=== PATIENT | female | born 1985 | race Caucasian/White ===

== ENCOUNTER 2021-04-04 18:25 | Emergency (ER) | payer OTHER ==
[~2021-04-04] VITALS: Ht 162.6 cm; Wt 67.7 kg
[~2021-04-04 18:25] MED LIST: ABIL20TA2 OR; AMBIE; AMBIEN CR PO; CHLO200T OR; DEPA250T2 OR; DEPA500T2 OR; DOCU5LIQ PO; FERR325T3 PO; IBUP80TA PO; LEXA1TAB2 OR; MILK10SU PO; OXYC1TAB23 PO; PRAZOSIN PO; PRENTAB66 PO; PRISTIQ PO; ZYPR5TAB PO; [UNRECOGNIZED DRUG - OTHER] EX
[2021-04-04] MEDS ORDERED: CLONI1TA PO ×2 (19:26)
[2021-04-04] MEDS ORDERED: AMBI12.52 PO (19:26)
[2021-04-04] MEDS ORDERED: NS 1,000 ML IV ONE (21:20)
[2021-04-04] MEDS ORDERED: KETOROLAC 30 MG/ML 1ML VIAL IV ONE (21:25)
[2021-04-04 21:52] LABS: BASO # 0.1 10^3/uL (0.0-0.2); BASO % 0.5 % (0.0-1.0); EOS # 0.2 10^3/uL (0.0-0.5); EOS % 1.1 % (0.0-3.0); HEMATOCRIT 43.3 % (36.0-47.0); HEMOGLOBIN 14.1 g/dl (12.0-15.5); LYMPH # 4.4 10^3/uL (1.5-5.0); MEAN CORPUSCULAR HEMOGLOBIN 27.5 pg (27.0-33.0); MEAN CORPUSCULAR HGB CONC 32.6 g/dl (32.0-36.5); MEAN CORPUSCULAR VOLUME 84.4 fl (80.0-96.0); MONO # 0.8 10^3/uL (0.0-0.8); MONO % 5.3 % (2.0-8.0); NEUTROPHILS # 9.7 10^3/uL (1.5-8.5); NEUTROPHILS % 63.7 % (36.0-66.0); PLATELET COUNT, AUTOMATED 530 10^3/uL (150-450); RED BLOOD COUNT 5.13 10^6/uL (4.00-5.40); WHITE BLOOD COUNT 15.2 10^3/uL (4.0-10.0)
[2021-04-04 22:21] LABS: ALBUMIN 4.2 GM/DL (3.2-5.2); BILIRUBIN,DIRECT 0.1 MG/DL (0.0-0.2); BILIRUBIN,TOTAL 0.4 MG/DL (0.2-1.0); TOTAL PROTEIN 8.7 GM/DL (6.4-8.2)
[2021-04-04] MEDS ORDERED: ISOVUE-370 76% 100ML VIAL As Ordered ONE (23:25)
[2021-04-04] MEDS ORDERED: MORPHINE 4 MG/ML 1ML VIAL/SYRINGE (J2270) IV ONE (23:35)
[2021-04-05] MEDS ORDERED: ONDANSETRON 4MG/2ML VIAL IV ONE (00:20)
--- NOTE | 2021-04-05 00:32 | REPVR ---
PROCEDURE INFORMATION: Exam: CT Abdomen And Pelvis With Contrast Exam date and time: 04/04/2021 9:18 PM Age: 36 years old Clinical indication: Abdominal pain; Generalized TECHNIQUE: Imaging protocol: Computed tomography of the abdomen and pelvis with contrast. Radiation optimization: All CT scans at this facility use at least one of these dose optimization techniques: automated exposure control; mA and/or kV adjustment per patient size (includes targeted exams where dose is matched to clinical indication); or iterative reconstruction. Contrast material: ISO; Contrast volume: 100 ml; Contrast route: INTRAVENOUS (IV); COMPARISON: No relevant prior studies available. FINDINGS: Lungs: No suspicious mass or airspace process in the visualized lung bases. Liver: Liver appears normal with no focal abnormality. Gallbladder and bile ducts: Gallbladder is surgically absent. Pancreas: Pancreas appears normal. No focal mass or peripancreatic inflammation. Spleen: Spleen appears homogeneous without focal mass. Adrenal glands: Right adrenal gland nodule measuring 10 mm is present. Left adrenal gland nodules measuring 13 and 10 mm are present. Kidneys and ureters: Left kidney is unremarkable. Right kidney demonstrates patchy decreased enhancement in attenuation in the lower pole and mild hydronephrosis, with a proximal right ureter stone measuring 4 x 2 mm at the right UPJ. Stomach and bowel: Sigmoid surgical anastomosis with partial left hemicolectomy. No obstructive change. Appendix: Appendix may be surgically absent. Intraperitoneal space: . No free air. No significant fluid collection. Vasculature: No aortic aneurysm. Main portal and splenic veins enhance normally. Lymph nodes: No enlarged lymph nodes. Urinary bladder: Urinary bladder appears normal. Reproductive: IUD is present in the uterus. No enlargement of the uterus or ovaries. Bones/joints: Bony structures show no acute fracture or destructive process. Soft tissues: No effacement of normal fat planes in the ischiorectal fossa. No dehiscence of prior abdominal wall incisions. IMPRESSION: 1. Mild right hydronephrosis secondary to a 4 x 2 mm proximal right ureter stone at the right UPJ. Decreased attenuation enhancement in the lower pole right kidney may reflect focal pyelonephritis superimposed. 2. No obvious complication involving the partial colectomy and surgical anastomosis 3. Bilateral adrenal gland masses which can be evaluated on outpatient basis with noncontrast CT COMMENTS: Consistent with the [employer]'s Incidental Findings Committee white paper (J Am Milena Radiol 2017): Any incidental adrenal lesion less than or equal to 1 cm is likely benign. No follow-up imaging is recommended for these lesions per consensus recommendations based on imaging criteria. Further lab evaluation could be pursued if warranted based on clinical findings. Electronically signed by: Jeffry Escobedo On 04/05/2021 00:31:49 AM
[2021-04-05] MEDS ORDERED: TAMSULOSIN 0.4 MG CAP PO ONE (01:25)
[2021-04-05] MEDS ORDERED: NORCO 5/325MG TABLET (BULK FOR ED) PO ONE (01:25)
[2021-04-05] MEDS ORDERED: HYDR-3713 PO (01:31)
[2021-04-05] MEDS ORDERED: FLOM0.4C39 PO (01:31)
[2021-04-05] MEDS ORDERED: ONDA4TAB6 PO (01:31)
[2021-04-05 01:42] VITALS: BP 160/90
--- NOTE | 2021-04-05 11:44 | ED PDOC ---
Post-Departure Follow-Up ft ambrocio kim faxed formal report of ct abd/p for fu Bryce Stanton MD Apr 05, 2021 11:44
== END 2021-04-05 01:46 | disposition home or self-care (01) ==
LOC: M ED 18:25
DX: N20.1 Calculus of ureter (principal); R10.9 Unspecified abdominal pain; G89.29 Other chronic pain; D47.3 Essential (hemorrhagic) thrombocythemia; I10 Essential (primary) hypertension; Z79.899 Other long term (current) drug therapy; Z88.8 Allergy status to other drugs, medicaments and biological substances; Z62.810 Personal history of physical and sexual abuse in childhood; Z87.19 Personal history of other diseases of the digestive system; Z90.49 Acquired absence of other specified parts of digestive tract; Z98.890 Other specified postprocedural states
CPT/HCPCS: 74177; 80047; 80076; 81001; 83690; 84702; 85025; 87086; 96374; 96375; 99284; J1885; J2270; J2405; Q9967

== ENCOUNTER → 2021-06-03 | Outpatient (REF) | payer OTHER ==
[~2021-06-03] MED LIST changes: +AMBI12.52 PO; +CLONI1TA PO; +FLOM0.4C39 PO; +HYDR-3713 PO; +ONDA4TAB6 PO
[2021-06-03 18:25] LABS: MALB URINE SIEMENS 29.6 MG/L; MAU/CREAT RATIO 21.4 MCG/MG (0.0-30.0)
== END ==
LOC: M LAB REF 17:11
PROVIDERS: ATTEND Nurse Practitioner Family
DX: E11.65 Type 2 diabetes mellitus with hyperglycemia (principal)

== ENCOUNTER 2021-07-07 19:57 | Emergency (ER) | payer OTHER ==
[~2021-07-07] VITALS: Ht 162.6 cm; Wt 74.2 kg
[2021-07-07 19:58] VITALS: BP 182/94
--- OUTSIDE RECORDS SUMMARY | 2021-07-07 20:07 | CCD | Continuity of Care Document ---
Author Author Elma MATTHEW M.D. Organization Unknown Address [facility] [address] [place] [address] Phone [phone] Care Team Providers Care Restrike Hammer Operator Name Role Phone Usa Anselmo Kwon [facility] AUT Unavailable Problems Description No Information Available Social History Type Date Description Comments Sex Unknown Tobacco Use Start: Unknown Never Smoked Cigarettes Tobacco Use Start: Unknown Never Smoked Cigars Tobacco Use Start: Unknown Never Smoked A Pipe Tobacco Use Start: Unknown Never Used Smokeless Tobacco ETOH Use Denies alcohol use Tobacco Use Start: Unknown Patient has never smoked Recreational Drug Use Denies Drug Use Allergies and adverse reactions Active Allergies Criticality Reaction | Severity Comments Date Wellbutrin Unable to assess criticality 06/08/2021 Medications Active Medications SIG Qnty Indications Ordering Provide r Date Zofran 4mg Tablets take 1 tab by mouth every 8 hours for nausea Unknown 000 Clonidine HCL 0.3mg Tablets Unknown Zolpidem Tartrate ER 12.5mg Tablet s ER take one tablet by mouth at bedtime as needed for sleep maximum daily dose 1 Unknown [place] 5-325mg Tablets 1 by mouth every 6 hours as directed Unknown Celexa 10mg Tablets 1 by mouth every day Unknown Metformin HCL 1000mg Tablets Unknown Immunizations Description No Information Available Vital Signs Date Vital Result Comment 06/08/2021 10:55am BP Systolic 118 mmHg BP Diastolic 74 mmHg Heart Rate 80 /min O2 % BldC Oximetry 97 % Weight 160.00 lb Weight 72.576 kg Height 64 inches 5'4" BMI (Body Mass Index) 27.5 kg/m2 BSA (Body Surface Area) 1.78 m2 Results Test Acquired Date Facility Test Result H/L Range Note Inhouse Ua 06/08/2021 In Office Ua Color yellow Normal: Yellow Ua Appearance clear Normal: Clear Spec [place] 1.015 1.001-1.030 Ua PH Test Strip 5 5-9 Leukocytes - Normal: Negative Ua Nitrate - Normal: Negative Ua Protein 30 High Normal: Negative Inhouse Glucose - Normal: Negative Ua Ketones - Noraml: Negative Urobilinogen - Normal: Negative Ua Bilirubin - Normal: Negative Blood - Noraml: Negative Procedures Date Code Description Status 06/08/2021 97605 Office/Outpatient New MDM 15- 29 Minutes Completed Medical Devices Description No Information Available Encounters Type Date Location Provider Dx Diagnosis Office Visit 06/08/2021 11:00a [facility] Cole Matthew M.D. N20.0 Calculus of kidney R80.9 Proteinuria, unspecified Assessments Date Code Description Provider 06/08/2021 N20.0 Calculus of kidney Cole Matthew M.D. 06/08/2021 R80.9 Proteinuria, unspecified Cole Matthew M.D. Plan of Treatment 06/08/2021 - Cole Matthew M.D.* N20.0 Calculus of kidney* New Xrays:* Abdomen 1 View, Scheduled: 06/08/21 * Comments:* 1. Patient presents to the clinic today for evaluation and management of kidney stone.2. Physical examination completed in the office was unremarkable.3. Urinalysis was positive for protein of 30, otherwise unremarkable.4. We are not sure whether she completely passed her stone or not.5. We will obtain a KUB to determine radio-opacity of the stone to help in management and/or follow up and surveillance of the stone and we will treat her accordingly. 6. She was advised to call or RTC if she develops any concerns. 7. We will do a telemedicine consultation for result review and further plan of care. * R80.9 Proteinuria, unspecified* Comments:* Urinalysis was positive for protein of 30, otherwise unremarkable. Result was reviewed with the patient at length. Functional Status Functional Condition Comment Date Status wears contacts Active Mental Status Description No Information Available Referrals Description No Information Available
--- OUTSIDE RECORDS SUMMARY | 2021-07-07 20:07 | CCD | Continuity of Care Document ---
Author Author Elma CISNEROS Organization Unknown Address [address] [address] Phone [phone] Care Team Providers Care Supervisor Logging Name Role Phone Rogers Wilson MD [facility] [phone] Problems Description No Information Available Social History Type Date Description Comments Sex Unknown Tobacco Use Start: Unknown Never Smoked Cigarettes Smoking Status Reviewed: 06/03/21 Never Smoked Cigarettes ETOH Use Never used alcohol Allergies and adverse reactions Active Allergies Criticality Reaction | Severity Comments Date Wellbutrin Unable to assess criticality 06/03/2021 Medications Active Medications SIG Qnty Indications Ordering Provide r Date Metformin HCL ER 500mg Tablets ER 24HR take one tablets by mouth twice a day 60tabs E11.65 Tasia Cisneros NP 06/03/2021 Clonidine HCL 0.3mg Tablets 2 by mouth in am and 4 by mouth at night Unknown 0000 /0000 Ambien CR 12.5mg Tablets ER 1 by mouth daily Unknown Immunizations Description No Information Available Vital Signs Date Vital Result Comment 06/03/2021 2:42pm BP Systolic 122 mmHg BP Diastolic 80 mmHg Heart Rate 63 /min Height 63.4 inches 5'3.40" Weight 161.19 lb BMI (Body Mass Index) 28.2 kg/m2 O2 % BldC Oximetry 98 % Results Test Acquired Date Facility Test Result H/L Range Note Urine Micro/Creat Ratio Random 06/03/2021 [facility] [address] [place] [address] ([phone] - Creatinine, Urine 138.0 mg/dL Normal Malb Urine Siemens 29.6 mg/L Normal Jesse/Creat Ratio 21.4 MCG/MG Normal 0.0-30.0 1 Laboratory test finding 06/03/2021 In House Glucose 125 Hemoglobin A1c 7.5 1 THE [place] DI[employer] ASSOC[employer] ATION STATES THAT MICROALBUMINURIA IS PRESENT IF THE MICROALBUMIN/CREATININE RATIO EXCEEDS 30 MCG/MG. THE THRESHOLD FOR CLINICAL ALBUMINURIA IS REACHED AT 300 MCG/MG. THE CLASSIFICATION OF A PATIENT SHOULD BE BASED UPON AT LEAST 2 OF 3 ABNORMAL RESULTS ON SPECIMENS COLLECTED WITHIN A 3 TO 6 MONTH TIME FRAME. Procedures Date Code Description Status 06/03/2021 44794 Consultation Outpatient Level 4 Completed Medical Devices Description No Information Available Encounters Type Date Location Provider Dx Diagnosis Office Visit 06/03/2021 2:45p DR. 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 Gisel Prince 06/03/2021 - Tasia Cisneros NP* E11.65 Type 2 diabetes mellitus with hyperglycemia* New Medication:* Metformin HCL ER 500 mg - take one tablets by mouth twice a day * Comments:* Pt referred for evaluation of Type 2 Diabetes. Pt states has not been seen by "anyone" for Diabetes. 06/03/21- in office A1c= 7.5 % (03/25/21- out of office 6.7 %, 10/06/20- A1c= 7.5 %) Random BS= 125Just got a Relion meter today. Has not started checking BSReviewed diet- trying to watch carbs.Exercise- trying to get back into- just had surgery in JanuaryCurrent medication- none. Discussed possible treatments. Pt had been on Metformin when dx with PCOS 2014- tolerated well. Will restart Metformin ER 500mg- escalate to 1 tab BID * Follow up:* RTO 1 month JL * D35.02 Benign neoplasm of left adrenal gland* Comments:* Pt states had full workup in [place] for adrenal function 10/06/20- CT Abd/Pelvis with IV contrast- report only available- study performed in [place] PT states had repeat CT scan in [place] T scan with contrast done 04/2021 at [facility] after pt developed kidney stones. 2 nodules on Left Adrenal- 15mm and -2 HU and 9mm, 8 HU. Right Adrenal 10mm and ) HU. Labs done 03/25/21- scr= 0.94, GFR= >60, Na+ = 140, K+ = 4.50 5% of patients with incidental adrenal nodules prove to have a pheochromocytoma. The pretest probability of pheochromocytoma in this case in low.The testing of Urine metanephrines (by mass SPECT) is 97% sensitive (a negative test rules out disease) and 91% specific (a positive test rules in disease).The testing of PLASMA metanephrines (by mass SPECT) is 97% sensitive (a negative test rules out disease) and 94% specific (a positive test rules in disease). However patient should have blood drawn in the supine position after 30 minutes otherwise the plasma levels can be 2.8 fold increase in false positive results. a)Sizes: 4 cm - cut off value of 93% sensitivity of detecting adrenal cancer.b) CT scanLow attenuation (black/less dense) on unenhanced CTc) HU <10 (unenhanced CT) is usually benign/almost 100% of the timed) Rapid contrast washout-benigne) MRI: Mild enhancement and rapid washout of contrast (Benign nodules: Lose signal on out of phase images), Iso intense: Both T1 and T2Per Endocrine guidelines a homogeneous mass, with a smooth border, and a HU <[address] is likely to be benign Whereas malignant lesions are typically :irregular, Size >4 cm, HU> 10 , on CT- delayed contrast washout, on MRI: Marked enhancement slower washout/ hypointense on T1 MRIIn terms of function :Although most adrenal nodules are nonfunctional, 10-15% can secrete hormonesAll patient's: Should be tested for [place]'s and pheochromocytoma(and if hypertensive they should should be tested for aldosterone excess ++++++)a) Subclinical Scarlett's is the most common hormonal abnormality detected Diagnosis: -1 mg overnight dexamethasone suppression test If test is abnormal: Do the followin hour urine free cortisol/ACTH/DHEAS/8 mg overnight DST (+ Positive DST defined as 8 AM cortisol >5)b) Pheochromocytoma: incidence3% of adenomas -Plasma fractionated metanephrines the test is very sensitive but not very specific therefore there will be false positives. Consider clinical suspicion. However patient should have blood drawn in the supine position after 30 minutes otherwise the plasma levels can be 2.8 fold increase in false positive results. -If low suspicion may perform 24-hour urine fractionated metanephrines Aldosterone aromas are rare. All patient's with hypertension should be tested.Pt notes workup was performed to detemine funct ion of adrenal glands in [facility] attempt to obtain prior records. Follow-up includes: : -Repeat imaging 6-12 months -Imaging thereafter at the discretion of the provider. -Repeat 1 mg DST for 4 consecutive years * Z01.89 Encounter for other specified special examinations* Comments:* Foot Exam performed 06/03/21 . Normal light touch and monofilament testing and vibration. Functional Status Description No Information Available Mental Status Description No Information Available Referrals Refer to Reason for Referral Status Appt Date Gisel Prince MD ADRENAL Created [facility], [address] [place] [address] [phone]
--- OUTSIDE RECORDS SUMMARY | 2021-07-07 20:07 | CCD ---
Author Author [facility] Organization [facility] Address Unknown Phone Unavailable Care Team Providers Care Physical Therapy Technician Name Role Phone Kirill Kang Unavailable PROBLEMS No Information ALLERGIES Allergen (clinical drug ingredient) Drug/Non Drug Allergy do cumented on EMR Reaction Allergy Type Onset Date Status bupropion Bupropion SEIZURES Drug Allergy Active ENCOUNTERS from 1983 to 2021-06-10 Encounter Location Date Provider Diagnosis [facility] [address] [place] [address] 24 , 2020 Kirill Kang Screening for colon cancer Z12.11 IMMUNIZATIONS No Information SOCIAL HISTORY Sex Assigned At : Social History Observation Description Sex Assigned At Unknown REASON FOR REFERRAL No Information VITAL SIGNS Height 64 in Apr, Weight 150.0 lbs Apr, BMI 25.74 kg/m2 Apr, Temperature 98.1 degrees Fahrenheit Apr, Heart Rate 68 /min Apr, Respiratory Rate 18 /min Apr, Oximetry 99 % Apr, Blood pressure systolic 110 mmHg Apr, Blood pressure diastolic 86 mmHg Apr, MEDICATIONS Medication SIG (Take, Route, Frequency, Duration) Notes Start Da te End Date Status Zolpidem Tartrate ER 12.5 MG 1 tablet at bedtime as needed Orall y Once a day Active cloNIDine HCl 0.1 MG 1 tablet Orally Once a day for 30 day(s) Active PROCEDURES No Information RESULTS No Results REASON FOR VISIT Empiric Colectomy- due for follow up MEDICAL (GENERAL) HISTORY Type Description Date Medical History POTS position orthostatic tachycardia on clonidine Medical History Type 2 Diabetes new daignosis Medical History Depression and anxiety Medical History aFAP Medical History Kidney stones Surgical History Robotic assisted colectomy, likely ileo-rectal as had no diverting loop ileostomy 2021 Surgical History D/C 2007 2007 Surgical History 2013, 1 prior 2012 Surgical History Lipo/Tummy tuck 2014 2016 Surgical History gallbladder removal lap 2018 Hospitalization History periodic hospitalizations fo r seizures, pancreatitis, flank pain near pancreatitis Goals Section No Information Health Concerns No Information MEDICAL EQUIPMENT No Information MENTAL STATUS No Information FUNCTIONAL STATUS No Information ASSESSMENTS Encounter Date Diagnosis Assessment Notes Treatment Notes Treatm ent Clinical Notes Apr, Screening for colon cancer (ICD-10 - Z12.11) The patient presents for colorectal cancer screening. The patient was informed about multiple modalities of screening and they opted for colonoscopy. The risks including but not limited to colonic perforation and benefits were explained to the patient. Pt v/u and agreeable. PLAN OF TREATMENT Treatment Notes Assessment Notes Clinical Notes Screening for colon cancer The patient presents for co lorectal cancer screening. The patient was informed about multiple modalities of screening and they opted for colonoscopy. The risks including but not limited to colonic perforation and benefits were explained to the patient. Pt v/u and agreeable. Insurance Providers Payer Name Payer Address Payer Phone Insured Name Patient Relati onship to Insured Coverage Start Date Coverage End Date [facility] Diabetica [id number] [address] [id number] [facility] [id number] Elma Reeves V self
--- OUTSIDE RECORDS SUMMARY | 2021-07-07 20:08 | CCD | Continuity of Care Document ---
Author Author Elma CISNEROS Organization Unknown Address [address] [address] Phone [phone] Care Team Providers Care Rating Examiner Name Role Phone Rogers Wilson MD [facility] [phone] Problems Description No Information Available Social History [...] Range Note Urine Micro/Creat Ratio Random 06/03/2021 [facility] [address] [place] [address] ([phone] - Creatinine, Urine 138.0 mg/dL Normal Malb Urine Siemens 29.6 mg/L Normal Jesse/Creat Ratio 21.4 MCG/MG Normal 0.0-30.0 1 Laboratory test finding 06/03/2021 In House Glucose 125 Hemoglobin A1c 7.5 1 THE [place] [employer] ASSOC[employer] ATION STATES THAT MICROALBUMINURIA IS PRESENT IF THE MICROALBUMIN/CREATININE RATIO EXCEEDS 30 MCG/MG. THE THRESHOLD FOR CLINICAL ALBUMINURIA IS REACHED AT 300 MCG/MG. THE CLASSIFICATION OF A PATIENT SHOULD BE BASED UPON AT LEAST 2 OF 3 ABNORMAL RESULTS ON SPECIMENS COLLECTED WITHIN A 3 TO 6 MONTH TIME FRAME. Procedures Date Code Description Status 06/03/2021 25133 Consultation Outpatient Level 5 Completed Medical Devices Description No Information Available [...] Comments:* Pt states had full workup in [place] for adrenal function 10/06/20- CT Abd/Pelvis with IV contrast- report only available- study performed in [place] PT states had repeat CT scan in [place] T scan with contrast done 04/2021 at [facility] after pt developed kidney stones. Labs done 03/25/21- scr= 0.94, GFR= >60, Na+ = 140, K+ = 4.50 * Z01.89 Encounter for other specified special examinations* Comments:* Foot Exam performed 06/03/21 . Normal light touch and monofilament testing and vibration. Functional Status Description No Information Available Mental Status Description No Information Available Referrals Refer to Dr Reason for Referral Status Appt Date Gisel Prince MD ADRENAL Created [address] [facility], [address] [place] [address] [phone]
--- OUTSIDE RECORDS SUMMARY | 2021-07-07 20:08 | CCD | Continuity of Care Document ---
Author Author Elma CISNEROS Organization Unknown Address [address] [address] Phone [phone] Care Team Providers Care Results Technician Name Role Phone Rogers Wilson MD [facility] [phone] Problems Description No Information Available Social History [...] Range Note Urine Micro/Creat Ratio Random 06/03/2021 [facility] [address] [place] [address] [phone] - Creatinine, Urine 138.0 mg/dL Normal Malb Urine Siemens 29.6 mg/L Normal Jesse/Creat Ratio 21.4 MCG/MG Normal 0.0-30.0 1 Laboratory test finding 06/03/2021 In House Glucose 125 Hemoglobin A1c 7.5 1 THE [place] DIABETES ASSOC[employer] ATION STATES THAT MICROALBUMINURIA IS PRESENT IF THE MICROALBUMIN/CREATININE RATIO EXCEEDS 30 MCG/MG. THE THRESHOLD FOR CLINICAL ALBUMINURIA IS REACHED AT 300 MCG/MG. THE CLASSIFICATION OF A PATIENT SHOULD BE BASED UPON AT LEAST 2 OF 3 ABNORMAL RESULTS ON SPECIMENS COLLECTED WITHIN A 3 TO 6 MONTH TIME FRAME. Procedures Date Code Description Status 06/03/2021 90089 Consultation Outpatient Level 5 Completed Medical Devices [...] Comments:* Pt states had full workup in [place] for adrenal function 10/06/20- CT Abd/Pelvis with IV contrast- report only available- study performed in [place] PT states had repeat CT scan in [place] T scan with contrast done 04/2021 at [facility] after pt developed kidney stones. Labs done [...] Date Gisel Prince MD ADRENAL Created [address] [facility], [address] [place] [address] [phone]
--- OUTSIDE RECORDS SUMMARY | 2021-07-07 20:08 | CCD | Continuity of Care Document ---
Author Author [facility], Evita bryant V Organization Unknown Address [address] [place] [address] Phone [phone] Care Team Providers Care Clerical Specialist Name Role Phone Usa Anselmo Kwon AUTM Unavailable Problems Description No Information Available Social [...] for sleep maximum daily dose 1 Unknown [place] 5-325mg Tablets 1 by mouth every 6 [...] Yellow Ua Appearance clear Normal: Clear Spec [place] 1.015 1.001-1.030 Ua PH Test Strip 5 5-9 Leukocytes - Normal: Negative Ua Nitrate - Normal: Negative Ua Protein 30 High Normal: Negative Inhouse Glucose - Normal: Negative Ua Ketones - Noraml: Negative Urobilinogen - Normal: Negative Ua Bilirubin - Normal: Negative Blood - Noraml: Negative Procedures Description No Information Available Medical Devices Description No Information Available Encounters Description No Information Available Assessments Description No Information Available Plan of Treatment No Information Available Functional Status Functional Condition Comment Date Status wears contacts Active Mental Status Description No Information Available Referrals Description No Information Available
--- OUTSIDE RECORDS SUMMARY | 2021-07-07 20:08 | CCD ---
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 Name Role Phone SALMARLYN CLIFFORD Unavailable Unavailable GABRIEL, B BESSY CAT SITTER Unavailable Unavailable GABRIEL, B BESSY CAT SITTER Unavailable Unavailable GABRIEL, B BESSY CAT SITTER Unavailable Unavailable GABRIEL, B BESSY CAT SITTER Unavailable Unavailable GABRIEL, B BESSY CAT SITTER Unavailable Unavailable GABRIEL, B BESSY CAT SITTER Unavailable Unavailable GABRIEL, B BESSY CAT SITTER Unavailable Unavailable GABRIEL, B BESSY CAT SITTER Unavailable Unavailable GABRIEL, B BESSY CAT SITTER Unavailable Unavailable GABRIEL, B BESSY CAT SITTER Unavailable Unavailable GABRIEL, B BESSY CAT SITTER Unavailable Unavailable GABRIEL, B BESSY CAT SITTER Unavailable Unavailable GABRIEL, B BESSY CAT SITTER Unavailable Unavailable GABRIEL, B BESSY CAT SITTER Unavailable Unavailable GABRIEL, B BESSY CAT SITTER Unavailable Unavailable GABRIEL, B BESSY CAT SITTER Unavailable Unavailable GABRIEL, B BESSY CAT SITTER Unavailable Unavailable GABRIEL, B BESSY CAT SITTER Unavailable Unavailable GABRIEL, B BESSY CAT SITTER Unavailable Unavailable GABRIEL, B BESSY CAT SITTER Unavailable Unavailable GABRIEL, B BESSY CAT SITTER Unavailable Unavailable GABRIEL, B BESSY CAT SITTER Unavailable Unavailable GABRIEL, B BESSY CAT SITTER Unavailable Unavailable GABRIEL, B BESSY CAT SITTER Unavailable Unavailable GABRIEL, B BESSY CAT SITTER Unavailable Unavailable GABRIEL, B BESSY CAT SITTER Unavailable Unavailable GABRIEL, B BESSY CAT SITTER Unavailable Unavailable GABRIEL, B BESSY CAT SITTER Unavailable Unavailable GABRIEL, B BESSY CAT SITTER Unavailable Unavailable GABRIEL, B BESSY CAT SITTER Unavailable Unavailable GABRIEL, B BESSY CAT SITTER Unavailable Unavailable GABRIEL, B BESSY CAT SITTER Unavailable Unavailable GABRIEL, B BESSY CAT SITTER Unavailable Unavailable GABRIEL, B BESSY CAT SITTER Unavailable Unavailable GABRIEL, B BESSY CAT SITTER Unavailable Unavailable GABRIEL, B BESSY CAT SITTER Unavailable Unavailable GABRIEL, B BESSY CAT SITTER Unavailable Unavailable GABRIEL, B BESSY CAT SITTER Unavailable Unavailable GABRIEL, B BESSY CAT SITTER Unavailable Unavailable GABRIEL, B BESSY CAT SITTER Unavailable Unavailable GABRIEL, B BESSY CAT SITTER Unavailable Unavailable GABRIEL, B BESSY CAT SITTER Unavailable Unavailable GABRIEL, B BESSY CAT SITTER Unavailable Unavailable GABRIEL, B BESSY CAT SITTER Unavailable Unavailable GABRIEL, B BESSY CAT SITTER Unavailable Unavailable GABRIEL, B BESSY CAT SITTER Unavailable Unavailable GBARIEL, B BESSY CAT SITTER Unavailable Unavailable GABRIEL, B BESSY CAT SITTER Unavailable Unavailable GABRIEL, B BESSY CAT SITTER Unavailable Unavailable GABRIEL, B BESSY CAT SITTER Unavailable Unavailable GABRIEL, B BESSY CAT SITTER Unavailable Unavailable GABRIEL, B BESSY CAT SITTER Unavailable Unavailable GABRIEL, B BESSY CAT SITTER Unavailable Unavailable GABRIEL, B BESSY CAT SITTER Unavailable Unavailable AGBRIEL, B BESSY CAT SITTER Unavailable Unavailable GABRIEL, B BESSY CAT SITTER Unavailable Unavailable GABRIEL, B BESSY CAT SITTER Unavailable Unavailable GABRIEL, B BESSY CAT SITTER Unavailable Unavailable GABRIEL, B BESSY CAT SITTER Unavailable Unavailable GABRIEL, B BESSY CAT SITTER Unavailable Unavailable GABRIEL, B BESSY CAT SITTER Unavailable Unavailable GABRIEL, B BESSY CAT SITTER Unavailable Unavailable PAT, J OLAF Unavailable Unavailable Christiano MATTHEW MD Unavailable Unavailable Christiano MATTHEW MD Unavailable Unavailable Christiano MATTHEW MD Unavailable Unavailable Christiano MATTHEW MD Unavailable Unavailable Christiano MATTHEW MD Unavailable Unavailable Christiano MATTHEW MD Unavailable Unavailable Christiano MATTHEW MD Unavailable Unavailable Christiano MATTHEW MD Unavailable Unavailable Christiano MATTHEW MD Unavailable Unavailable Christiano MATTHEW MD Unavailable Unavailable Christiano MATTHEW MD Unavailable Unavailable Christiano MATTHEW MD Unavailable Unavailable Christiano MATTHEW MD Unavailable Unavailable Christiano MATTHEW MD Unavailable Unavailable Christiano MATTHEW MD Unavailable Unavailable Christiano MATTHEW MD Unavailable Unavailable Christiano MATTHEW MD Unavailable Unavailable OBEN, T COLE MD Unavailable Unavailable OBEN, T COLE MD Unavailable Unavailable OBEN, T COLE MD Unavailable Unavailable OBEN, T COLE MD Unavailable Unavailable OBEN, T COLE MD Unavailable Unavailable OBEN, T COLE MD Unavailable Unavailable OBEN, T COLE MD Unavailable Unavailable OBEN, T COLE MD Unavailable Unavailable OBEN, T COLE MD Unavailable Unavailable OBEN, T COLE MD Unavailable Unavailable OBEN, T COLE MD Unavailable Unavailable OBEN, T COLE MD Unavailable Unavailable OBEN, T COLE MD Unavailable Unavailable OBEN, T COLE MD Unavailable Unavailable OBEN, T COLE MD Unavailable Unavailable OBEN, T COLE MD Unavailable Unavailable OBEN, T COLE MD Unavailable Unavailable OBEN, T COLE MD Unavailable Unavailable OBEN, T COLE MD Unavailable Unavailable OBEN, T COLE MD Unavailable Unavailable OBEN, T COLE MD Unavailable Unavailable OBEN, T COLE MD Unavailable Unavailable OBEN, T COLE MD Unavailable Unavailable OBEN, T COLE MD Unavailable Unavailable OBEN, T COLE MD Unavailable Unavailable OBEN, T COLE MD Unavailable Unavailable OBEN, T COLE MD Unavailable Unavailable OBEN, T COLE MD Unavailable Unavailable OBEN, T COLE MD Unavailable Unavailable OBEN, T COLE MD Unavailable Unavailable OBEN, T COLE MD Unavailable Unavailable OBEN, T COLE MD Unavailable Unavailable OBEN, T COLE MD Unavailable Unavailable OBEN, T COLE MD Unavailable Unavailable OBEN, T COLE MD Unavailable Unavailable OBEN, T COLE MD Unavailable Unavailable OBEN, T COLE MD Unavailable Unavailable OBEN, T COLE MD Unavailable Unavailable OBEN, T COLE MD Unavailable Unavailable OBEN, T COLE MD Unavailable Unavailable OBEN, T COLE MD Unavailable Unavailable OBEN, T COLE MD Unavailable Unavailable OBEN, T COLE MD Unavailable Unavailable OBEN, T COLE MD Unavailable Unavailable OBEN, T COLE MD Unavailable Unavailable OBEN, T COLE MD Unavailable Unavailable OBEN, T COLE MD Unavailable Unavailable OBEN, T COLE MD Unavailable Unavailable OBEN, T COLE MD Unavailable Unavailable OBEN, T COLE MD Unavailable Unavailable OBEN, T COLE MD Unavailable Unavailable OBEN, T COLE MD Unavailable Unavailable OBEN, T COLE MD Unavailable Unavailable OBEN, T COLE MD Unavailable Unavailable OBEN, T COLE MD Unavailable Unavailable OBEN, T COLE MD Unavailable Unavailable OBEN, T COLE MD Unavailable Unavailable OBEN, T COLE MD Unavailable Unavailable OBEN, T COLE MD Unavailable Unavailable OBEN, T COLE MD Unavailable Unavailable OBEN, T COLE MD Unavailable Unavailable OBEN, T COLE MD Unavailable Unavailable OBEN, T COLE MD Unavailable Unavailable OBEN, T COLE MD Unavailable Unavailable OBEN, T COLE MD Unavailable Unavailable OBEN, T COLE MD Unavailable Unavailable OBEN, T COLE MD Unavailable Unavailable OBEN, T COLE MD Unavailable Unavailable OBEN, T COLE MD Unavailable Unavailable OBEN, T COLE MD Unavailable Unavailable OBEN, T COLE MD Unavailable Unavailable OBEN, T COLE MD Unavailable Unavailable OBEN, T COLE MD Unavailable Unavailable OBEN, T COLE MD Unavailable Unavailable OBEN, T COLE MD Unavailable Unavailable OBEN, T COLE MD Unavailable Unavailable OBEN, T COLE MD Unavailable Unavailable OBEN, T COLE MD Unavailable Unavailable OBEN, T COLE MD Unavailable Unavailable OBEN, T COLE MD Unavailable Unavailable OBEN, T COLE MD Unavailable Unavailable OBEN, T COLE MD Unavailable Unavailable OBEN, T COLE MD Unavailable Unavailable OBEN, T COLE MD Unavailable Unavailable OBEN, T COLE MD Unavailable Unavailable OBEN, T COLE MD Unavailable Unavailable OBEN, T COLE MD Unavailable Unavailable OBEN, T COLE MD Unavailable Unavailable OBEN, T COLE MD Unavailable Unavailable OBEN, T COLE MD Unavailable Unavailable OBEN, T COLE MD Unavailable Unavailable OBEN, T COLE MD Unavailable Unavailable OBEN, T COLE MD Unavailable Unavailable OBEN, T COLE MD Unavailable Unavailable OBEN, T COLE MD Unavailable Unavailable OBEN, T COLE MD Unavailable Unavailable OBEN, T COLE MD Unavailable Unavailable OBEN, T COLE MD Unavailable Unavailable OBEN, T COLE MD Unavailable Unavailable Jorge Luis, Kirill Unavailable Unavailable Jorge Luis Kirill Unavailable Unavailable Jorge Luis Kirill Unavailable Unavailable Jorge Luis Kirill Unavailable Unavailable Jorge Luis Kirill Unavailable Unavailable Jorge Luis Kirill Unavailable Unavailable Jorge Luis Kirill Unavailable Unavailable Jorge Luis Kirill Unavailable Unavailable Jorge Luis Kirill Unavailable Unavailable Jorge Luis Kirill Unavailable Unavailable Jorge Luis Kirill Unavailable Unavailable Jorge Luis Kirill Unavailable Unavailable Jorge Luis Kirill Unavailable Unavailable Jorge Luis Kirill Unavailable Unavailable Jorge Luis, Kirill MD Unavailable Unavailable Jorge Luis, Kirill MD Unavailable Unavailable Jorge Luis, Kirill MD Unavailable Unavailable Jorge Luis, Kirill MD Unavailable Unavailable CHANLIECCO, C IWONA MD Unavailable Unavailable CHANLIECCO, C IWONA MD Unavailable Unavailable CHANLIECCO, C IWONA MD Unavailable Unavailable CHANLIECCO, C IWONA MD Unavailable Unavailable CHANLIECCO, C IWONA MD Unavailable Unavailable CHANLIECCO, C IWONA MD Unavailable Unavailable CHANLIECCO, C IWONA MD Unavailable Unavailable CHANLIECCO, C IWONA MD Unavailable Unavailable CHANLIECCO, C IWONA MD Unavailable Unavailable CHANLIECCO, C IWONA MD Unavailable Unavailable CHANLIECCO, C IWONA MD Unavailable Unavailable Re-disclosure Warning The records that you are about to access may contain information from federally-assisted alcohol or drug abuse programs. If such information is present, then the following federally mandated warning applies: This information has been disclosed to you from records protected by federal confidentiality rules (42 CFR part 2). The federal rules prohibit you from making any further disclosure of this information unless further disclosure is expressly permitted by the written consent of the person to whom it pertains or as otherwise permitted by 42 CFR part 2. A general authorization for the release of medical or other information is NOT sufficient for this purpose. The Federal rules restrict any use of the information to criminally investigate or prosecute any alcohol or drug abuse patient.The records that you are about to access may contain highly sensitive health information, the redisclosure of which is protected by Article 27-F of the [facility] Public Health law. If you continue you may have access to information: Regarding HIV / AIDS; Provided by facilities licensed or operated by the [facility] Office of Mental Health; or Provided by the [facility] Office for People With Developmental Disabilities. If such information is present, then the following [facility] mandated warning applies: This information has been disclosed to you from confidential records which are protected by state law. State law prohibits you from making any further disclosure of this information without the specific written consent of the person to whom it pertains, or as otherwise permitted by law. Any unauthorized further disclosure in violation of state law may result in a fine or halfway sentence or both. A general authorization for the release of medical or other information is NOT sufficient authorization for further disc losure. Family History Family Member Name Family Member Gender Family Member Status Date o f Status Description Data Source(s) Unknown Female Problem [facility] ([facility]) Unknown Female Problem [facility] ([facility]) Encounters Encounter Providers Location Date Indications Data Source(s ) Outpatient Attender: COLE MATTHEW MD Family Practice 06/08/2021 11:00:0 0 AM EDT [facility] ([facility]) Outpatient Attender: COLE MATTHEW MDConsultant: MARLYN SAL 06/08/2021 10:51:00 AM EDT - 06/08/2021 10:51:00 AM EDT [facility] Outpatient Attender: BESSY RIOS NP Physical Therapy 02:45:00 PM EDT [facility] ([facility]) Outpatient Attender: Kirill Kang MD 05/13/2021 01:30:00 PM EDT [facility] Outpatient [facility] 05/13/2021 12:00:00 AM EDT eCW1 ([facility]) Emergency Attender: IWONA JASSO MDConsultant: MARLYN SAL 04/28/2021 02:40:00 PM EDT - 04/28/2021 04:40:00 PM EDT [facility] Patient discharged. Outpatient Attender: OLAF DENISESConsultant: MARLYN SAL 04/28/2021 09:55:00 AM EDT - 04/28/2021 10:55:00 AM EDT [facility] Medications Medication Brand Name Start Date Product Form Dose Route Admi nistrative Instructions Pharmacy Instructions Status Indications Reaction Description Data Source(s) 24 HR Metformin hydrochloride 500 MG Extended Release Oral Tablet Metformin HCL ER 06/03/2021 12:00:00 AM EDT ORAL active [facility] ([facility]) Insurance Providers Payer name Policy type / Coverage type Policy ID Covered alliance party ID Covered alliance party's relationship to marina Policy Marina Plan Information [facility] [id number] [facility] [id number] [facility] [place] [id number] 01 [id number] [facility] [id number] S [id number] [facility] HUMAN - PHYSICIAN [id number] 01 [id number] [facility] [place] - O/P [id number] [facility] [id number] [place] [employer] [id number] OTHER HEA UNAVAILABLE [id number] [place] O [id number] [facility] [id number] [facility] [id number] Problems, Conditions, and Diagnoses Code Display Name Description Problem Type Effective Dates Data Source(s) R809 Proteinuria, unspecified Proteinuria, unspecified Diag nosis 06/08/2021 10:51:00 AM [facility] N200 Calculus of kidney Calculus of kidney Diagnosis 10:51:00 AM [facility] 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 ACQUIRED ABSENCE OF OTHER SPECIFIED PARTS OF DIGES Diagnosis 05/13/2021 01:30:0 0 PM [facility] R94.5 Abnormal results of liver function studi es ABNORMAL RESULTS OF LIVER FUNCTION STUDIES Diagnosis 05/13/2021 01:30:00 PM [facility] l D12.6 Benign neoplasm of colon, unspecified BE NIGN NEOPLASM OF COLON, UNSPECIFIED Diagnosis 05/13/2021 01:30:00 PM [facility] Z8719 Personal history of other diseases of th e digestive system Personal history of other diseases of the digestive system Diagnosis 04/2021 02:40:00 PM [facility] N132 Hydronephrosis with renal and ureteral c alculous obstruction Hydronephrosis with renal and ureteral calculous obstruction Diagnosis 04/28/20 02:40:00 PM [facility] R1012 Left upper quadrant pain Left upper quadrant pain Diag nosis 04/28/2021 02:40:00 PM [facility] 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 Be nign neoplasm of left adrenal gland Diagnosis 04/28/2021 09:55:00 AM [facility] 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 B enign neoplasm of right adrenal gland Diagnosis 04/28/2021 09:55:00 AM [facility] K760 Fatty (change of) liver, not elsewhere c lassified Fatty (change of) liver, not elsewhere classified Diagnosis 04/28/2021 09:55:00 AM [facility] N202 Calculus of kidney with calculus of uret er Calculus of kidney with calculus of ureter Diagnosis 04/28/2021 09:55:00 AM EDT [facility] Surgeries/Procedures Procedure Description Date Indications Data Source(s) OFFICE OUTPATIENT NEW 20 MINUTES 06/08/2021 12:00:00 A M EDT [facility] ([facility]) OFFICE CONSULTATION NEW/ESTAB PATIENT 60 MIN 1 12:00:00 AM EDT [facility] ([facility]) OFFICE CONSULTATION NEW/ESTAB PATIENT 80 MIN 1 12:00:00 AM EDT [facility] ([facility] ) Results ID Date Data Source [id number] 06/08/2021 02:23:00 PM EDT [facility] [address] [place] [address] PHONE: [phone] FAX: [phone] Name .................. : ROBERTH TEMPLE V Acct Number.................. : [id number] ROOM. ................. : Number ................... : [id number] Stay type ............. : CLINIC Discharge Date......... ... : 06/08/21 Admit Date ...... ... : 06/08/21 Admit Phys .................... : OBENFELIX Date of ....... : 1985 Family Phys ................... : DORON PATTERSON Phone .................. : [phone] Age ................................ : 36 Film# .................. .:[id number] Sex ................................. : F Unsigned transcriptions are preliminary reports and do not represent a medical or legal document ABDOMEN 1 VIEW [id number] COMPLETE:06/08/21 11:50 31406 Reason for Exam: EVAL R PROX URETER CALC ABDOMINAL RADIOGRAPH SUPINE 1 VIEW. HISTORY: Stone proximal right ureter. COMPARISON: CT 04/28/2021 FINDINGS: Oval calcification to the right of the L2-3 disc space measuring 4 mm. This corresponds to a stone seen on the previous CT at the ureteropelvic junction. No other stones are seen. No dilated loops of bowel are seen. Multiple surgical clips scattered throughout the abdomen and pelvis are unchanged. Intrauterine device is seen in the midline pelvis. IMPRESSION: 4 mm stone to the right of the spine at the L2-3 level unchanged in position compared to previous CT. ____ Electronically Reviewed and Signed By Chapito Padilla MD , 06/08/21 14:23, FREDY Transcribe Initials: SSR, Transcribe Date: 06/08/21 14:10, Dictation Date: Page 1 of 1 Name Value Range Interpretation Code Description Data Alondra rce(s) Supporting Document(s) ID Date Data Source [id number] 06/08/2021 02:01:00 PM EDT [facility] ([facility]) Name Value Range Interpretation Code Description Data Alondra rce(s) Supporting Document(s) Appearance of Urine Laboratory test result [facility] ([facility]) Color of Urine Laboratory test result [facility] ([facility]) Spec Chapin 1.015 1.001-1.030 [facility] ([facility]) pH of Urine by Test strip 5 5-9 MEDE NT ([facility]) Leukocytes Laboratory test result [facility] ([facility]) Nitrate [Presence] in Urine Laboratory test result [facility] ([facility]) Inhouse Glucose Laboratory test result [facility] ([facility]) Protein [Presence] in Urine by Test strip 30 Above high normal [facility] ([facility]) Ketones [Presence] in Urine by Test strip [facility] Urobilinogen Laboratory test result [facility] ([facility]) Bilirubin.total [Presence] in Urine by Test strip Laboratory test res ult [facility] Blood type and Indirect antibody screen panel - Blood Laboratory test result [facility] ([facility]) ID Date Data Source [id number] 06/03/2021 03:27:00 PM EDT [facility] ([facility]) Name Value Range Interpretation Code Description Data Alondra rce(s) Supporting Document(s) Microalbumin/Creatinine [Mass Ratio] in Urine 21.4 MCG/MG 0.0-30.0 [facility] ([facility]) THE [employer] STATES THAT MICROALBUMINURIA IS PRESENT IF THE MICROALBUMIN/CREATININE RATIO EXCEEDS 30 MCG/MG. THE THRESHOLD FOR CLINICAL ALBUMINURIA IS REACHED AT 300 MCG/MG. THE CLASSIFICATION OF A PATIENT SHOULD BE BASED UPON AT LEAST 2 OF 3 ABNORMAL RESULTS ON SPECIMENS COLLECTED WITHIN A 3 TO 6 MONTH TIME FRAME. Creatinine [Mass/volume] in Urine 138.0 mg/dL [facility] ([facility]) Microalbumin [Mass/volume] in Urine 29.6 mg/L [facility] ID Date Data Source [id number] 06/03/2021 02:58:00 PM EDT [facility] Name Value Range Interpretation Code Description Data Alondra rce(s) Supporting Document(s) Glucose [Mass/volume] in Serum or Plasma 125 [facility]) Hemoglobin A1c/Hemoglobin.total in Blood 7.5 [facility]) ID Date Data Source [id number] 05/04/2021 04:25:00 PM EDT [facility] Received: 05/02/2021 at 12:41:00 QPT : [facility], [address], [address] [place] [address], [phone], Doc Bal MD Received: 05/02/2021 at 12:41:00 QPT : [facility], [address], [address] [place] [address], [phone], Doc Bal MD Received: 05/02/2021 at 12:41:00 AMD : [facility], [address], [place], [address], Lazaro Smith M.D.,PhD Name Value Range Interpretation Code Description Data Alondra rce(s) Supporting Document(s) Glucose [Mass/volume] in Serum or Plasma 102 mg/dL 65-99 Above high normal [facility] Fasting reference intervalFor someone without known diabetes, a glucose valuebetween 100 and 125 mg/dL is consistent withprediabetes and should be confirmed with afollow-up test. Urea nitrogen [Mass/volume] in Serum or Plasma 7 mg/dL 7 -25 Normal (applies to non-numeric results) [facility] Creatinine [Mass/volume] in Serum or Plasma 0.68 mg/dL 0.50 -1.10 Normal (applies to non-numeric results) [facility] eGFR NON-AFR. ARGENTINE 111 mL/min/1.73m2 > OR = 60 Normal (applies to non- numeric results) [facility] eGFR 129 mL/min/1.73m2 > OR = 60 Normal ( applies to non-numeric results) [facility] Urea nitrogen/Creatinine [Mass Ratio] in Serum or Plasma NOT APPLICABLE (calc) 6-22 [facility] Sodium [Moles/volume] in Serum or Plasma 137 mmol/L 135-146 Normal (applies to non-numeric results) [facility] Potassium [Moles/volume] in Serum or Plasma 4.8 mmol/L 3.5- 5.3 Normal (applies to non-numeric results) [facility] Chloride [Moles/volume] in Serum or Plasma 100 mmol/L 98-11 0 Normal (applies to non-numeric results) [facility] Carbon dioxide, total [Moles/volume] in Serum or Plasma 28 mmol/ L 20-32 Normal (applies to non-numeric results) [facility] Calcium [Mass/volume] in Serum or Plasma 9.8 mg/dL 8.6-10. 2 Normal (applies to non-numeric results) [facility] ID Date Data Source [id number] 05/04/2021 04:25:00 PM EDT [facility] Received: 05/02/2021 at 12:41:00 QPT : [facility], [address], [address] [place], [phone], Doc Bal MD Received: 05/02/2021 at 12:41:00 QPT : [facility], [address], [address] [place], [phone], Doc Bal MD Received: 05/02/2021 at 12:41:00 AMD : [facility], [address], [place], [phone], Lazaro Smith M.D.,PhD Name Value Range Interpretation Code Description Data Alondra rce(s) Supporting Document(s) Leukocytes [#/volume] in Blood by Automated count 10.5 Thousand/ uL 3.8-10.8 Normal (applies to non-numeric results) [facility] Erythrocytes [#/volume] in Blood by Automated count 5.40 Million /uL 3.80-5.10 Above high normal [facility] Hemoglobin [Mass/volume] in Blood 14.8 g/dL 11.7-15.5 Normal (applies to non- numeric results) [facility] Hematocrit [Volume Fraction] of Blood by Automated count 45.0 % 35.0-45.0 Normal (applies to non-numeric results) [facility] Erythrocyte mean corpuscular volume [Entitic volume] by Auto mated count 83.3 fL 80.0-100.0 Normal (applies to non-numeric results) [facility] Erythrocyte mean corpuscular hemoglobin [Entitic mass] by Automated count 27.4 pg 27.0-33.0 Normal (applies to non-numeric results) [facility] Erythrocyte mean corpuscular hemoglobin concentration [Mass/volume] by Automated count 32.9 g/dL 32.0-36.0 Normal (applies to non-numeric results) [facility] Erythrocyte distribution width [Ratio] by Automated count 12.5 % 11.0-15.0 Normal (applies to non-numeric results) [facility] Platelets [#/volume] in Blood by Automated count 379 Thousand/uL 140-400 Normal (applies to non-numeric results) [facility] Platelet mean volume [Entitic volume] in Blood by Kim 9.1 fL 7.5-12.5 Normal (applies to non-numeric results) [facility] Neutrophils [#/volume] in Blood by Automated count 5187 cells/uL 0332-2616 Normal (applies to non-numeric results) [facility] Lymphocytes [#/volume] in Blood by Automated count 4400 cells/uL 850-3900 Above high normal [facility] Monocytes [#/volume] in Blood by Automated count 630 cells/uL 200-950 Normal (applies to non-numeric results) [facility] Eosinophils [#/volume] in Blood by Automated count 231 cells/uL 15-500 Normal (applies to non-numeric results) [facility] Basophils [#/volume] in Blood by Automated count 53 cells/uL 0-200 Normal (applies to non-numeric results) [facility] Neutrophils/100 leukocytes in Blood by Automated count 49.4 % 38-80 Normal (applies to non-numeric results) [facility] Lymphocytes/100 leukocytes in Blood by Automated count 41.9 % 15-49 Normal (applies to non-numeric results) [facility] Monocytes/100 leukocytes in Blood by Automated count 6.0 % 0-13 Normal (applies to non-numeric results) [facility] Eosinophils/100 leukocytes in Blood by Automated count 2.2 % 0-8 Normal (applies to non-numeric results) [facility] Basophils/100 leukocytes in Blood by Automated count 0.5 % 0-2 Normal (applies to non-numeric results) [facility] Service comment Review of peripheral smear confirms automated results . [facility] COMMENT [facility] We received your handwritten test order and performedCBC with differential (includes hemogram, plateletcount and WBC with automated differential). If youintended to order a CBC without differential oranother test, please contact us at [phone] [employer] [phone] to adjust the billingappropriately. ID Date Data Source [id number] 05/04/2021 04:25:00 PM EDT [facility] Received: 05/02/2021 at 12:41:00 QPT : [facility], [address], [address] [place] [address], [phone], Doc Bal MD Received: 05/02/2021 at 12:41:00 QPT : [facility], [address], [address] [place], [address], Doc Bal MD Received: 05/02/2021 at 12:41:00 AMD : [facility], [address], [place], [address], Lazaro Smith M.D.,PhD Name Value Range Interpretation Code Description Data Alondra rce(s) Supporting Document(s) Natriuretic peptide.B prohormone N-Terminal [Mass/volume] in Serum or Plasma [facility] For Heart Failure (HF) diagnosis, refere nce ranges inpatients with dyspnea are based on Silviano FERNANDEZ, Et al.Am Silvana Cardiol. 2018;71:3017-4374.18-49 years:<= 300 pg/mL Normal, HF unlikely>= 450 pg/mL High probability of HF50-75 years:<= 300 pg/mL Normal, HF unlikely>= 900 pg/mL High probability of HF>75 years:<= 300 pg/mL Normal, HF unlikely>= 1800 pg/mL High probability of HFFor patients with coronary heart disease, the optimalrisk category cut points for incident HF or CVD (<253 pg/mL men, <372 pg/mL women) are based onYury T, et al. J Am Silvana Cardiol. 2007:50:205-14.For patients with existing HF, the optimal riskcategory cut point for HF progression (<300 pg/mL) isbased on Michela NAVARRETE, et al. Clin Biochem. 2010;43:1405-10.For additional information, please refer tohttp://education.Yunzhisheng/faq/HYW358(This link is being provided for informational/educational purposes only.) ID Date Data Source [id number] 04/28/2021 02:40:00 PM EDT [facility] 1 OrderSheet [facility] Emergency Department [address] [place] [address] Phone #: ext- [phone] 04/28/2021 14:39 Patient: MAVERICK LEPE Sex: F : 1985 Age: 36yWEIGHT:68.0 kg (S) HEIGHT:64 inches (S) BMI:25.8ALLERGIES: WellbutrinCHIEF COMPLAINT: abdominal painDIAGNOSIS: Ureteric stoneLAB ORDERSOrder Description Priority Entered Acknowledged InitialedCBC w Diff STAT 15:14 04/28/2021 15:27 Louisa Hall Victoria Jennifer R.N. ;CMP STAT 15:14 04/28/2021 15:27 Louisa Hall Victoria Jennifer R.N. ;Lipase STAT 15:14 04/28/2021 15:27 Louisa Hall Victoria Jennifer R.N. ;UA Reflex to UA 15:14 04/28/2021 15:27 Sara Hall Victoria Jennifer R.N. ;DIAGNOSTIC STUDY ORDERSOrder Description Priority Entered Acknowledged InitialedMEDICATION/IV/DRIP/FLUID ORDERSOrder Description Priority Entered Acknowledged InitialedNS IV : Bolus 1000 15:14 04/28/2021 15:27 Isabel,mL, then TKO - Iwona Jasso R.N. ;Toradol IVP 30 mg 15:14 04/28/2021 15:27 Isabel,(NOW) Iwona Jasso R.N. ;Flomax PO 0.4 mg 15:44 04/28/2021 Ack'd: 15:44 16:14 Isabel,(NOW x1, Do not Iwona Jasso Jennifer Jennifer R.N.crush or chew) ; R.N.GENERAL ORDERSOrder Description Priority Entered Acknowledged Initialed 2 OrderSheet [facility] Emergency Department [address] [place] [address] Phone #: ext- [phone] 04/28/2021 14:39 Patient: MAVERICK LEPE Sex: F : 1985 Age: 36yNPO 15:14 04/28/2021 15:27 Louisa Hall Victoria Jennifer R.N. ;Saline Lock 15:14 04/28/2021 15:27 Louisa Hall Victoria Jennifer R.N. ;[Electronically signed by Nikki Hall R.N. (16:44 04/28/2021)][Electronically signed by Iwona Jasso (17:03 04/28/2021)][Electronically locked by Nikki Hall R.N. (16:44 04/28/2021)] Name Value Range Interpretation Code Description Data Alondra rce(s) Supporting Document(s) ID Date Data Source [id number] 04/28/2021 02:40:00 PM EDT [facility] 1 Medication Reconciliation Report [facility] Emergency Department [address] [place] [address] Phone #: ext- [phone] 04/28/2021 14:39 Patient: MAVERICK LEPE Sex: F : 1985 Age: 36yWeight: 68.0 kgHeight/Length: 64 in.BMI: 25.8ALLERGIES: WellbutrinThe patient's Home Medications are listed below:CONTINUE TAKING THE FOLLOWING MEDICATIONS: Ambien CR Oral (12.5 mg) 1 tablet, at bedtime cloNIDine HCl Oral (0.3 mg) 4 tabs, at bedtime cloNIDine HCl Oral (0.3 mg) 2 tablets, every AMThe source(s) of the original Home Medication information:patientThe following Medications were given to the patient in the Emergency Department:NS [IV] IV Fluids bolus 1000 mL wide open, administered: 15:27 04/28/2021Toradol [IVP] IVP 30 mg, administered: 15:04/28/2021Flomax [PO] PO 0.4 mg, administered: 16:14 04/28/2021The following Medications were prescribed to the patient:Flomax 0.4 mg capsule Take 1 capsule once a day as directed for 14 days -- Dispense 14 capsule.Refills: 0. Substitution permitted.[facility]acy - [facility] - [address] ; [place] [phone]. .IBU 600 mg tablet Take 1 tablet four times a day as needed for pain for 5 days -- Dispense 20 tablet.Refills: 0. Substitution permitted.[facility] [address] [facility] ; [place] [address]. . -- Iwona Jasso Name Value Range Interpretation Code Description Data Alondra rce(s) Supporting Document(s) ID Date Data Source [id number] 04/28/2021 02:40:00 PM EDT [facility] 1 Medication Administration Record [facility] Emergency Department [address] [place] [address] Phone #: ext- [phone] 04/28/2021 14:39 [id number] Sex: F : 1985 Age: 36yWeight: 68.0 kgHeight/Length: 64 inBMI: 25.8ALLERGIES: Wellbutrin Date/Time Medication Administered Medication OrderedStart NS [IV] NS IV : Bolus 1000 mL, then TKO -15:27 04/28/2021 Dose: IV FluidsNikki Hall RHarisNHaris Bolus: 1000 mL wide open---- Dispensed: 1000 mL bagStop Site: #1 right AC16:30 04/28/2021Nikki carrera R.N.Given TORADOL [IVP] (KETOROLAC Toradol IVP 30 mg (NOW)15:27 04/28/2021 TROMETHAMINE)Nikki Hall R.N. Dose: 30 mg IVP Site: #1 right ACGiven FLOMAX [PO] (TAMSULOSIN HCL) Flomax PO 0.4 mg (NOW x1, Do16:14 04/28/2021 Dose: 0.4 mg Capsules PO not crush or chew)Nikki Hall R.N. Name Value Range Interpretation Code Description Data Alondra rce(s) Supporting Document(s) ID Date Data Source [id number] 04/28/2021 02:40:00 PM EDT [facility] 1 General Instructions [facility] Emergency Department [address] [place] [address] Phone #: ext- [phone] 04/28/2021 14:39 Patient: MAVERICK LEPE Sex: F : 1985 Age: 36yUreterolithiasis (multiple stones) in the right ureter and kidney.INSTRUCTIONSDrink plenty of fluids.(take the flomax as well as motrin for pain. return to the ER if pain worsens. strain all urine. follow upwith your urologist or DR Matthew next week).Your Current Medications: Your current home medications have been reviewed.CONTINUE TAKING THE FOLLOWING MEDICATIONS:Ambien CR Oral : Tablet Extended Release 12.5 mg, 1 tablet, at bedtime.cloNIDine HCl Oral : Tablet 0.3 mg, 4 tabs, at bedtime.cloNIDine HCl Oral : Tablet 0.3 mg, 2 tablets, every AM.Prescription Medications:Flomax 0.4 mg capsule Take 1 capsule once a day as directed for 14 days -- Dispense 14 capsule.Refills: 0. Substitution permitted.Pharmacy - [facility] - [address] ; [place] [address]. .IBU 600 mg tablet Take 1 tablet four times a day as needed for pain for 5 days -- Dispense 20 tablet.Refills: 0. Substitution permitted.Pharmacy - [facility] - [address] [facility] ; [place] [address]. Phone: .Follow-up:Follow up with your healthcare provider Sunday in days. Reason for referral: evaluation. Summary of careprovided to patient via paper.Follow-up with: Cole Matthew M.D., Urology, , [address] [place] [address], [phone] Follow up Sunday. Call for the next available appointment. Reason for referral: evaluation. Summary ofcare provided to patient via paper. ADDITIONAL INFORMATIONKidney Stone with Pain 2 Gen eral Instructions [facility] Emergency Department [address] [place] [address] Phone #: ext- [phone] 04/28/2021 14:39 Patient: MAVERICK LEPE Sex: F : 1985 Age: 36yThe sharp cramping pain on either side of your lower back and nausea/vomiting that you have arebecause of a small stone that has formed in the kidney. It is now passing down a narrow tube (ureter)on its way to your bladder. Once the stone reaches your bladder, the pain will often stop. But it maycome back as the stone continues to pass out of the bladder and through the urethra. The stone maypass in your urine stream in one piece. The size may be 1/16 inch to 1/4 inch (1 mm to 6 mm). Or, thestone may break up into marcelino fragments that you may not even notice.Once you have had a kidney stone, you are at risk of getting another one in the future. There are 4types of kidney stones. Eighty percent are calcium stones--mostly calcium oxalate but also somewith calcium phosphate. The other 3 types include uric acid stones, struvite stones (from a precedinginfection), and rarely, cystine stones.Most stones will pass on their own, but may take from a few hours to a few days. Sometimes thestone is too large to pass by itself. In that case, the healthcare provider will need to use other ways toremove the stone. These techniques include: Lithotripsy. This uses ultrasound waves to break up the stone. Ureteroscopy. This pushes a basket-like instrument through the urethra and bladder and into the ureter to pull out the stone. Various types of direct surgery through the skin 3 General Instructions [facility] Emergency Department [address] [place] [address] Phone #: ext- [phone] 04/28/2021 14:39 Patient: MAVERICK LEPE [facility]#: [id number] Sex: F : 1985 Age: 36yHome careThe following are general care guidelines: Drink plenty of fluids. This means at least 12, 8-ounce glasses of fluid--mostly water--a day. Each time you urinate, do so in a jar. Pour the urine from the jar through the strainer and into the toilet. Continue doing this until 24 hours after your pain stops. By then, if there was a kidney stone, it should pass from your bladder. Some stones dissolve into sand-like particles and pass right through the strainer. In that case, you won't ever see a stone. Save any stone that you find in the strainer and bring it to your healthcare provider to look at. It may be possible to stop certain types of stones from forming. For this reason, it is important to know what kind of stone you have. Try to stay as active as possible. This will help the stone pass. Don't stay in bed unless your pain keeps you from getting up. You may notice a red, pink, or brown color to your urine. This is normal while passing a kidney stone. If you develop pain, you may take ibuprofen or naproxen for pain, unless another medicine was prescribed. If you have chronic liver or kidney disease, talk with your healthcare provider before taking these medicines. Also talk with your provider if you've had a stomach ulcer or GI bleeding.Preventing stonesEach year for the next 5 to 7 years, you are at risk that a new stone will form. Your risk is a 50%chance over this time period. The risk is higher if you have a family history of kidney stones or havecertain chronic illnesses like hypertension, obesity, or diabetes. But you can make changes to yourlifestyle and diet that can lower your risk for another stone.Most kidney stones are made of calcium. The following is advice for preventing another calciumstone. If you don't know the type of stone you have, follow this advice until the cause of your stone isfound.Things that help: The most important thing you can do is to drink plenty of fluids each day. See home care above. Eat foods that contain phytates. These include wheat, rice, rye, barley, and beans. Phytates are substances that may lower your risk for any type of stone to form. Eat more fruits and vegetables. Choose those that are high in potassium. Eat foods high in natural citrate like fruit and low-sugar fruit juices. 4 General Instructions [facility] Emergency Department [address] [place] [address] Phone #: ext- [phone] 04/28/2021 14:39 Patient: [facility] LE[id number] Sex: F : 1985 Age: 36y Having too little calcium in your diet can put you at risk for calcium kidney stones. Eat a normal amount of calcium in your diet and talk with your healthcare provider if you are taking calcium supplements. Cutting back on your calcium intake may raise your risk. New research shows that eating calcium-rich and oxalate-rich foods together lowers your risk for stones by binding the minerals in the stomach and intestines before they can reach the kidneys. Limit salt intake to 2 grams (1 teaspoon) per day. Use limited amounts when cooking, and don't add salt at the table. Processed and canned foods are usually high in salt. Spinach, rhubarb, peanuts, cashews, almonds, grapefruit, and grapefruit juice are all high oxalate foods. You should limit how much of these you eat. Or eat them with calcium-rich foods. These include dairy products, dark leafy greens, soy products, and calcium-enriched foods. Reducing the amount of animal meat and high protein foods in your diet may lower your risk for uric acid stones. Avoid excess sugar (sucrose) and fructose (sweetener in many soft drinks) in your diet. If you take vitamin C as a supplement, don't take more than 1,000 mg a day. A dietitian or your healthcare provider can give you information about changes in your diet that will help prevent more kidney stones from forming.Follow-up careFollow up with your healthcare provider, or as advised, if the pain lasts more than 48 hours. Talk withyour provider about urine and blood tests to find out the cause of your stone. If you had an X-ray, CTscan, or other diagnostic test, you will be told of any new findings that may affect your care.Call [phone] if you have any of these: Weakness, dizziness, or faintingWhen to seek medical adviceCall your healthcare provider right away if any of these occur: Pain that is not controlled by the medicine given Repeated vomiting or unable to keep down fluids Fever of 100.4F (38C) or higher, or as directed by your healthcare provider Passage of solid red or brown urine (can't see through it) or urine with lots of blood clots 5 General Instructions [facility] Emergency Department [address] [place] [address] Phone #: ext- [phone] 04/28/2021 14:39 Patient: MAVERICK LEPE [facility]#: [id number] Sex: F : 1985 Age: 36y Foul-smelling or cloudy urine Unable to pass urine for 8 hours and increasing bladder pressure 2034-08[address] [employer] [place] [address], [place] [address]. All rights reserved. This information is not intended as asubstitute for professional medical care. Always follow your healthcare professional's instructions. You h ave been given the following additional information: Kidney Stone w/ Colic(Electronically signed by Iwona Jasso 04/28/2021 17:03) Name Value Range Interpretation Code Description Data Alondra rce(s) Supporting Document(s) ID Date Data Source [id number] 04/28/2021 02:40:00 PM EDT [facility] 1 Clinical Report - Nurses [facility] Emergency Department [address] [place] [address] Phone #: [phone] 04/28/2021 14:39 Patient: MAVERICK LEPE Sex: F : 1985 Age: 36yTRIAGEHistorian: patient. Unaccompanied.Triage time: 14:54 04/28/2021. Acuity: LEVEL 3.Chief Complaint: (Kidney stone).Alert. No acute distress.( Pt states had CT done this AM for abdominal pain/pancreatitis r/o. States was called and told to go to EDfor obstructing kidney stone on right side.).SEPSIS SCREEN: SIRS SCREEN NEGATIVE. SEPSIS SCREEN NEGATIVE. No suspected or confirmedsigns of infection present. --15:02 04/28/21 Jaziel Aparicioin15:02 04/28/21. BP: 129/86. MAP: 100. HR: 100. RR: 16. O2 saturation: 97% on room air. Temp: 99.9 F(oral). Pain level now: 0/10. --15:03 04/28/21 Haris Aparicio.Weight: 68 kg stated. Height/Length: 64 inches Per Patient. BMI: 25.8. --14:53 04/28/21 Haris Aparicio.MedicationscloNIDine HCl Oral (Tablet 0.3 mg) 2 tablets, every AM. --14:58 04/28/21 Haris Aparicio cloNIDine HCl Oral (Tablet 0.3 mg) 4 tabs, at bedtime. --14:58 04/28/21 Haris Aparicio Ambien CR Oral (Tablet Extended Release 12.5 mg) 1 tablet, at bedtime. --14:58 04/28/21 Haris Aparicio.AllergiesWellbutrin. (lowers seizure threshold. ) --14:57 04/28/21 Haris Aparicio.PROBLEMS:Depression.Anxiety Reaction.POTS.Seizure. --15:00 04/28/21 Haris Aparicio.Medication/allergy information source: the patient. --15:02 04/28/21 Haris Aparicio.ADDITIONAL SURGERIES:Cholecystectomy.Colectomy.C- Section.Dilatation Curettage. 2 Clinical Report - Nurses [facility] Emergency Department [address] [place] [address] Phone #: ext- [phone] 04/28/2021 14:39 Patient: MAVERICK LEPE Sex: F : 1985 Age: 36y Liposuction. Cherie adler. --15:00 04/28/21 Haris Aparicio. History SOCIAL HX: Never smoker. No alcohol use or drug use. She was offered HIV testing but declined and hepatitis C testing but declined. She has not traveled outside the [place] Infectious disease exposure: The patient was not exposed to Coronavirus. Patient is not a known carrier of tuberculosis, hepatitis, HIV, MRSA or VRE. Patient is not a known carrier of CRE. SELF HARM ASSESSMENT: Self harm assessment was performed. The patient answered "no" to the question(s) "Do you have thoughts of harming or killing yourself?" and "Do you have a plan for harming or killing yourself?". ABUSE ASSESSMENT: Abuse assessment. Abuse denied. No suspicion of abuse. No report of abuse. NUTRITIONAL RISK ASSESSMENT: The nutritional risk assessment revealed no deficiencies. FUNCTIONAL ASSESSMENT: Functional assessment: no impairments noted. LEARNING NEEDS ASSESSMENT: The learning needs assessment revealed no barriers. FALL RISK ASSESSMENT: Fall risk assessment completed. No risk factors identified. SKIN INTEGRITY ASSESSMENT: Skin integrity risk assessment completed. No skin integrity risk identified. --15:04/28/21 Haris Aparicio. Interventions Identification and allergy band on patient. To treatment room. Advanced care plan (full code). --15:04/28/21 Haris Aparicio.PHYSICAL ASSESSMENTAmbulatory to room.GENERAL / NEURO / PSYCH: Alert. Oriented X 4. Appears in no acute distress.HEENT: No facial asymmetry noted. Mucous membranes are pink.RESPIRATORY: Respirations not labored. Chest nontender. Breath sounds within normal limits.CVS: Capillary refill less than 2 seconds. Pulses within normal limits.GI / : ( Pt denies urinary symptoms). Abdomen soft and normal bowel sounds. Abdominal tendernessin the right upper quadrant, epigastric area and left upper quadrant. Guarding present. No r eboundtenderness.SKIN: Skin intact. Skin is warm and dry. Normal skin turgor. --15:04/28/21 Nikki Hall R.N.NURSING PROGRESS NOTESPatient gowned. Reassurance given. Three patient identifiers checked. Call light placed in reach. Siderails up x 2. Bed placed in lowest position. Brakes of bed on. Patient ready for evaluation- ED physician 3 Clinical Report - Nurses [facility] Emergency Department [address] [place] [address] Phone #: ext- [phone] 04/28/2021 14:39 Patient: MAVERICK LEPE Sex: F : 1985 Age: 36ynotified. --15:04/28/21 Nikki Hall R.N.Patient ID band checked for patient name and birthdate: patient confirmed. Instructions provided to co llectclean catch urine and patient verbalized understanding. Clean catch urine collected; sample sent to lab forurinalysis. Specimen labeled in the presence of the patient. --15:04/28/21 Nikki Hall R.N.15:04/28/21. BP: 134/86. HR: 104. RR: 18. O2 saturation: 100%. --15:04/28/21 Nikki Hall R.N.15:20 04/28/2021 Site #1 started via IV in the right antecubital space with an 20g angiocath, with aseptictechnique and good blood return; one attempt. Blood drawn: rainbow set. Labeled in the presence of thepatient and sent to the lab. Saline lock flushed with 10 mL saline. --15:04/28/21 Nikki Hall R.N.15:04/28/2021 Started bag #1 1000 mL IV Fluids NS; bolus of 1000 mL wide open via site #1 via IVpump. Allergies verified and confirmed 5 rights. IV patency established. IV site checked: no pain, redness,or swelling. IV flushed thoroughly pre- and post-medication administration. Information reviewed withpatient including reason for taking this medication, signs of allergic reaction and precautions. Verbalizesunderstanding. --15:04/28/21 Nikki Hall R.N.15:04/28/2021 Toradol (Ketorolac Tromethamine) IVP 30 mg given over 2 minute(s) via site #1.Allergies verified and confirmed 5 rights. IV patency established. IV site checked: no pain, redness, orswelling. IV flushed thoroughly pre- and post-medication administration. IVP given by RN. Informationreviewed with patient including reason for taking this medication, signs of allergic reaction and precautions.Verbalizes understanding. --15:04/28/21 Nikki Hall R.N.16:14 04/28/2021 Flomax (Tamsulosin HCl) PO Capsules 0.4 mg given. Allergies verified and confirmed 5rights. Information reviewed with patient including reason for taking this medication, signs of allergicreaction and precautions. Verbalizes understanding. --16:14 04/28/21 Nikki Hall R.N.Reassessment acuity: LEVEL 3.Rounding: Pain: assessed pain level. Position: states comfortable. Proximity of possessions / care items:call light within easy reach. Plug ins: assured IV pump plugged in; checked status of equipment in use;located all cords, tubes, and lines to prevent fall hazard. Set expectations: advised patient of roundingprotocol timing and asked if they needed anything else at this time. Reassessment after medicationadministered. Pain gone now. She reports no complaints, she is calm and resting quietly and she has hadno adverse reaction. Overall patient status is improved- she states feels better. --16:34 04/28/21 Nikki Hall R.N.16:30 04/28/2021 IV Fluids NS via IV site #1 Discontinued: bag #1 completed. Total amount infused: 1000mL. IV patency established. IV site checked: no pain, redness, or swelling. IV flushed thoroughly. --16: Nikki Hall R.N.16:34 04/28/2021 Toradol IVP Response: no adverse reaction pain is gone now. --16:34 04/28/21 Isabel, Doreen Clinical Report - Nurses [facility] Emergency Department [address] [place] [address] Phone #: ext- [phone] 04/28/2021 14:39 Patient: MAVERICK ELPE Sex: F : 1985 Age: 36y Jerrell Jordan 16:34 04/28/2021 Flomax PO Response: no adverse reaction. --16:34 04/28/21 Nikki Hall R.N.DISPOSITION / DISCHARGE 16:34 04/28/21. BP: 114/76. MAP: 88. HR: 89. RR: 18. O2 saturation: 100% on room air. Temp: 98.2 F (temporal). Pain level now 0/10. --16:34 04/28/21 Nikki Hall R.N. 16:36 04/28/2021 Site #1 removed upon discharge. Bandage applied (2x2 and tape, no bleeding noted, pt tolerated well, clean dry and intact upon d/c.). --16:36 04/28/21 Nikki Hall R.N. Departure time: late entry - 16:40 04/28/2021. No learning barriers present. Discharge instructions provided and reviewed with the patient. Reviewed warnings (please see paper copy). Reviewed medication(s) side effects, precautions, dosing and course information. Prescription(s) sent electronically to pharmacy (flomax, ibuprofen). Treatments reviewed (strain all urine). Reviewed referrals (Dr. Matthew, urologist). Reviewed diet. Patient verbalized understanding. Written instructions provided in Bel[place]an. The patient was discharged by the physician. She was discharged home and unaccompanied at time of discharge. She left ambulatory and via private vehicle. Patient driving. --16:44 04/28/21 Nikki Hall R.N.Locked/Released at 04/28/2021 16:44 by Nikki Hall R.N. Name Value Range Interpretation Code Description Data Alondra rce(s) Supporting Document(s) ID Date Data Source [id number] 04/28/2021 02:40:00 PM EDT [facility] 1 Clinical Report - Physicians/Mid Levels [facility] Emergency Department [address] [place] [address] Phone #: ext- [phone] 04/28/2021 14:39 Patient: MAVERICK LEPE [facility]#: [id number] Sex: F : 1985 Age: 36y Time Seen: 15:01 04/28/2021; initial patient contact, initial documentation. Arrived- By private vehicle. Historian- patient. Disposition decision: 16:32 04/28/2021.HISTORY OF PRESENT ILLNESS Chief Complaint: ABDOMINAL PAIN. It is described as "pain". No radiation. It is described as located in the left upper quadrant. This started 5 days ago and is now gone. It was gradual in onset. At its maximum, severity described as mild. When seen in the E.D., it was almost gone. Modifying factors. Not worsened by anything. Not relieved by anything. No nausea, loss of appetite, vomiting or diarrhea. 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 patient denies any pain at the present time). No recent travel.REVIEW OF SYSTEMSNo constipation, black stools, hematemesis, difficulty with urination or pain with urination. No urinaryfrequency, bloody stools, fever, headache or sore throat. No blurred vision, chest pain, difficulty breathing,cough or joint pain. No skin rash, chills or back pain. The patient has not had weight loss. All othersystems reviewed and are negative.PAST HISTORYSee nurses notes. Problems: Depression. Anxiety Reaction. POTS. Seizure. Additional Surgeries: Cholecystectomy. Colectomy. . Dilatation Curettage. Liposuction. Tummy tuck. Medications: Ambien CR Oral (Tablet Extended Release 12.5 mg) 1 tablet, at bedtime. cloNIDine HCl Oral (Tablet 0.3 mg) 4 tabs, at bedtime. cloNIDine HCl Oral (Tablet 0.3 mg) 2 tablets, every AM. Allergies: 2 Clinical Report - Physicians/Mid Levels [facility] Emergency Department [address] [place] [address] Phone #: ext- [phone] 04/28/2021 14:39 Patient: MAVERICK LEPE [facility]#: [id number] Sex: F : 1985 Age: 36y Wellbutrin. (lowers seizure threshold. ).SOCIAL HISTORYNever smoker. No alcohol use or drug use.ADDITIONAL NOTESThe nursing notes have been reviewed.PHYSICAL EXAMVital Signs: 04/28/2021 15:02 BP: 129/86. MAP: 100. HR: 100. RR: 16. O2 saturation: 97% on room air.Temp: 99.9 F. Pain level now: 0/10. Have been reviewed. Oxygen saturation normal.Appearance: Alert. Oriented X3. No acute distress.Eyes: Pupils equal, round and reactive to light. Eyes normal inspection.ENT: Pharynx normal.Neck: Normal inspection. Neck supple.CVS: Normal heart rate and rhythm. Heart sounds normal. Pulses normal.Respiratory: No respiratory distress. Painless inspiration. Breath sounds normal. Chest nontender.Abdomen: Soft. Mild tenderness in the right lower quadrant. No guarding or rebound tenderness. Bowelsounds normal. No organomegaly. No mass.Back: Normal inspection. No CVA tenderness.Skin: Skin warm and dry. Normal skin color. No rash. Normal skin turgor.Extremities: Extremities exhibit normal ROM. No lower extremity edema.Neuro: Oriented X 3. No motor deficit.LABS, X- RAYS, AND EKGAbdominal CT: IMPRESSION: 1. Obstructing 4 mm stone right ureteropelvic junction with mild hydronephrosis. Additional nonobstructing stones in the right kidney. 2. Multiple mildly prominent mesenteric lymph nodes of uncertain etiology. These were not mentioned on the previous report. Follow- up is recommended. 3. Fatty liver. 4. Status post colectomy. No obstruction. 5. Multiple bilateral adrenal adenomata. These are measuring mildly larger than on the previous reports.Laboratory Tests: CBC w Diff: (SILVANA: 04/28/2021 15:20) ( MsgRcvd 04/28/2021 15:32) Final results Test Result Flag Units (Reference) CBC W/AUTOMATED DIFF COMPLETE BLOOD COUNT WBC 8.4 10/uL (4.2 - 11.0) RBC 5.71 H 10/uL (4.20 - 5.40) HEMOGLOBIN 15.4 g/dL (12.0 - 16.0) HEMATOCRIT 47.9 H % (37.0 - 47.0) MCV 83.9 fL (81.0 - 101) MCH 27.0 pg (27.0 - 34.0) MCHC 32.2 g/dL (31.0 - 36.0) 3 Clinical Report - Physicians/Mid Levels [facility] Emergency Department [address] [place] [address] Phone #: ext- [phone] 04/28/2021 14:39 Patient: MAVERICK LEPE Sex: F : 1985 Age: 36y RDW 12.6 % (11.5 - 14.5) PLATELETS 333 10/uL (150 - 450) MPV 8.5 fL (7.4 - 10.4) NEUT 70.6 % (37.0 - 80.0) LYMPH 19.5 L % (25.0 - 40.0) MONO 7.1 % (3.0 - 8.0) EOS 1.9 % (0.0 - 7.0) BASO 0.4 % (0.0 - 2.5) %IG 0.5 H % (0.0 - 0.0) %NRBC 0.0 % (0.0 - 0.0) #NEUT 5.90 10/uL (2.00 - 6.90) #LYMPH 1.63 10/uL (0.60 - 3.40) #MONO 0.59 10/uL (0.00 - 0.90) #EOS 0.16 10/uL (0.00 - 0.70) #BASO 0.03 10/uL (0.00 - 0.20) #IG 0.04 10/uL (0.00 - 0.10) #NRBC 0.00 10/uL (0.00 - 0.00) MANUAL DIFF NOT INDICATED RBC MORPH NOT INDICATEDCMP: ( SILVANA: 04/28/2021 15:20) ( MsgRcvd 04/28/2021 16:02) Final results Test Result Flag Units (Reference) COMPREHENSIVE METABOLIC PANEL COMPREHENSIVE METABOLIC PANEL SODIUM 135 mEq/L (134 - 153) POTASSIUM 4.2 mEq/L (3.6 - 5.0) CHLORIDE 98 mEq/L (98 - 107) CO2 25 MEQ/L (22 - 30) GLUCOSE 119 H MG/DL (70 - 99) BUN 9 MG/DL (7 - 21) CREATININE 0.7 MG/DL (0.7 - 1.5) BUN/CREAT 13 (8 - 27) TOTAL PROTEIN 7.7 G/DL (6.3 - 8.2) ALBUMIN 4.7 G/DL (3.9 - 5.0) GLOBULIN 3.0 GM/DL (2.4 - 3.2) A/G RATIO 1.6 (0.8 - 2.0) CALCIUM 9.5 MG/DL (8.4 - 10.2) TOTAL BILI <0.7 MG/DL (0.2 - 1.3) ALKALINE PHOS 81 U/L (38 - 126) SGOT/AST 21 U/L (5 - 40) SGPT/ALT 16 U/L (7 - 56) ANION GAP 12.0 mmol/L (8.0 - 16.0) AGE 36 yrs NON-AA GFR >60 mL/min AFR AMER GFR >60 mL/min Male GFR Interprentation 20-49 yrs >60 mL/min Wjhscb19-44 yrs >56 mL/min Normal 60-69 yrs >49 mL/min Normal 70-79yrs>42 mL/min Normal 80 and above >35 mL/min Normal Female GFRInterpretation 20-39 yrs >60 mL/min Normal 40-49 yrs >58 mL/minNormal 50-59 yrs >51 mL/min Normal 60-69 yrs >45 mL/min Jfyugi98-21 yrs >39 mL/min Normal 80 and above >32 mL/min NormalLipase: (SILVANA: 04/28/2021 15:20) ( MsgRcvd 04/28/2021 16:01) Final results Test Result Flag Units (Reference) LIPASE 58 U/L (13 - 60)UA REFLEX TO UA CULTURE: (SILVANA: 04/28/2021 15:20) ( MsgRcvd 04/28/2021 15:32) Final results 4 Clinical Report - Physicians/Mid Levels [facility] Emergency Department [address] [place] [address] Phone #: ext- [phone] 04/28/2021 14:39 Patient: MAVERICK LEPE Sex: F : 1985 Age: 36y Test Result Flag Units (Reference) UA REFLEX TO UA CULTURE URINALYSIS SOURCE R COLOR yellow (NORMAL: Yello CLARITY clear (NORMAL: Clear SPEC GRAVITY 1.010 (1.001 - 1.030 pH 5 (5 - 9) GLUCOSE NORM (NORMAL: Negat BILIRUBIN NEG (NORMAL: Negat KETONE NEG (NORMAL: Negat PROTEIN NEG (NORMAL: Negat NITRITE NEG (NORMAL: Negat BLOOD NEG (NORMAL: Negat LEUK EST NEG (NORMAL: Negat UROBILINOGEN NOR (less than 1.0 MICROSCOPIC Not Indicate.PROGRESS AND PROCEDURESCourse of Care: 16:18 04/28/21. 36 y/o female with history of pancreatitis as well as familialadenomatous polyposis who was sent to the ER because she had a CT scan of the abdomen whichshowed an obstructing right ureteral stone of 4 mm. she denies any flank pain at the present time buthas a mild tenderness on the RLQ area. denies fevers or chills. given fluids toradol and Flomax 16:30 04/28/21. Patient has not had recurrence of pain in the ER. will discharge the patient home with Flomax. urine strainer and Motrin for pain. she was advised to follow up with y urologist or with Dr Matthew on Sunday and to return to the ER if pain worsen. Patient counseled in person reg arding the patient's stable condition, test results, diagnosis and need for follow-up. Patient agrees with plan of care. 16:31. Disposition: Discharged home in good and improved condition (16:31). Condition: good and stable. Discharge decision based on the following: patient's condition is stable; patient's exam is stable; minimally abnormal test results; stable condition on multiple repeat evaluations; social support is adequate; transportation is available; follow-up is available; clinical impression is consistent with outpatient treatment.CLINICAL IMPRESSION Ureterolithiasis (multiple stones) in the right ureter and kidney.INSTRUCTIONS Drink plenty of fluids. (take the flomax as well as motrin for pain. return to the ER if pain worsens. strain all urine. follow up 5 Clinical Report - Physicians/Mid Levels [facility] Emergency Department [address] [place] [address] Phone #: ext- [phone] 04/28/2021 14:39 Patient: MAVERICK LEPE Sex: F : 1985 Age: 36y with your urologist or DR Matthew next week). Your Current Medications: Your current home medications have been reviewed. CONTINUE TAKING THE FOLLOWING MEDICATIONS: Ambien CR Oral : Tablet Extended Release 12.5 mg, 1 tablet, at bedtime. cloNIDine HCl Oral : Tablet 0.3 mg, 4 tabs, at bedtime. cloNIDine HCl Oral : Tablet 0.3 mg, 2 tablets, every AM. Prescription Medications: Flomax 0.4 mg capsule Take 1 capsule once a day as directed for 14 days -- Dispense 14 capsule. Refills: 0. Substitution permitted. Pharmacy - [facility] - [address] [address] ; [place] [address]. . IBU 600 mg tablet Take 1 tablet four times a day as needed for pain for 5 days -- Dispense 20 tablet. Refills: 0. Substitution permitted. Pharmacy - [facility] - [id number] ; [place] [address]. . Follow-up: Follow up with your healthcare provider Sunday in days. Reason for referral: evaluation. Summary of care provided to patient via paper. Follow-up with: Cole Matthew M.D., Urology, , [address] [place] [address], [id number] Follow up Sunday. Call for the next available appointment. Reason for referral: evaluation. Summary of care provided to patient via paper.(Electronically signed by Iwona Jasso 04/28/2021 17:03) Name Value Range Interpretation Code Description Data Alondra rce(s) Supporting Document(s) ID Date Data Source [id number] 04/28/2021 03:54:00 PM EDT [facility] [address] [place] [address] PHONE: [phone] FAX: [phone] Name .................. : ROBERTH TEMPLE Acct Number.................. : [id number] ROOM. ................. : Number ................... : [id number] Stay type ............. : O/P Discharge Date......... ... : 04/28/21 Admit Date ......... : 04/28/21 Admit Phys .................... : PAT RIVAS Date of ....... : 1985 Family Phys ................... : DORON PATTERSON Phone .................. : [phone] Age ................................ : 36 Film# .................. .:[id number] Sex ................................. : F Unsigned transcriptions are preliminary reports and do not represent a medical or legal document CT ABD & PELV W/O FOL W/IV/OR [id number] COMPLETE:04/28/21 14:19 AML [id number] Reason for Exam: PERSISTENT SINUS TACHYCARDIA W/O IDENTIFIABLE CAUSE CT ABDOMEN AND PELVIS WITHOUT AND WITH IV CONTRAST INDICATION: Persistent sinus tachycardia without identifiable cause COMPARISON: None at this institution. Comparison is made to reports of previous CT 10/20/2019 and MRI 10/28/2019 from [facility] in [facility]. IV CONTRAST: 75 cc Isovue-370 One or more of the following dose reduction techniques were utilized in effectively lowering the radiation dose for this examination: Automated Exposure Control, Adjustment of the mA and/or kV according to patient size, or Iterative reconstruction. FINDINGS: LUNG BASES: No pulmonary nodules or masses. No pleural effusions. LIVER/BILIARY: Diffuse decreased attenuation in the liver indicating fatty infiltration. No lesions are seen in the liver. Gallbladder is nonvisualized. SPLEEN: Normal. PANCREAS: Normal. ADRENALS: There are 2 nodules in the left adrenal. Larger nodule measures 15 mm and -2 Hounsfield units. Smaller nodule measures 9 mm and 8 Hounsfield units. There is also a nodule in the right adrenal measuring 10 mm and 0 Hounsfield units. These are all benign adenomata. Prior CT report described 11 mm nodule in the left adrenal and 5 mm nodule in the right adrenal. Page 1 of [address] [place] [address] PHONE: [phone] FAX: [phone] Name .................. : ROBERTH MAVERICK Acct Number.................. : [id number] ROOM. ................. : MR Number ................... : [id number] Stay type ............. : O/P Discharge Date......... ... : 04/28/21 Admit Date ......... : 04/28/21 Admit Phys .................... : Bautista RIVAS Date of ....... : 1985 Family Phys ................... : SAL AD Phone .................. : [phone] Age ................................ : 36 Film# .................. .:[id number] Sex ................................. : F Unsigned transcriptions are preliminary reports and do not represent a medical or legal document CT ABD & PELV W/O FOL W/IV/OR [id number] COMPLETE:04/28/21 14:19 AML [id number] Reason for Exam: PERSISTENT SINUS TACHYCARDIA W/O IDENTIFIABLE CAUSE RIGHT KIDNEY: Mild dilatation of the renal pelvis and calyces. 4 mm obstructing stone at the ureteropelvic junction. There are also 1 mm nonobstructing stones in the lower pole and mid pole. LEFT KIDNEY: No hydronephrosis, stones or masses. 4 mm cortical cyst lower pole. OTHER : No abnormalities seen in the urinary bladder. There is an intrauterine device in the endometrial cavity. Water density cyst right ovary 3.4 cm. BOWEL/GI: Prior colectomy. Oral contrast makes it all the way to the rectum. No obstruction. No recurrent mass. PERITONEUM: No free fluid, focal fluid collection or free air. NODES/RETROPERITONEUM: No abdominal aortic aneurysm. There are numerous mildly prominent lymph nodes in the mesentery, too numerous to count areas these measure up to 10 mm short axis. No enlarged lymph nodes in the retroperitoneum. SKELETAL: Millimeter sclerotic lesion left iliac wing. Similar finding reported on previous study. IMPRESSION: 1. Obstructing 4 mm stone right ureteropelvic junction with mild hydronephrosis. Additional nonobstructing stones in the right kidney. 2. Multiple mildly prominent mesenteric lymph nodes of uncertain etiology. These were not mentioned on the previous report. Follow-up is recommended. 3. Fatty liver. 4. Status post colectomy. No obstruction. 5. Multiple bilateral adrenal adenomata. These are measuring mildly larger than on the previous reports. Page 2 of 3 [facility] [address] [place] [address] PHONE: [phone] FAX: [phone] Name .................. : ROBERTH TEMPLE Acct Number.................. : [id number] ROOM. ................. : Number ................... : [id number] Stay type ............. : O/P Discharge Date......... ... : 04/28/21 Admit Date ......... : 04/28/21 Admit Phys .................... : PAT RIVAS Date of ....... : 1985 Family Phys ................... : DORON PATTERSON Phone .................. : [phone] Age ................................ : 36 Film# .................. .:[id number] Sex ................................. : F Unsigned transcriptions are preliminary reports and do not represent a medical or legal document CT ABD & PELV W/O FOL W/IV/OR [id number] COMPLETE:04/28/21 14:19 AML [id number] Reason for Exam: PERSISTENT SINUS TACHYCARDIA W/O IDENTIFIABLE CAUSE These findings were discussed with Dr. Hernandez at [facility] at 1:04 PM Electronically Reviewed and Signed By Chapito Padilla MD , 04/28/21 15:54, FREDY Transcribe Initials: SSR, Transcribe Date: 04/28/21 14:33, Dictation Date: Copy for: PAT Amezcua Copy for: 710 MED REC Page 3 of 3 Name Value Range Interpretation Code Description Data Alondra rce(s) Supporting Document(s) ID Date Data Source [id number] 04/28/2021 04:02:00 PM EDT [facility] Name Value Range Interpretation Code Description Data Alondra rce(s) Supporting Document(s) COMPREHENSIVE METABOLIC PANEL [facility] COMPREHENSIVE METABOLIC PANEL Sodium [Moles/volume] in Serum or Plasma 135 mEq/L 134 - 153 [facility] Potassium [Moles/volume] in Serum or Plasma 4.2 mEq/L 3.6 - 5.0 [facility] Chloride [Moles/volume] in Serum or Plasma 98 mEq/L 98 - 107 [facility] Carbon dioxide, total [Moles/volume] in Serum or Plasma 25 MEQ/L 22 - 30 [facility] Glucose [Mass/volume] in Serum or Plasma 119 MG/DL 70 - 99 H [facility] BUN 9 MG/DL 7 - [facility] Creatinine [Mass/volume] in Serum or Plasma 0.7 MG/DL 0.7 - 1.5 [facility] BUN/CREAT 13 8 - [address] [facility] Protein [Mass/volume] in Serum or Plasma 7.7 G/DL 6.3 - 8.2 [facility] Albumin [Mass/volume] in Serum or Plasma 4.7 G/DL 3.9 - 5.0 [facility] Globulin [Mass/volume] in Serum by calculation 3.0 GM/DL 2.4 - 3.2 [facility] A/G RATIO 1.6 0.8 - 2.0 [facility] Calcium [Mass/volume] in Serum or Plasma 9.5 MG/DL 8.4 - 10.2 [facility] Bilirubin.total [Mass/volume] in Serum or Plasma <0.7 MG/DL 0.2 - 1.3 [facility] Alkaline phosphatase [Enzymatic activity/volume] in Serum or Plasma 81 U/L 38 - 126 [facility] Aspartate aminotransferase [Enzymatic activity/volume] in Serum or Plasma 21 U/L 5 - 40 [facility] Alanine aminotransferase [Enzymatic activity/volume] in Seru m or Plasma 16 U/L 7 - 56 [facility] Anion gap 3 in Serum or Plasma 12.0 mmol/L 8.0 - 16.0 [facility] AGE 36 [facility] NON-[facility] GFR >60 mL/min [facility] ital AFR AMER GFR >60 mL/min [facility] Male GFR In terprentation 20-49 yrs >60 mL/min Normal 50-59 yrs >56 mL/min Normal 60-69 yrs >49 mL/min Normal 70-79yrs >42 mL/min Normal 80 and above >35 mL/min Normal Female GFR Interpretation 20-39 yrs >60 mL/min Normal 40-49 yrs >58 mL/min Normal 50-59 yrs >51 mL/min Normal 60-69 yrs >45 mL/min Normal 70-79 yrs >39 mL/min Normal 80 and above >32 mL/min Normal ID Date Data Source [id number] 04/28/2021 04:01:00 PM EDT [facility] Name Value Range Interpretation Code Description Data Alondra rce(s) Supporting Document(s) Lipase [Enzymatic activity/volume] in Serum or Plasma 58 U/L 13 - 60 [facility] ID Date Data Source [id number] 04/28/2021 03:32:00 PM EDT [facility] Name Value Range Interpretation Code Description Data Alondra rce(s) Supporting Document(s) CBC W/AUTOMATED DIFF [facility] COMPLETE BLOOD COUNT Leukocytes [#/volume] in Blood by Automated count 8.4 10^3/uL 4.2 - 1 1.0 [facility] Erythrocytes [#/volume] in Blood by Automated count 5.71 10^6/uL 4. 20 - 5.40 H [facility] Hemoglobin [Mass/volume] in Blood 15.4 g/dL 12.0 - 16.0 [facility] Hematocrit [Volume Fraction] of Blood by Automated count 47.9 % 3 7.0 - 47.0 H [facility] Erythrocyte mean corpuscular volume [Entitic volume] by Auto mated count 83.9 fL 81.0 - 101 [facility] Erythrocyte mean corpuscular hemoglobin [Entitic mass] by Automated count 27.0 pg 27.0 - 34.0 [facility] Erythrocyte mean corpuscular hemoglobin concentration [Mass/volume] by Automated count 32.2 g/dL 31.0 - 36.0 [facility] Erythrocyte distribution width [Ratio] by Automated count 12.6 % 11.5 - 14.5 [facility] Platelets [#/volume] in Blood by Automated count 333 10^3/uL 150 - 45 0 [facility] Platelet mean volume [Entitic volume] in Blood by Automated count 8.5 fL 7.4 - 10.4 [facility] Neutrophils/100 leukocytes in Blood by Automated count 70.6 % 37. 0 - 80.0 [facility] Lymphocytes/100 leukocytes in Blood by Manual count 19.5 % 25.0 - 40.0 L [facility] Monocytes/100 leukocytes in Blood by Automated count 7.1 % 3.0 - 8.0 [facility] Eosinophils/100 leukocytes in Blood by Automated count 1.9 % 0.0 - 7.0 [facility] Basophils/100 leukocytes in Blood by Automated count 0.4 % 0.0 - 2.5 [facility] %IG 0.5 % 0.0 - 0.0 [facility] %NRBC 0.0 % 0.0 - 0.0 [facility] Neutrophils [#/volume] in Blood by Automated count 5.90 10^3/uL 2.00 - 6.90 [facility] Lymphocytes [#/volume] in Blood by Automated count 1.63 10^3/uL 0.60 - 3.40 [facility] Monocytes [#/volume] in Blood by Automated count 0.59 10^3/uL 0.00 - 0.90 [facility] Eosinophils [#/volume] in Blood by Automated count 0.16 10^3/uL 0.00 - 0.70 [facility] Basophils [#/volume] in Blood by Automated count 0.03 10^3/uL 0.00 - 0.20 [facility] #IG 0.04 10^3/uL 0.00 - 0.10 [facility] #NRBC 0.00 10^3/uL 0.00 - 0.00 [facility] ospital MANUAL DIFF NOT INDICATED [facility] RBC MORPH NOT INDICATED [facility] ID Date Data Source [id number] 04/28/2021 03:32:00 PM EDT [facility] Name Value Range Interpretation Code Description Data Alondra rce(s) Supporting Document(s) UA REFLEX TO UA CULTURE [facility] URINALYSIS SOURCE R [facility] COLOR yellow NORMAL: Yellow [facility] ospital CLARITY clear NORMAL: Clear [facility] Specific gravity of Urine by Test strip 1.010 1.001 - 1.030 [facility] pH 5 5 - 9 [facility] al Glucose [Mass/volume] in Urine by Test strip NORM NORMAL: Negat [facility] Bilirubin.total [Presence] in Urine by Test strip NEG NORMAL: Negative [facility] Ketones [Presence] in Urine by Test strip NEG NORMAL: Negative [facility] Protein [Mass/volume] in Urine by Test strip NEG NORMAL: Negat [facility] Nitrite [Presence] in Urine by Test strip NEG NORMAL: Negative [facility] BLOOD NEG NORMAL: Negative [facility] Leukocyte esterase [Presence] in Urine by Test strip NEG ABBY L: Negative [facility] Urobilinogen [Mass/volume] in Urine by Test strip NOR less jan n 1.0 mg/dL [facility] MICROSCOPIC Not Indicate [facility] Procedure Social History Code Duration Value Status Description Data Source(s ) Smoking 06/03/2021 12:00:00 AM EDT Never Smoked Cigarettes com pleted Never Smoked Cigarettes MEDENT ([facility]) Vital Signs ID Date Data Source UNK Name Value Range Interpretation Code Description Data Source(s) Systolic blood pressure 118 mm[Hg] 118 mm[Hg] M EDENT ([facility]) Diastolic blood pressure 74 mm[Hg] 74 mm[Hg] MEDENT ([facility]) Heart rate 80 /min 80 /min MEDENT ([facility]) Oxygen saturation in Arterial blood by Pulse oximetry 97 % 97 % MEDENT ([facility]) Body weight 160.00 [lb_av] 160.00 [lb_av] MEDEN T ([facility]) Body weight 72.576 kg 72.576 kg MEDENT ([facility]) Body height 64 [in_i] 64 [in_i] MEDENT ([facility]) 5'4" Body mass index (BMI) [Ratio] 27.5 kg/m2 27.5 k g/m2 MEDENT ([facility]) Body surface area Derived from formula 1.78 m2 1.78 m2 MEDENT ([facility]) Systolic blood pressure 122 mm[Hg] 122 mm[Hg] M EDENT ([facility] ) Diastolic blood pressure 80 mm[Hg] 80 mm[Hg] MEDENT ([facility] ) Heart rate 63 /min 63 /min MEDENT ([facility]) Body height 63.4 [in_i] 63.4 [in_i] MEDENT ([facility] ) 5'3.40" Body weight 161.19 [lb_av] 161.19 [lb_av] MEDEN T ([facility] ) Body mass index (BMI) [Ratio] 28.2 kg/m2 28.2 k g/m2 MEDENT ([facility] ) Oxygen saturation in Arterial blood by Pulse oximetry 98 % 98 % MEDENT ([facility] ) Body height 64 [in_i] 64 [in_i] eCW1 ([facility]) Body weight 150.0 [lb_av] 150.0 [lb_av] eCW1 ([facility]) Body mass index (BMI) [Ratio] 25.74 kg/m2 25.74 kg/m2 eCW1 ([facility]) Body temperature 98.1 [degF] 98.1 [degF] eCW1 ( [facility]) Heart rate 68 /min 68 /min eCW1 ([facility]) Respiratory rate 18 /min 18 /min eCW1 ([facility]) Oxygen saturation in Arterial blood by Pulse oximetry 99 % 99 % eCW1 ([facility])
--- OUTSIDE RECORDS SUMMARY | 2021-07-07 20:08 | CCD | Continuity of Care Document ---
Author Author Elma CISNEROS Organization Unknown Address [address] [address] Phone [phone] Care Team Providers Care Imaging Assistant Name Role Phone Rogers Wilson MD [facility] [phone] Problems Description No Information Available Social History [...] Range Note Urine Micro/Creat Ratio Random 06/03/2021 [facility] [address] [place] [address] [phone] Creatinine, Urine 138.0 mg/dL Normal Malb Urine Siemens 29.6 mg/L Normal Jesse/Creat Ratio 21.4 MCG/MG Normal 0.0-30.0 1 Laboratory test finding 06/03/2021 In House Glucose 125 Hemoglobin A1c 7.5 1 [employer] AT[employer] STATES THAT MICROALBUMINURIA IS PRESENT IF THE MICROALBUMIN/CREATININE RATIO EXCEEDS 30 MCG/MG. THE THRESHOLD FOR CLINICAL ALBUMINURIA IS REACHED AT 300 MCG/MG. THE CLASSIFICATION OF A PATIENT SHOULD BE BASED UPON AT LEAST 2 OF 3 ABNORMAL RESULTS ON SPECIMENS COLLECTED WITHIN A 3 TO 6 MONTH TIME FRAME. Procedures Date Code Description Status 06/03/2021 [id number] Consultation Outpatient Level 5 Completed Medical Devices [...] Comments:* Pt states had full workup in [place] for adrenal function 10/06/20- CT Abd/Pelvis with IV contrast- report only available- study performed in [place] PT states had repeat CT scan in [place] T scan with contrast done 04/2021 at [facility] after pt developed kidney stones. Labs done [...] Date Gisel Prince MD ADRENAL Created [address] [facility], [address] [place] [address] [phone]
--- OUTSIDE RECORDS SUMMARY | 2021-07-07 20:08 | CCD | Continuity of Care Document ---
Author Author Elma CISNEROS Organization Unknown Address [address] [address] Phone [phone] Care Team Providers Care Sailor Name Role Phone Rogers Wilson MD [facility] [phone] Problems Description No Information Available Social History [...] Range Note Urine Micro/Creat Ratio Random 06/03/2021 [facility] [address] [place] [address] [phone] - Creatinine, Urine 138.0 mg/dL Normal Malb Urine Siemens 29.6 mg/L Normal Jesse/Creat Ratio 21.4 MCG/MG Normal 0.0-30.0 1 Laboratory test finding 06/03/2021 In House Glucose 125 Hemoglobin A1c 7.5 1 [employer] ATION STATES THAT MICROALBUMINURIA IS PRESENT IF THE MICROALBUMIN/CREATININE RATIO EXCEEDS 30 MCG/MG. THE THRESHOLD FOR CLINICAL ALBUMINURIA IS REACHED AT 300 MCG/MG. THE CLASSIFICATION OF A PATIENT SHOULD BE BASED UPON AT LEAST 2 OF 3 ABNORMAL RESULTS ON SPECIMENS COLLECTED WITHIN A 3 TO 6 MONTH TIME FRAME. Procedures Date Code Description Status 06/03/2021 21911 Consultation Outpatient Level 5 Completed Medical Devices [...] Comments:* Pt states had full workup in [place] for adrenal function 10/06/20- CT Abd/Pelvis with IV contrast- report only available- study performed in [place] PT states had repeat CT scan in [place] T scan with contrast done 04/2021 at [facility] after pt developed kidney stones. Labs [...] Date Gisel Prince MD ADRENAL Created [address] [facility], [address] [place] [address] [phone]
--- OUTSIDE RECORDS SUMMARY | 2021-07-07 20:34 | CCD ---
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 Care Flight Nurse Name Role Phone SALMARLYN CLIFFORD Unavailable Unavailable GABRIEL, B BESSY BRAKESHOE REPAIRER Unavailable Unavailable GABRIEL, B BESSY BRAKESHOE REPAIRER Unavailable Unavailable GABRIEL, B BESSY BRAKESHOE REPAIRER Unavailable Unavailable GABRIEL, B BESSY BRAKESHOE REPAIRER Unavailable Unavailable GABRIEL, B BESSY BRAKESHOE REPAIRER Unavailable Unavailable GABRIEL, B BESSY BRAKESHOE REPAIRER Unavailable Unavailable GABRIEL, B BESSY BRAKESHOE REPAIRER Unavailable Unavailable GABRIEL, B BESSY BRAKESHOE REPAIRER Unavailable Unavailable GABRIEL, B BESSY BRAKESHOE REPAIRER Unavailable Unavailable GABRIEL, B BESSY BRAKESHOE REPAIRER Unavailable Unavailable GABRIEL, B BESSY BRAKESHOE REPAIRER Unavailable Unavailable GABRIEL, B BESSY BRAKESHOE REPAIRER Unavailable Unavailable GABRIEL, B BESSY BRAKESHOE REPAIRER Unavailable Unavailable GABRIEL, B BESSY BRAKESHOE REPAIRER Unavailable Unavailable GABRIEL, B BESSY BRAKESHOE REPAIRER Unavailable Unavailable GABRIEL, B BESSY BRAKESHOE REPAIRER Unavailable Unavailable GABRIEL, B BESSY BRAKESHOE REPAIRER Unavailable Unavailable GABRIEL, B BESSY BRAKESHOE REPAIRER Unavailable Unavailable GABRIEL, B BESSY BRAKESHOE REPAIRER Unavailable Unavailable GABRIEL, B BESSY BRAKESHOE REPAIRER Unavailable Unavailable GABRIEL, B BESSY BRAKESHOE REPAIRER Unavailable Unavailable GABRIEL, B BESSY BRAKESHOE REPAIRER Unavailable Unavailable GABRIEL, B BESSY BRAKESHOE REPAIRER Unavailable Unavailable GABRIEL, B BESSY BRAKESHOE REPAIRER Unavailable Unavailable GABRIEL, B BESSY BRAKESHOE REPAIRER Unavailable Unavailable GABRIEL, B BESSY BRAKESHOE REPAIRER Unavailable Unavailable GABRIEL, B BESSY BRAKESHOE REPAIRER Unavailable Unavailable GABRIEL, B BESSY BRAKESHOE REPAIRER Unavailable Unavailable GABRIEL, B BESSY BRAKESHOE REPAIRER Unavailable Unavailable GABRIEL, B BESSY BRAKESHOE REPAIRER Unavailable Unavailable GABRIEL, B BESSY BRAKESHOE REPAIRER Unavailable Unavailable GABRIEL, B BESSY BRAKESHOE REPAIRER Unavailable Unavailable GABRIEL, B BESSY BRAKESHOE REPAIRER Unavailable Unavailable GABRIEL, B BESSY BRAKESHOE REPAIRER Unavailable Unavailable GABRIEL, B BESSY BRAKESHOE REPAIRER Unavailable Unavailable GABRIEL, B BESSY BRAKESHOE REPAIRER Unavailable Unavailable GABRIEL, B BESSY BRAKESHOE REPAIRER Unavailable Unavailable GABRIEL, B BESSY BRAKESHOE REPAIRER Unavailable Unavailable GABRIEL, B BESSY BRAKESHOE REPAIRER Unavailable Unavailable GABRIEL, B BESSY BRAKESHOE REPAIRER Unavailable Unavailable GABRIEL, B BESSY BRAKESHOE REPAIRER Unavailable Unavailable GABRIEL, B BESSY BRAKESHOE REPAIRER Unavailable Unavailable GABRIEL, B BESSY BRAKESHOE REPAIRER Unavailable Unavailable GABRIEL, B BESSY BRAKESHOE REPAIRER Unavailable Unavailable GABRIEL, B BESSY BRAKESHOE REPAIRER Unavailable Unavailable GABRIEL, B BESSY BRAKESHOE REPAIRER Unavailable Unavailable GABRIEL, B BESSY BRAKESHOE REPAIRER Unavailable Unavailable GABRIEL, B BESSY BRAKESHOE REPAIRER Unavailable Unavailable GABRIEL, B BESSY BRAKESHOE REPAIRER Unavailable Unavailable GABRIEL, B BESSY BRAKESHOE REPAIRER Unavailable Unavailable GABRIEL, B BESSY BRAKESHOE REPAIRER Unavailable Unavailable GABRIEL, B BESSY BRAKESHOE REPAIRER Unavailable Unavailable GABRIEL, B BESSY BRAKESHOE REPAIRER Unavailable Unavailable GABRIEL, B BESSY BRAKESHOE REPAIRER Unavailable Unavailable GABRIEL, B BESSY BRAKESHOE REPAIRER Unavailable Unavailable GABRIEL, B BESSY BRAKESHOE REPAIRER Unavailable Unavailable GABRIEL, B BESSY BRAKESHOE REPAIRER Unavailable Unavailable GABRIEL, B BESSY BRAKESHOE REPAIRER Unavailable Unavailable GABRIEL, B BESSY BRAKESHOE REPAIRER Unavailable Unavailable GABRIEL, B BESSY BRAKESHOE REPAIRER Unavailable Unavailable GABRIEL, B BESSY BRAKESHOE REPAIRER Unavailable Unavailable GABRIEL, B BESSY BRAKESHOE REPAIRER Unavailable Unavailable PAT, J OLAF Unavailable Unavailable Christiano MATTHEW MD Unavailable Unavailable Christiano MATTHEW MD Unavailable Unavailable Christiano MATTHEW MD Unavailable Unavailable Christiano MATTHEW MD Unavailable Unavailable Christiano MATTHEW MD Unavailable Unavailable Christiano MATTHEW MD Unavailable Unavailable Christiano MATTHEW MD Unavailable Unavailable Christiano MATTHEW MD Unavailable Unavailable Christiano MATTHEW MD Unavailable Unavailable Christiano AMTTHEW MD Unavailable Unavailable Christiano MATTHEW MD Unavailable [...] T COLE MD Unavailable Unavailable OBEN, T COEL MD Unavailable Unavailable OBEN, T COLE MD [...] T COLE MD Unavailable Unavailable OBEN, T OCLE MD Unavailable Unavailable OBEN, T COLE MD [...] T COLE MD Unavailable Unavailable OBEN, T OCLE MD Unavailable Unavailable OBEN, T COLE MD [...] Jorge Luis Kirill Unavailable Unavailable Jorge Luis Kiirll Unavailable Unavailable Jorge Luis Kirill Unavailable Unavailable [...] is protected by Article 27-F of the [facility] Public Health law. If you continue you may have access to information: Regarding HIV / AIDS; Provided by facilities licensed or operated by the [facility] Office of Mental Health; or Provided by the [facility] Office for People With Developmental Disabilities. If such information is present, then the following [facility] mandated warning applies: This information has been [...] law may result in a fine or shelter sentence or both. A general authorization for the release of medical or other information is NOT sufficient authorization for further disc losure. Family History Family Member Name Family Member Gender Family Member Status Date o f Status Description Data Source(s) Unknown Female Problem [facility] ([facility]) Unknown Female Problem [facility] ([facility]) Encounters Encounter Providers Location Date Indications Data Source(s ) Outpatient Attender: COLE MATTHEW MD Family Practice 06/08/2021 11:00:0 0 AM EDT [facility] ([facility]) Outpatient Attender: COLE MATTHEW MDConsultant: MARLYN SAL 06/08/2021 10:51:00 AM EDT - 06/08/2021 10:51:00 AM EDT [facility] ital Outpatient Attender: BESSY RIOS NP Physical Therapy 02:45:00 PM EDT [facility] ([facility]) Outpatient Attender: Kirill Kang MD 05/13/2021 01:30:[address] [facility] Outpatient [facility] 05/13/2021 12:00:00 AM EDT eCW1 ([facility]) Emergency Attender: IWONA JASSO MDConsultant: MARLYN SAL 04/28/2021 02:40:00 PM EDT - 04/28/2021 04:40:00 PM EDT [facility] Patient discharged. Outpatient Attender: OLAF DENISESConsultant: MARLYN SAL 04/28/2021 09:55:00 AM EDT - 04/28/2021 10:55:00 AM EDT [facility] ital Medications Medication Brand Name Start Date Product Form Dose Route Admi nistrative Instructions Pharmacy Instructions Status Indications Reaction Description Data Source(s) 24 HR Metformin hydrochloride 500 MG Extended Release Oral Tablet Metformin HCL ER 06/03/2021 12:00:00 AM EDT ORAL active [facility] ([facility]) Insurance Providers Payer name Policy type / Coverage type Policy ID Covered constitution party ID Covered constitution party's relationship to marina Policy Marina Plan Information [facility] [id number] [facility] [id number] [facility] [place] [id number] 01 [id number] [facility] [id number] S [id number] [facility] HUMAN - PHYSICIAN [id number] 01 [id number] [facility] [employer] - O/P [id number] [facility] [id number] [place] [employer] [id number] Self OTHER HEA UNAVAILABLE [id number] [place] O [id number] S [id number] [facility] [id number] [facility] [id number] Problems, Conditions, and Diagnoses Code Display Name Description Problem Type Effective Dates Data Source(s) R809 Proteinuria, unspecified Proteinuria, unspecified Diag nosis 06/08/2021 10:51:00 AM [facility] N200 Calculus of kidney Calculus of kidney Diagnosis 10:51:00 AM [facility] 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 ACQUIRED ABSENCE OF OTHER SPECIFIED PARTS OF DIGES Diagnosis 05/13/2021 01:30:0 0 PM [facility] R94.5 Abnormal results of liver function studi es ABNORMAL RESULTS OF LIVER FUNCTION STUDIES Diagnosis 05/13/2021 01:30:00 PM [facility] l D12.6 Benign neoplasm of colon, unspecified BE NIGN NEOPLASM OF COLON, UNSPECIFIED Diagnosis 05/13/2021 01:30:00 PM [facility] Z8719 Personal history of other diseases of th e digestive system Personal history of other diseases of the digestive system Diagnosis 04/2021 02:40:00 PM [facility] N132 Hydronephrosis with renal and ureteral c alculous obstruction Hydronephrosis with renal and ureteral calculous obstruction Diagnosis 04/28/20 02:40:00 PM [facility] R1012 Left upper quadrant pain Left upper quadrant pain Diag nosis 04/28/2021 02:40:00 PM [facility] 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 Be nign neoplasm of left adrenal gland Diagnosis 04/28/2021 09:55:00 AM [facility] 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 B enign neoplasm of right adrenal gland Diagnosis 04/28/2021 09:55:00 AM [facility] K760 Fatty (change of) liver, not elsewhere c lassified Fatty (change of) liver, not elsewhere classified Diagnosis 04/28/2021 09:55:00 AM [facility] N202 Calculus of kidney with calculus of uret er Calculus of kidney with calculus of ureter Diagnosis 04/28/2021 09:55:00 AM EDT [facility] Surgeries/Procedures Procedure Description Date Indications Data Source(s) OFFICE OUTPATIENT NEW 20 MINUTES 06/08/2021 12:00:00 A M EDT [facility] ([facility]) OFFICE CONSULTATION NEW/ESTAB PATIENT 60 MIN 1 12:00:00 AM EDT [facility] ([facility]) OFFICE CONSULTATION NEW/ESTAB PATIENT 80 MIN 1 12:00:00 AM EDT [facility] ([facility] Results ID Date Data Source [id number] 06/08/2021 02:23:00 PM EDT [facility] [address] [place] [address] PHONE: [phone] FAX: [phone] Name .................. : ROBERTH TEMPLE V Acct Number.................. : [id number] ROOM. ................. : Number ................... : [id number] Stay type ............. : CLINIC Discharge Date......... ... : 06/08/21 Admit Date ...... ... : 06/08/21 Admit Phys .................... : OBENFELIX Date of ....... : 1985 Family Phys ................... : DORON PATTERSON Phone .................. : [phone] Age ................................ : 36 Film# .................. .:[id number] Sex ................................. : F Unsigned transcriptions are preliminary reports and do not represent a medical or legal document ABDOMEN 1 VIEW [id number] COMPLETE:06/08/21 11:50 85566 Reason for Exam: EVAL R PROX URETER [...] rce(s) Supporting Document(s) ID Date Data Source [id number] 06/08/2021 02:01:00 PM EDT [facility] ([facility]) Name Value Range Interpretation Code Description Data Alondra rce(s) Supporting Document(s) Appearance of Urine Laboratory test result [facility] ([facility]) Color of Urine Laboratory test result [facility] ([facility]) Spec [place] 1.015 1.001-1.030 [facility] ([facility]) pH of Urine by Test strip 5 5-9 MEDE NT ([facility]) Leukocytes Laboratory test result [facility] ([facility]) Nitrate [Presence] in Urine Laboratory test result [facility] ([facility]) Inhouse Glucose Laboratory test result [facility] ([facility]) Protein [Presence] in Urine by Test strip 30 Above high normal [facility] ([facility]) Ketones [Presence] in Urine by Test strip [facility] Urobilinogen Laboratory test result [facility] ([facility]) Bilirubin.total [Presence] in Urine by Test strip Laboratory test res ult [facility]) Blood type and Indirect antibody screen panel - Blood Laboratory test result [facility] ([facility]) ID Date Data Source [id number] 06/03/2021 03:27:00 PM EDT [facility] ([facility]) Name Value Range Interpretation Code Description Data Alondra rce(s) Supporting Document(s) Microalbumin/Creatinine [Mass Ratio] in Urine 21.4 MCG/MG 0.0-30.0 [facility] ([facility]) THE [employer] ASS[employer]ATION STATES THAT MICROALBUMINURIA IS PRESENT IF THE MICROALBUMIN/CREATININE RATIO EXCEEDS 30 MCG/MG. THE THRESHOLD FOR CLINICAL ALBUMINURIA IS REACHED AT 300 MCG/MG. THE CLASSIFICATION OF A PATIENT SHOULD BE BASED UPON AT LEAST 2 OF 3 ABNORMAL RESULTS ON SPECIMENS COLLECTED WITHIN A 3 TO 6 MONTH TIME FRAME. Creatinine [Mass/volume] in Urine 138.0 mg/dL [facility] ([facility]) Microalbumin [Mass/volume] in Urine 29.6 mg/L [facility] ([facility]) ID Date Data Source [id number] 06/03/2021 02:58:00 PM EDT [facility] ([facility]) Name Value Range Interpretation Code Description Data Alondra rce(s) Supporting Document(s) Glucose [Mass/volume] in Serum or Plasma 125 [facility] ([facility]) Hemoglobin A1c/Hemoglobin.total in Blood 7.5 [facility] ([facility]) ID Date Data Source [id number] 05/04/2021 04:25:00 PM EDT [facility] Received: 05/02/2021 at 12:41:00 QPT : [facility], [address], [address] [place] [address], [phone], Doc Bal MD Received: 05/02/2021 at 12:41:00 QPT : [facility], [address], [address] [place] [address], [phone], Doc Bal MD Received: 05/02/2021 at 12:41:00 AMD : [employer], [address], [place], [address], Lazaro Smith M.D.,PhD Name Value Range Interpretation [...] to non-numeric results) [facility] eGFR NON-AFR. NIGERIAN 111 mL/min/1.73m2 > OR = 60 Normal [...] results) [facility] ID Date Data Source [id number] 05/04/2021 04:25:00 PM EDT [facility] Received: 05/02/2021 at 12:41:00 QPT : [facility], [address], [address] [place], [address], oDc Bal MD Received: 05/02/2021 at 12:41:00 QPT : [facility], [address], [address] [place], [address], Doc Bal MD Received: 05/02/2021 at 12:41:00 AMD : [facility], [address], [place], [address], Lazaro Smith M.D.,PhD Name Value Range Interpretation [...] in Blood by Automated count 5187 cells/uL [id number] Normal (applies to non-numeric results) [facility] [...] differential oranother test, please contact us at [phone]( [phone] to adjust the billingappropriately. ID Date Data Source [id number] 05/04/2021 04:25:00 PM EDT [facility] Received: 05/02/2021 at 12:41:00 QPT : [facility], [address], [address] [place] [address], [phone], Doc Bal MD Received: 05/02/2021 at 12:41:00 QPT : [facility], [address], [address] [place], [address], Doc Bal MD Received: 05/02/2021 at 12:41:00 AMD : [employer] [facility], [address], [place], [address], Lazaro Smith M.D.,PhD Name Value Range Interpretation Code Description Data Alondra rce(s) Supporting Document(s) Natriuretic peptide.B prohormone N-Terminal [Mass/volume] in Serum or Plasma [facility] For Heart Failure (HF) diagnosis, refere nce ranges inpatients with dyspnea are based on Silviano FRENANDEZ, Et al.Am Silvana Cardiol. 2018;71:9984-4814.18-49 years:<= 300 pg/mL Normal, HF unlikely>= 450 [...] Clin Biochem. 2010;43:1405-10.For additional information, please refer [email or web address]/[email or web address](This link is being provided for informational/educational purposes only.) ID Date Data Source [id number] 04/28/2021 02:40:00 PM EDT [facility] 1 OrderSheet [facility] Emergency Department [address] [place] [address] Phone #: ext- [phone] 04/28/2021 14:39 Patient: [...] Description Priority Entered Acknowledged Initialed 2 OrderSheet [facility] Emergency Department [address] [place] [address] Phone #: ext- [phone] 04/28/2021 14:39 Patient: MAVERICK LEPE Sex: F [...] rce(s) Supporting Document(s) ID Date Data Source [id number] 04/28/2021 02:40:00 PM EDT [facility] 1 Medication Reconciliation Report [facility] Emergency Department [address] [place] [address] Phone #: ext- [phone] 04/28/2021 14:39 Patient: [...] Dispense 14 capsule.Refills: 0. Substitution permitted.Pharmacy - [facility] - [address] [facility] ; [place] [address]. .IBU 600 mg tablet Take 1 tablet four times a day as needed for pain for 5 days -- Dispense 20 tablet.Refills: 0. Substitution permitted.[facility] - [facility] [address] [facility] ; [place] [address]. . -- Iwona Jasso Name Value Range Interpretation Code Description Data Alondra rce(s) Supporting Document(s) ID Date Data Source [id number] 04/28/2021 02:40:00 PM EDT [facility] 1 Medication Administration Record [facility] Emergency Department [address] [place] [address] Phone #: ext- [phone] 04/28/2021 14:39 [id number] Sex: F : 1985 Age: 36yWeight: 68.0 kgHeight/Length: 64 inBMI: 25.8ALLERGIES: Wellbutrin Date/Time Medication Administered Medication OrderedStart NS [IV] NS IV : Bolus 1000 mL, then TKO -15:27 04/28/2021 Dose: IV FluidsNikki Hall RHarisNHaris Bolus: 1000 mL wide open---- Dispensed: 1000 mL bagStop Site: #1 right AC16:30 04/28/2021Nikki carerra R.N.Given TORADOL [IVP] (KETOROLAC Toradol IVP 30 mg (NOW)15:27 04/28/2021 TROMETHAMINE)Nikki Hall R.N. Dose: 30 mg IVP Site: #1 right ACGiven FLOMAX [PO] (TAMSULOSIN HCL) Flomax PO 0.4 mg (NOW x1, Do16:14 04/28/2021 Dose: 0.4 mg Capsules PO not crush or chew)Nikki Hall R.N. Name Value Range Interpretation Code Description Data Alondra rce(s) Supporting Document(s) ID Date Data Source [id number] 04/28/2021 02:40:00 PM EDT [facility] 1 General Instructions [facility] Emergency Department [address] [place] [address] Phone #: ext- [phone] 04/28/2021 14:39 Patient: [...] Dispense 14 capsule.Refills: 0. Substitution permitted.Pharmacy - [facility] - [address] [facility] ; [place] [address]. .IBU 600 mg tablet Take 1 tablet four times a day as needed for pain for 5 days -- Dispense 20 tablet.Refills: 0. Substitution permitted.Pharmacy - [facility] - [address] [facility] ; [place] [address]. Phone: .Follow-up:Follow up with your healthcare provider Sunday in days. Reason for referral: evaluation. Summary of careprovided to patient via paper.Follow-up with: Cole Matthew M.D., Urology, , [address] [place] [address], [phone] Follow up Sunday. Call for the next available appointment. Reason for referral: evaluation. Summary ofcare provided to patient via paper. ADDITIONAL INFORMATIONKidney Stone with Pain 2 Gen eral Instructions [facility] Emergency Department [address] [place] [address] Phone #: ext- [phone] 04/28/2021 14:39 Patient: MAVERICK LEPE Sex: F [...] surgery through the skin 3 General Instructions [facility] Emergency Department [address] [place] [address] Phone #: ext- [phone] 04/28/2021 14:39 Patient: MAVERICK LEPE [facility]#: [id number] Sex: F : 1985 Age: 36yHome careThe [...] and low-sugar fruit juices. 4 General Instructions [facility] Emergency Department [address] [place] [address] Phone #: ext- [phone] 04/28/2021 14:39 Patient: [id number] Sex: F : 1985 Age: 36y Having [...] new findings that may affect your care.Call [phone] if you have any of these: Weakness, [...] lots of blood clots 5 General Instructions [facility] Emergency Department [address] [place] [address] Phone #: ext- [phone] 04/28/2021 14:39 Patient: MAVERICK LEPE [facility]#: [id number] Sex: F : 1985 Age: 36y Foul-smelling or cloudy urine Unable to pass urine for 8 hours and increasing bladder pressure [phone] [place] [place] [address], [place] [address]. All rights reserved. This information is not intended as asubstitute for professional medical care. Always follow your healthcare professional's instructions. You h ave been given the following additional information: Kidney Stone w/ Colic(Electronically signed by Iwona Jasso 04/28/2021 17:03) Name Value Range Interpretation Code Description Data Alondra rce(s) Supporting Document(s) ID Date Data Source [id number] 04/28/2021 02:40:00 PM EDT [facility] 1 Clinical Report - Nurses [facility] Emergency Department [address] [place] [address] Phone #: [phone] fqh- [phone] 04/28/2021 14:39 Patient: MAVERICK LEPE Sex: F [...] Section.Dilatation Curettage. 2 Clinical Report - Nurses [facility] Emergency Department [address] [place] [address] Phone #: ext- [phone] 04/28/2021 14:39 Patient: [...] ED physician 3 Clinical Report - Nurses [facility] Emergency Department [address] [place] [address] Phone #: ext- [phone] 04/28/2021 14:39 Patient: MAVERICK LEPE Sex: F [...] 04/28/21 Isabel, Doreen Clinical Report - Nurses [facility] Emergency Department [address] [place] [address] Phone #: ext- [phone] 04/28/2021 14:39 Patient: MAVERICK LEPE Sex: F : 1985 Age: 36y Jerrell [...] Patient verbalized understanding. Written instructions provided in Uzbek. The patient was discharged by the physician. She was discharged home and unaccompanied at time of discharge. She left ambulatory and via private vehicle. Patient driving. --16:44 04/28/21 Nikki Hall R.N.Locked/Released at 04/28/2021 16:44 by Nikki Hall R.N. Name Value Range Interpretation Code Description Data Alondra rce(s) Supporting Document(s) ID Date Data Source [id number] 04/28/2021 02:40:00 PM EDT [facility] 1 Clinical Report - Physicians/Mid Levels [facility] Emergency Department [address] [place] [address] Phone #: ext- [phone] 04/28/2021 14:39 Patient: MAVERICK LEPE [facility]#: [id number] Sex: F : 1985 Age: 36y Time [...] and had colectomy was sent here from [place] after she had a ct scan to [...] Allergies: 2 Clinical Report - Physicians/Mid Levels [facility] Emergency Department [address] [place] [address] Phone #: ext- [phone] 04/28/2021 14:39 Patient: MAVERICK LEPE [facility]#: [id number] Sex: F : 1985 Age: 36y Wellbutrin. [...] 36.0) 3 Clinical Report - Physicians/Mid Levels [facility] Emergency Department [address] [place] [place] [address] Phone #: ext- [phone] 04/28/2021 14:39 Patient: MAVERICK LEPE Sex: F [...] Male GFR Interprentation 20-49 yrs >60 mL/min Fcugtm57-12 yrs >56 mL/min Normal 60-69 yrs >49 mL/min Normal 70-79yrs>42 mL/min Normal 80 and above >35 mL/min Normal Female GFRInterpretation 20-39 yrs >60 mL/min Normal 40-49 yrs >58 mL/minNormal 50-59 yrs >51 mL/min Normal 60-69 yrs >45 mL/min Ipxmuv20-65 yrs >39 mL/min Normal 80 and above >32 mL/min NormalLipase: (SILVANA: 04/28/2021 15:20) ( MsgRcvd 04/28/2021 16:01) Final results Test Result Flag Units (Reference) LIPASE 58 U/L (13 - 60)UA REFLEX TO UA CULTURE: (SILVANA: 04/28/2021 15:20) ( MsgRcvd 04/28/2021 15:32) Final results 4 Clinical Report - Physicians/Mid Levels [facility] Emergency Department [address] [place] [address] Phone #: ext- [phone] 04/28/2021 14:39 Patient: [...] up 5 Clinical Report - Physicians/Mid Levels [facility] Emergency Department [address] [place] [address] Phone #: ext- [phone] 04/28/2021 14:39 Patient: MAVERICK LEPE Sex: F [...] capsule. Refills: 0. Substitution permitted. Pharmacy - [facility] - [id number] [facility] ; [place] [address]. . IBU 600 mg tablet Take 1 tablet four times a day as needed for pain for 5 days -- Dispense 20 tablet. Refills: 0. Substitution permitted. Pharmacy - [facility] - [id number] [facility] ; [place] [address]. . Follow-up: Follow up with your healthcare provider Sunday in days. Reason for referral: evaluation. Summary of care provided to patient via paper. Follow-up with: Cole Matthew M.D., Urology, , [address] [place] [address], [id number] Follow up Sunday. Call for the next available appointment. Reason for referral: evaluation. Summary of care provided to patient via paper.(Electronically signed by Iwona Jasso 04/28/2021 17:03) Name Value Range Interpretation Code Description Data Alondra rce(s) Supporting Document(s) ID Date Data Source [id number] 04/28/2021 03:54:00 PM EDT [facility] [address] [place] [address] PHONE: [phone] FAX: [phone] Name .................. : ROBERTH TEMPLE Acct Number.................. : [id number] ROOM. ................. : Number ................... : [id number] Stay type ............. : O/P Discharge Date......... ... : 04/28/21 Admit Date ......... : 04/28/21 Admit Phys .................... : PAT RIVAS Date of ....... : 1985 Family Phys ................... : DORON PATTERSON Phone .................. : [phone] Age ................................ : 36 Film# .................. .:[id number] Sex ................................. : F Unsigned transcriptions are preliminary reports and do not represent a medical or legal document CT ABD & PELV W/O FOL W/IV/OR [id number] COMPLETE:04/28/21 14:19 AML [id number] Reason for Exam: PERSISTENT SINUS TACHYCARDIA W/O IDENTIFIABLE CAUSE CT ABDOMEN AND PELVIS WITHOUT AND WITH IV CONTRAST INDICATION: Persistent sinus tachycardia without identifiable cause COMPARISON: None at this institution. Comparison is made to reports of previous CT 10/20/2019 and MRI 10/28/2019 from [facility] in [facility]. IV CONTRAST: 75 cc Isovue-370 One or [...] the right adrenal. Page 1 of [address] [place] [address] PHONE: [phone] FAX: [phone] Name .................. : ROBERTH MAVERICK Acct Number.................. : [id number] ROOM. ................. : MR Number ................... : [id number] Stay type ............. : O/P Discharge Date......... ... : 04/28/21 Admit Date ......... : 04/28/21 Admit Phys .................... : Bautista RIVAS Date of ....... : 1985 Family Phys ................... : SAL AD Phone .................. : [phone] Age ................................ : 36 Film# .................. .:[id number] Sex ................................. : F Unsigned transcriptions are preliminary reports and do not represent a medical or legal document CT ABD & PELV W/O FOL W/IV/OR [id number] COMPLETE:04/28/21 14:19 AML [id number] Reason for Exam: PERSISTENT SINUS TACHYCARDIA W/O [...] the previous reports. Page 2 of 3 [facility] [address] [place] [address] PHONE: [phone] FAX: [phone] Name .................. : ROBERTH TEMPLE Acct Number.................. : [id number] ROOM. ................. : Number ................... : [id number] Stay type ............. : O/P Discharge Date......... ... : 04/28/21 Admit Date ......... : 04/28/21 Admit Phys .................... : PAT RIVAS Date of ....... : 1985 Family Phys ................... : DORON PATTERSON Phone .................. : [phone] Age ................................ : 36 Film# .................. .:[id number] Sex ................................. : F Unsigned transcriptions are preliminary reports and do not represent a medical or legal document CT ABD & PELV W/O FOL W/IV/OR [id number] COMPLETE:04/28/21 14:19 AML [id number] Reason for Exam: PERSISTENT SINUS TACHYCARDIA W/O IDENTIFIABLE CAUSE These findings were discussed with Dr. Hernandez at [facility] at 1:04 PM Electronically Reviewed and Signed By Chapito Padilla MD , 04/28/21 15:54, FREDY Transcribe Initials: SSR, Transcribe Date: 04/28/21 14:33, Dictation Date: Copy for: PAT Amezcua Copy for: 710 MED REC Page 3 of 3 Name Value Range Interpretation Code Description Data Alondra rce(s) Supporting Document(s) ID Date Data Source [id number] 04/28/2021 04:02:00 PM EDT [facility] Name Value Range Interpretation Code Description Data Alondra rce(s) Supporting Document(s) COMPREHENSIVE METABOLIC PANEL [facility] COMPREHENSIVE METABOLIC PANEL Sodium [Moles/volume] in Serum or Plasma 135 mEq/L 134 - 153 [facility] Potassium [Moles/volume] in Serum or Plasma 4.2 mEq/L 3.6 - 5.0 [facility] Chloride [Moles/volume] in Serum or Plasma 98 mEq/L 98 - 107 [facility] Carbon dioxide, total [Moles/volume] in Serum or Plasma 25 MEQ/L 22 - 30 [facility] Glucose [Mass/volume] in Serum or Plasma 119 MG/DL 70 - 99 H [facility] BUN 9 MG/DL 7 - 21 [facility] Creatinine [Mass/volume] in Serum or Plasma 0.7 MG/DL 0.7 - 1.5 [facility] BUN/CREAT 13 8 - 27 [facility] Protein [Mass/volume] in Serum or Plasma 7.7 G/DL 6.3 - 8.2 [facility] Albumin [Mass/volume] in Serum or Plasma 4.7 G/DL 3.9 - 5.0 [facility] Globulin [Mass/volume] in Serum by calculation 3.0 GM/DL 2.4 - 3.2 [facility] A/G RATIO 1.6 0.8 - 2.0 [facility] Calcium [Mass/volume] in Serum or Plasma 9.5 MG/DL 8.4 - 10.2 [facility] Bilirubin.total [Mass/volume] in Serum or Plasma <0.7 MG/DL 0.2 - 1.3 [facility] Alkaline phosphatase [Enzymatic activity/volume] in Serum or Plasma 81 U/L 38 - 126 [facility] Aspartate aminotransferase [Enzymatic activity/volume] in Serum or Plasma 21 U/L 5 - 40 [facility] Alanine aminotransferase [Enzymatic activity/volume] in Seru m or Plasma 16 U/L 7 - 56 [facility] Anion gap 3 in Serum or Plasma 12.0 mmol/L 8.0 - 16.0 [facility] AGE 36 yrs [facility] NON-AA GFR >60 mL/min [facility] ital AFR AMER GFR >60 mL/min [facility] Ho spital Male GFR In terprentation 20-49 [...] >32 mL/min Normal ID Date Data Source [id number] 04/28/2021 04:01:00 PM EDT [facility] Name Value Range Interpretation Code Description Data Alondra rce(s) Supporting Document(s) Lipase [Enzymatic activity/volume] in Serum or Plasma 58 U/L 13 - 60 [facility] ID Date Data Source [id number] 04/28/2021 03:32:00 PM EDT [facility] Name Value Range Interpretation Code Description Data Alondra rce(s) Supporting Document(s) CBC W/AUTOMATED DIFF [facility] COMPLETE BLOOD COUNT Leukocytes [#/volume] in Blood by Automated count 8.4 10^3/uL 4.2 - 1 1.0 [facility] Erythrocytes [#/volume] in Blood by Automated count 5.71 10^6/uL 4. 20 - 5.40 H [facility] Hemoglobin [Mass/volume] in Blood 15.4 g/dL 12.0 - 16.0 [facility] Hematocrit [Volume Fraction] of Blood by Automated count 47.9 % 3 7.0 - 47.0 H [facility] Erythrocyte mean corpuscular volume [Entitic volume] by Auto mated count 83.9 fL 81.0 - 101 [facility] Erythrocyte mean corpuscular hemoglobin [Entitic mass] by Automated count 27.0 pg 27.0 - 34.0 [facility] Erythrocyte mean corpuscular hemoglobin concentration [Mass/volume] by Automated count 32.2 g/dL 31.0 - 36.0 [facility] Erythrocyte distribution width [Ratio] by Automated count 12.6 % 11.5 - 14.5 [facility] Platelets [#/volume] in Blood by Automated count 333 10^3/uL 150 - 45 0 [facility] Platelet mean volume [Entitic volume] in Blood by Automated count 8.5 fL 7.4 - 10.4 [facility] Neutrophils/100 leukocytes in Blood by Automated count 70.6 % 37. 0 - 80.0 [facility] Lymphocytes/100 leukocytes in Blood by Manual count 19.5 % 25.0 - 40.0 L [facility] Monocytes/100 leukocytes in Blood by Automated count 7.1 % 3.0 - 8.0 [facility] Eosinophils/100 leukocytes in Blood by Automated count 1.9 % 0.0 - 7.0 [facility] Basophils/100 leukocytes in Blood by Automated count 0.4 % 0.0 - 2.5 [facility] %IG 0.5 % 0.0 - 0.0 [facility] %NRBC 0.0 % 0.0 - 0.0 [facility] al Neutrophils [#/volume] in Blood by Automated count 5.90 10^3/uL 2.00 - 6.90 [facility] Lymphocytes [#/volume] in Blood by Automated count 1.63 10^3/uL 0.60 - 3.40 [facility] Monocytes [#/volume] in Blood by Automated count 0.59 10^3/uL 0.00 - 0.90 [facility] Eosinophils [#/volume] in Blood by Automated count 0.16 10^3/uL 0.00 - 0.70 [facility] Basophils [#/volume] in Blood by Automated count 0.03 10^3/uL 0.00 - 0.20 [facility] #IG 0.04 10^3/uL 0.00 - 0.10 [facility] H ospital #NRBC 0.00 10^3/uL 0.00 - 0.00 [facility] ospital MANUAL DIFF NOT INDICATED [facility] RBC MORPH NOT INDICATED [facility] spital ID Date Data Source [id number] 04/28/2021 03:32:00 PM EDT [facility] Name Value Range Interpretation Code Description Data Alondra rce(s) Supporting Document(s) UA REFLEX TO UA CULTURE [facility] URINALYSIS SOURCE R [facility] Hospit al COLOR yellow NORMAL: Yellow [facility] ospital CLARITY clear NORMAL: Clear [facility] spital Specific gravity of Urine by Test strip 1.010 1.001 - 1.030 [facility] pH 5 5 - 9 [facility] al Glucose [Mass/volume] in Urine by Test strip NORM NORMAL: Negat [facility] Bilirubin.total [Presence] in Urine by Test strip NEG NORMAL: Negative [facility] Ketones [Presence] in Urine by Test strip NEG NORMAL: Negative [facility] Protein [Mass/volume] in Urine by Test strip NEG NORMAL: Negat [facility] Nitrite [Presence] in Urine by Test strip NEG NORMAL: Negative [facility] BLOOD NEG NORMAL: Negative [facility] Leukocyte esterase [Presence] in Urine by Test strip NEG ABBY L: Negative [facility] Urobilinogen [Mass/volume] in Urine by Test strip NOR less jan n 1.0 mg/dL [facility] MICROSCOPIC Not Indicate [facility] Procedure Social History Code Duration Value Status Description Data Source(s ) Smoking 06/03/2021 12:00:00 AM EDT Never Smoked Cigarettes com pleted Never Smoked Cigarettes [facility] ([facility]) Vital Signs ID Date Data Source UNK Name Value Range Interpretation Code Description Data Source(s) Systolic blood pressure 118 mm[Hg] 118 mm[Hg] M EDENT ([facility]) Diastolic blood pressure 74 mm[Hg] 74 mm[Hg] [facility] ([facility]) Heart rate 80 /min 80 /min [facility] ([facility]) Oxygen saturation in Arterial blood by Pulse oximetry 97 % 97 % [facility] ([facility]) Body weight 160.00 [lb_av] 160.00 [lb_av] MEDEN T ([facility]) Body weight 72.576 kg 72.576 kg [facility] ([facility]) Body height 64 [in_i] 64 [in_i] [facility] ([facility]) 5'4" Body mass index (BMI) [Ratio] 27.5 kg/m2 27.5 k g/m2 [facility] ([facility]) Body surface area Derived from formula 1.78 m2 1.78 m2 [facility] ([facility]) Systolic blood pressure 122 mm[Hg] 122 mm[Hg] M EDENT ([facility] ) Diastolic blood pressure 80 mm[Hg] 80 mm[Hg] [facility] ([facility] ) Heart rate 63 /min 63 /min [facility] ([facility]) Body height 63.4 [in_i] 63.4 [in_i] [facility] ([facility] ) 5'3.40" Body weight 161.19 [lb_av] 161.19 [lb_av] MEDEN T ([facility] ) Body mass index (BMI) [Ratio] 28.2 kg/m2 28.2 k g/m2 [facility] ([facility] ) Oxygen saturation in Arterial blood by Pulse oximetry 98 % 98 % [facility] ([facility] ) Body height 64 [in_i] 64 [in_i] eCW1 ([facility]) Body weight 150.0 [lb_av] 150.0 [lb_av] eCW1 ([facility]) Body mass index (BMI) [Ratio] 25.74 kg/m2 25.74 kg/m2 eCW1 ([facility]) Body temperature 98.1 [degF] 98.1 [degF] eCW1 ( [facility]) Heart rate 68 /min 68 /min eCW1 ([facility]) Respiratory rate 18 /min 18 /min eCW1 ([facility]) Oxygen saturation in Arterial blood by Pulse oximetry 99 % 99 % eCW1 ([facility])
== END 2021-07-07 21:57 | disposition left against medical advice (07) ==
LOC: M ED 19:57
DX: Z53.29 Procedure and treatment not carried out because of patient's decision for other reasons (principal)

== ENCOUNTER → 2021-12-08 | Outpatient (REF) | payer OTHER ==
[~2021-12-08] MED LIST changes: +CLON0.3T PO
== END ==
LOC: M WUC 19:34
PROVIDERS: ATTEND Physician Assistant
DX: N39.0 Urinary tract infection, site not specified (principal)

== ENCOUNTER 2021-12-20 15:53 | Emergency (ER) | payer OTHER ==
[~2021-12-20] VITALS: Ht 162.6 cm; Wt 74.2 kg
[2021-12-20] MEDS ORDERED: PROM25TA12 (16:23)
[2021-12-20] MEDS ORDERED: NS 1,000 ML IV ONE (16:50)
[2021-12-20] MEDS ORDERED: KETOROLAC 30 MG/ML 1ML VIAL IV ONE (16:55)
[2021-12-20] MEDS ORDERED: HALOPERIDOL 5MG/ML VIAL (J1630 PER 1) IV ONE (16:55)
[2021-12-20 17:09] LABS: BASO # 0.1 10^3/uL (0.0-0.2); BASO % 0.4 % (0.0-1.0); EOS % 0.1 % (0.0-3.0); HEMATOCRIT 37.7 % (36.0-47.0); HEMOGLOBIN 12.4 g/dl (12.0-15.5); LYMPH # 2.8 10^3/uL (1.5-5.0); MEAN CORPUSCULAR HEMOGLOBIN 27.7 pg (27.0-33.0); MEAN CORPUSCULAR HGB CONC 32.9 g/dl (32.0-36.5); MEAN CORPUSCULAR VOLUME 84.3 fl (80.0-96.0); MONO # 0.6 10^3/uL (0.0-0.8); MONO % 4.4 % (2.0-8.0); NEUTROPHILS # 10.4 10^3/uL (1.5-8.5); NEUTROPHILS % 74.3 % (36.0-66.0); PLATELET COUNT, AUTOMATED 368 10^3/uL (150-450); RED BLOOD COUNT 4.47 10^6/uL (4.00-5.40)
[2021-12-20 17:11] LABS: ALBUMIN 4.1 GM/DL (3.2-5.2); ALT/SGPT 47 U/L (12-78); BILIRUBIN,DIRECT 0.3 MG/DL (0.0-0.2); BILIRUBIN,TOTAL 0.7 MG/DL (0.2-1.0); BLOOD UREA NITROGEN 8 MG/DL (7-18); CALCIUM LEVEL 9.5 MG/DL (8.5-10.1); CARBON DIOXIDE LEVEL 25 MEQ/L (21-32); CHLORIDE LEVEL 104 MEQ/L (98-107); CREATININE FOR GFR 1.12 MG/DL (0.55-1.30); GLUCOSE, FASTING 146 MG/DL (70-100); LIPASE 190 U/L (73-393); POTASSIUM SERUM 3.7 MEQ/L (3.5-5.1); SODIUM LEVEL 137 MEQ/L (136-145); TOTAL PROTEIN 7.7 GM/DL (6.4-8.2)
[2021-12-20 18:03] LABS: HCG, SERUM QUALITATIVE NEGATIVE (NEGATIVE)
[2021-12-20] MEDS ORDERED: ISOVUE-370 76% 100ML VIAL As Ordered ONE (18:55)
[2021-12-20 19:16] VITALS: BP 176/107
[2021-12-20] MEDS ORDERED: ONDANSETRON 4MG/2ML VIAL IV ONE (20:30)
[2021-12-20] MEDS ORDERED: MORPHINE 4 MG/ML 1ML VIAL/SYRINGE IV ONE (20:30)
== END 2021-12-20 22:01 | disposition home or self-care (01) ==
LOC: M ED 15:53
DX: R10.9 Unspecified abdominal pain (principal); R11.0 Nausea; N20.1 Calculus of ureter; K76.0 Fatty (change of) liver, not elsewhere classified; I10 Essential (primary) hypertension; E78.00 Pure hypercholesterolemia, unspecified; R56.9 Unspecified convulsions; Z87.19 Personal history of other diseases of the digestive system; Z88.8 Allergy status to other drugs, medicaments and biological substances; Z97.5 Presence of (intrauterine) contraceptive device; Z79.899 Other long term (current) drug therapy
CPT/HCPCS: 74174; 80048; 80076; 83605; 83690; 84703; 85025; 93005; 93041; 96361; 96374; 96375; 99285; J1630; J1885; J2270; J2405; Q9967

== ENCOUNTER 2022-05-26 16:24 | Inpatient (IN) | payer OTHER ==
[~2022-05-26] VITALS: Ht 162.6 cm; Wt 74.1 kg
[~2022-05-26 16:24] MED LIST changes: +PROM25TA12
[2022-05-26] MEDS ORDERED: KETOROLAC 30 MG/ML 1ML VIAL IV ONE (17:20)
[2022-05-26] MEDS ORDERED: HALOPERIDOL 5MG/ML VIAL (J1630 PER 1) IV ONE (17:55)
[2022-05-26 18:00] LABS: BASO # 0.1 10^3/uL (0.0-0.2); BASO % 0.3 % (0.0-1.0); EOS % 0.1 % (0.0-3.0); HEMATOCRIT 49.5 % (36.0-47.0); LYMPH # 11.3 10^3/uL (1.5-5.0); LYMPH % 31.3 % (24.0-44.0); MEAN CORPUSCULAR HEMOGLOBIN 26.9 pg (27.0-33.0); MEAN CORPUSCULAR HGB CONC 28.3 g/dl (32.0-36.5); MONO # 0.8 10^3/uL (0.0-0.8); MONO % 2.3 % (2.0-8.0); NEUTROPHILS # 23.1 10^3/uL (1.5-8.5); NEUTROPHILS % 64.1 % (36.0-66.0); PLATELET COUNT, AUTOMATED 418 10^3/uL (150-450); RED BLOOD COUNT 5.21 10^6/uL (4.00-5.40)
[2022-05-26 18:50] LABS: ALBUMIN 3.6 GM/DL (3.2-5.2); ALT/SGPT 29 U/L (12-78); BILIRUBIN,DIRECT 0.2 MG/DL (0.0-0.2); BILIRUBIN,TOTAL 0.3 MG/DL (0.2-1.0); BLOOD UREA NITROGEN 55 MG/DL (7-18); CALCIUM LEVEL 9.8 MG/DL (8.5-10.1); CARBON DIOXIDE LEVEL 2 MEQ/L (21-32); CHLORIDE LEVEL 101 MEQ/L (98-107); CREATININE FOR GFR 7.36 MG/DL (0.55-1.30); GLOMERULAR FILTRATION RATE 6.6 (>60); GLUCOSE, FASTING 164 MG/DL (70-100); LIPASE 260 U/L (73-393); POTASSIUM SERUM 4.1 MEQ/L (3.5-5.1); SODIUM LEVEL 138 MEQ/L (136-145); TOTAL PROTEIN 7.2 GM/DL (6.4-8.2)
[2022-05-26] MEDS ORDERED: NS 1,000 ML IV ONE (19:05)
[2022-05-26 19:07] LABS: HCG, SERUM QUALITATIVE NEGATIVE (NEGATIVE)
[2022-05-26] MEDS ORDERED: NS 1,000 ML IV SCH (21:20)
[2022-05-26] MEDS ORDERED: NS 2,250 ML in IV 1 EA IV ONE (21:40)
[2022-05-26] MEDS ORDERED: JARD1TAB PO (21:52)
[2022-05-26] MEDS ORDERED: METF10004 PO (21:52)
[2022-05-26] MEDS ORDERED: ROSU20TA5 PO (21:52)
[2022-05-26] MEDS ORDERED: HOME MED LIST COMPLETE! XX SCH (21:55)
[2022-05-26 22:02] LABS: AMPHETAMINES LEVEL URINE NEGATIVE (NEGATIVE); BARBITURATES URINE NEGATIVE (NEGATIVE); BENZODIAZEPINES URINE NEGATIVE (NEGATIVE); CANNABINOIDS URINE NEGATIVE (NEGATIVE); COCAINE METABOLITE URINE NEGATIVE (NEGATIVE); METHADONE URINE NEGATIVE (NEGATIVE); OPIATES URINE NEGATIVE (NEGATIVE); PHENCYCLIDINE URINE NEGATIVE (NEGATIVE)
[2022-05-26 22:21] LABS: RSV AMPLIFICATION NEGATIVE (NEGATIVE)
[2022-05-27] VITALS (89 sets, daily range): BP systolic 76–115; BP diastolic 41–59
[2022-05-27] MEDS ORDERED: LR 1,000 ML IV ONE (00:10)
[2022-05-27] MEDS ORDERED: NOREPINEPHRINE BITARTRATE 16 MG in D5W 484 ML IV SCH (00:10)
[2022-05-27] MEDS ORDERED: NOREPINEPHRINE 4MG IN D5 250ML 4 MG in IV 1 EA IV SCH ×2 (00:15)
[2022-05-27 00:19] LABS: VENOUS BASE EXCESS -36.3 (-2.0-2.0); VENOUS PARTIAL PRESSURE CO2 22.1 mmHg (38.0-50.0); VENOUS PARTIAL PRESSURE O2 97.3 mmHg (30.0-50.0); VENOUS PH 6.578 UNITS (7.330-7.430); VENOUS TOTAL CO2 2.7 MEQ/L (24.0-28.0)
[2022-05-27] MEDS ORDERED: SODIUM BICARBONATE 8.4% INJ 50 ML SYRINGE IV STA ×2 (00:33→05:00)
[2022-05-27] MEDS ORDERED: SODIUM BICARBONATE 150 MEQ in STERILE WATER LITER BAG 1,000 ML IV SCH (00:35)
[2022-05-27] MEDS ORDERED: CEFEPIME HCL 2 GM in D5W MINI-BAG PLUS 50 ML IV ONE (00:35)
[2022-05-27] MEDS ORDERED: GLUCAGON INJ 1MG VIAL SC PRN (01:50)
[2022-05-27] MEDS ORDERED: GLUCOSE 4GM CHEW TABLET PO PRN (01:50)
[2022-05-27] MEDS ORDERED: DEXTROSE 50% 50 ML SYRINGE IV PRN (01:50)
[2022-05-27] MEDS ORDERED: HYDROCORTISONE 100 MG/2 ML VIAL (J1720 PER 1) IV ONE (02:00)
[2022-05-27 02:20] LABS: VENOUS BASE EXCESS -35.3 (-2.0-2.0); VENOUS HCO3 2.1 MEQ/L (23.0-27.0); VENOUS O2 SATURATION 96.1 % (60.0-80.0); VENOUS PARTIAL PRESSURE CO2 20.5 mmHg (38.0-50.0); VENOUS PARTIAL PRESSURE O2 115.5 mmHg (30.0-50.0); VENOUS PH 6.634 UNITS (7.330-7.430); VENOUS STANDARD HCO3 2.9 MEQ/L; VENOUS TOTAL CO2 2.8 MEQ/L (24.0-28.0)
[2022-05-27] MEDS ORDERED: levETIRAcetam 500 MG/5 ML VIAL (KEPPRA IV)(J1953) As Ordered ONE ×2 (02:21→02:24)
[2022-05-27] MEDS: NOREPINEPHRINE 4MG IN D5 250ML 4 MG in IV 1 EA IV SCH ×10 (02:23→20:40)
[2022-05-27] MEDS ORDERED: PROPOFOL 1,000 MG/100 ML VIAL As Ordered ONE (02:57)
[2022-05-27] MEDS ORDERED: MIDAZOLAM INJ 2MG/2ML VIAL (J2250 PER 1MG) As Ordered ONE ×2 (02:58→12:40)
[2022-05-27] MEDS ORDERED: levETIRAcetam INJection 1,000 MG in D5W 100 ML IV ONE (03:00)
[2022-05-27] MEDS ORDERED: ETOMIDATE INJ 20MG/10ML VIAL IV STA (03:11)
[2022-05-27] MEDS ORDERED: ROCURONIUM BROMIDE 50 MG/5 ML VIAL IV ONE (03:15)
[2022-05-27] MEDS: MIDAZOLAM 100MG/100ML-0.9%NACL 100 MG in IV 1 EA IV SCH ×2 (03:51→23:33)
[2022-05-27] MEDS: SODIUM BICARBONATE 150 MEQ in STERILE WATER LITER BAG 1,000 ML IV SCH ×3 (04:01→17:08)
[2022-05-27] MEDS ORDERED: VASOPRESSIN INJ 20 UNITS/ML VIAL As Ordered ONE (04:52)
[2022-05-27] MEDS ORDERED: PHENYLEPHRINE 10MG/ML 1ML VIAL As Ordered ONE (04:52)
[2022-05-27] MEDS ORDERED: PHENYLEPHRINE HCL INJ 50 MG in D5W 495 ML IV SCH (05:00)
[2022-05-27] MEDS ORDERED: VASOPRESSIN INJ 20 UNITS in NS 499 ML IV SCH (05:00)
[2022-05-27] MEDS ORDERED: NS 500 ML IV ONE (05:00)
[2022-05-27] MEDS ORDERED: VANCOMYCIN HCL 1,000 MG in IV FLUID PLACE HOLDER 1 EA IV SCH (05:25)
[2022-05-27] MEDS ORDERED: PIPERACILLIN/TAZOBACTAM SOD 3.375 GM in D5W MINI-BAG PLUS 50 ML IV SCH (05:25)
[2022-05-27 05:42] LABS: VENOUS BASE EXCESS -33.3 (-2.0-2.0); VENOUS O2 SATURATION 98.3 % (60.0-80.0); VENOUS PARTIAL PRESSURE CO2 37.8 mmHg (38.0-50.0); VENOUS PH 6.642 UNITS (7.330-7.430); VENOUS STANDARD HCO3 3.3 MEQ/L; VENOUS TOTAL CO2 5.2 MEQ/L (24.0-28.0)
[2022-05-27] MEDS ORDERED: VANCOMYCIN INTERMITTENT/PULSE DOSING BY CLINICAL PHARMACIST PER DOSING PROTOCOL XX SCH (06:05)
[2022-05-27 06:12] LABS: ETHYL ALCOHOL (ETHANOL) < 0.003 % (0.000-0.010); SALICYLATE LEVEL < 1.7 MG/DL (5.0-30.0)
[2022-05-27] MEDS: HEPARIN SOD (PORCINE) 5000UNITS/ML 1ML VIAL/SYRINGE SQ SCH ×3 (06:12→23:21)
[2022-05-27] MEDS: PIPERACILLIN/TAZOBACTAM SOD 2.25 GM in D5W MINI-BAG PLUS 50 ML IV SCH ×4 (06:12→23:20)
[2022-05-27] MEDS ORDERED: SODIUM CHLORIDE 0.9% INJ 10 ML SYR IV PRN ×2 (06:35→12:00)
[2022-05-27] MEDS ORDERED: VANCOMYCIN HCL 1,000 MG, VIAL MATE ADAPTER 1 EACH in D5W 250 ML IV ONE (07:00)
[2022-05-27] MEDS ORDERED: INSULIN LISPRO (NovoLOG) PER UNIT SC SCH ×3 (07:30→21:00)
[2022-05-27] MEDS ORDERED: MIDODRINE 5 MG TAB PO SCH (08:00)
[2022-05-27 08:06] LABS: VENOUS BASE EXCESS -32.2 (-2.0-2.0); VENOUS HCO3 4.4 MEQ/L (23.0-27.0); VENOUS O2 SATURATION 97.1 % (60.0-80.0); VENOUS PARTIAL PRESSURE CO2 38.6 mmHg (38.0-50.0); VENOUS PARTIAL PRESSURE O2 121.4 mmHg (30.0-50.0); VENOUS PH 6.678 UNITS (7.330-7.430); VENOUS STANDARD HCO3 3.7 MEQ/L; VENOUS TOTAL CO2 5.6 MEQ/L (24.0-28.0)
[2022-05-27 08:13] LABS: HEMATOCRIT 40.7 % (36.0-47.0); MEAN CORPUSCULAR HEMOGLOBIN 27.4 pg (27.0-33.0); MEAN CORPUSCULAR HGB CONC 29.2 g/dl (32.0-36.5); MEAN CORPUSCULAR VOLUME 93.6 fl (80.0-96.0); PLATELET COUNT, AUTOMATED 331 10^3/uL (150-450); RED BLOOD COUNT 4.35 10^6/uL (4.00-5.40)
[2022-05-27 08:17] LABS: HEMOGLOBIN 11.9 g/dl (12.0-15.5); WHITE BLOOD COUNT 36.1 10^3/uL (4.0-10.0)
[2022-05-27 08:23] LABS: INR 1.96; PROTHROMBIN TIME 22.7 SECONDS (12.7-14.5)
[2022-05-27 08:24] LABS: PARTIAL THROMBOPLASTIN TIME 45.2 SECONDS (25.9-37.0)
[2022-05-27] MEDS: PANTOPRAZOLE 40MG VIAL IV SCH (09:16)
[2022-05-27] MEDS: HYDROCORTISONE 100 MG/2 ML VIAL (J1720 PER 1) IV SCH ×3 (09:16→20:39)
[2022-05-27 09:19] LABS: CALCIUM LEVEL 7.3 MG/DL (8.5-10.1); CREATININE FOR GFR 7.47 MG/DL (0.55-1.30); GLOMERULAR FILTRATION RATE 6.5 (>60); MAGNESIUM LEVEL 1.9 MG/DL (1.8-2.4); PHOSPHORUS LEVEL 10.3 MG/DL (2.5-4.9); POTASSIUM SERUM 6.8 MEQ/L (3.5-5.1)
[2022-05-27] MEDS: INSULIN LISPRO (NovoLOG) PER UNIT SC SCH ×2 (09:52→13:04)
[2022-05-27] MEDS ORDERED: MAG SULF 1GM/100ML (MAG RUN) 1 GM in IV 1 EA IV ONE (10:00)
[2022-05-27] MEDS: ALBUTEROL SULFATE 2.5 MG/0.5 ML INH NEB SOLN NEB SCH ×3 (11:22→23:36)
[2022-05-27] MEDS: CALCIUM GLUCONATE 1,000 MG in NS 100 ML IV SCH ×4 (11:29→17:28)
[2022-05-27 11:57] LABS: HEMOGLOBIN A1c 6.8 %
[2022-05-27] MEDS ORDERED: HEPARIN 100 UNIT/ML *20ML* SYRINGE CRRT LOAD CRRT ONE (12:00)
[2022-05-27] MEDS: MIDODRINE 5 MG TAB GT SCH ×2 (12:00→16:00)
[2022-05-27] MEDS ORDERED: MIDAZOLAM INJ 2MG/2ML VIAL (J2250 PER 1MG) IV STA (12:47)
[2022-05-27] MEDS ORDERED: CEFEPIME HCL 2 GM in D5W MINI-BAG PLUS 50 ML IV SCH (13:00)
[2022-05-27] MEDS: VASOPRESSIN INJ 20 UNITS in NS 499 ML IV SCH ×2 (13:03→20:39)
[2022-05-27] MEDS ORDERED: fentaNYL 100 MCG/2 ML INJECTION IV ONE (13:30)
[2022-05-27 13:59] LABS: VENOUS BASE EXCESS -23.4 (-2.0-2.0); VENOUS HCO3 5.8 MEQ/L (23.0-27.0); VENOUS O2 SATURATION 96.3 % (60.0-80.0); VENOUS PARTIAL PRESSURE CO2 22.6 mmHg (38.0-50.0); VENOUS PARTIAL PRESSURE O2 94.5 mmHg (30.0-50.0); VENOUS STANDARD HCO3 7.7 MEQ/L; VENOUS TOTAL CO2 6.5 MEQ/L (24.0-28.0)
[2022-05-27 14:09] LABS: HEMATOCRIT 33.6 % (36.0-47.0); HEMOGLOBIN 10.4 g/dl (12.0-15.5); MEAN CORPUSCULAR HEMOGLOBIN 27.5 pg (27.0-33.0); MEAN CORPUSCULAR VOLUME 88.9 fl (80.0-96.0); RED BLOOD COUNT 3.78 10^6/uL (4.00-5.40)
[2022-05-27 14:16] LABS: PLATELET COUNT, AUTOMATED 215 10^3/uL (150-450)
[2022-05-27 14:54] LABS: CREATININE FOR GFR 5.97 MG/DL (0.55-1.30); GLOMERULAR FILTRATION RATE 8.4 (>60); MAGNESIUM LEVEL 1.6 MG/DL (1.8-2.4); PHOSPHORUS LEVEL 5.7 MG/DL (2.5-4.9); POTASSIUM SERUM 4.3 MEQ/L (3.5-5.1)
[2022-05-27] MEDS ORDERED: levETIRAcetam INJection 1,000 MG in D5W 100 ML IV SCH (15:00)
[2022-05-27] MEDS: PHENYLEPHRINE HCL INJ 50 MG in D5W 495 ML IV SCH ×2 (15:29→22:33)
[2022-05-27] MEDS: fentaNYL CITRATE/NaCl 1,000 MCG in IV 1 EA IV SCH ×2 (15:52→23:31)
[2022-05-27] MEDS: INSULIN REGULAR IN 0.9 % NACL 100 UNIT in IV 1 EA IV SCH ×4 (16:10→17:01)
[2022-05-27] MEDS: MAG SULF 1GM/100ML (MAG RUN) 1 GM in IV 1 EA IV SCH ×2 (17:08→17:28)
[2022-05-27] MEDS: LACRILUBE (AKWA TEARS) OPHTH OINT 3.5 GM OU SCH ×2 (17:27→20:40)
[2022-05-27 20:03] LABS: VENOUS BASE EXCESS -20.6 (-2.0-2.0); VENOUS HCO3 6.9 MEQ/L (23.0-27.0); VENOUS PARTIAL PRESSURE CO2 21.3 mmHg (38.0-50.0); VENOUS PARTIAL PRESSURE O2 105.7 mmHg (30.0-50.0); VENOUS PH 7.126 UNITS (7.330-7.430); VENOUS STANDARD HCO3 9.4 MEQ/L; VENOUS TOTAL CO2 7.5 MEQ/L (24.0-28.0)
[2022-05-27 20:09] LABS: HEMATOCRIT 32.5 % (36.0-47.0); HEMOGLOBIN 10.4 g/dl (12.0-15.5); MEAN CORPUSCULAR HEMOGLOBIN 27.3 pg (27.0-33.0); MEAN CORPUSCULAR VOLUME 85.3 fl (80.0-96.0); PLATELET COUNT, AUTOMATED 174 10^3/uL (150-450); RED BLOOD COUNT 3.81 10^6/uL (4.00-5.40); WHITE BLOOD COUNT 29.7 10^3/uL (4.0-10.0)
[2022-05-27] MEDS: CHLORHEXIDINE GLUCONATE 0.12 % 15ML UDC (PERIDEX ORAL RINSE) MT SCH (20:39)
[2022-05-27] MEDS: HEPARIN 100 UNIT/ML *20ML* SYRINGE CRRT INFUSION CRRT SCH (20:58)
[2022-05-27] MEDS: INSULIN IV RATE CHANGE DOCUMENTATION ML/HR XX SCH (21:16)
[2022-05-27 21:17] LABS: CALCIUM LEVEL 7.7 MG/DL (8.5-10.1); CREATININE FOR GFR 4.61 MG/DL (0.55-1.30); GLOMERULAR FILTRATION RATE 11.3 (>60); MAGNESIUM LEVEL 2.1 MG/DL (1.8-2.4); PHOSPHORUS LEVEL 3.2 MG/DL (2.5-4.9); POTASSIUM SERUM 3.5 MEQ/L (3.5-5.1); THYROID STIMULATING HORMONE 0.408 uIU/ML (0.358-3.740)
[2022-05-27] MEDS: KCL 20MEQ IN 100ML SWI (KRUN) 20 MEQ in IV 1 EA IV SCH ×4 (22:10→23:21)
[2022-05-27] MEDS: SODIUM BICARBONATE 150 MEQ, POTASSIUM CHLORIDE INJ 40 MEQ in D5W 1,000 ML IV SCH (23:52)
[2022-05-28] VITALS (76 sets, daily range): BP systolic 89–157; BP diastolic 49–78
[2022-05-28] MEDS: NOREPINEPHRINE 4MG IN D5 250ML 4 MG in IV 1 EA IV SCH ×4 (00:29→08:34)
[2022-05-28] MEDS ORDERED: CEFEPIME HCL 1 GM in D5W MINI-BAG PLUS 50 ML IV SCH (01:00)
[2022-05-28] MEDS ORDERED: CALCIUM GLUCONATE 1,000 MG in D5W MINI-BAG PLUS 100 ML IV ONE ×2 (01:00→03:00)
[2022-05-28] MEDS: INSULIN IV RATE CHANGE DOCUMENTATION ML/HR XX SCH ×5 (01:11→08:36)
[2022-05-28] MEDS: HYDROCORTISONE 100 MG/2 ML VIAL (J1720 PER 1) IV SCH ×4 (01:40→20:44)
[2022-05-28] MEDS ORDERED: levETIRAcetam INJection 500 MG in D5W MINI-BAG PLUS 100 ML IV SCH (02:00)
[2022-05-28 02:19] LABS: HEMATOCRIT 29.9 % (36.0-47.0); HEMOGLOBIN 9.8 g/dl (12.0-15.5); MEAN CORPUSCULAR HEMOGLOBIN 27.3 pg (27.0-33.0); MEAN CORPUSCULAR HGB CONC 32.8 g/dl (32.0-36.5); MEAN CORPUSCULAR VOLUME 83.3 fl (80.0-96.0); PLATELET COUNT, AUTOMATED 107 10^3/uL (150-450); RED BLOOD COUNT 3.59 10^6/uL (4.00-5.40)
[2022-05-28 02:20] LABS: VENOUS BASE EXCESS -11.3 (-2.0-2.0); VENOUS HCO3 14.7 MEQ/L (23.0-27.0); VENOUS O2 SATURATION 97.4 % (60.0-80.0); VENOUS PARTIAL PRESSURE CO2 33.3 mmHg (38.0-50.0); VENOUS PH 7.262 UNITS (7.330-7.430); VENOUS STANDARD HCO3 15.5 MEQ/L; VENOUS TOTAL CO2 15.7 MEQ/L (24.0-28.0)
[2022-05-28 02:58] LABS: CALCIUM LEVEL 7.6 MG/DL (8.5-10.1); CREATININE FOR GFR 3.71 MG/DL (0.55-1.30); GLOMERULAR FILTRATION RATE 14.5 (>60); MAGNESIUM LEVEL 1.7 MG/DL (1.8-2.4); PHOSPHORUS LEVEL 1.5 MG/DL (2.5-4.9)
[2022-05-28] MEDS: HEPARIN 100 UNIT/ML *20ML* SYRINGE CRRT INFUSION CRRT SCH ×3 (03:38→13:43)
[2022-05-28] MEDS ORDERED: MAG SULF 1GM/100ML (MAG RUN) 1 GM in IV 1 EA IV ONE (04:00)
[2022-05-28] MEDS: VASOPRESSIN INJ 20 UNITS in NS 499 ML IV SCH ×3 (04:42→20:45)
[2022-05-28] MEDS ORDERED: SODIUM PHOSPHATE INJ 30 MMOL in D5W 250 ML IV ONE (05:00)
[2022-05-28] MEDS: PIPERACILLIN/TAZOBACTAM SOD 2.25 GM in D5W MINI-BAG PLUS 50 ML IV SCH ×4 (05:20→23:35)
[2022-05-28] MEDS: INSULIN REGULAR IN 0.9 % NACL 100 UNIT in IV 1 EA IV SCH ×2 (05:21)
[2022-05-28] MEDS: SODIUM BICARBONATE 150 MEQ, POTASSIUM CHLORIDE INJ 40 MEQ in D5W 1,000 ML IV SCH (05:42)
[2022-05-28] MEDS: HEPARIN SOD (PORCINE) 5000UNITS/ML 1ML VIAL/SYRINGE SQ SCH ×2 (06:56→13:42)
[2022-05-28] MEDS ORDERED: VANCOMYCIN HCL 750 MG, VIAL MATE ADAPTER 1 EACH in D5W 250 ML IV ONE (07:00)
[2022-05-28] MEDS ORDERED: VANCOMYCIN HCL 500 MG in D5W MINI-BAG PLUS 100 ML IV ONE ×2 (08:00→11:00)
[2022-05-28] MEDS: ALBUTEROL SULFATE 2.5 MG/0.5 ML INH NEB SOLN NEB SCH ×3 (08:01→23:21)
[2022-05-28 08:18] LABS: VENOUS BASE EXCESS -3.6 (-2.0-2.0); VENOUS HCO3 21.6 MEQ/L (23.0-27.0); VENOUS O2 SATURATION 98.1 % (60.0-80.0); VENOUS PARTIAL PRESSURE CO2 39.5 mmHg (38.0-50.0); VENOUS PARTIAL PRESSURE O2 145.3 mmHg (30.0-50.0); VENOUS PH 7.355 UNITS (7.330-7.430); VENOUS STANDARD HCO3 21.4 MEQ/L; VENOUS TOTAL CO2 22.8 MEQ/L (24.0-28.0)
[2022-05-28 08:23] LABS: HEMATOCRIT 27.8 % (36.0-47.0); HEMOGLOBIN 9.5 g/dl (12.0-15.5); MEAN CORPUSCULAR HEMOGLOBIN 27.3 pg (27.0-33.0); MEAN CORPUSCULAR HGB CONC 34.2 g/dl (32.0-36.5); MEAN CORPUSCULAR VOLUME 79.9 fl (80.0-96.0); RED BLOOD COUNT 3.48 10^6/uL (4.00-5.40); WHITE BLOOD COUNT 19.4 10^3/uL (4.0-10.0)
[2022-05-28 08:46] LABS: PLATELET COUNT, AUTOMATED 93 10^3/uL (150-450)
[2022-05-28] MEDS: CHLORHEXIDINE GLUCONATE 0.12 % 15ML UDC (PERIDEX ORAL RINSE) MT SCH ×2 (08:56→20:44)
[2022-05-28] MEDS: PANTOPRAZOLE 40MG VIAL IV SCH (08:57)
[2022-05-28] MEDS: LACRILUBE (AKWA TEARS) OPHTH OINT 3.5 GM OU SCH ×3 (09:03→20:44)
[2022-05-28] MEDS: MIDODRINE 5 MG TAB GT SCH ×3 (09:05→15:51)
[2022-05-28] MEDS: CALCIUM GLUCONATE 1,000 MG in NS 100 ML IV SCH ×4 (09:27→15:51)
[2022-05-28 09:29] LABS: CALCIUM LEVEL 7.3 MG/DL (8.5-10.1); CREATININE FOR GFR 2.76 MG/DL (0.55-1.30); GLOMERULAR FILTRATION RATE 20.4 (>60); MAGNESIUM LEVEL 1.9 MG/DL (1.8-2.4); PHOSPHORUS LEVEL 2.8 MG/DL (2.5-4.9); POTASSIUM SERUM 3.8 MEQ/L (3.5-5.1)
[2022-05-28] MEDS: PHENYLEPHRINE HCL INJ 50 MG in D5W 495 ML IV SCH ×3 (09:40→20:44)
[2022-05-28] MEDS: fentaNYL CITRATE/NaCl 1,000 MCG in IV 1 EA IV SCH ×2 (09:46→22:05)
[2022-05-28] MEDS: MAG SULF 1GM/100ML (MAG RUN) 1 GM in IV 1 EA IV ONE ×2 (10:43→11:38)
[2022-05-28] MEDS ORDERED: KCL 20MEQ IN 100ML SWI (KRUN) 20 MEQ in IV 1 EA IV ONE ×2 (11:00)
[2022-05-28] MEDS: INSULIN LISPRO (NovoLOG) PER UNIT SC SCH ×3 (12:02→23:36)
[2022-05-28 14:03] LABS: VENOUS BASE EXCESS -3.9 (-2.0-2.0); VENOUS HCO3 20.7 MEQ/L (23.0-27.0); VENOUS O2 SATURATION 92.7 % (60.0-80.0); VENOUS PARTIAL PRESSURE O2 68.7 mmHg (30.0-50.0); VENOUS PH 7.378 UNITS (7.330-7.430); VENOUS STANDARD HCO3 21.1 MEQ/L; VENOUS TOTAL CO2 21.8 MEQ/L (24.0-28.0)
[2022-05-28 14:11] LABS: HEMATOCRIT 26.5 % (36.0-47.0); HEMOGLOBIN 9.1 g/dl (12.0-15.5); MEAN CORPUSCULAR HEMOGLOBIN 27.4 pg (27.0-33.0); MEAN CORPUSCULAR HGB CONC 34.3 g/dl (32.0-36.5); MEAN CORPUSCULAR VOLUME 79.8 fl (80.0-96.0); RED BLOOD COUNT 3.32 10^6/uL (4.00-5.40); WHITE BLOOD COUNT 17.3 10^3/uL (4.0-10.0)
[2022-05-28 14:12] LABS: PLATELET COUNT, AUTOMATED 65 10^3/uL (150-450)
[2022-05-28 14:41] LABS: CALCIUM LEVEL 7.4 MG/DL (8.5-10.1); CREATININE FOR GFR 2.69 MG/DL (0.55-1.30); MAGNESIUM LEVEL 2.2 MG/DL (1.8-2.4); PHOSPHORUS LEVEL 2.8 MG/DL (2.5-4.9); POTASSIUM SERUM 4.5 MEQ/L (3.5-5.1)
[2022-05-28] MEDS ORDERED: MIDAZOLAM INJ 2MG/2ML VIAL (J2250 PER 1MG) As Ordered ONE (14:45)
[2022-05-28] MEDS: MIDAZOLAM INJ 2MG/2ML VIAL (J2250 PER 1MG) IV PRN ×4 (15:53→23:36)
[2022-05-28] MEDS ORDERED: MIDAZOLAM INJ 2MG/2ML VIAL (J2250 PER 1MG) IV STA (19:18)
[2022-05-28 20:08] LABS: VENOUS BASE EXCESS -0.9 (-2.0-2.0); VENOUS HCO3 23.3 MEQ/L (23.0-27.0); VENOUS O2 SATURATION 98.6 % (60.0-80.0); VENOUS PARTIAL PRESSURE CO2 36.5 mmHg (38.0-50.0); VENOUS PARTIAL PRESSURE O2 153.8 mmHg (30.0-50.0); VENOUS PH 7.422 UNITS (7.330-7.430); VENOUS STANDARD HCO3 23.7 MEQ/L; VENOUS TOTAL CO2 24.4 MEQ/L (24.0-28.0)
[2022-05-28] MEDS ORDERED: PROPOFOL 1,000 MG/100 ML VIAL As Ordered ONE (20:10)
[2022-05-28] MEDS ORDERED: LR 1,000 ML IV ONE (20:10)
[2022-05-28 20:12] LABS: HEMATOCRIT 25.2 % (36.0-47.0); HEMOGLOBIN 8.7 g/dl (12.0-15.5); MEAN CORPUSCULAR HEMOGLOBIN 27.4 pg (27.0-33.0); MEAN CORPUSCULAR HGB CONC 34.5 g/dl (32.0-36.5); MEAN CORPUSCULAR VOLUME 79.5 fl (80.0-96.0); PLATELET COUNT, AUTOMATED 56 10^3/uL (150-450); RED BLOOD COUNT 3.17 10^6/uL (4.00-5.40); WHITE BLOOD COUNT 14.3 10^3/uL (4.0-10.0)
[2022-05-28] MEDS: propofoL 1,000 MG in IV 1 EA IV SCH (20:14)
[2022-05-28 20:48] LABS: CALCIUM LEVEL 7.5 MG/DL (8.5-10.1); CREATININE FOR GFR 2.24 MG/DL (0.55-1.30); GLOMERULAR FILTRATION RATE 25.9 (>60); MAGNESIUM LEVEL 2.3 MG/DL (1.8-2.4); PHOSPHORUS LEVEL 2.1 MG/DL (2.5-4.9); POTASSIUM SERUM 4.2 MEQ/L (3.5-5.1)
[2022-05-28] MEDS ORDERED: LORazepam 2 MG/ML VIAL IV STA (20:59)
[2022-05-28] MEDS: CALCIUM GLUCONATE 1,000 MG, VIAL MATE ADAPTER 1 EACH in NS 100 ML IV SCH ×2 (21:41→22:45)
[2022-05-28] MEDS ORDERED: levETIRAcetam INJection 1,000 MG in D5W 100 ML IV SCH ×2 (22:00)
[2022-05-29] VITALS (57 sets, daily range): BP systolic 101–180; BP diastolic 51–85
[2022-05-29] MEDS: NOREPINEPHRINE 4MG IN D5 250ML 4 MG in IV 1 EA IV SCH ×2 (00:40)
[2022-05-29] MEDS ORDERED: LORazepam 2 MG/ML VIAL IV STA ×6 (00:50→06:19)
[2022-05-29] MEDS ORDERED: SODIUM PHOSPHATE INJ 30 MMOL in D5W 250 ML IV ONE (01:00)
[2022-05-29] MEDS ORDERED: LORazepam 2 MG/ML VIAL IV PRN ×3 (01:00→07:50)
[2022-05-29] MEDS ORDERED: NS IV ONE (02:00)
[2022-05-29] MEDS ORDERED: PHENYTOIN IV ONE (02:00)
[2022-05-29 02:35] LABS: VENOUS BASE EXCESS -1.9 (-2.0-2.0); VENOUS HCO3 22.9 MEQ/L (23.0-27.0); VENOUS O2 SATURATION 98.7 % (60.0-80.0); VENOUS PARTIAL PRESSURE CO2 39.3 mmHg (38.0-50.0); VENOUS PARTIAL PRESSURE O2 174.6 mmHg (30.0-50.0); VENOUS PH 7.384 UNITS (7.330-7.430); VENOUS STANDARD HCO3 22.9 MEQ/L; VENOUS TOTAL CO2 24.1 MEQ/L (24.0-28.0)
[2022-05-29 02:37] LABS: MEAN CORPUSCULAR HGB CONC 34.8 g/dl (32.0-36.5); MEAN CORPUSCULAR VOLUME 80.4 fl (80.0-96.0); RED BLOOD COUNT 2.86 10^6/uL (4.00-5.40); WHITE BLOOD COUNT 16.9 10^3/uL (4.0-10.0)
[2022-05-29] MEDS: HYDROCORTISONE 100 MG/2 ML VIAL (J1720 PER 1) IV SCH ×2 (03:00→09:31)
[2022-05-29 03:01] LABS: PLATELET COUNT, AUTOMATED 45 10^3/uL (150-450)
[2022-05-29] MEDS: MIDAZOLAM INJ 2MG/2ML VIAL (J2250 PER 1MG) IV PRN (03:09)
[2022-05-29 03:13] LABS: CALCIUM LEVEL 7.1 MG/DL (8.5-10.1); CREATININE FOR GFR 1.99 MG/DL (0.55-1.30); GLOMERULAR FILTRATION RATE 29.7 (>60); MAGNESIUM LEVEL 2.3 MG/DL (1.8-2.4); PHOSPHORUS LEVEL 3.1 MG/DL (2.5-4.9); POTASSIUM SERUM 3.9 MEQ/L (3.5-5.1)
[2022-05-29] MEDS ORDERED: LACOSAMIDE 10MG/ML 20ML VIAL (VIMPAT) IV STA (03:28)
[2022-05-29] MEDS: LORazepam 2 MG/ML VIAL IV PRN ×3 (03:39→07:39)
[2022-05-29] MEDS: CALCIUM GLUCONATE 1,000 MG in D5W MINI-BAG PLUS 100 ML IV SCH ×2 (03:51→04:42)
[2022-05-29] MEDS: fentaNYL CITRATE/NaCl 1,000 MCG in IV 1 EA IV SCH ×3 (06:00→23:51)
[2022-05-29] MEDS ORDERED: LEVETIRACETAM IV ONE (06:00)
[2022-05-29] MEDS ORDERED: D5W IV ONE (06:00)
[2022-05-29] MEDS ORDERED: KCL 20MEQ IN 100ML SWI (KRUN) 20 MEQ in IV 1 EA IV ONE ×2 (06:00)
[2022-05-29] MEDS: INSULIN LISPRO (NovoLOG) PER UNIT SC SCH ×3 (06:20→17:56)
[2022-05-29] MEDS: PIPERACILLIN/TAZOBACTAM SOD 2.25 GM in D5W MINI-BAG PLUS 50 ML IV SCH (06:22)
[2022-05-29] MEDS: ALBUTEROL SULFATE 2.5 MG/0.5 ML INH NEB SOLN NEB SCH ×3 (06:48→23:52)
[2022-05-29] MEDS ORDERED: VANCOMYCIN HCL 750 MG, VIAL MATE ADAPTER 1 EACH in D5W 250 ML IV ONE (07:00)
[2022-05-29] MEDS: VASOPRESSIN INJ 20 UNITS in NS 499 ML IV SCH (07:00)
[2022-05-29] MEDS: MIDAZOLAM 100MG/100ML-0.9%NACL 100 MG in IV 1 EA IV SCH ×5 (07:29→23:59)
[2022-05-29] MEDS ORDERED: CISATRACURIUM 10MG/ML 20 ML VIAL IV PRN (07:50)
[2022-05-29] MEDS ORDERED: SUCRALFATE SUSP 1GM/10ML UD PO SCH (08:00)
[2022-05-29] MEDS ORDERED: VANCOMYCIN HCL 500 MG in D5W MINI-BAG PLUS 100 ML IV ONE (08:00)
[2022-05-29] MEDS: propofoL 1,000 MG in IV 1 EA IV SCH (08:11)
[2022-05-29 08:28] LABS: VENOUS BASE EXCESS -2.8 (-2.0-2.0); VENOUS HCO3 22.2 MEQ/L (23.0-27.0); VENOUS O2 SATURATION 98.6 % (60.0-80.0); VENOUS PARTIAL PRESSURE CO2 39.1 mmHg (38.0-50.0); VENOUS PARTIAL PRESSURE O2 152.5 mmHg (30.0-50.0); VENOUS PH 7.372 UNITS (7.330-7.430); VENOUS STANDARD HCO3 22.2 MEQ/L; VENOUS TOTAL CO2 23.4 MEQ/L (24.0-28.0)
[2022-05-29 08:35] LABS: HEMOGLOBIN 7.9 g/dl (12.0-15.5); MEAN CORPUSCULAR HEMOGLOBIN 27.1 pg (27.0-33.0); MEAN CORPUSCULAR HGB CONC 32.9 g/dl (32.0-36.5); MEAN CORPUSCULAR VOLUME 82.5 fl (80.0-96.0); RED BLOOD COUNT 2.91 10^6/uL (4.00-5.40); WHITE BLOOD COUNT 15.8 10^3/uL (4.0-10.0)
[2022-05-29 08:36] LABS: PLATELET COUNT, AUTOMATED 44 10^3/uL (150-450)
[2022-05-29 09:11] LABS: CALCIUM LEVEL 7.6 MG/DL (8.5-10.1); CREATININE FOR GFR 1.87 MG/DL (0.55-1.30); GLOMERULAR FILTRATION RATE 31.9 (>60); MAGNESIUM LEVEL 2.5 MG/DL (1.8-2.4); PHOSPHORUS LEVEL 3.9 MG/DL (2.5-4.9); POTASSIUM SERUM 3.8 MEQ/L (3.5-5.1)
[2022-05-29] MEDS: PANTOPRAZOLE 40MG VIAL IV SCH ×2 (09:33→21:18)
[2022-05-29] MEDS: D5W IV SCH (09:51)
[2022-05-29] MEDS: ACYCLOVIR IV SCH (09:51)
[2022-05-29] MEDS ORDERED: VALPROATE SOD INJ 1,000 MG in D5W 50 ML IV ONE (10:00)
[2022-05-29] MEDS: CHLORHEXIDINE GLUCONATE 0.12 % 15ML UDC (PERIDEX ORAL RINSE) MT SCH ×2 (10:01→21:18)
[2022-05-29] MEDS: LACRILUBE (AKWA TEARS) OPHTH OINT 3.5 GM OU SCH ×3 (10:02→21:00)
[2022-05-29] MEDS: MIDODRINE 5 MG TAB GT SCH ×3 (10:15→16:20)
[2022-05-29] MEDS: cefTRIAXone SOD 2 GM in D5W MINI-BAG PLUS 50 ML IV SCH ×2 (10:55→21:18)
[2022-05-29] MEDS ORDERED: SODIUM CHLORIDE 0.9% INJ 10 ML SYR IV PRN (11:15)
[2022-05-29] MEDS: AMPICILLIN SOD 2 GM in D5W MINI-BAG PLUS 100 ML IV SCH ×3 (11:34→22:03)
[2022-05-29] MEDS: PHENYTOIN 100 MG/2 ML VIAL (J1165) IV SCH ×2 (13:05→21:19)
[2022-05-29 14:39] LABS: HEMATOCRIT 21.3 % (36.0-47.0); HEMOGLOBIN 7.1 g/dl (12.0-15.5); MEAN CORPUSCULAR HEMOGLOBIN 27.4 pg (27.0-33.0); MEAN CORPUSCULAR HGB CONC 33.3 g/dl (32.0-36.5); MEAN CORPUSCULAR VOLUME 82.2 fl (80.0-96.0); RED BLOOD COUNT 2.59 10^6/uL (4.00-5.40); WHITE BLOOD COUNT 15.5 10^3/uL (4.0-10.0)
[2022-05-29 14:52] LABS: PLATELET COUNT, AUTOMATED 47 10^3/uL (150-450)
[2022-05-29] MEDS ORDERED: LACOSAMIDE 10MG/ML 20ML VIAL (VIMPAT) IV SCH (15:00)
[2022-05-29] MEDS ORDERED: MULTIVITAMIN -ADULT INJECTION 10 ML, THIAMINE INJection 100 MG, FOLIC ACID 1 MG in NS 1... IV ONE (15:00)
[2022-05-29 15:10] LABS: CALCIUM LEVEL 7.3 MG/DL (8.5-10.1); CREATININE FOR GFR 2.48 MG/DL (0.55-1.30); MAGNESIUM LEVEL 2.5 MG/DL (1.8-2.4); PHOSPHORUS LEVEL 3.4 MG/DL (2.5-4.9); POTASSIUM SERUM 3.6 MEQ/L (3.5-5.1)
[2022-05-29] MEDS: levETIRAcetam INJection 1,500 MG in D5W 100 ML IV SCH (17:55)
[2022-05-29 20:38] LABS: MEAN CORPUSCULAR HEMOGLOBIN 27.8 pg (27.0-33.0); MEAN CORPUSCULAR HGB CONC 33.3 g/dl (32.0-36.5); MEAN CORPUSCULAR VOLUME 83.3 fl (80.0-96.0); RED BLOOD COUNT 2.88 10^6/uL (4.00-5.40); WHITE BLOOD COUNT 16.8 10^3/uL (4.0-10.0)
[2022-05-29 20:39] LABS: PLATELET COUNT, AUTOMATED 51 10^3/uL (150-450)
[2022-05-29] MEDS ORDERED: HYDROCORTISONE 100 MG/2 ML VIAL (J1720 PER 1) IV SCH (21:00)
[2022-05-29] MEDS: SUCRALFATE SUSP 1GM/10ML UD PO SCH (22:03)
[2022-05-29] MEDS: VALPROATE SOD INJ 500 MG, VIAL MATE ADAPTER 1 EACH in D5W 50 ML IV SCH (22:03)
[2022-05-30] VITALS (23 sets, daily range): BP systolic 129–161; BP diastolic 61–80
[2022-05-30] MEDS: INSULIN LISPRO (NovoLOG) PER UNIT SC SCH ×4 (00:48→17:35)
[2022-05-30] MEDS: LORazepam 2 MG/ML VIAL IV PRN ×3 (03:07→16:29)
[2022-05-30] MEDS ORDERED: LORazepam 2 MG/ML VIAL IV STA (03:18)
[2022-05-30] MEDS: AMPICILLIN SOD 2 GM in D5W MINI-BAG PLUS 100 ML IV SCH ×3 (04:49→17:12)
[2022-05-30] MEDS: levETIRAcetam INJection 1,500 MG in D5W 100 ML IV SCH ×2 (04:49→16:42)
[2022-05-30] MEDS: PHENYTOIN 100 MG/2 ML VIAL (J1165) IV SCH ×3 (04:49→20:15)
[2022-05-30] MEDS: propofoL 1,000 MG in IV 1 EA IV SCH ×3 (04:50→20:47)
[2022-05-30] MEDS: MIDAZOLAM 100MG/100ML-0.9%NACL 100 MG in IV 1 EA IV SCH ×3 (05:04→14:25)
[2022-05-30 05:06] LABS: HEMATOCRIT 23.8 % (36.0-47.0); HEMOGLOBIN 8.2 g/dl (12.0-15.5); MEAN CORPUSCULAR HEMOGLOBIN 28.7 pg (27.0-33.0); MEAN CORPUSCULAR HGB CONC 34.5 g/dl (32.0-36.5); MEAN CORPUSCULAR VOLUME 83.2 fl (80.0-96.0); RED BLOOD COUNT 2.86 10^6/uL (4.00-5.40)
[2022-05-30 05:10] LABS: PLATELET COUNT, AUTOMATED 58 10^3/uL (150-450)
[2022-05-30 05:42] LABS: PHENYTOIN (DILANTIN) 5.7 UG/ML (10.0-20.0); VALPROIC ACID (DEPAKOTE) 54.1 UG/ML (50.0-100.0)
[2022-05-30 05:50] LABS: CALCIUM LEVEL 6.8 MG/DL (8.5-10.1); CREATININE FOR GFR 3.46 MG/DL (0.55-1.30); GLOMERULAR FILTRATION RATE 15.7 (>60); MAGNESIUM LEVEL 2.6 MG/DL (1.8-2.4); PHOSPHORUS LEVEL 3.7 MG/DL (2.5-4.9)
[2022-05-30] MEDS: ACYCLOVIR IV SCH (06:35)
[2022-05-30] MEDS: D5W IV SCH (06:35)
[2022-05-30] MEDS: ALBUTEROL SULFATE 2.5 MG/0.5 ML INH NEB SOLN NEB SCH ×2 (07:55→15:21)
[2022-05-30] MEDS: fentaNYL CITRATE/NaCl 1,000 MCG in IV 1 EA IV SCH ×3 (08:13→18:20)
[2022-05-30] MEDS: HYDROCORTISONE 100 MG/2 ML VIAL (J1720 PER 1) IV SCH ×2 (08:15→20:15)
[2022-05-30] MEDS: PANTOPRAZOLE 40MG VIAL IV SCH ×2 (08:15→20:15)
[2022-05-30] MEDS: SUCRALFATE SUSP 1GM/10ML UD PO SCH ×2 (08:15→20:15)
[2022-05-30] MEDS: CHLORHEXIDINE GLUCONATE 0.12 % 15ML UDC (PERIDEX ORAL RINSE) MT SCH ×2 (08:15→20:15)
[2022-05-30] MEDS: cefTRIAXone SOD 2 GM in D5W MINI-BAG PLUS 50 ML IV SCH ×2 (08:15→20:13)
[2022-05-30] MEDS: LACRILUBE (AKWA TEARS) OPHTH OINT 3.5 GM OU SCH ×3 (08:16→20:16)
[2022-05-30 08:30] LABS: ABG HCO3 19.6 MEQ/L (22.0-26.0); ABG O2 SATURATION 96.2 % (95.0-99.0); ABG PARTIAL PRESSURE CO2 30.1 mmHg (35.0-45.0); ABG PARTIAL PRESSURE O2 83.3 mmHg (75.0-100.0); ABG STANDARD HCO3 21.1 MEQ/L (22.0-26.0); ABG TOTAL CO2 20.5 MEQ/L (22.0-29.0); ABG pH (ARTERIAL) 7.432 UNITS (7.350-7.450)
[2022-05-30] MEDS: VALPROATE SOD INJ 500 MG, VIAL MATE ADAPTER 1 EACH in D5W 50 ML IV SCH (09:45)
[2022-05-30] MEDS ORDERED: CALCIUM GLUCONATE 1,000 MG in D5W MINI-BAG PLUS 100 ML IV ONE ×2 (11:00→19:00)
[2022-05-30] MEDS ORDERED: FUROSEMIDE injection 250 MG in D5W 225 ML IV SCH (12:00)
[2022-05-30 16:20] LABS: ALBUMIN 2.1 GM/DL (3.2-5.2); CREATININE FOR GFR 4.21 MG/DL (0.55-1.30); GLOMERULAR FILTRATION RATE 12.5 (>60); PHOSPHORUS LEVEL 4.4 MG/DL (2.5-4.9); POTASSIUM SERUM 4.1 MEQ/L (3.5-5.1)
[2022-05-31] MEDS ORDERED: UNRESOLVED CLARIFICATION ENTRY XX SCH (00:01)
[2022-06-01 20:09] LABS: HAPTOGLOBIN 132 mg/dL (33-278)
== END 2022-05-30 21:30 | disposition short-term general hospital (02) | DRG 871 ==
LOC: M ED 16:24 → EDBD 16:24 → M ED INP 23:57 → ENRESERV 05-27 00:58 → M ICU 05-27 01:19 → UNDODISIN 05-30 21:30
PROVIDERS: ADMIT Family Medicine; ATTEND Internal Medicine
PROC: 02HV33Z Insertion of Infusion Device into Superior Vena Cava, Percutaneous Approach (ICD-10-PCS; principal; 2022-05-26)
PROC: 06HN33Z Insertion of Infusion Device into Left Femoral Vein, Percutaneous Approach (ICD-10-PCS; 2022-05-26)
PROC: 0BH17EZ Insertion of Endotracheal Airway into Trachea, Via Natural or Artificial Opening (ICD-10-PCS; 2022-05-26)
PROC: 5A1D90Z Performance of Urinary Filtration, Continuous, Greater than 18 hours Per Day (ICD-10-PCS; 2022-05-26)
PROC: 5A1945Z Respiratory Ventilation, 24-96 Consecutive Hours (ICD-10-PCS; 2022-05-26)
PROC: 30233N1 Transfusion of Nonautologous Red Blood Cells into Peripheral Vein, Percutaneous Approach (ICD-10-PCS; 2022-05-29)
DX: A41.9 Sepsis, unspecified organism (principal); R65.21 Severe sepsis with septic shock; J96.01 Acute respiratory failure with hypoxia; J69.0 Pneumonitis due to inhalation of food and vomit; G93.41 Metabolic encephalopathy; E11.10 Type 2 diabetes mellitus with ketoacidosis without coma; N17.9 Acute kidney failure, unspecified; M62.82 Rhabdomyolysis; K86.1 Other chronic pancreatitis; E87.4 Mixed disorder of acid-base balance; G90.A Postural orthostatic tachycardia syndrome [POTS]; G40.401 Other generalized epilepsy and epileptic syndromes, not intractable, with status epilepticus; E87.5 Hyperkalemia; D64.9 Anemia, unspecified; E11.65 Type 2 diabetes mellitus with hyperglycemia; I10 Essential (primary) hypertension; Z87.442 Personal history of urinary calculi; D69.6 Thrombocytopenia, unspecified; Z90.49 Acquired absence of other specified parts of digestive tract; Z79.84 Long term (current) use of oral hypoglycemic drugs; Z79.899 Other long term (current) drug therapy; Z88.8 Allergy status to other drugs, medicaments and biological substances; Z86.010 Personal history of colon polyps

== ENCOUNTER → 2022-10-07 | Outpatient (CLI) | payer OTHER ==
[~2022-10-07] MED LIST changes: +JARD1TAB PO; +METF10004 PO; +ROSU20TA5 PO
== END ==
LOC: M RAD 10:31
PROVIDERS: ATTEND Internal Medicine
DX: M25.512 Pain in left shoulder (principal); M50.222 Other cervical disc displacement at C5-C6 level; M50.223 Other cervical disc displacement at C6-C7 level; M75.22 Bicipital tendinitis, left shoulder; M75.52 Bursitis of left shoulder

== ENCOUNTER 2023-06-17 08:58 | Inpatient (IN) | payer OTHER ==
[~2023-06-17] VITALS: Ht 162.6 cm; Wt 76.6 kg
[~2023-06-17 08:58] MED LIST changes: -ROSU20TA5 PO; +ROSU20TA61 PO
[2023-06-17] MEDS ORDERED: LANTINJ4 SC (09:10)
[2023-06-17] MEDS ORDERED: HYDR-4571 PO (09:10)
[2023-06-17] MEDS ORDERED: VITA100093 PO (09:10)
[2023-06-17] MEDS ORDERED: AMIT10TA7 PO (09:10)
[2023-06-17] MEDS ORDERED: BRIV100T PO (09:10)
[2023-06-17] MEDS ORDERED: DRON2.5C11 PO (09:10)
[2023-06-17] MEDS ORDERED: ONDA-84 PO (09:19)
[2023-06-17] MEDS ORDERED: ONDANSETRON 4MG 2ML VIAL IV ONE (10:10)
[2023-06-17] MEDS ORDERED: NS 1,000 ML IV ONE ×2 (10:10→11:20)
[2023-06-17] MEDS ORDERED: MORPHINE 4 MG/ML 1ML VIAL IV ONE (10:10)
[2023-06-17 10:41] LABS: BASO # 0.1 10^3/uL (0.0-0.2); BASO % 0.3 % (0.0-1.0); EOS # 0.1 10^3/uL (0.0-0.5); EOS % 0.2 % (0.0-3.0); HEMATOCRIT 50.5 % (36.0-47.0); HEMOGLOBIN 16.5 g/dl (12.0-15.5); LYMPH # 2.6 10^3/uL (1.5-5.0); LYMPH % 9.9 % (24.0-44.0); MEAN CORPUSCULAR HEMOGLOBIN 27.5 pg (27.0-33.0); MEAN CORPUSCULAR HGB CONC 32.7 g/dl (32.0-36.5); MONO % 6.2 % (2.0-8.0); NEUTROPHILS # 22.2 10^3/uL (1.5-8.5); PLATELET COUNT, AUTOMATED 428 10^3/uL (150-450); RED BLOOD COUNT 6.01 10^6/uL (4.00-5.40); WHITE BLOOD COUNT 26.7 10^3/uL (4.0-10.0)
[2023-06-17 11:00] LABS: MONO # 1.7 10^3/uL (0.0-0.8)
[2023-06-17 11:01] LABS: LIPASE 43 U/L (12-53)
[2023-06-17 11:03] LABS: ALBUMIN 4.2 G/DL (3.2-5.2); ALKALINE PHOSPHATASE 74 U/L (46-116); ALT/SGPT 21 U/L (7.0-40); AST/SGOT 34 U/L (<34); BILIRUBIN,DIRECT < 0.1 MG/DL (<0.4); BILIRUBIN,TOTAL 0.3 MG/DL (0.3-1.2)
[2023-06-17] MEDS ORDERED: NS 500 ML IV ONE (11:20)
[2023-06-17] MEDS ORDERED: PIPERACILLIN/TAZOBACTAM SOD 4.5 GM in D5W MINI-BAG PLUS 50 ML IV ONE (11:20)
[2023-06-17] MEDS ORDERED: ISOVUE-370 76% 100ML VIAL As Ordered ONE (11:28)
[2023-06-17 12:53] LABS: VENOUS BASE EXCESS -4.5 (-2.0-2.0); VENOUS HCO3 21.2 MMOL/L (23.0-27.0); VENOUS O2 SATURATION 89.3 % (60.0-80.0); VENOUS PARTIAL PRESSURE CO2 41.7 mmHg (38.0-50.0); VENOUS PARTIAL PRESSURE O2 58.4 mmHg (30.0-50.0); VENOUS PH 7.325 UNITS (7.330-7.430); VENOUS STANDARD HCO3 20.6 MMOL/L; VENOUS TOTAL CO2 22.5 MMOL/L (24.0-28.0)
[2023-06-17] MEDS ORDERED: MED REC IN PROGRESS XX SCH (13:20)
[2023-06-17] MEDS ORDERED: NALO4SPR (13:44)
[2023-06-17] MEDS ORDERED: RIZA10TA58 PO (13:44)
[2023-06-17] MEDS ORDERED: DIPH50TA6 PO (13:44)
[2023-06-17] MEDS ORDERED: FERR325T19 PO (13:44)
[2023-06-17] MEDS ORDERED: TIZA10TA PO (13:44)
[2023-06-17] MEDS ORDERED: METF500T13 PO (13:44)
[2023-06-17] MEDS ORDERED: HOME MED LIST COMPLETE! XX SCH (13:50)
[2023-06-17] MEDS ORDERED: ACETAMINOPHEN TAB 650MG DOSE (2X325MG) PO PRN (14:00)
[2023-06-17] MEDS ORDERED: MOM 30ML SUSPENSION UDC PO PRN (14:00)
[2023-06-17] MEDS ORDERED: NORCO, ANEXSIA 5/325MG TABLET (HYDROcodone/ACETAMINOPHEN) PO PRN (14:10)
[2023-06-17] MEDS ORDERED: ONDANSETRON 4MG TAB PO PRN (14:10)
[2023-06-17] MEDS ORDERED: RIZATRIPTAN MLT 10 MG TAB PO PRN (14:10)
[2023-06-17] MEDS ORDERED: tiZANidine 4 MG TAB PO PRN (14:10)
[2023-06-17] MEDS ORDERED: DEXTROSE 50% 50ML SYRINGE IV PRN (14:20)
[2023-06-17] MEDS ORDERED: INSULIN LISPRO (NovoLOG) PER UNIT SC SCH (14:20)
[2023-06-17] MEDS ORDERED: GLUCOSE 4GM CHEW TABLET PO PRN (14:20)
[2023-06-17] MEDS ORDERED: GLUCAGON INJ 1MG VIAL SC PRN (14:20)
[2023-06-17 14:26] LABS: BLOOD UREA NITROGEN 6 MG/DL (9-23); CALCIUM LEVEL 9.7 MG/DL (8.5-10.1); CARBON DIOXIDE LEVEL 20 MMOL/L (20-31); CHLORIDE LEVEL 102 MMOL/L (98-107); GLOMERULAR FILTRATION RATE > 60.0 (>58); GLUCOSE, FASTING 151 MG/DL (60-100); MAGNESIUM LEVEL 1.4 MG/DL (1.8-2.4); POTASSIUM SERUM 5.3 MMOL/L (3.5-5.1); SODIUM LEVEL 138 MMOL/L (136-145)
[2023-06-17 14:36] LABS: ERYTHROCYTE SEDIMENTATION RATE 28 mm/hr (0-20)
[2023-06-17 15:16] VITALS: BP 124/76; TEMP 97.5; O2SAT 100
[2023-06-17 15:31] LABS: INR 1.09; PROTHROMBIN TIME 13.8 SECONDS (12.5-14.5)
[2023-06-17] MEDS ORDERED: PIPERACILLIN/TAZOBACTAM SOD 4.5 GM in D5W MINI-BAG PLUS 50 ML IV SCH (16:00)
[2023-06-17] MEDS: HEPARIN SOD (PORCINE) 5000UNITS/ML 1ML VIAL/SYRINGE SC SCH ×2 (16:10→21:40)
[2023-06-17] MEDS: ROSUVASTATIN 10 MG TAB (CRESTOR) PO SCH (17:21)
[2023-06-17] MEDS: INSULIN LISPRO (NovoLOG) PER UNIT SC SCH ×2 (18:00→23:51)
[2023-06-17 19:03] VITALS: BP 149/89; TEMP 97.6; O2SAT 98
[2023-06-17] MEDS ORDERED: PATIROMER SORBITEX CALCIUM 8.4 GM POWDER PACKET (VELTASSA) PO ONE (19:10)
[2023-06-17] MEDS: DOCUSATE SODIUM 100MG CAPSULE PO SCH (21:00)
[2023-06-17] MEDS: LEVEMIR (INSULIN DETEMIR) 1 UNITS/0.01ML SC SCH (21:00)
[2023-06-17] MEDS: BRIVIACT 100 MG PO SCH (21:40)
[2023-06-17] MEDS: cloNIDine 0.2 MG TAB PO SCH (21:41)
[2023-06-17] MEDS: diphenhydrAMINE 50MG CAP PO SCH (21:41)
[2023-06-17] MEDS: VITAMIN D 1,000 INTERNATIONAL UNITS TABLET PO SCH (21:42)
[2023-06-17] MEDS: FIDAXOMICIN 200 MG TAB (DIFICID) PO SCH (21:42)
[2023-06-17] MEDS: AMITRIPTYLINE 10MG TABLET PO SCH (22:12)
[2023-06-17 23:13] VITALS: BP 118/75; TEMP 97.7; O2SAT 97
[2023-06-18 03:36] VITALS: BP 107/62; TEMP 97.6; O2SAT 98
[2023-06-18 06:18] LABS: BASO % 0.2 % (0.0-1.0); EOS # 0.2 10^3/uL (0.0-0.5); EOS % 2.3 % (0.0-3.0); HEMATOCRIT 40.9 % (36.0-47.0); LYMPH % 31.8 % (24.0-44.0); MEAN CORPUSCULAR HEMOGLOBIN 27.5 pg (27.0-33.0); MEAN CORPUSCULAR VOLUME 85.7 fl (80.0-96.0); MONO # 0.4 10^3/uL (0.0-0.8); MONO % 4.6 % (2.0-8.0); NEUTROPHILS # 5.8 10^3/uL (1.5-8.5); NEUTROPHILS % 60.9 % (36.0-66.0); PLATELET COUNT, AUTOMATED 341 10^3/uL (150-450); RED BLOOD COUNT 4.77 10^6/uL (4.00-5.40); WHITE BLOOD COUNT 9.6 10^3/uL (4.0-10.0)
[2023-06-18 06:29] LABS: HEMOGLOBIN 13.1 g/dl (12.0-15.5)
[2023-06-18] MEDS: HEPARIN SOD (PORCINE) 5000UNITS/ML 1ML VIAL/SYRINGE SC SCH ×3 (06:36→21:22)
[2023-06-18] MEDS: INSULIN LISPRO (NovoLOG) PER UNIT SC SCH ×3 (06:36→17:26)
[2023-06-18 06:45] LABS: ALBUMIN 3.1 G/DL (3.2-5.2); ALKALINE PHOSPHATASE 51 U/L (46-116); ALT/SGPT 10 U/L (7.0-40); AST/SGOT 13 U/L (<34); BILIRUBIN,TOTAL 0.4 MG/DL (0.3-1.2); BLOOD UREA NITROGEN 9 MG/DL (9-23); CALCIUM LEVEL 8.8 MG/DL (8.5-10.1); CARBON DIOXIDE LEVEL 27 MMOL/L (20-31); CHLORIDE LEVEL 103 MMOL/L (98-107); CREATININE FOR GFR 0.85 MG/DL (0.55-1.30); GLOMERULAR FILTRATION RATE > 60.0 (>58); GLUCOSE, FASTING 102 MG/DL (60-100); POTASSIUM SERUM 4.2 MMOL/L (3.5-5.1); SODIUM LEVEL 139 MMOL/L (136-145)
[2023-06-18 07:36] VITALS: BP 114/65; TEMP 97.7; O2SAT 97
[2023-06-18] MEDS: LACTOBACILLUS ACIDOPHILUS CAP (BACID) PO SCH ×4 (08:17→21:21)
[2023-06-18] MEDS: FIDAXOMICIN 200 MG TAB (DIFICID) PO SCH ×2 (08:18→21:22)
[2023-06-18] MEDS: ROSUVASTATIN 10 MG TAB (CRESTOR) PO SCH (08:18)
[2023-06-18] MEDS: DOCUSATE SODIUM 100MG CAPSULE PO SCH (08:19)
[2023-06-18] MEDS: BRIVIACT 100 MG PO SCH ×2 (08:23→21:25)
[2023-06-18] MEDS: cloNIDine 0.2 MG TAB PO SCH ×2 (08:24→21:22)
[2023-06-18] MEDS ORDERED: FERROUS SULFATE 325MG TAB PO SCH (09:00)
[2023-06-18 15:30] VITALS: BP 109/66; TEMP 97; O2SAT 96
[2023-06-18 19:21] VITALS: BP 141/76; TEMP 97.8; O2SAT 96
[2023-06-18] MEDS ORDERED: INSULIN LISPRO (NovoLOG) PER UNIT SC SCH (21:00)
[2023-06-18] MEDS: VITAMIN D 1,000 INTERNATIONAL UNITS TABLET PO SCH (21:21)
[2023-06-18] MEDS: AMITRIPTYLINE 10MG TABLET PO SCH (21:22)
[2023-06-18] MEDS: diphenhydrAMINE 50MG CAP PO SCH (21:22)
[2023-06-18] MEDS: metFORMIN (GLUCOPHAGE) 500MG TAB PO SCH (21:22)
[2023-06-18] MEDS: LEVEMIR (INSULIN DETEMIR) 1 UNITS/0.01ML SC SCH (21:23)
[2023-06-19 03:54] VITALS: BP 112/68; TEMP 97; O2SAT 97
[2023-06-19 05:10] LABS: BASO % 0.3 % (0.0-1.0); EOS # 0.3 10^3/uL (0.0-0.5); EOS % 2.4 % (0.0-3.0); HEMATOCRIT 40.4 % (36.0-47.0); HEMOGLOBIN 13.1 g/dl (12.0-15.5); LYMPH # 3.5 10^3/uL (1.5-5.0); LYMPH % 31.6 % (24.0-44.0); MEAN CORPUSCULAR HEMOGLOBIN 27.4 pg (27.0-33.0); MEAN CORPUSCULAR HGB CONC 32.4 g/dl (32.0-36.5); MEAN CORPUSCULAR VOLUME 84.5 fl (80.0-96.0); MONO # 0.5 10^3/uL (0.0-0.8); MONO % 4.8 % (2.0-8.0); NEUTROPHILS # 6.8 10^3/uL (1.5-8.5); NEUTROPHILS % 60.6 % (36.0-66.0); PLATELET COUNT, AUTOMATED 352 10^3/uL (150-450); RED BLOOD COUNT 4.78 10^6/uL (4.00-5.40); WHITE BLOOD COUNT 11.2 10^3/uL (4.0-10.0)
[2023-06-19 05:21] LABS: ERYTHROCYTE SEDIMENTATION RATE 37 mm/hr (0-20)
[2023-06-19 05:42] LABS: ALBUMIN 3.5 G/DL (3.2-5.2); ALKALINE PHOSPHATASE 57 U/L (46-116); ALT/SGPT 16 U/L (7.0-40); AST/SGOT 21 U/L (<34); BILIRUBIN,TOTAL 0.2 MG/DL (0.3-1.2); BLOOD UREA NITROGEN 11 MG/DL (9-23); CALCIUM LEVEL 9.3 MG/DL (8.5-10.1); CARBON DIOXIDE LEVEL 26 MMOL/L (20-31); CHLORIDE LEVEL 102 MMOL/L (98-107); CREATININE FOR GFR 0.82 MG/DL (0.55-1.30); GLOMERULAR FILTRATION RATE > 60.0 (>58); GLUCOSE, FASTING 138 MG/DL (60-100); POTASSIUM SERUM 4.2 MMOL/L (3.5-5.1); SODIUM LEVEL 137 MMOL/L (136-145); TOTAL PROTEIN 6.7 G/DL (5.7-8.2)
[2023-06-19] MEDS: HEPARIN SOD (PORCINE) 5000UNITS/ML 1ML VIAL/SYRINGE SC SCH (05:51)
[2023-06-19 08:07] VITALS: BP 127/67; TEMP 97.9; O2SAT 98
[2023-06-19] MEDS: INSULIN LISPRO (NovoLOG) PER UNIT SC SCH (08:39)
[2023-06-19 08:40] VITALS: BP 127/67
[2023-06-19] MEDS: cloNIDine 0.2 MG TAB PO SCH (08:40)
[2023-06-19] MEDS: FIDAXOMICIN 200 MG TAB (DIFICID) PO SCH (08:40)
[2023-06-19] MEDS: LACTOBACILLUS ACIDOPHILUS CAP (BACID) PO SCH (08:40)
[2023-06-19] MEDS: metFORMIN (GLUCOPHAGE) 500MG TAB PO SCH (08:40)
[2023-06-19] MEDS: ROSUVASTATIN 10 MG TAB (CRESTOR) PO SCH (08:40)
[2023-06-19] MEDS: BRIVIACT 100 MG PO SCH ×2 (08:58→09:52)
[2023-06-19] MEDS ORDERED: FIDA200TA PO (09:42)
== END 2023-06-19 11:10 | disposition home or self-care (01) | DRG 372 ==
LOC: M ED 08:58 → M ED INP 14:00 → ENRESERV 14:28 → M PCU 15:19
PROVIDERS: ADMIT Student in an Organized Health Care Education/Training Program; ATTEND Student in an Organized Health Care Education/Training Program
DX: A04.72 Enterocolitis due to Clostridium difficile, not specified as recurrent (principal); K86.1 Other chronic pancreatitis; E87.20 Acidosis, unspecified; K91.850 Pouchitis; E11.9 Type 2 diabetes mellitus without complications; G40.909 Epilepsy, unspecified, not intractable, without status epilepticus; G47.00 Insomnia, unspecified; E78.5 Hyperlipidemia, unspecified; E86.0 Dehydration; G43.909 Migraine, unspecified, not intractable, without status migrainosus; K59.09 Other constipation; K63.89 Other specified diseases of intestine; D50.9 Iron deficiency anemia, unspecified; G90.A Postural orthostatic tachycardia syndrome [POTS]; Z90.49 Acquired absence of other specified parts of digestive tract; D35.00 Benign neoplasm of unspecified adrenal gland; Z79.4 Long term (current) use of insulin; Z79.84 Long term (current) use of oral hypoglycemic drugs; Z79.899 Other long term (current) drug therapy; Z88.8 Allergy status to other drugs, medicaments and biological substances; Z20.822 Contact with and (suspected) exposure to COVID-19

== ENCOUNTER 2023-09-02 05:08 | Inpatient (IN) | payer OTHER ==
[~2023-09-02] VITALS: Ht 162.6 cm; Wt 81.8 kg
[~2023-09-02 05:08] MED LIST changes: +AMIT10TA7 PO; +BRIV100T PO; +DIPH50TA6 PO; +DRON2.5C11 PO; +FERR325T19 PO; +FIDA200TA PO; +HYDR-4571 PO; +LANTINJ4 SC; +METF500T13 PO; +NALO4SPR; +ONDA-84 PO; +RIZA10TA58 PO; +TIZA10TA PO; +VITA100093 PO
[2023-09-02] MEDS ORDERED: ONDANSETRON 4MG 2ML VIAL IV ONE ×2 (05:45→07:30)
[2023-09-02] MEDS ORDERED: MORPHINE 4 MG/ML 1ML VIAL IV ONE (05:45)
[2023-09-02] MEDS ORDERED: NS 1,000 ML IV ONE (05:45)
[2023-09-02 06:59] LABS: BASO % 0.1 % (0.0-1.0); HEMATOCRIT 42.9 % (36.0-47.0); HEMOGLOBIN 14.3 g/dl (12.0-15.5); LYMPH # 1.5 10^3/uL (1.5-5.0); LYMPH % 8.5 % (24.0-44.0); MEAN CORPUSCULAR HEMOGLOBIN 28.4 pg (27.0-33.0); MEAN CORPUSCULAR HGB CONC 33.3 g/dl (32.0-36.5); MEAN CORPUSCULAR VOLUME 85.3 fl (80.0-96.0); MONO # 0.3 10^3/uL (0.0-0.8); MONO % 1.6 % (2.0-8.0); NEUTROPHILS # 15.5 10^3/uL (1.5-8.5); PLATELET COUNT, AUTOMATED 356 10^3/uL (150-450); RED BLOOD COUNT 5.03 10^6/uL (4.00-5.40); WHITE BLOOD COUNT 17.5 10^3/uL (4.0-10.0)
[2023-09-02 07:01] LABS: APPEARANCE, URINE HAZY (CLEAR); BACTERIA, URINE AUTO NEGATIVE (NEGATIVE); BILIRUBIN, URINE AUTO NEGATIVE (NEGATIVE); BLOOD, URINE BLOOD NEGATIVE (NEGATIVE); COLOR, URINE YELLOW (YELLOW); GLUCOSE, URINE (UA) AUTO 3+ mg/dL (NEGATIVE); GRANULAR CAST, URINE AUTO 1 /LPF; KETONE, URINE AUTO 2+ mg/dL (NEGATIVE); LEUKOCYTE ESTERASE, URINE AUTO NEGATIVE (NEGATIVE); MUCUS, URINE SMALL (NEGATIVE); NITRITE, URINE AUTO NEGATIVE (NEGATIVE); PROTEIN, URINE AUTO 3+ mg/dL (NEGATIVE); RBC, URINE AUTO 1 /HPF (0-3); SPECIFIC GRAVITY URINE AUTO 1.024 (1.002-1.035); SQUAMOUS EPITHELIAL CELL UR AU 2 /HPF (0-6); UROBILINOGEN, URINE AUTO 0.2 mg/dL (0.0-2.0); WBC, URINE AUTO 1 /HPF (0-3)
[2023-09-02] MEDS ORDERED: MORPHINE 4 MG/ML 1ML VIAL IV PRN (07:15)
[2023-09-02] MEDS ORDERED: NS 1,450 ML in IV 1 EA IV ONE (07:20)
[2023-09-02] MEDS ORDERED: PIPERACILLIN/TAZOBACTAM SOD 4.5 GM in D5W MINI-BAG PLUS 50 ML IV ONE (07:20)
[2023-09-02 07:24] LABS: LIPASE 36 U/L (12-53)
[2023-09-02 07:25] LABS: HCG, SERUM QUALITATIVE NEGATIVE (NEGATIVE)
[2023-09-02 07:26] LABS: ALBUMIN 4.4 G/DL (3.2-5.2); ALKALINE PHOSPHATASE 72 U/L (46-116); ALT/SGPT 29 U/L (7.0-40); AST/SGOT 27 U/L (<34); BILIRUBIN,DIRECT 0.2 MG/DL (<0.4); BILIRUBIN,TOTAL 0.4 MG/DL (0.3-1.2); TOTAL PROTEIN 8.1 G/DL (5.7-8.2)
[2023-09-02 07:46] LABS: BLOOD UREA NITROGEN 17 MG/DL (9-23); CALCIUM LEVEL 9.8 MG/DL (8.5-10.1); CARBON DIOXIDE LEVEL 19 MMOL/L (20-31); CHLORIDE LEVEL 106 MMOL/L (98-107); GLOMERULAR FILTRATION RATE > 60.0 (>58); GLUCOSE, FASTING 197 MG/DL (60-100); POTASSIUM SERUM 4.4 MMOL/L (3.5-5.1); SODIUM LEVEL 141 MMOL/L (136-145)
[2023-09-02] MEDS ORDERED: ISOVUE-370 76% 100ML VIAL As Ordered ONE (07:59)
[2023-09-02 08:20] LABS: RSV AMPLIFICATION NEGATIVE (NEGATIVE)
[2023-09-02] MEDS ORDERED: cloNIDine 0.1MG TABLET PO ONE (09:30)
[2023-09-02] MEDS ORDERED: MED REC IN PROGRESS XX SCH (10:55)
[2023-09-02] MEDS ORDERED: GLUCOSE 4GM CHEW TABLET PO PRN (11:15)
[2023-09-02] MEDS ORDERED: MORPHINE 2 MG/ML 1ML VIAL IV PRN (11:15)
[2023-09-02] MEDS ORDERED: DEXTROSE 50% 50ML SYRINGE IV PRN (11:15)
[2023-09-02] MEDS ORDERED: GLUCAGON INJ 1MG VIAL SC PRN (11:15)
[2023-09-02] MEDS: NS 1,000 ML IV SCH ×2 (12:11→23:17)
[2023-09-02] MEDS ORDERED: AMIT50TA PO (12:11)
[2023-09-02] MEDS ORDERED: PRENTAB9 PO (12:11)
[2023-09-02] MEDS ORDERED: IBUP200C25 PO (12:11)
[2023-09-02] MEDS ORDERED: DRON5CAP13 PO (12:11)
[2023-09-02] MEDS ORDERED: HOME MED LIST COMPLETE! XX SCH (12:20)
[2023-09-02] MEDS: INSULIN LISPRO (NovoLOG) PER UNIT SC SCH ×3 (14:04→21:00)
[2023-09-02] MEDS: CIPROFLOXACIN 400 MG in IV 1 EA IV SCH (14:38)
[2023-09-02] MEDS ORDERED: tiZANidine 4 MG TAB PO PRN (15:35)
[2023-09-02] MEDS ORDERED: RIZATRIPTAN MLT 10 MG TAB PO PRN (15:35)
[2023-09-02] MEDS ORDERED: LORazepam 2 MG/ML 1ML VIAL IV PRN (15:40)
[2023-09-02] MEDS: metroNIDAZOLE 500 MG in IV 1 EA IV SCH ×2 (15:41→23:17)
[2023-09-02] MEDS: ONDANSETRON 4MG 2ML VIAL IV PRN (15:51)
[2023-09-02] MEDS: LACTOBACILLUS ACIDOPHILUS CAP (BACID) PO SCH (19:08)
[2023-09-02] MEDS: cloNIDine 0.2 MG TAB PO SCH (21:00)
[2023-09-03] MEDS: CIPROFLOXACIN 400 MG in IV 1 EA IV SCH ×2 (01:49→16:34)
[2023-09-03] MEDS: LACTOBACILLUS ACIDOPHILUS CAP (BACID) PO SCH ×2 (07:33→17:36)
[2023-09-03] MEDS: metroNIDAZOLE 500 MG in IV 1 EA IV SCH ×3 (07:33→22:37)
[2023-09-03] MEDS: cloNIDine 0.2 MG TAB PO SCH ×2 (07:34→21:54)
[2023-09-03] MEDS: INSULIN LISPRO (NovoLOG) PER UNIT SC SCH ×4 (08:36→21:00)
[2023-09-03 08:51] LABS: BLOOD UREA NITROGEN 7 MG/DL (9-23); CALCIUM LEVEL 7.9 MG/DL (8.5-10.1); CARBON DIOXIDE LEVEL 21 MMOL/L (20-31); CHLORIDE LEVEL 110 MMOL/L (98-107); CREATININE FOR GFR 0.68 MG/DL (0.55-1.30); GLOMERULAR FILTRATION RATE > 60.0 (>58); GLUCOSE, FASTING 128 MG/DL (60-100); MAGNESIUM LEVEL 1.4 MG/DL (1.8-2.4); POTASSIUM SERUM 3.6 MMOL/L (3.5-5.1); SODIUM LEVEL 140 MMOL/L (136-145)
[2023-09-03] MEDS ORDERED: FERROUS SULFATE 325MG TAB PO SCH (09:00)
[2023-09-03] MEDS ORDERED: AMITRIPTYLINE 50 MG TAB PO SCH ×2 (09:00→22:25)
[2023-09-03 09:20] LABS: HEMATOCRIT 37.1 % (36.0-47.0); MEAN CORPUSCULAR HGB CONC 33.2 g/dl (32.0-36.5); MEAN CORPUSCULAR VOLUME 87.5 fl (80.0-96.0); PLATELET COUNT, AUTOMATED 281 10^3/uL (150-450); RED BLOOD COUNT 4.24 10^6/uL (4.00-5.40); WHITE BLOOD COUNT 10.6 10^3/uL (4.0-10.0)
[2023-09-03 09:27] LABS: HEMOGLOBIN 12.3 g/dl (12.0-15.5)
[2023-09-03] MEDS: ENOXAPARIN 40MG/0.4ML SYRINGE (J1650 PER 10MG) SC SCH (10:06)
[2023-09-03] MEDS: BRIVIACT 100 MG PO SCH ×2 (11:32→21:55)
[2023-09-03] MEDS: NS 1,000 ML IV SCH (11:56)
[2023-09-03] MEDS: MAG SULF 1GM/100ML (MAG RUN) 1 GM in IV 1 EA IV SCH ×4 (12:50→17:37)
[2023-09-03] MEDS: ACETAMINOPHEN TAB 650MG DOSE (2X325MG) PO PRN ×2 (13:40→21:54)
[2023-09-03 14:16] VITALS: BP 130/80; TEMP 98.2; O2SAT 98
[2023-09-03 14:25] VITALS: BP 131/76; TEMP 98.1; O2SAT 95
[2023-09-03 21:54] VITALS: BP 158/90
[2023-09-03 22:00] VITALS: BP 170/91; TEMP 98.6; O2SAT 96
[2023-09-04] MEDS: NS 1,000 ML IV SCH (02:44)
[2023-09-04] MEDS: CIPROFLOXACIN 400 MG in IV 1 EA IV SCH (02:44)
[2023-09-04 06:00] VITALS: BP 146/91; TEMP 97; O2SAT 98
[2023-09-04] MEDS: metroNIDAZOLE 500 MG in IV 1 EA IV SCH (06:45)
[2023-09-04 07:34] LABS: BASO # 0.1 10^3/uL (0.0-0.2); BASO % 0.5 % (0.0-1.0); EOS # 0.4 10^3/uL (0.0-0.5); EOS % 3.9 % (0.0-3.0); HEMATOCRIT 33.9 % (36.0-47.0); HEMOGLOBIN 11.1 g/dl (12.0-15.5); LYMPH # 3.2 10^3/uL (1.5-5.0); LYMPH % 33.9 % (24.0-44.0); MEAN CORPUSCULAR HEMOGLOBIN 28.5 pg (27.0-33.0); MEAN CORPUSCULAR HGB CONC 32.7 g/dl (32.0-36.5); MEAN CORPUSCULAR VOLUME 87.1 fl (80.0-96.0); MONO # 0.6 10^3/uL (0.0-0.8); MONO % 6.2 % (2.0-8.0); NEUTROPHILS # 5.2 10^3/uL (1.5-8.5); NEUTROPHILS % 55.2 % (36.0-66.0); PLATELET COUNT, AUTOMATED 254 10^3/uL (150-450); RED BLOOD COUNT 3.89 10^6/uL (4.00-5.40); WHITE BLOOD COUNT 9.4 10^3/uL (4.0-10.0)
[2023-09-04 08:00] LABS: BLOOD UREA NITROGEN < 5 MG/DL (9-23); CALCIUM LEVEL 7.5 MG/DL (8.5-10.1); CARBON DIOXIDE LEVEL 24 MMOL/L (20-31); CHLORIDE LEVEL 111 MMOL/L (98-107); CREATININE FOR GFR 0.62 MG/DL (0.55-1.30); GLOMERULAR FILTRATION RATE > 60.0 (>58); GLUCOSE, FASTING 123 MG/DL (60-100); MAGNESIUM LEVEL 1.8 MG/DL (1.8-2.4); POTASSIUM SERUM 3.9 MMOL/L (3.5-5.1); SODIUM LEVEL 140 MMOL/L (136-145)
[2023-09-04] MEDS: BRIVIACT 100 MG PO SCH (09:08)
[2023-09-04] MEDS: ENOXAPARIN 40MG/0.4ML SYRINGE (J1650 PER 10MG) SC SCH (09:09)
[2023-09-04] MEDS: ONDANSETRON 4MG 2ML VIAL IV PRN (09:10)
[2023-09-04] MEDS: INSULIN LISPRO (NovoLOG) PER UNIT SC SCH ×2 (09:10→12:07)
[2023-09-04 09:11] VITALS: BP 131/72
[2023-09-04] MEDS: cloNIDine 0.2 MG TAB PO SCH (09:11)
[2023-09-04] MEDS: LACTOBACILLUS ACIDOPHILUS CAP (BACID) PO SCH (09:12)
[2023-09-04] MEDS ORDERED: metroNIDAZOLE (FLAGYL) 500MG TABLET PO SCH (14:00)
[2023-09-04] MEDS ORDERED: CIPR500T39 PO (14:08)
[2023-09-04] MEDS ORDERED: METR-265 PO (14:08)
[2023-09-04] MEDS ORDERED: CIPROFLOXACIN 500MG TABLET PO SCH (18:00)
== END 2023-09-04 14:32 | disposition home or self-care (01) | DRG 392 ==
LOC: M ED 05:08 → M ED INP 11:12 → ENRESERV 09-03 13:43 → M MS4PR 09-03 14:18
PROVIDERS: ADMIT Family Medicine; ATTEND Student in an Organized Health Care Education/Training Program
DX: K52.9 Noninfective gastroenteritis and colitis, unspecified (principal); E87.20 Acidosis, unspecified; E11.9 Type 2 diabetes mellitus without complications; E78.5 Hyperlipidemia, unspecified; I10 Essential (primary) hypertension; G40.909 Epilepsy, unspecified, not intractable, without status epilepticus; Z79.4 Long term (current) use of insulin; Z79.899 Other long term (current) drug therapy; Z88.8 Allergy status to other drugs, medicaments and biological substances; Z86.010 Personal history of colon polyps; E83.42 Hypomagnesemia; Z90.49 Acquired absence of other specified parts of digestive tract; Z98.0 Intestinal bypass and anastomosis status

== ENCOUNTER 2023-11-13 15:19 | Emergency (ER) | payer OTHER ==
[~2023-11-13] VITALS: Ht 162.6 cm; Wt 68.6 kg
[~2023-11-13 15:19] MED LIST changes: +AMIT50TA PO; +CIPR500T39 PO; +DRON5CAP13 PO; +IBUP200C25 PO; +METR-265 PO; +PRENTAB9 PO
[2023-11-13 16:40] LABS: BASO % 0.2 % (0.0-1.0); HEMOGLOBIN 16.2 g/dl (12.0-15.5); LYMPH # 1.6 10^3/uL (1.5-5.0); LYMPH % 11.3 % (24.0-44.0); MEAN CORPUSCULAR HEMOGLOBIN 28.2 pg (27.0-33.0); MEAN CORPUSCULAR HGB CONC 33.1 g/dl (32.0-36.5); MEAN CORPUSCULAR VOLUME 85.2 fl (80.0-96.0); MONO # 0.5 10^3/uL (0.0-0.8); MONO % 3.8 % (2.0-8.0); NEUTROPHILS # 11.6 10^3/uL (1.5-8.5); NEUTROPHILS % 84.2 % (36.0-66.0); PLATELET COUNT, AUTOMATED 458 10^3/uL (150-450); RED BLOOD COUNT 5.75 10^6/uL (4.00-5.40); WHITE BLOOD COUNT 13.8 10^3/uL (4.0-10.0)
[2023-11-13 16:57] LABS: LIPASE 53 U/L (12-53)
[2023-11-13 16:59] LABS: ALBUMIN 4.8 G/DL (3.2-5.2); ALKALINE PHOSPHATASE 78 U/L (46-116); ALT/SGPT 65 U/L (7.0-40); AST/SGOT 76 U/L (<34); BILIRUBIN,DIRECT 0.3 MG/DL (<0.4); BILIRUBIN,TOTAL 0.7 MG/DL (0.3-1.2); BLOOD UREA NITROGEN 13 MG/DL (9-23); CALCIUM LEVEL 10.7 MG/DL (8.5-10.1); CARBON DIOXIDE LEVEL 22 MMOL/L (20-31); CHLORIDE LEVEL 105 MMOL/L (98-107); CREATININE FOR GFR 0.75 MG/DL (0.55-1.30); GLOMERULAR FILTRATION RATE > 60.0 (>58); GLUCOSE, FASTING 195 MG/DL (60-100); POTASSIUM SERUM 4.8 MMOL/L (3.5-5.1); SODIUM LEVEL 137 MMOL/L (136-145); TOTAL PROTEIN 8.6 G/DL (5.7-8.2)
[2023-11-13 17:06] LABS: HCG, SERUM QUALITATIVE NEGATIVE (NEGATIVE)
[2023-11-13] MEDS: METOCLOPRAMIDE INJ 10MG/2ML VIAL IV ONE (18:02)
[2023-11-13] MEDS: KETOROLAC 30 MG/ML 1ML VIAL IV ONE (18:03)
[2023-11-13] MEDS: NS 1,000 ML IV ONE (18:09)
[2023-11-13] MEDS ORDERED: ISOVUE-370 76% 100ML VIAL As Ordered ONE (18:15)
[2023-11-13 19:59] VITALS: BP 126/67; TEMP 98.2; O2SAT 99
[2023-11-13] MEDS ORDERED: REGL10TA6 PO (21:04)
== END 2023-11-13 21:16 | disposition home or self-care (01) ==
LOC: M ED 15:19
DX: K56.690 Other partial intestinal obstruction (principal); I10 Essential (primary) hypertension; E11.9 Type 2 diabetes mellitus without complications; E78.5 Hyperlipidemia, unspecified; G40.909 Epilepsy, unspecified, not intractable, without status epilepticus; F32.A Depression, unspecified; F43.10 Post-traumatic stress disorder, unspecified; G90.A Postural orthostatic tachycardia syndrome [POTS]; Z87.442 Personal history of urinary calculi; Z88.8 Allergy status to other drugs, medicaments and biological substances; Z79.4 Long term (current) use of insulin; Z79.83 Long term (current) use of bisphosphonates; Z79.810 Long term (current) use of selective estrogen receptor modulators (SERMs); Z79.899 Other long term (current) drug therapy; Z79.2 Long term (current) use of antibiotics; Z79.82 Long term (current) use of aspirin
CPT/HCPCS: 74177; 80048; 80076; 81001; 83690; 84703; 85025; 93005; 96361; 96374; 96375; 99284; J1885; J2765; Q9967

== ENCOUNTER 2024-02-07 08:29 | Emergency (ER) | payer OTHER ==
[~2024-02-07] VITALS: Ht 162.6 cm; Wt 69.9 kg
[~2024-02-07 08:29] MED LIST changes: -NALO4SPR; +NALO4SPR3; +ONDA-282 PO; -ONDA4TAB6 PO; +REGL10TA6 PO
[2024-02-07 08:30] VITALS: TEMP 98.9
[2024-02-07 09:36] LABS: BASO # 0.1 10^3/uL (0.0-0.2); BASO % 0.5 % (0.0-1.0); EOS # 0.1 10^3/uL (0.0-0.5); EOS % 0.9 % (0.0-3.0); HEMATOCRIT 47.2 % (36.0-47.0); HEMOGLOBIN 15.5 g/dl (12.0-15.5); LYMPH # 3.3 10^3/uL (1.5-5.0); LYMPH % 33.1 % (24.0-44.0); MEAN CORPUSCULAR HGB CONC 32.8 g/dl (32.0-36.5); MEAN CORPUSCULAR VOLUME 85.4 fl (80.0-96.0); MONO # 0.5 10^3/uL (0.0-0.8); MONO % 5.4 % (2.0-8.0); NEUTROPHILS % 59.9 % (36.0-66.0); PLATELET COUNT, AUTOMATED 417 10^3/uL (150-450); RED BLOOD COUNT 5.53 10^6/uL (4.00-5.40); WHITE BLOOD COUNT 10.1 10^3/uL (4.0-10.0)
[2024-02-07] MEDS ORDERED: ISOVUE-370 76% 100ML VIAL As Ordered ONE (09:49)
[2024-02-07] MEDS: MORPHINE 4 MG/ML 1ML VIAL IV ONE ×2 (09:49→17:20)
[2024-02-07] MEDS: ONDANSETRON 4MG 2ML VIAL IV ONE ×2 (09:50→17:48)
[2024-02-07] MEDS: NS 1,000 ML IV ONE ×2 (09:50→12:06)
[2024-02-07 09:53] LABS: INR 0.99; PROTHROMBIN TIME 12.9 SECONDS (12.5-14.5)
[2024-02-07 10:02] LABS: AMYLASE 36 U/L (30-118)
[2024-02-07 10:04] LABS: ALBUMIN 4.5 G/DL (3.2-5.2); ALKALINE PHOSPHATASE 88 U/L (46-116); ALT/SGPT 52 U/L (7.0-40); AST/SGOT 63 U/L (<34); BILIRUBIN,DIRECT 0.3 MG/DL (<0.4); BILIRUBIN,TOTAL 1.1 MG/DL (0.3-1.2); BLOOD UREA NITROGEN 19 MG/DL (9-23); CALCIUM LEVEL 10.2 MG/DL (8.5-10.1); CARBON DIOXIDE LEVEL 24 MMOL/L (20-31); CHLORIDE LEVEL 99 MMOL/L (98-107); CREATININE FOR GFR 0.74 MG/DL (0.55-1.30); GLOMERULAR FILTRATION RATE > 60.0 (>58); GLUCOSE, FASTING 111 MG/DL (60-100); HCG, SERUM QUANTITATIVE < 2.6 MIU/ML (<4.2); LIPASE 38 U/L (12-53); POTASSIUM SERUM 4.3 MMOL/L (3.5-5.1); SODIUM LEVEL 132 MMOL/L (136-145); TOTAL PROTEIN 8.5 G/DL (5.7-8.2)
[2024-02-07] MEDS ORDERED: AMIT100TA PO (13:54)
[2024-02-07] MEDS ORDERED: METF-877 PO (13:54)
[2024-02-07] MEDS ORDERED: JARD1TAB3 PO (13:54)
[2024-02-07] MEDS ORDERED: METO10TA2 PO (13:54)
[2024-02-07] MEDS ORDERED: HOME MED LIST COMPLETE! XX SCH (13:55)
[2024-02-07 21:00] VITALS: BP 160/64; O2SAT 98
[2024-02-07] MEDS ORDERED: PERC5TAB12 PO (21:11)
[2024-02-07] MEDS: OXYCODONE/APAP 5MG/325MG(HOME DOSE PACK) PO ONE (21:13)
== END 2024-02-07 21:24 | disposition home or self-care (01) ==
LOC: M ED 08:29
DX: R10.9 Unspecified abdominal pain (principal); E11.9 Type 2 diabetes mellitus without complications; Z88.8 Allergy status to other drugs, medicaments and biological substances; Z79.4 Long term (current) use of insulin; Z79.84 Long term (current) use of oral hypoglycemic drugs; Z79.810 Long term (current) use of selective estrogen receptor modulators (SERMs); Z79.899 Other long term (current) drug therapy
CPT/HCPCS: 74177; 74181; 80047; 80048; 80076; 81001; 82150; 83605; 83690; 84702; 85025; 85610; 85730; 93041; 96361; 96374; 96375; 96376; 99285; J2405; Q9967

== ENCOUNTER 2024-02-12 15:10 | Inpatient (IN) | payer OTHER ==
[~2024-02-12] VITALS: Ht 162.6 cm; Wt 76.8 kg
[~2024-02-12 15:10] MED LIST changes: +AMIT100TA PO; +JARD1TAB3 PO; +METF-877 PO; +METO10TA2 PO; +PERC5TAB12 PO
[2024-02-12 17:06] LABS: BASO # 0.1 10^3/uL (0.0-0.2); BASO % 0.3 % (0.0-1.0); EOS % 0.1 % (0.0-3.0); HEMATOCRIT 49.8 % (36.0-47.0); HEMOGLOBIN 15.2 g/dl (12.0-15.5); LYMPH # 2.5 10^3/uL (1.5-5.0); LYMPH % 12.8 % (24.0-44.0); MEAN CORPUSCULAR HEMOGLOBIN 28.2 pg (27.0-33.0); MEAN CORPUSCULAR HGB CONC 30.5 g/dl (32.0-36.5); MEAN CORPUSCULAR VOLUME 92.4 fl (80.0-96.0); MONO # 0.8 10^3/uL (0.0-0.8); NEUTROPHILS # 15.9 10^3/uL (1.5-8.5); NEUTROPHILS % 82.3 % (36.0-66.0); PLATELET COUNT, AUTOMATED 474 10^3/uL (150-450); RED BLOOD COUNT 5.39 10^6/uL (4.00-5.40); WHITE BLOOD COUNT 19.4 10^3/uL (4.0-10.0)
[2024-02-12] MEDS: NS 1,000 ML IV ONE ×2 (17:52→21:25)
[2024-02-12 18:51] LABS: ERYTHROCYTE SEDIMENTATION RATE 77 mm/hr (0-20)
[2024-02-12 19:28] LABS: LIPASE 14 U/L (12-53)
[2024-02-12 19:33] LABS: ALBUMIN 1.7 G/DL (3.2-5.2); ALKALINE PHOSPHATASE 42 U/L (46-116); ALT/SGPT 16 U/L (7.0-40); AST/SGOT 9 U/L (<34); BILIRUBIN,DIRECT < 0.1 MG/DL (<0.4); BILIRUBIN,TOTAL < 0.2 MG/DL (0.3-1.2); BLOOD UREA NITROGEN 14 MG/DL (9-23); CALCIUM LEVEL 4.6 MG/DL (8.5-10.1); CARBON DIOXIDE LEVEL < 10.0 MMOL/L (20-31); CHLORIDE LEVEL 120 MMOL/L (98-107); CPK CREATINE PHOSPHOKINASE 40 U/L (34-145); CREATININE FOR GFR 4.09 MG/DL (0.55-1.30); GLOMERULAR FILTRATION RATE 12.8 (>58); GLUCOSE, FASTING 45 MG/DL (60-100); MAGNESIUM LEVEL 0.6 MG/DL (1.8-2.4); POTASSIUM SERUM 3.6 MMOL/L (3.5-5.1); SODIUM LEVEL 143 MMOL/L (136-145); TOTAL PROTEIN 3.6 G/DL (5.7-8.2); URIC ACID 6.3 MG/DL (3.1-7.8)
[2024-02-12] MEDS: ONDANSETRON 4MG 2ML VIAL IV ONE (19:33)
[2024-02-12] MEDS: MORPHINE 2 MG/ML 1ML VIAL IV PRN (19:34)
[2024-02-12 19:43] LABS: HCG, SERUM QUALITATIVE NEGATIVE (NEGATIVE)
[2024-02-12 19:46] LABS: OSMOLALITY SERUM 298 MOSM/KG (275-295)
[2024-02-12] MEDS: CALCIUM GLUCONATE 1,000 MG in D5W MINI-BAG PLUS 100 ML IV SCH (20:00)
[2024-02-12 20:45] LABS: VENOUS BASE EXCESS -20.6 (-2.0-2.0); VENOUS PARTIAL PRESSURE CO2 40.3 mmHg (38.0-50.0); VENOUS PH 7.012 UNITS (7.330-7.430); VENOUS STANDARD HCO3 9.3 MMOL/L; VENOUS TOTAL CO2 11.2 MMOL/L (24.0-28.0)
[2024-02-12 20:53] LABS: AMORPHOUS SEDIMENT SMALL (NEGATIVE); APPEARANCE, URINE HAZY (CLEAR); BACTERIA, URINE AUTO 1+ (NEGATIVE); BILIRUBIN, URINE AUTO NEGATIVE (NEGATIVE); BLOOD, URINE BLOOD NEGATIVE (NEGATIVE); COLOR, URINE YELLOW (YELLOW); GLUCOSE, URINE (UA) AUTO NEGATIVE (NEGATIVE); KETONE, URINE AUTO NEGATIVE (NEGATIVE); LEUKOCYTE ESTERASE, URINE AUTO TRACE (NEGATIVE); NITRITE, URINE AUTO NEGATIVE (NEGATIVE); PROTEIN, URINE AUTO 2+ mg/dL (NEGATIVE); RBC, URINE AUTO 1 /HPF (0-3); SPECIFIC GRAVITY URINE AUTO 1.009 (1.002-1.035); SQUAMOUS EPITHELIAL CELL UR AU 4 /HPF (0-6); UROBILINOGEN, URINE AUTO 0.2 mg/dL (0.0-2.0); WBC, URINE AUTO 4 /HPF (0-3)
[2024-02-12] MEDS: cloNIDine 0.2 MG TAB PO SCH (21:00)
[2024-02-12 21:21] LABS: CREATININE,RANDOM URINE 51.7 MG/DL
[2024-02-12 21:35] LABS: TOTAL PROTEIN,RANDOM URINE 100.1 MG/DL (0.0-14.0)
[2024-02-12] MEDS: MAG SULF 1GM/100ML (MAG RUN) 1 GM in IV 1 EA IV SCH (21:48)
[2024-02-12] MEDS ORDERED: SODIUM BICARBONATE 100 MEQ in D5W 1,000 ML IV SCH (22:00)
[2024-02-12] MEDS ORDERED: DRON10CA7 PO (23:02)
[2024-02-12] MEDS ORDERED: OXYC1TAB23 PO (23:02)
[2024-02-12] MEDS ORDERED: HOME MED LIST COMPLETE! XX SCH (23:05)
[2024-02-12] MEDS: LR 1,000 ML IV STA (23:11)
[2024-02-12] MEDS ORDERED: DEXTROSE 50% 50ML SYRINGE IV PRN (23:15)
[2024-02-12] MEDS ORDERED: GLUCAGON INJ 1MG VIAL SC PRN (23:15)
[2024-02-12] MEDS ORDERED: HYDROMORPHONE HCL 0.5 MG/ 0.5 ML SYRINGE IV PRN ×2 (23:15)
[2024-02-12] MEDS: LR 1,000 ML IV ONE (23:15)
[2024-02-12] MEDS ORDERED: GLUCOSE 4 GM CHEW PO PRN (23:15)
[2024-02-13] MEDS: PRENATAL VITAMINS CHEWABLE TABLET PO SCH (01:15)
[2024-02-13] MEDS: AMITRIPTYLINE 50 MG TAB PO SCH (01:16)
[2024-02-13] MEDS: VITAMIN D 1,000 INTERNATIONAL UNITS TABLET PO SCH (01:16)
[2024-02-13] MEDS: ROSUVASTATIN 10 MG TAB (CRESTOR) PO SCH (01:18)
[2024-02-13] MEDS: SODIUM BICARBONATE 150 MEQ in D5W 1,000 ML IV SCH (01:18)
[2024-02-13] MEDS: NS 1,000 ML IV ONE (01:19)
[2024-02-13] MEDS: tiZANidine 4 MG TAB PO PRN (01:45)
[2024-02-13 02:17] LABS: ALBUMIN 3.4 G/DL (3.2-5.2); CALCIUM LEVEL 9.4 MG/DL (8.5-10.1); CREATININE FOR GFR 6.32 MG/DL (0.55-1.30); GLOMERULAR FILTRATION RATE 7.7 (>58); MAGNESIUM LEVEL 2.1 MG/DL (1.8-2.4)
[2024-02-13 06:40] LABS: VENOUS BASE EXCESS -8.6 (-2.0-2.0); VENOUS HCO3 18.6 MMOL/L (23.0-27.0); VENOUS O2 SATURATION 94.7 % (60.0-80.0); VENOUS PARTIAL PRESSURE CO2 44.5 mmHg (38.0-50.0); VENOUS PARTIAL PRESSURE O2 77.7 mmHg (30.0-50.0); VENOUS PH 7.238 UNITS (7.330-7.430); VENOUS STANDARD HCO3 17.5 MMOL/L; VENOUS TOTAL CO2 19.9 MMOL/L (24.0-28.0)
[2024-02-13] MEDS: HEPARIN SOD (PORCINE) 5000UNITS/ML 1ML VIAL/SYRINGE SC SCH (06:40)
[2024-02-13 06:45] LABS: MEAN CORPUSCULAR HEMOGLOBIN 27.8 pg (27.0-33.0); MEAN CORPUSCULAR HGB CONC 30.9 g/dl (32.0-36.5); MEAN CORPUSCULAR VOLUME 89.8 fl (80.0-96.0); RED BLOOD COUNT 4.43 10^6/uL (4.00-5.40); WHITE BLOOD COUNT 11.1 10^3/uL (4.0-10.0)
[2024-02-13 06:51] LABS: HEMATOCRIT 39.8 % (36.0-47.0); HEMOGLOBIN 12.3 g/dl (12.0-15.5); PLATELET COUNT, AUTOMATED 244 10^3/uL (150-450)
[2024-02-13 07:17] LABS: ALBUMIN 3.3 G/DL (3.2-5.2); BILIRUBIN,TOTAL 0.6 MG/DL (0.3-1.2); CREATININE FOR GFR 5.38 MG/DL (0.55-1.30); GLOMERULAR FILTRATION RATE 9.3 (>58); MAGNESIUM LEVEL 1.7 MG/DL (1.8-2.4); TOTAL PROTEIN 6.5 G/DL (5.7-8.2)
[2024-02-13] MEDS: cloNIDine 0.2 MG TAB PO SCH (09:24)
[2024-02-13] MEDS: MAG SULF 1GM/100ML (MAG RUN) 1 GM in IV 1 EA IV SCH (09:25)
[2024-02-13] MEDS ORDERED: levETIRAcetam INJection 1,000 MG in D5W 100 ML IV SCH (10:00)
[2024-02-13 10:38] VITALS: BP 135/82; TEMP 97.6; O2SAT 99
[2024-02-13] MEDS: levETIRAcetam INJection 500 MG in D5W MINI-BAG PLUS 100 ML IV SCH (12:02)
[2024-02-13] MEDS: INSULIN LISPRO (NovoLOG) PER UNIT SC SCH ×3 (12:03→20:21)
[2024-02-13 12:06] VITALS: BP 103/61; TEMP 97.8; O2SAT 95
[2024-02-13 13:18] LABS: PHOSPHORUS LEVEL 4.6 MG/DL (2.5-4.9)
[2024-02-13 15:29] VITALS: BP 119/76; TEMP 98.3; O2SAT 97
[2024-02-13 16:00] VITALS: O2SAT 90
[2024-02-13 16:47] LABS: CALCIUM LEVEL 8.7 MG/DL (8.5-10.1); CREATININE FOR GFR 4.29 MG/DL (0.55-1.30); GLOMERULAR FILTRATION RATE 12.1 (>58); PHOSPHORUS LEVEL 3.9 MG/DL (2.5-4.9); POTASSIUM SERUM 3.1 MMOL/L (3.5-5.1)
[2024-02-13] MEDS: POTASSIUM CHLORIDE 10MEQ SR TABLET PO ONE (17:52)
[2024-02-13 20:00] VITALS: BP 102/55; TEMP 97.6; O2SAT 94
[2024-02-13] MEDS ORDERED: ENTER DRUG NAME HERE (PATIENT'S OWN MED) PO SCH (21:00)
[2024-02-14] VITALS (7 sets, daily range): BP systolic 119–144; BP diastolic 65–95; TEMP 97–98.6; O2SAT 93–97
[2024-02-14] MEDS ORDERED: UNRESOLVED PATIENT OWN MED ORDER XX SCH (00:01)
[2024-02-14 05:55] LABS: VENOUS O2 SATURATION 96.1 % (60.0-80.0); VENOUS PARTIAL PRESSURE CO2 56.9 mmHg (38.0-50.0); VENOUS PARTIAL PRESSURE O2 82.1 mmHg (30.0-50.0); VENOUS PH 7.496 UNITS (7.330-7.430); VENOUS TOTAL CO2 44.7 MMOL/L (24.0-28.0)
[2024-02-14 05:56] LABS: BASO % 0.4 % (0.0-1.0); EOS # 0.2 10^3/uL (0.0-0.5); HEMATOCRIT 34.5 % (36.0-47.0); HEMOGLOBIN 11.5 g/dl (12.0-15.5); LYMPH # 1.7 10^3/uL (1.5-5.0); LYMPH % 21.8 % (24.0-44.0); MEAN CORPUSCULAR HEMOGLOBIN 28.1 pg (27.0-33.0); MEAN CORPUSCULAR HGB CONC 33.3 g/dl (32.0-36.5); MEAN CORPUSCULAR VOLUME 84.4 fl (80.0-96.0); MONO # 0.6 10^3/uL (0.0-0.8); MONO % 8.2 % (2.0-8.0); NEUTROPHILS # 5.1 10^3/uL (1.5-8.5); NEUTROPHILS % 66.5 % (36.0-66.0); PLATELET COUNT, AUTOMATED 287 10^3/uL (150-450); RED BLOOD COUNT 4.09 10^6/uL (4.00-5.40); WHITE BLOOD COUNT 7.7 10^3/uL (4.0-10.0)
[2024-02-14] MEDS: ACETAMINOPHEN TAB 650MG DOSE (2X325MG) PO PRN (05:56)
[2024-02-14 06:24] LABS: ALBUMIN 2.9 G/DL (3.2-5.2); BLOOD UREA NITROGEN 17 MG/DL (9-23); CALCIUM LEVEL 8.1 MG/DL (8.5-10.1); CARBON DIOXIDE LEVEL > 40.0 MMOL/L (20-31); CHLORIDE LEVEL 92 MMOL/L (98-107); CREATININE FOR GFR 2.66 MG/DL (0.55-1.30); GLUCOSE, FASTING 274 MG/DL (60-100); MAGNESIUM LEVEL 1.5 MG/DL (1.8-2.4); POTASSIUM SERUM 3.1 MMOL/L (3.5-5.1); SODIUM LEVEL 138 MMOL/L (136-145)
[2024-02-14] MEDS: NS 1,000 ML IV SCH (07:39)
[2024-02-14] MEDS: MAG SULF 1GM/100ML (MAG RUN) 1 GM in IV 1 EA IV SCH (07:40)
[2024-02-14] MEDS: POTASSIUM CHLORIDE 10MEQ SR TABLET PO SCH (07:40)
[2024-02-14] MEDS: ONDANSETRON 4MG 2ML VIAL IV PRN (13:06)
[2024-02-15 00:24] VITALS: BP 146/90; TEMP 97.5; O2SAT 94
[2024-02-15 04:00] VITALS: BP 154/97; TEMP 97.3; O2SAT 95
[2024-02-15 06:50] LABS: BASO % 0.4 % (0.0-1.0); EOS # 0.3 10^3/uL (0.0-0.5); EOS % 4.7 % (0.0-3.0); HEMATOCRIT 38.7 % (36.0-47.0); HEMOGLOBIN 12.5 g/dl (12.0-15.5); LYMPH # 2.3 10^3/uL (1.5-5.0); LYMPH % 39.6 % (24.0-44.0); MEAN CORPUSCULAR HEMOGLOBIN 28.3 pg (27.0-33.0); MEAN CORPUSCULAR HGB CONC 32.3 g/dl (32.0-36.5); MEAN CORPUSCULAR VOLUME 87.6 fl (80.0-96.0); MONO # 0.6 10^3/uL (0.0-0.8); MONO % 9.6 % (2.0-8.0); NEUTROPHILS # 2.6 10^3/uL (1.5-8.5); NEUTROPHILS % 45.5 % (36.0-66.0); PLATELET COUNT, AUTOMATED 318 10^3/uL (150-450); RED BLOOD COUNT 4.42 10^6/uL (4.00-5.40); WHITE BLOOD COUNT 5.7 10^3/uL (4.0-10.0)
[2024-02-15 07:19] LABS: ALBUMIN 3.3 G/DL (3.2-5.2); CALCIUM LEVEL 9.3 MG/DL (8.5-10.1); CREATININE FOR GFR 1.48 MG/DL (0.55-1.30); GLOMERULAR FILTRATION RATE 41.4 (>58); MAGNESIUM LEVEL 1.7 MG/DL (1.8-2.4); PHOSPHORUS LEVEL 2.6 MG/DL (2.5-4.9)
[2024-02-15] MEDS: MAGNESIUM OXIDE 400MG TAB (MAG-OX) PO SCH (08:04)
[2024-02-15 08:05] VITALS: BP 150/100; TEMP 97.3; O2SAT 97
[2024-02-15] MEDS: FERROUS SULFATE 325MG TAB PO SCH (12:00)
[2024-02-15 12:13] VITALS: BP 147/100; TEMP 97.2; O2SAT 97
[2024-02-15 16:00] VITALS: BP 146/96; TEMP 97.5; O2SAT 98
[2024-02-15 20:00] VITALS: BP 140/74; TEMP 97.2; O2SAT 95
[2024-02-16] VITALS: BP 150/70; TEMP 97.2; O2SAT 94
[2024-02-16 04:00] VITALS: BP 148/76; TEMP 97; O2SAT 97
[2024-02-16 07:48] VITALS: BP 138/70; TEMP 97.3; O2SAT 97
[2024-02-16] MEDS: SCOPOLAMINE 1MG TRANSDERMAL PATCH TOP SCH (08:59)
[2024-02-16] MEDS: oxyCODONE 5MG TAB PO ONE (09:43)
[2024-02-16 10:30] LABS: BASO % 0.4 % (0.0-1.0); EOS # 0.2 10^3/uL (0.0-0.5); EOS % 1.9 % (0.0-3.0); HEMATOCRIT 38.1 % (36.0-47.0); HEMOGLOBIN 12.1 g/dl (12.0-15.5); LYMPH # 2.9 10^3/uL (1.5-5.0); LYMPH % 28.7 % (24.0-44.0); MEAN CORPUSCULAR HGB CONC 31.8 g/dl (32.0-36.5); MEAN CORPUSCULAR VOLUME 88.2 fl (80.0-96.0); MONO # 0.7 10^3/uL (0.0-0.8); MONO % 6.8 % (2.0-8.0); NEUTROPHILS # 6.2 10^3/uL (1.5-8.5); NEUTROPHILS % 61.9 % (36.0-66.0); PLATELET COUNT, AUTOMATED 356 10^3/uL (150-450); RED BLOOD COUNT 4.32 10^6/uL (4.00-5.40); WHITE BLOOD COUNT 10.1 10^3/uL (4.0-10.0)
[2024-02-16 10:50] LABS: ALBUMIN 3.4 G/DL (3.2-5.2); BLOOD UREA NITROGEN 10 MG/DL (9-23); CALCIUM LEVEL 9.2 MG/DL (8.5-10.1); CARBON DIOXIDE LEVEL 26 MMOL/L (20-31); CHLORIDE LEVEL 111 MMOL/L (98-107); CREATININE FOR GFR 1.04 MG/DL (0.55-1.30); GLOMERULAR FILTRATION RATE > 60.0 (>58); GLUCOSE, FASTING 102 MG/DL (60-100); MAGNESIUM LEVEL 1.2 MG/DL (1.8-2.4); PHOSPHORUS LEVEL 2.1 MG/DL (2.5-4.9); POTASSIUM SERUM 4.4 MMOL/L (3.5-5.1); SODIUM LEVEL 143 MMOL/L (136-145)
[2024-02-16] MEDS: MORPHINE 4 MG/ML 1ML VIAL IV ONE (10:55)
[2024-02-16 11:40] VITALS: BP 136/86; TEMP 97.1; O2SAT 97
[2024-02-16 15:42] VITALS: BP 138/68; TEMP 97.3; O2SAT 98
[2024-02-16] MEDS: MAG SULF 1GM/100ML (MAG RUN) 1 GM in IV 1 EA IV SCH ×2 (16:10→19:54)
[2024-02-16] MEDS: MAGNESIUM OXIDE 400MG TAB (MAG-OX) PO SCH (16:11)
[2024-02-16] MEDS: SODIUM PHOSPHATE INJ 20 MMOL in D5W 250 ML IV ONE (17:45)
[2024-02-16 20:00] VITALS: BP 144/78; TEMP 97.3; O2SAT 97
[2024-02-17] VITALS: BP 138/82; TEMP 97.3; O2SAT 95
[2024-02-17 04:00] VITALS: BP 146/90; TEMP 97.3; O2SAT 95
[2024-02-17 07:12] LABS: BASO # 0.1 10^3/uL (0.0-0.2); BASO % 0.5 % (0.0-1.0); EOS # 0.1 10^3/uL (0.0-0.5); EOS % 0.7 % (0.0-3.0); HEMATOCRIT 38.4 % (36.0-47.0); HEMOGLOBIN 12.6 g/dl (12.0-15.5); LYMPH # 2.7 10^3/uL (1.5-5.0); LYMPH % 18.4 % (24.0-44.0); MEAN CORPUSCULAR HEMOGLOBIN 28.3 pg (27.0-33.0); MEAN CORPUSCULAR HGB CONC 32.8 g/dl (32.0-36.5); MEAN CORPUSCULAR VOLUME 86.1 fl (80.0-96.0); MONO # 0.9 10^3/uL (0.0-0.8); MONO % 6.2 % (2.0-8.0); NEUTROPHILS # 10.9 10^3/uL (1.5-8.5); NEUTROPHILS % 73.5 % (36.0-66.0); PLATELET COUNT, AUTOMATED 332 10^3/uL (150-450); RED BLOOD COUNT 4.46 10^6/uL (4.00-5.40); WHITE BLOOD COUNT 14.8 10^3/uL (4.0-10.0)
[2024-02-17 07:54] LABS: ALBUMIN 3.5 G/DL (3.2-5.2); BLOOD UREA NITROGEN 7 MG/DL (9-23); CALCIUM LEVEL 8.7 MG/DL (8.5-10.1); CARBON DIOXIDE LEVEL 25 MMOL/L (20-31); CHLORIDE LEVEL 109 MMOL/L (98-107); CREATININE FOR GFR 0.92 MG/DL (0.55-1.30); GLOMERULAR FILTRATION RATE > 60.0 (>58); GLUCOSE, FASTING 114 MG/DL (60-100); MAGNESIUM LEVEL 2.1 MG/DL (1.8-2.4); SODIUM LEVEL 140 MMOL/L (136-145)
[2024-02-17 08:03] VITALS: BP 146/90; TEMP 97.5; O2SAT 97
[2024-02-17 08:46] VITALS: BP 146/90
[2024-02-17] MEDS ORDERED: TRAN1DIS4 TOP (08:53)
== END 2024-02-17 11:31 | disposition home or self-care (01) | DRG 683 ==
LOC: M ED 15:10 → M ED INP 22:57 → M ICU 02-13 10:33 → M MSPAV 02-14 13:34
PROVIDERS: ADMIT Preventive Medicine Undersea and Hyperbaric Medicine; ATTEND Student in an Organized Health Care Education/Training Program
DX: N17.9 Acute kidney failure, unspecified (principal); E87.20 Acidosis, unspecified; E87.3 Alkalosis; E86.0 Dehydration; E83.42 Hypomagnesemia; E11.649 Type 2 diabetes mellitus with hypoglycemia without coma; I10 Essential (primary) hypertension; E87.6 Hypokalemia; G40.909 Epilepsy, unspecified, not intractable, without status epilepticus; E83.51 Hypocalcemia; K52.9 Noninfective gastroenteritis and colitis, unspecified; D50.9 Iron deficiency anemia, unspecified; G89.29 Other chronic pain; G90.A Postural orthostatic tachycardia syndrome [POTS]; K86.89 Other specified diseases of pancreas; Z90.49 Acquired absence of other specified parts of digestive tract; Z79.4 Long term (current) use of insulin; Z79.899 Other long term (current) drug therapy; Z88.8 Allergy status to other drugs, medicaments and biological substances

== ENCOUNTER → 2024-05-27 | Outpatient (REF) | payer OTHER ==
[~2024-05-27] MED LIST changes: +DRON10CA7 PO; -ROSU20TA61 PO; +ROSU20TA86 PO; +TRAN1DIS4 TOP
== END ==
LOC: M SFHCWAGY 17:58
PROVIDERS: ATTEND Obstetrics & Gynecology
DX: Z12.4 Encounter for screening for malignant neoplasm of cervix (principal); R87.610 Atypical squamous cells of undetermined significance on cytologic smear of cervix (ASC-US)
CPT/HCPCS: 87624; G0123

== ENCOUNTER 2024-07-09 11:42 | Inpatient (IN) | payer OTHER ==
[~2024-07-09] VITALS: Ht 162.6 cm; Wt 71.9 kg
[~2024-07-09 11:42] MED LIST changes: +NALO4SPR20; -NALO4SPR3
[2024-07-09] MEDS: NS 1,000 ML IV ONE (12:39)
[2024-07-09] MEDS: MORPHINE 4 MG/ML 1ML VIAL IV ONE ×2 (12:40→14:37)
[2024-07-09 12:58] LABS: BASO # 0.1 10^3/uL (0.0-0.2); BASO % 0.5 % (0.0-1.0); EOS # 0.1 10^3/uL (0.0-0.5); EOS % 0.4 % (0.0-3.0); HEMATOCRIT 46.8 % (36.0-47.0); LYMPH # 2.3 10^3/uL (1.5-5.0); LYMPH % 19.2 % (24.0-44.0); MEAN CORPUSCULAR HEMOGLOBIN 25.7 pg (27.0-33.0); MEAN CORPUSCULAR HGB CONC 32.1 g/dl (32.0-36.5); MEAN CORPUSCULAR VOLUME 80.1 fl (80.0-96.0); MONO # 0.5 10^3/uL (0.0-0.8); MONO % 3.9 % (2.0-8.0); NEUTROPHILS # 9.2 10^3/uL (1.5-8.5); NEUTROPHILS % 75.6 % (36.0-66.0); PLATELET COUNT, AUTOMATED 374 10^3/uL (150-450); RED BLOOD COUNT 5.84 10^6/uL (4.00-5.40); WHITE BLOOD COUNT 12.2 10^3/uL (4.0-10.0)
[2024-07-09 13:18] LABS: LIPASE 29 U/L (12-53)
[2024-07-09 13:20] LABS: ALBUMIN 4.1 G/DL (3.2-5.2); ALKALINE PHOSPHATASE 112 U/L (35-104); ALT/SGPT 21 U/L (7.0-40); AST/SGOT 30 U/L (<34); BILIRUBIN,DIRECT 0.1 MG/DL (<0.4); BILIRUBIN,TOTAL 0.4 MG/DL (0.3-1.2); BLOOD UREA NITROGEN 17 MG/DL (9-23); CALCIUM LEVEL 10.7 MG/DL (8.5-10.1); CARBON DIOXIDE LEVEL 20 MMOL/L (20-31); CHLORIDE LEVEL 101 MMOL/L (98-107); CREATININE FOR GFR 1.02 MG/DL (0.55-1.30); GLOMERULAR FILTRATION RATE > 60.0 (>58); GLUCOSE, FASTING 162 MG/DL (60-100); POTASSIUM SERUM 4.4 MMOL/L (3.5-5.1); SODIUM LEVEL 138 MMOL/L (136-145); TOTAL PROTEIN 8.5 G/DL (5.7-8.2)
[2024-07-09] MEDS ORDERED: ISOVUE-370 76% 100ML VIAL As Ordered ONE (13:46)
[2024-07-09] MEDS ORDERED: GALC120S SQ (14:10)
[2024-07-09] MEDS ORDERED: CREO3000 PO (14:10)
[2024-07-09] MEDS ORDERED: LUNE2TAB28 PO (14:10)
[2024-07-09] MEDS ORDERED: HOME MED LIST COMPLETE! XX SCH (14:15)
[2024-07-09] MEDS: PIPERACILLIN/TAZOBACTAM SOD 4.5 GM in DEXTROSE 5% (D5W) ADV/MINI-BAG 50 ML IV ONE (14:36)
[2024-07-09] MEDS: NS 1,090 ML in IV 1 EA IV ONE (14:55)
[2024-07-09] MEDS: ONDANSETRON 4MG 2ML VIAL IV ONE (15:47)
[2024-07-09 18:21] LABS: BLOOD UREA NITROGEN 14 MG/DL (9-23); CALCIUM LEVEL 9.5 MG/DL (8.5-10.1); CARBON DIOXIDE LEVEL 22 MMOL/L (20-31); CHLORIDE LEVEL 109 MMOL/L (98-107); CREATININE FOR GFR 0.96 MG/DL (0.55-1.30); GLOMERULAR FILTRATION RATE > 60.0 (>58); GLUCOSE, FASTING 109 MG/DL (60-100); POTASSIUM SERUM 3.8 MMOL/L (3.5-5.1); SODIUM LEVEL 144 MMOL/L (136-145)
[2024-07-09] MEDS: METOCLOPRAMIDE INJ 10MG/2ML VIAL IV ONE (18:25)
[2024-07-09] MEDS: MORPHINE 4 MG/ML 1ML VIAL IV PRN (19:58)
[2024-07-09 21:23] LABS: AMPHETAMINES LEVEL URINE NEGATIVE (NEGATIVE); BARBITURATES URINE NEGATIVE (NEGATIVE); BENZODIAZEPINES URINE NEGATIVE (NEGATIVE); CANNABINOIDS URINE NEGATIVE (NEGATIVE); COCAINE METABOLITE URINE NEGATIVE (NEGATIVE); METHADONE URINE NEGATIVE (NEGATIVE); PHENCYCLIDINE URINE NEGATIVE (NEGATIVE)
[2024-07-09 21:24] LABS: OPIATES URINE POSITIVE (NEGATIVE)
[2024-07-09] MEDS ORDERED: MOM 30ML SUSPENSION UDC PO PRN (21:45)
[2024-07-09] MEDS ORDERED: ACETAMINOPHEN 325 MG TAB PO PRN (21:45)
[2024-07-09] MEDS ORDERED: MAALOX 30 ML SUSP *UDC PO PRN (21:45)
[2024-07-09] MEDS ORDERED: DEXTROSE 50% 50ML SYRINGE IV PRN (22:05)
[2024-07-09] MEDS ORDERED: GLUCOSE 4 GM CHEW PO PRN (22:05)
[2024-07-09] MEDS ORDERED: GLUCAGON INJ 1MG VIAL SC PRN (22:05)
[2024-07-09] MEDS ORDERED: PIPERACILLIN/TAZOBACTAM SOD 4.5 GM in DEXTROSE 5% (D5W) ADV/MINI-BAG 50 ML IV ONE (22:10)
[2024-07-09] MEDS ORDERED: PIPERACILLIN/TAZOBACTAM SOD 3.375 GM in DEXTROSE 5% (D5W) ADV/MINI-BAG 50 ML IV SCH ×2 (22:20→23:00)
[2024-07-09] MEDS ORDERED: levETIRAcetam INJection 1,000 MG in D5W 100 ML IV SCH (23:00)
[2024-07-09] MEDS: INSULIN LISPRO (NovoLOG) PER UNIT SC SCH (23:57)
[2024-07-10] MEDS: levETIRAcetam INJection 1,000 MG in D5W 100 ML IV ONE (00:04)
[2024-07-10] MEDS: NS 1,000 ML IV SCH (00:05)
[2024-07-10] MEDS: ONDANSETRON 4MG 2ML VIAL IV STA (00:33)
[2024-07-10] MEDS: MORPHINE 4 MG/ML 1ML VIAL IV PRN ×2 (00:33→06:55)
[2024-07-10] MEDS: PIPERACILLIN/TAZOBACTAM SOD 3.375 GM in DEXTROSE 5% (D5W) ADV/MINI-BAG 50 ML IV SCH (00:34)
[2024-07-10] MEDS: MORPHINE 4 MG/ML 1ML VIAL IV STA (01:27)
[2024-07-10] MEDS ORDERED: HYDROMORPHONE HCL 0.5 MG/ 0.5 ML SYRINGE IV PRN (03:35)
[2024-07-10] MEDS: SCOPOLAMINE 1MG TRANSDERMAL PATCH TOP SCH (04:35)
[2024-07-10] MEDS: HYDROMORPHONE HCL 0.5 MG/ 0.5 ML SYRINGE IV PRN ×2 (04:36→10:42)
[2024-07-10] MEDS: ONDANSETRON 4MG 2ML VIAL IV PRN (04:37)
[2024-07-10 05:47] LABS: HEMATOCRIT 41.5 % (36.0-47.0); HEMOGLOBIN 14.1 g/dl (12.0-15.5); MEAN CORPUSCULAR HEMOGLOBIN 26.3 pg (27.0-33.0); MEAN CORPUSCULAR VOLUME 77.4 fl (80.0-96.0); PLATELET COUNT, AUTOMATED 372 10^3/uL (150-450); RED BLOOD COUNT 5.36 10^6/uL (4.00-5.40)
[2024-07-10 06:20] LABS: PROCALCITONIN 0.11 ng/ml
[2024-07-10 06:29] LABS: ALBUMIN 3.8 G/DL (3.2-5.2); ALKALINE PHOSPHATASE 92 U/L (35-104); ALT/SGPT 15 U/L (7.0-40); AST/SGOT 17 U/L (<34); BILIRUBIN,TOTAL 0.7 MG/DL (0.3-1.2); BLOOD UREA NITROGEN 11 MG/DL (9-23); CALCIUM LEVEL 9.5 MG/DL (8.5-10.1); CARBON DIOXIDE LEVEL 23 MMOL/L (20-31); CHLORIDE LEVEL 107 MMOL/L (98-107); CREATININE FOR GFR 0.95 MG/DL (0.55-1.30); GLOMERULAR FILTRATION RATE > 60.0 (>58); GLUCOSE, FASTING 116 MG/DL (60-100); MAGNESIUM LEVEL 1.4 MG/DL (1.8-2.4); POTASSIUM SERUM 3.3 MMOL/L (3.5-5.1); SODIUM LEVEL 145 MMOL/L (136-145); TOTAL PROTEIN 7.3 G/DL (5.7-8.2)
[2024-07-10] MEDS: MAG SULF 1GM/100ML (MAG RUN) 1 GM in IV 1 EA IV SCH (08:02)
[2024-07-10] MEDS: ENOXAPARIN 40MG/0.4ML SYRINGE (J1650 PER 10MG) SC SCH (09:49)
[2024-07-10] MEDS: levETIRAcetam INJection 1,000 MG in D5W 100 ML IV SCH (11:14)
[2024-07-10] MEDS: KCL 40MEQ in NS 1000ML 1,000 ML IV SCH (11:38)
[2024-07-10] MEDS ORDERED: SODIUM CHLORIDE 0.9% INJ 10 ML SYR IV PRN (15:45)
[2024-07-10 17:11] VITALS: BP 184/86
[2024-07-10] MEDS: SODIUM CHLORIDE 0.9% INJ 10 ML SYR IV SCH (17:37)
[2024-07-10 18:35] VITALS: BP 190/102
[2024-07-10] MEDS: LABETALOL 100MG/20ML VIAL IV PRN (18:35)
[2024-07-10 18:53] VITALS: BP 183/101
[2024-07-10 19:29] VITALS: BP 194/110; TEMP 98.3; O2SAT 96
[2024-07-10 21:25] VITALS: BP 172/104
[2024-07-10 23:44] VITALS: BP 162/102; TEMP 98; O2SAT 97
[2024-07-11 04:00] VITALS: BP 170/98; TEMP 98.2; O2SAT 95
[2024-07-11 07:32] LABS: BASO # 0.1 10^3/uL (0.0-0.2); BASO % 0.6 % (0.0-1.0); EOS # 0.4 10^3/uL (0.0-0.5); EOS % 3.3 % (0.0-3.0); HEMATOCRIT 40.4 % (36.0-47.0); LYMPH # 3.3 10^3/uL (1.5-5.0); LYMPH % 29.3 % (24.0-44.0); MEAN CORPUSCULAR HEMOGLOBIN 25.9 pg (27.0-33.0); MEAN CORPUSCULAR HGB CONC 32.2 g/dl (32.0-36.5); MEAN CORPUSCULAR VOLUME 80.6 fl (80.0-96.0); MONO # 0.8 10^3/uL (0.0-0.8); MONO % 6.8 % (2.0-8.0); NEUTROPHILS # 6.7 10^3/uL (1.5-8.5); NEUTROPHILS % 59.6 % (36.0-66.0); PLATELET COUNT, AUTOMATED 309 10^3/uL (150-450); RED BLOOD COUNT 5.01 10^6/uL (4.00-5.40); WHITE BLOOD COUNT 11.2 10^3/uL (4.0-10.0)
[2024-07-11 07:39] VITALS: BP 153/82; TEMP 98.4; O2SAT 94
[2024-07-11 07:51] LABS: BLOOD UREA NITROGEN 10 MG/DL (9-23); CALCIUM LEVEL 9.2 MG/DL (8.5-10.1); CARBON DIOXIDE LEVEL 27 MMOL/L (20-31); CHLORIDE LEVEL 110 MMOL/L (98-107); CREATININE FOR GFR 0.81 MG/DL (0.55-1.30); GLOMERULAR FILTRATION RATE > 60.0 (>58); GLUCOSE, FASTING 173 MG/DL (60-100); MAGNESIUM LEVEL 1.7 MG/DL (1.8-2.4); SODIUM LEVEL 147 MMOL/L (136-145)
[2024-07-11 08:10] LABS: ALBUMIN 3.4 G/DL (3.2-5.2); ALKALINE PHOSPHATASE 79 U/L (35-104); ALT/SGPT 14 U/L (7.0-40); AST/SGOT 12 U/L (<34); BILIRUBIN,DIRECT 0.2 MG/DL (<0.4); BILIRUBIN,TOTAL 0.4 MG/DL (0.3-1.2); TOTAL PROTEIN 7.1 G/DL (5.7-8.2); TRIGLYCERIDES LEVEL 123 MG/DL (<150)
[2024-07-11] MEDS: MAG SULF 1GM/100ML (MAG RUN) 1 GM in IV 1 EA IV SCH (10:07)
[2024-07-11] MEDS: LR 1,000 ML IV SCH (10:40)
[2024-07-11] MEDS: HYDROMORPHONE HCL 0.5 MG/ 0.5 ML SYRINGE IV PRN ×2 (11:31→23:20)
[2024-07-11 11:39] VITALS: BP 144/81; TEMP 98.3; O2SAT 93
[2024-07-11 16:00] VITALS: BP 145/84; TEMP 97.9; O2SAT 95
[2024-07-11] MEDS: FAT EMULSION IV 250 ML IV ONE (17:50)
[2024-07-11] MEDS: MULTIVITAMIN -ADULT INJECTION 10 ML, ZINC/COPPER/MANGANESE/SELENIUM 1 ML in AMINO AC/EL... IV SCH (17:51)
[2024-07-11 19:35] LABS: BLOOD UREA NITROGEN 10 MG/DL (9-23); CALCIUM LEVEL 9.6 MG/DL (8.5-10.1); CARBON DIOXIDE LEVEL 30 MMOL/L (20-31); CHLORIDE LEVEL 109 MMOL/L (98-107); CREATININE FOR GFR 0.76 MG/DL (0.55-1.30); GLOMERULAR FILTRATION RATE > 60.0 (>58); GLUCOSE, FASTING 162 MG/DL (60-100); MAGNESIUM LEVEL 2.1 MG/DL (1.8-2.4); POTASSIUM SERUM 3.9 MMOL/L (3.5-5.1); SODIUM LEVEL 147 MMOL/L (136-145)
[2024-07-11 19:47] VITALS: BP 140/76; TEMP 97.7; O2SAT 90
[2024-07-11 23:29] VITALS: BP 150/87; TEMP 97.8; O2SAT 90
[2024-07-12 03:56] VITALS: BP 133/79; TEMP 98.2; O2SAT 93
[2024-07-12 05:37] LABS: HEMATOCRIT 39.3 % (36.0-47.0); HEMOGLOBIN 12.5 g/dl (12.0-15.5); MEAN CORPUSCULAR HEMOGLOBIN 26.4 pg (27.0-33.0); MEAN CORPUSCULAR HGB CONC 31.8 g/dl (32.0-36.5); MEAN CORPUSCULAR VOLUME 82.9 fl (80.0-96.0); PLATELET COUNT, AUTOMATED 283 10^3/uL (150-450); RED BLOOD COUNT 4.74 10^6/uL (4.00-5.40); WHITE BLOOD COUNT 10.7 10^3/uL (4.0-10.0)
[2024-07-12 05:58] LABS: BLOOD UREA NITROGEN 11 MG/DL (9-23); CALCIUM LEVEL 9.8 MG/DL (8.5-10.1); CARBON DIOXIDE LEVEL 34 MMOL/L (20-31); CHLORIDE LEVEL 105 MMOL/L (98-107); CREATININE FOR GFR 0.72 MG/DL (0.55-1.30); GLOMERULAR FILTRATION RATE > 60.0 (>58); GLUCOSE, FASTING 166 MG/DL (60-100); MAGNESIUM LEVEL 1.8 MG/DL (1.8-2.4); POTASSIUM SERUM 3.3 MMOL/L (3.5-5.1); SODIUM LEVEL 147 MMOL/L (136-145)
[2024-07-12 07:36] VITALS: BP 154/77; TEMP 97; O2SAT 93
[2024-07-12] MEDS: POTASSIUM CHLORIDE INJ 40 MEQ in LR 1,000 ML IV SCH ×2 (10:36→15:13)
[2024-07-12] MEDS: ACETAMINOPHEN *IV* 1,000 MG in IV 1 EA IV ONE (10:37)
[2024-07-12 11:37] VITALS: BP 147/87; TEMP 96.5; O2SAT 94
[2024-07-12] MEDS: FLEET OIL RETENTION ENEMA PR PRN (12:55)
[2024-07-12 13:40] LABS: BLOOD UREA NITROGEN 12 MG/DL (9-23); CALCIUM LEVEL 9.3 MG/DL (8.5-10.1); CARBON DIOXIDE LEVEL 33 MMOL/L (20-31); CHLORIDE LEVEL 108 MMOL/L (98-107); CREATININE FOR GFR 0.67 MG/DL (0.55-1.30); GLOMERULAR FILTRATION RATE > 60.0 (>58); GLUCOSE, FASTING 184 MG/DL (60-100); POTASSIUM SERUM 3.9 MMOL/L (3.5-5.1); SODIUM LEVEL 147 MMOL/L (136-145)
[2024-07-12 16:00] VITALS: BP 149/93; TEMP 98.1; O2SAT 94
[2024-07-12] MEDS: AMINO AC/ELECTROLYTE/DEX/CALC 2,000 ML IV SCH (17:36)
[2024-07-12] MEDS: FAT EMULSION IV 250 ML IV ONE (17:36)
[2024-07-12] MEDS ORDERED: INSULIN LISPRO (NovoLOG) PER UNIT SC SCH (18:00)
[2024-07-12 20:01] VITALS: BP 128/98; TEMP 98.2; O2SAT 95
[2024-07-12 23:43] VITALS: BP 126/90; TEMP 98.2; O2SAT 96
[2024-07-13 05:16] VITALS: BP 112/88; TEMP 98.3; O2SAT 95
[2024-07-13 06:44] LABS: BASO # 0.1 10^3/uL (0.0-0.2); BASO % 0.5 % (0.0-1.0); EOS # 0.7 10^3/uL (0.0-0.5); EOS % 6.5 % (0.0-3.0); HEMATOCRIT 38.7 % (36.0-47.0); HEMOGLOBIN 12.1 g/dl (12.0-15.5); LYMPH # 2.8 10^3/uL (1.5-5.0); LYMPH % 28.6 % (24.0-44.0); MEAN CORPUSCULAR HEMOGLOBIN 26.1 pg (27.0-33.0); MEAN CORPUSCULAR HGB CONC 31.3 g/dl (32.0-36.5); MEAN CORPUSCULAR VOLUME 83.6 fl (80.0-96.0); MONO # 0.5 10^3/uL (0.0-0.8); MONO % 4.7 % (2.0-8.0); NEUTROPHILS # 5.9 10^3/uL (1.5-8.5); NEUTROPHILS % 59.4 % (36.0-66.0); PLATELET COUNT, AUTOMATED 256 10^3/uL (150-450); RED BLOOD COUNT 4.63 10^6/uL (4.00-5.40); WHITE BLOOD COUNT 9.9 10^3/uL (4.0-10.0)
[2024-07-13 07:09] LABS: BLOOD UREA NITROGEN 14 MG/DL (9-23); CALCIUM LEVEL 9.5 MG/DL (8.5-10.1); CARBON DIOXIDE LEVEL 27 MMOL/L (20-31); CHLORIDE LEVEL 107 MMOL/L (98-107); CREATININE FOR GFR 0.65 MG/DL (0.55-1.30); GLOMERULAR FILTRATION RATE > 60.0 (>58); GLUCOSE, FASTING 193 MG/DL (60-100); MAGNESIUM LEVEL 1.2 MG/DL (1.8-2.4); POTASSIUM SERUM 3.6 MMOL/L (3.5-5.1); SODIUM LEVEL 143 MMOL/L (136-145)
[2024-07-13 07:39] VITALS: BP 148/92; TEMP 97.7; O2SAT 82; O2SAT 95
[2024-07-13] MEDS: MAG SULF 1GM/100ML (MAG RUN) 1 GM in IV 1 EA IV SCH (08:25)
[2024-07-13 09:04] LABS: PHOSPHORUS LEVEL 3.3 MG/DL (2.5-4.9)
[2024-07-13 12:00] VITALS: BP 153/96; TEMP 96.9; O2SAT 94
[2024-07-13] MEDS: KCL 20MEQ IN 100ML SWI (KRUN) 20 MEQ in IV 1 EA IV SCH (13:14)
[2024-07-13 16:00] VITALS: BP 148/90; TEMP 97.1; O2SAT 95
[2024-07-13] MEDS: FAT EMULSION IV 250 ML IV ONE (17:42)
[2024-07-13] MEDS: AMINO AC/ELECTROLYTE/DEX/CALC 2,000 ML IV SCH (17:42)
[2024-07-13 20:04] VITALS: BP 128/82; TEMP 97.3; O2SAT 98
[2024-07-13 23:02] VITALS: BP 134/60; TEMP 97.8; O2SAT 97
[2024-07-14 03:50] VITALS: BP 150/92; TEMP 97.3; O2SAT 98
[2024-07-14 07:41] VITALS: BP 146/84; TEMP 97.3; O2SAT 98
[2024-07-14 08:38] LABS: BASO # 0.1 10^3/uL (0.0-0.2); BASO % 0.7 % (0.0-1.0); EOS # 0.8 10^3/uL (0.0-0.5); EOS % 7.3 % (0.0-3.0); HEMATOCRIT 40.5 % (36.0-47.0); HEMOGLOBIN 12.8 g/dl (12.0-15.5); LYMPH # 2.5 10^3/uL (1.5-5.0); LYMPH % 22.3 % (24.0-44.0); MEAN CORPUSCULAR HEMOGLOBIN 25.8 pg (27.0-33.0); MEAN CORPUSCULAR HGB CONC 31.6 g/dl (32.0-36.5); MEAN CORPUSCULAR VOLUME 81.5 fl (80.0-96.0); MONO # 0.7 10^3/uL (0.0-0.8); MONO % 6.5 % (2.0-8.0); NEUTROPHILS # 7.1 10^3/uL (1.5-8.5); NEUTROPHILS % 62.8 % (36.0-66.0); PLATELET COUNT, AUTOMATED 277 10^3/uL (150-450); RED BLOOD COUNT 4.97 10^6/uL (4.00-5.40); WHITE BLOOD COUNT 11.3 10^3/uL (4.0-10.0)
[2024-07-14 09:53] LABS: BLOOD UREA NITROGEN 19 MG/DL (9-23); CALCIUM LEVEL 9.2 MG/DL (8.5-10.1); CARBON DIOXIDE LEVEL 27 MMOL/L (20-31); CHLORIDE LEVEL 104 MMOL/L (98-107); CREATININE FOR GFR 0.61 MG/DL (0.55-1.30); GLOMERULAR FILTRATION RATE > 60.0 (>58); GLUCOSE, FASTING 164 MG/DL (60-100); MAGNESIUM LEVEL 1.7 MG/DL (1.8-2.4); POTASSIUM SERUM 3.6 MMOL/L (3.5-5.1); SODIUM LEVEL 139 MMOL/L (136-145)
[2024-07-14] MEDS: MAG SULF 1GM/100ML (MAG RUN) 1 GM in IV 1 EA IV SCH (12:10)
[2024-07-14] MEDS ORDERED: GASTROGRAFIN SOLUTION 30ML PO SCH (13:35)
[2024-07-14] MEDS: GASTROGRAFIN SOLUTION 30ML PO SCH ×2 (14:00→15:25)
[2024-07-14] MEDS ORDERED: GASTROGRAFIN SOLUTION 30ML As Ordered ONE (15:10)
[2024-07-14 16:00] VITALS: BP 146/80; TEMP 98; O2SAT 96
[2024-07-14] MEDS ORDERED: INSULIN LISPRO (NovoLOG) PER UNIT SC SCH (18:00)
[2024-07-14] MEDS: MULTIVITAMIN -ADULT INJECTION 10 ML, ZINC/COPPER/MANGANESE/SELENIUM 1 ML in AMINO AC/EL... IV SCH (18:34)
[2024-07-14] MEDS: FAT EMULSION IV 250 ML IV ONE (18:34)
[2024-07-14 19:34] VITALS: BP 150/86; TEMP 97; O2SAT 97
[2024-07-14 23:36] VITALS: BP 142/88; TEMP 97.4; O2SAT 98
[2024-07-15] VITALS (8 sets, daily range): BP systolic 140–190; BP diastolic 86–115; TEMP 97.3–98.5; O2SAT 95–98
[2024-07-15 06:05] LABS: BASO # 0.1 10^3/uL (0.0-0.2); BASO % 0.6 % (0.0-1.0); EOS # 0.7 10^3/uL (0.0-0.5); EOS % 4.9 % (0.0-3.0); HEMATOCRIT 41.5 % (36.0-47.0); HEMOGLOBIN 13.4 g/dl (12.0-15.5); LYMPH # 3.4 10^3/uL (1.5-5.0); LYMPH % 24.3 % (24.0-44.0); MEAN CORPUSCULAR HEMOGLOBIN 26.1 pg (27.0-33.0); MEAN CORPUSCULAR HGB CONC 32.3 g/dl (32.0-36.5); MEAN CORPUSCULAR VOLUME 80.9 fl (80.0-96.0); MONO # 0.9 10^3/uL (0.0-0.8); MONO % 6.6 % (2.0-8.0); NEUTROPHILS # 8.9 10^3/uL (1.5-8.5); NEUTROPHILS % 63.3 % (36.0-66.0); PLATELET COUNT, AUTOMATED 292 10^3/uL (150-450); RED BLOOD COUNT 5.13 10^6/uL (4.00-5.40); WHITE BLOOD COUNT 14.1 10^3/uL (4.0-10.0)
[2024-07-15 06:36] LABS: BLOOD UREA NITROGEN 19 MG/DL (9-23); CALCIUM LEVEL 9.8 MG/DL (8.5-10.1); CARBON DIOXIDE LEVEL 28 MMOL/L (20-31); CHLORIDE LEVEL 103 MMOL/L (98-107); CREATININE FOR GFR 0.63 MG/DL (0.55-1.30); GLOMERULAR FILTRATION RATE > 60.0 (>58); GLUCOSE, FASTING 189 MG/DL (60-100); MAGNESIUM LEVEL 1.7 MG/DL (1.8-2.4); POTASSIUM SERUM 3.5 MMOL/L (3.5-5.1); SODIUM LEVEL 140 MMOL/L (136-145)
[2024-07-15] MEDS: LORazepam 2 MG/ML 1ML VIAL IV STA (09:43)
[2024-07-15] MEDS: METHYLNALTREXONE BROMIDE 12MG/0.6ML VIAL (RELISTOR) SC ONE (11:11)
[2024-07-15] MEDS: diphenhydrAMINE 50MG/ML VIAL IV ONE (15:53)
[2024-07-15] MEDS: FAT EMULSION IV 250 ML IV ONE (18:09)
[2024-07-15] MEDS: AMINO AC/ELECTROLYTE/DEX/CALC 2,000 ML IV SCH (18:10)
[2024-07-15] MEDS: INSULIN LISPRO (NovoLOG) PER UNIT SC SCH (18:28)
[2024-07-16 03:54] VITALS: BP 150/88; TEMP 98.1; O2SAT 98
[2024-07-16 07:54] VITALS: BP 124/76; TEMP 97.7; O2SAT 96
[2024-07-16] MEDS: METOPROLOL 5 MG/5 ML VIAL IV SCH (08:11)
[2024-07-16] MEDS: LEVEMIR (INSULIN DETEMIR) 1 UNITS/0.01ML SC SCH (08:12)
[2024-07-16 11:36] VITALS: BP 136/72; TEMP 97.9; O2SAT 95
[2024-07-16 12:02] LABS: HEMATOCRIT 42.1 % (36.0-47.0); HEMOGLOBIN 13.4 g/dl (12.0-15.5); MEAN CORPUSCULAR HEMOGLOBIN 25.9 pg (27.0-33.0); MEAN CORPUSCULAR HGB CONC 31.8 g/dl (32.0-36.5); MEAN CORPUSCULAR VOLUME 81.3 fl (80.0-96.0); PLATELET COUNT, AUTOMATED 274 10^3/uL (150-450); RED BLOOD COUNT 5.18 10^6/uL (4.00-5.40); WHITE BLOOD COUNT 16.5 10^3/uL (4.0-10.0)
[2024-07-16 12:23] LABS: ALBUMIN 3.3 G/DL (3.2-5.2); BILIRUBIN,DIRECT 0.1 MG/DL (<0.4); BILIRUBIN,TOTAL 0.4 MG/DL (0.3-1.2); BLOOD UREA NITROGEN 19 MG/DL (9-23); CALCIUM LEVEL 9.9 MG/DL (8.5-10.1); CARBON DIOXIDE LEVEL 31 MMOL/L (20-31); CHLORIDE LEVEL 98 MMOL/L (98-107); CREATININE FOR GFR 0.71 MG/DL (0.55-1.30); GLOMERULAR FILTRATION RATE > 60.0 (>58); GLUCOSE, FASTING 280 MG/DL (60-100); POTASSIUM SERUM 3.4 MMOL/L (3.5-5.1); SODIUM LEVEL 137 MMOL/L (136-145); TOTAL PROTEIN 7.2 G/DL (5.7-8.2)
[2024-07-16 16:00] VITALS: BP 158/82; TEMP 98.1; O2SAT 99
[2024-07-16] MEDS ORDERED: KEPP500I IV (16:48)
[2024-07-16] MEDS ORDERED: HYDR0.5S8 IV (16:48)
[2024-07-16] MEDS ORDERED: CLON0.3D8 TOP (16:48)
[2024-07-16] MEDS ORDERED: METO5INJ15 IV (16:48)
[2024-07-16] MEDS ORDERED: INSULIN LISPRO (NovoLOG) PER UNIT SC SCH (18:00)
[2024-07-16] MEDS: KCL 10MEQ/100ML SWI (KRUN) 10 MEQ in IV 1 EA IV ONE (18:43)
[2024-07-16] MEDS: FAT EMULSION IV 250 ML IV ONE (18:44)
[2024-07-16] MEDS: MULTIVITAMIN -ADULT INJECTION 10 ML, ZINC/COPPER/MANGANESE/SELENIUM 1 ML in AMINO AC/EL... IV SCH (18:44)
[2024-07-16 22:00] VITALS: BP 144/88; TEMP 97.9; O2SAT 99
[2024-07-17 04:39] VITALS: BP 176/110; TEMP 98.2; O2SAT 97
[2024-07-17 06:41] LABS: HEMOGLOBIN 12.8 g/dl (12.0-15.5); MEAN CORPUSCULAR HEMOGLOBIN 25.9 pg (27.0-33.0); MEAN CORPUSCULAR HGB CONC 31.2 g/dl (32.0-36.5); MEAN CORPUSCULAR VOLUME 82.8 fl (80.0-96.0); PLATELET COUNT, AUTOMATED 277 10^3/uL (150-450); RED BLOOD COUNT 4.95 10^6/uL (4.00-5.40); WHITE BLOOD COUNT 16.7 10^3/uL (4.0-10.0)
[2024-07-17 07:06] LABS: BLOOD UREA NITROGEN 20 MG/DL (9-23); CALCIUM LEVEL 9.1 MG/DL (8.5-10.1); CARBON DIOXIDE LEVEL 30 MMOL/L (20-31); CHLORIDE LEVEL 100 MMOL/L (98-107); CREATININE FOR GFR 0.63 MG/DL (0.55-1.30); GLOMERULAR FILTRATION RATE > 60.0 (>58); GLUCOSE, FASTING 179 MG/DL (60-100); POTASSIUM SERUM 3.9 MMOL/L (3.5-5.1); SODIUM LEVEL 136 MMOL/L (136-145)
[2024-07-17 08:05] VITALS: BP 156/86; TEMP 98.2; O2SAT 97
[2024-07-17 12:15] VITALS: BP 160/98; TEMP 97.8; O2SAT 98
[2024-07-17] MEDS: cloNIDine HCL 0.1 MG/24 HR PATCH TOP SCH (12:19)
[2024-07-17 12:20] VITALS: BP 160/98
[2024-07-17 16:17] VITALS: BP 152/86; TEMP 97.6; O2SAT 96
== END 2024-07-17 17:36 | disposition short-term general hospital (02) | DRG 390 ==
LOC: M ED 11:42 → M ED INP 21:44 → M PCU 07-10 15:47
PROVIDERS: ADMIT Student in an Organized Health Care Education/Training Program; ATTEND Student in an Organized Health Care Education/Training Program
DX: K56.600 Partial intestinal obstruction, unspecified as to cause (principal); K59.89 Other specified functional intestinal disorders; G40.909 Epilepsy, unspecified, not intractable, without status epilepticus; G90.A Postural orthostatic tachycardia syndrome [POTS]; D50.9 Iron deficiency anemia, unspecified; E11.22 Type 2 diabetes mellitus with diabetic chronic kidney disease; I12.9 Hypertensive chronic kidney disease with stage 1 through stage 4 chronic kidney disease, or unspecified chronic kidney disease; G43.709 Chronic migraine without aura, not intractable, without status migrainosus; G47.00 Insomnia, unspecified; F60.3 Borderline personality disorder; N18.9 Chronic kidney disease, unspecified; G89.29 Other chronic pain; E78.5 Hyperlipidemia, unspecified; K86.89 Other specified diseases of pancreas; R11.2 Nausea with vomiting, unspecified; R00.0 Tachycardia, unspecified; Z79.899 Other long term (current) drug therapy; Z90.49 Acquired absence of other specified parts of digestive tract; Z79.4 Long term (current) use of insulin; Z88.8 Allergy status to other drugs, medicaments and biological substances; Z98.0 Intestinal bypass and anastomosis status

== ENCOUNTER 2024-09-26 11:05 | Observation (INO) | payer OTHER ==
[~2024-09-26] VITALS: Ht 162.6 cm; Wt 72.2 kg
[~2024-09-26 11:05] MED LIST changes: +CLON0.3D8 TOP; +CREO3000 PO; +GALC120S SQ; +HYDR0.5S8 IV; +KEPP500I IV; +LUNE2TAB28 PO; +METO5INJ15 IV
[2024-09-26] MEDS ORDERED: NS (Normal Saline) 0.9% 1,000 ML IV SCH (11:50)
[2024-09-26] MEDS: NS (Normal Saline) 0.9% 1,000 ML IV ONE ×2 (12:12→14:30)
[2024-09-26] MEDS: ONDANSETRON 4MG 2ML VIAL IV ONE (12:12)
[2024-09-26] MEDS: HYDROMORPHONE HCL 0.5 MG/ 0.5 ML SYRINGE IV PRN ×3 (12:12→20:29)
[2024-09-26 12:16] LABS: BASO # 0.1 10^3/uL (0.0-0.2); BASO % 0.5 % (0.0-1.0); EOS % 0.3 % (0.0-3.0); HEMATOCRIT 46.8 % (36.0-47.0); HEMOGLOBIN 14.9 g/dl (12.0-15.5); LYMPH # 3.5 10^3/uL (1.5-5.0); LYMPH % 26.5 % (24.0-44.0); MEAN CORPUSCULAR HEMOGLOBIN 25.2 pg (27.0-33.0); MEAN CORPUSCULAR HGB CONC 31.8 g/dl (32.0-36.5); MEAN CORPUSCULAR VOLUME 79.2 fl (80.0-96.0); MONO # 0.7 10^3/uL (0.0-0.8); MONO % 5.4 % (2.0-8.0); NEUTROPHILS # 8.9 10^3/uL (1.5-8.5); PLATELET COUNT, AUTOMATED 571 10^3/uL (150-450); RED BLOOD COUNT 5.91 10^6/uL (4.00-5.40); WHITE BLOOD COUNT 13.2 10^3/uL (4.0-10.0)
[2024-09-26 12:32] LABS: LIPASE 29 U/L (12-53)
[2024-09-26 12:35] LABS: ALBUMIN 4.4 G/DL (3.2-5.2); ALKALINE PHOSPHATASE 100 U/L (35-104); ALT/SGPT 24 U/L (7.0-40); AST/SGOT 33 U/L (<34); BILIRUBIN,DIRECT 0.2 MG/DL (<0.4); BILIRUBIN,TOTAL 0.6 MG/DL (0.3-1.2); BLOOD UREA NITROGEN 20 MG/DL (9-23); CALCIUM LEVEL 9.3 MG/DL (8.5-10.1); CARBON DIOXIDE LEVEL 22 MMOL/L (20-31); CHLORIDE LEVEL 101 MMOL/L (98-107); CREATININE FOR GFR 0.98 MG/DL (0.55-1.30); GLOMERULAR FILTRATION RATE > 60.0 (>58); GLUCOSE, FASTING 120 MG/DL (60-100); POTASSIUM SERUM 4.8 MMOL/L (3.5-5.1); SODIUM LEVEL 139 MMOL/L (136-145); TOTAL PROTEIN 8.7 G/DL (5.7-8.2)
[2024-09-26] MEDS ORDERED: ISOVUE-370 76% 100ML VIAL As Ordered ONE (13:07)
[2024-09-26 15:15] LABS: PROCALCITONIN 0.09 ng/ml
[2024-09-26] MEDS: NS (Normal Saline) 0.9% 1,000 ML IV SCH (15:43)
[2024-09-26 15:48] LABS: C REACTIVE PROTEIN QUANTITATIV 1.21 MG/DL (<1.0)
[2024-09-26] MEDS: ONDANSETRON 4MG 2ML VIAL IV PRN (16:08)
[2024-09-26] MEDS ORDERED: TRAN1DIS4 TOP (16:20)
[2024-09-26] MEDS ORDERED: ROSU40TA81 PO (16:20)
[2024-09-26] MEDS ORDERED: FAMO1TAB11 PO (16:20)
[2024-09-26] MEDS ORDERED: JARD1TAB3 PO (16:20)
[2024-09-26] MEDS ORDERED: ONDA-84 PO (16:20)
[2024-09-26] MEDS ORDERED: MAGN400T33 PO (16:20)
[2024-09-26] MEDS ORDERED: CLON0.3T PO (16:20)
[2024-09-26] MEDS ORDERED: OXYC1TAB23 PO (16:20)
[2024-09-26] MEDS ORDERED: MIRA3350 PO (16:26)
[2024-09-26] MEDS ORDERED: PROBCAP13 PO (16:26)
[2024-09-26] MEDS ORDERED: CREO3000 PO (16:26)
[2024-09-26] MEDS ORDERED: HOME MED LIST COMPLETE! XX SCH (16:30)
[2024-09-26] MEDS ORDERED: AMITRIPTYLINE 50 MG TAB PO PRN (16:45)
[2024-09-26] MEDS ORDERED: SCOPOLAMINE 1MG TRANSDERMAL PATCH TOP PRN (16:45)
[2024-09-26 17:52] VITALS: BP 182/100; TEMP 98; O2SAT 96
[2024-09-26] MEDS: cloNIDine 0.1MG TABLET PO ONE (18:27)
[2024-09-26 19:31] VITALS: BP 168/93; TEMP 97.7; O2SAT 94
[2024-09-26 20:00] VITALS: O2SAT 95
[2024-09-26] MEDS: VITAMIN D 1,000 INTERNATIONAL UNITS TABLET PO SCH (20:25)
[2024-09-26] MEDS: cloNIDine 0.2 MG TAB PO SCH (20:26)
[2024-09-26] MEDS: FAMOTIDINE 20 MG TAB PO SCH (20:27)
[2024-09-26] MEDS: ROSUVASTATIN 10 MG TAB (CRESTOR) PO SCH (20:27)
[2024-09-26] MEDS: MAGNESIUM OXIDE 400MG TAB (MAG-OX) PO SCH (20:27)
[2024-09-26] MEDS: ALPRAZolam 0.25 MG TAB PO ONE (20:27)
[2024-09-26] MEDS ORDERED: BRIVIACT 100 MG XX SCH (21:00)
[2024-09-26] MEDS: LABETALOL 100MG/20ML VIAL IV ONE (22:13)
[2024-09-26 23:49] VITALS: BP 108/68; TEMP 97.9; O2SAT 95
[2024-09-27 04:10] VITALS: BP 111/60; TEMP 97.1; O2SAT 97
[2024-09-27 05:59] LABS: ALBUMIN 3.1 G/DL (3.2-5.2); ALKALINE PHOSPHATASE 68 U/L (35-104); ALT/SGPT 17 U/L (7.0-40); AST/SGOT 23 U/L (<34); BILIRUBIN,TOTAL 0.5 MG/DL (0.3-1.2); BLOOD UREA NITROGEN 13 MG/DL (9-23); CALCIUM LEVEL 7.8 MG/DL (8.5-10.1); CARBON DIOXIDE LEVEL 24 MMOL/L (20-31); CHLORIDE LEVEL 108 MMOL/L (98-107); CREATININE FOR GFR 0.77 MG/DL (0.55-1.30); GLOMERULAR FILTRATION RATE > 60.0 (>58); GLUCOSE, FASTING 152 MG/DL (60-100); SODIUM LEVEL 142 MMOL/L (136-145); TOTAL PROTEIN 6.3 G/DL (5.7-8.2)
[2024-09-27 06:07] LABS: HEMATOCRIT 36.1 % (36.0-47.0); MEAN CORPUSCULAR HEMOGLOBIN 25.3 pg (27.0-33.0); MEAN CORPUSCULAR HGB CONC 30.7 g/dl (32.0-36.5); MEAN CORPUSCULAR VOLUME 82.2 fl (80.0-96.0); RED BLOOD COUNT 4.39 10^6/uL (4.00-5.40); WHITE BLOOD COUNT 8.7 10^3/uL (4.0-10.0)
[2024-09-27 06:13] LABS: HEMOGLOBIN 11.1 g/dl (12.0-15.5); PLATELET COUNT, AUTOMATED 360 10^3/uL (150-450)
[2024-09-27 08:34] VITALS: BP 124/68; TEMP 97.2; O2SAT 99
[2024-09-27 09:16] VITALS: BP 124/68
[2024-09-27] MEDS: ENOXAPARIN 40MG/0.4ML SYRINGE (J1650 PER 10MG) SC SCH (09:16)
[2024-09-27] MEDS: cloNIDine 0.1MG TABLET PO SCH (09:16)
[2024-09-27] MEDS ORDERED: PERC10TA26 PO (10:31)
[2024-09-27] MEDS ORDERED: ALPR0.25 PO (10:31)
[2024-09-27 12:12] VITALS: BP 100/56; TEMP 97.3; O2SAT 95
== END 2024-09-27 15:14 | disposition home or self-care (01) ==
LOC: M ED 11:05 → M ED INP 11:06 → M PCU 17:48
PROVIDERS: ADMIT Internal Medicine; ATTEND Internal Medicine
DX: A08.11 Acute gastroenteropathy due to Norwalk agent (principal); G40.909 Epilepsy, unspecified, not intractable, without status epilepticus; G43.909 Migraine, unspecified, not intractable, without status migrainosus; G90.A Postural orthostatic tachycardia syndrome [POTS]; D13.91 Familial adenomatous polyposis; Z93.3 Colostomy status; Z96.89 Presence of other specified functional implants; I10 Essential (primary) hypertension; K86.89 Other specified diseases of pancreas; E11.9 Type 2 diabetes mellitus without complications; E78.5 Hyperlipidemia, unspecified; D50.9 Iron deficiency anemia, unspecified; Z86.19 Personal history of other infectious and parasitic diseases; Z20.828 Contact with and (suspected) exposure to other viral communicable diseases; Z80.0 Family history of malignant neoplasm of digestive organs; Z88.8 Allergy status to other drugs, medicaments and biological substances; Z79.899 Other long term (current) drug therapy; Z79.84 Long term (current) use of oral hypoglycemic drugs; Z79.4 Long term (current) use of insulin
CPT/HCPCS: 36415; 74177; 80048; 80053; 80076; 83605; 83690; 84145; 85025; 85027; 86140; 87507; 93005; 93041; 96372; 96374; 96375; 96376; 99285; J1171; J1650; J1920; J2405; Q9967

== ENCOUNTER 2024-10-04 01:00 | Inpatient (IN) | payer OTHER ==
[~2024-10-04] VITALS: Ht 162.6 cm; Wt 74.3 kg
[~2024-10-04 01:00] MED LIST changes: +ALPR0.25 PO; +FAMO1TAB11 PO; +MAGN400T33 PO; +MIRA3350 PO; +PERC10TA26 PO; +PROBCAP13 PO; +ROSU40TA81 PO
[2024-10-04 01:34] LABS: BASO # 0.1 10^3/uL (0.0-0.2); BASO % 0.3 % (0.0-1.0); EOS # 0.1 10^3/uL (0.0-0.5); EOS % 0.3 % (0.0-3.0); HEMATOCRIT 43.2 % (36.0-47.0); HEMOGLOBIN 13.6 g/dl (12.0-15.5); LYMPH # 3.3 10^3/uL (1.5-5.0); MEAN CORPUSCULAR HEMOGLOBIN 25.3 pg (27.0-33.0); MEAN CORPUSCULAR HGB CONC 31.5 g/dl (32.0-36.5); MEAN CORPUSCULAR VOLUME 80.4 fl (80.0-96.0); MONO # 1.7 10^3/uL (0.0-0.8); NEUTROPHILS # 18.4 10^3/uL (1.5-8.5); PLATELET COUNT, AUTOMATED 416 10^3/uL (150-450); RED BLOOD COUNT 5.37 10^6/uL (4.00-5.40); WHITE BLOOD COUNT 23.6 10^3/uL (4.0-10.0)
[2024-10-04 02:01] LABS: LIPASE 28 U/L (12-53)
[2024-10-04] MEDS: ONDANSETRON 4MG 2ML VIAL IV ONE (02:18)
[2024-10-04] MEDS: HYDROMORPHONE HCL 0.5 MG/ 0.5 ML SYRINGE IV ONE (02:19)
[2024-10-04 02:21] LABS: ALBUMIN 4.1 G/DL (3.2-5.2); ALKALINE PHOSPHATASE 82 U/L (35-104); ALT/SGPT 21 U/L (7.0-40); AST/SGOT 26 U/L (<34); BILIRUBIN,DIRECT < 0.1 MG/DL (<0.4); BILIRUBIN,TOTAL 0.3 MG/DL (0.3-1.2); BLOOD UREA NITROGEN 16 MG/DL (9-23); CALCIUM LEVEL 9.5 MG/DL (8.5-10.1); CARBON DIOXIDE LEVEL 25 MMOL/L (20-31); CHLORIDE LEVEL 101 MMOL/L (98-107); CREATININE FOR GFR 0.86 MG/DL (0.55-1.30); GLOMERULAR FILTRATION RATE > 60.0 (>58); GLUCOSE, FASTING 91 MG/DL (60-100); POTASSIUM SERUM 4.3 MMOL/L (3.5-5.1); SODIUM LEVEL 141 MMOL/L (136-145)
[2024-10-04 02:32] LABS: HCG, SERUM QUALITATIVE NEGATIVE (NEGATIVE)
[2024-10-04] MEDS: NS (Normal Saline) 0.9% 1,000 ML IV ONE ×2 (02:55→05:09)
[2024-10-04] MEDS: GASTROGRAFIN SOLUTION 30ML PO SCH (02:57)
[2024-10-04] MEDS: HYDROMORPHONE HCL 0.5 MG/ 0.5 ML SYRINGE IV PRN ×2 (03:29→07:32)
[2024-10-04] MEDS: METOCLOPRAMIDE INJ 10MG/2ML VIAL IV ONE (03:41)
[2024-10-04] MEDS ORDERED: ISOVUE-370 76% 100ML VIAL As Ordered ONE (03:43)
[2024-10-04] MEDS: hydrALAZINE 20MG/ML 1ML VIAL IV ONE (05:13)
[2024-10-04] MEDS: LIDOCAINE VISCOUS 2% SOLN 15ML UDC MT ONE (05:38)
[2024-10-04] MEDS: LORazepam 2 MG/ML 1ML VIAL IV STA ×2 (05:38→10:58)
[2024-10-04 05:53] LABS: PROCALCITONIN 0.14 ng/ml
[2024-10-04] MEDS ORDERED: ONDANSETRON 4MG 2ML VIAL IV PRN (06:00)
[2024-10-04] MEDS ORDERED: GLUCOSE 4 GM CHEW PO PRN (06:00)
[2024-10-04] MEDS ORDERED: GLUCAGON INJ 1MG VIAL SC PRN (06:00)
[2024-10-04] MEDS: INSULIN LISPRO (NovoLOG) PER UNIT SC SCH (06:29)
[2024-10-04] MEDS: NS (Normal Saline) 0.9% 1,000 ML IV SCH (06:30)
[2024-10-04] MEDS ORDERED: OXYC1TAB23 PO (06:58)
[2024-10-04] MEDS ORDERED: MIRT-10 PO (06:58)
[2024-10-04] MEDS ORDERED: PROP10TA56 PO (06:58)
[2024-10-04] MEDS ORDERED: FLUO5OI TOP (06:58)
[2024-10-04] MEDS ORDERED: PREN1CHW6 PO (07:00)
[2024-10-04] MEDS ORDERED: HOME MED LIST COMPLETE! XX SCH (07:05)
[2024-10-04] MEDS: PIPERACILLIN/TAZOBACTAM SOD 4.5 GM in DEXTROSE 5% (D5W) ADV/MINI-BAG 50 ML IV SCH (09:11)
[2024-10-04] MEDS: PANTOPRAZOLE 40MG VIAL IV SCH (09:11)
[2024-10-04] MEDS ORDERED: flumazeniL 0.5MG/5ML VIAL IV PRN (10:20)
[2024-10-04] MEDS ORDERED: NALOXONE INJ 0.4MG/1ML VIAL IV PRN (10:20)
[2024-10-04] MEDS ORDERED: BISACODYL 10MG SUPP PR PRN (10:25)
[2024-10-04] MEDS: LR 1,000 ML IV SCH (10:49)
[2024-10-04 11:52] LABS: ERYTHROCYTE SEDIMENTATION RATE 53 mm/hr (0-20)
[2024-10-04] MEDS ORDERED: ONDANSETRON 4MG 2ML VIAL IV SCH (12:00)
[2024-10-04] MEDS: DEXTROSE 50% 50ML SYRINGE IV PRN (12:35)
[2024-10-04] MEDS ORDERED: DEXTROSE 50% 50ML SYRINGE IV STA (13:01)
[2024-10-04] MEDS: METOPROLOL 5 MG/5 ML VIAL IV SCH ×2 (13:10→13:27)
[2024-10-04] MEDS: PREPARATION H SUPP (HEMORRHOID) PR SCH (13:25)
[2024-10-04] MEDS: ACETAMINOPHEN *IV* 1,000 MG in IV 1 EA IV ONE (13:25)
[2024-10-04] MEDS: KETOROLAC 30 MG/ML 1ML VIAL IV SCH (13:27)
[2024-10-04] MEDS ORDERED: hydrALAZINE 20MG/ML 1ML VIAL IV SCH (14:00)
[2024-10-04] MEDS: PROMETHAZINE 25MG/ML 1ML VIAL IV SCH (15:10)
[2024-10-04] MEDS: D5W/0.45% SODIUM CHLORIDE 1,000 ML IV SCH (15:11)
[2024-10-04 16:00] VITALS: BP 151/100; TEMP 98.2; O2SAT 99
[2024-10-04] MEDS: hydrALAZINE 20MG/ML 1ML VIAL IV SCH (16:35)
[2024-10-04 17:00] VITALS: O2SAT 95
[2024-10-04 17:26] VITALS: BP 148/100
[2024-10-04 18:00] VITALS: O2SAT 98
[2024-10-04 20:00] VITALS: BP 158/92; TEMP 97.6; O2SAT 99
[2024-10-05] VITALS (27 sets, daily range): BP systolic 137–205; BP diastolic 81–108; TEMP 97.2–98; O2SAT 91–97
[2024-10-05] MEDS: ACETAMINOPHEN 650MG SUPP PR ONE (01:35)
[2024-10-05] MEDS: LABETALOL 100MG/20ML VIAL IV STA (07:45)
[2024-10-05] MEDS: HYDROMORPHONE HCL 0.5 MG/ 0.5 ML SYRINGE IV ONE (09:57)
[2024-10-05 10:26] LABS: BASO % 0.2 % (0.0-1.0); EOS % 0.2 % (0.0-3.0); HEMATOCRIT 37.7 % (36.0-47.0); HEMOGLOBIN 12.2 g/dl (12.0-15.5); LYMPH # 2.7 10^3/uL (1.5-5.0); MEAN CORPUSCULAR HEMOGLOBIN 26.1 pg (27.0-33.0); MEAN CORPUSCULAR HGB CONC 32.4 g/dl (32.0-36.5); MEAN CORPUSCULAR VOLUME 80.6 fl (80.0-96.0); MONO # 0.8 10^3/uL (0.0-0.8); MONO % 5.4 % (2.0-8.0); NEUTROPHILS # 10.5 10^3/uL (1.5-8.5); NEUTROPHILS % 74.8 % (36.0-66.0); PLATELET COUNT, AUTOMATED 361 10^3/uL (150-450); RED BLOOD COUNT 4.68 10^6/uL (4.00-5.40); WHITE BLOOD COUNT 14.1 10^3/uL (4.0-10.0)
[2024-10-05 10:51] LABS: PROCALCITONIN 0.12 ng/ml
[2024-10-05 10:58] LABS: ALBUMIN 3.1 G/DL (3.2-5.2); ALKALINE PHOSPHATASE 65 U/L (35-104); ALT/SGPT 13 U/L (7.0-40); AST/SGOT 16 U/L (<34); BILIRUBIN,TOTAL 0.4 MG/DL (0.3-1.2); BLOOD UREA NITROGEN 9 MG/DL (9-23); CALCIUM LEVEL 8.2 MG/DL (8.5-10.1); CARBON DIOXIDE LEVEL 25 MMOL/L (20-31); CHLORIDE LEVEL 108 MMOL/L (98-107); CREATININE FOR GFR 0.71 MG/DL (0.55-1.30); GLOMERULAR FILTRATION RATE > 60.0 (>58); GLUCOSE, FASTING 146 MG/DL (60-100); MAGNESIUM LEVEL 1.2 MG/DL (1.8-2.4); POTASSIUM SERUM 3.6 MMOL/L (3.5-5.1); SODIUM LEVEL 144 MMOL/L (136-145); TOTAL PROTEIN 6.5 G/DL (5.7-8.2)
[2024-10-05] MEDS ORDERED: D5W 1,000 ML IV SCH (12:00)
[2024-10-05] MEDS: MAG SULF 1GM/100ML (MAG RUN) 1 GM in IV 1 EA IV SCH ×2 (12:04→20:11)
[2024-10-05] MEDS: CALCIUM GLUCONATE 1,000 MG in DEXTROSE 5% (D5W) MINI-BAG PLU 100 ML IV ONE (12:04)
[2024-10-05] MEDS: LABETALOL 100MG/20ML VIAL IV SCH (12:05)
[2024-10-05] MEDS: LR 1,000 ML IV ONE (12:35)
[2024-10-05] MEDS: D5W 1,000 ML IV SCH (13:59)
[2024-10-05] MEDS: KCL 10MEQ/100ML SWI (KRUN) 10 MEQ in IV 1 EA IV SCH ×2 (14:44→21:38)
[2024-10-05] MEDS: PANTOPRAZOLE SODIUM 40 MG in D5W 50 ML IV SCH (16:08)
[2024-10-05] MEDS: METOPROLOL 5 MG/5 ML VIAL IV SCH (17:23)
[2024-10-05 17:38] LABS: IONIZED CALCIUM 4.5 MG/DL (4.5-5.3)
[2024-10-05] MEDS: SCOPOLAMINE 1MG TRANSDERMAL PATCH TOP SCH (17:43)
[2024-10-05 17:45] LABS: HEMATOCRIT 36.9 % (36.0-47.0); HEMOGLOBIN 11.5 g/dl (12.0-15.5)
[2024-10-05 18:12] LABS: POTASSIUM SERUM 3.7 MMOL/L (3.5-5.1)
[2024-10-05] MEDS: hydrALAZINE 20MG/ML 1ML VIAL IV ONE (18:47)
[2024-10-05] MEDS: NITROGLYCERIN 2% OINT 1 GM *U/D* PKT TOP ONE (18:47)
[2024-10-05] MEDS: ACETAMINOPHEN *IV* 1,000 MG in IV 1 EA IV SCH (22:46)
[2024-10-06] VITALS (33 sets, daily range): BP systolic 138–190; BP diastolic 70–99; TEMP 97.2–98.7; O2SAT 70–99
[2024-10-06] MEDS ORDERED: hydrALAZINE 20MG/ML 1ML VIAL IV SCH
[2024-10-06] MEDS: LABETALOL 100MG/20ML VIAL IV SCH (00:30)
[2024-10-06 00:36] LABS: BLOOD UREA NITROGEN 9 MG/DL (9-23); CALCIUM LEVEL 7.6 MG/DL (8.5-10.1); CARBON DIOXIDE LEVEL 24 MMOL/L (20-31); CHLORIDE LEVEL 105 MMOL/L (98-107); CREATININE FOR GFR 0.77 MG/DL (0.55-1.30); GLOMERULAR FILTRATION RATE > 60.0 (>58); GLUCOSE, FASTING 154 MG/DL (60-100); SODIUM LEVEL 138 MMOL/L (136-145)
[2024-10-06] MEDS: METOCLOPRAMIDE INJ 10MG/2ML VIAL IV ONE (05:22)
[2024-10-06] MEDS: diphenhydrAMINE 50MG/ML VIAL IV ONE (05:22)
[2024-10-06 05:42] LABS: BASO # 0.1 10^3/uL (0.0-0.2); BASO % 0.4 % (0.0-1.0); EOS # 0.4 10^3/uL (0.0-0.5); EOS % 2.2 % (0.0-3.0); HEMATOCRIT 35.5 % (36.0-47.0); HEMOGLOBIN 11.3 g/dl (12.0-15.5); LYMPH # 2.9 10^3/uL (1.5-5.0); LYMPH % 17.2 % (24.0-44.0); MEAN CORPUSCULAR HEMOGLOBIN 25.5 pg (27.0-33.0); MEAN CORPUSCULAR HGB CONC 31.8 g/dl (32.0-36.5); MONO # 1.3 10^3/uL (0.0-0.8); MONO % 7.7 % (2.0-8.0); NEUTROPHILS # 12.3 10^3/uL (1.5-8.5); NEUTROPHILS % 72.1 % (36.0-66.0); PLATELET COUNT, AUTOMATED 326 10^3/uL (150-450); RED BLOOD COUNT 4.44 10^6/uL (4.00-5.40); WHITE BLOOD COUNT 17.1 10^3/uL (4.0-10.0)
[2024-10-06] MEDS: hydrALAZINE 20MG/ML 1ML VIAL IV SCH ×2 (05:49→17:25)
[2024-10-06 06:06] LABS: BLOOD UREA NITROGEN 7 MG/DL (9-23); CARBON DIOXIDE LEVEL 24 MMOL/L (20-31); CHLORIDE LEVEL 105 MMOL/L (98-107); CREATININE FOR GFR 0.78 MG/DL (0.55-1.30); GLOMERULAR FILTRATION RATE > 60.0 (>58); GLUCOSE, FASTING 146 MG/DL (60-100); POTASSIUM SERUM 3.7 MMOL/L (3.5-5.1); SODIUM LEVEL 141 MMOL/L (136-145)
[2024-10-06 06:07] LABS: PREALBUMIN 19.3 MG/DL (10.0-40.0)
[2024-10-06] MEDS: HYDROMORPHONE HCL 0.5 MG/ 0.5 ML SYRINGE IV PRN (09:51)
[2024-10-06] MEDS ORDERED: KCL 10MEQ/100ML SWI (KRUN) 10 MEQ in IV 1 EA IV SCH (10:00)
[2024-10-06] MEDS: METOPROLOL 5 MG/5 ML VIAL IV SCH (11:22)
[2024-10-06] MEDS: NITROGLYCERIN 2% OINT 1 GM *U/D* PKT TOP SCH ×2 (11:23→14:33)
[2024-10-06] MEDS: CALCIUM GLUCONATE 1,000 MG in DEXTROSE 5% (D5W) MINI-BAG PLU 100 ML IV SCH (11:25)
[2024-10-06] MEDS: KCL 20MEQ IN 100ML SWI (KRUN) 20 MEQ in IV 1 EA IV SCH (13:22)
[2024-10-06] MEDS: hydrALAZINE 20MG/ML 1ML VIAL IV STA (13:23)
[2024-10-06] MEDS: MAG SULF 1GM/100ML (MAG RUN) 1 GM in IV 1 EA IV SCH (14:29)
[2024-10-06] MEDS: HYDROMORPHONE HCL 0.5 MG/ 0.5 ML SYRINGE IV ONE (15:15)
[2024-10-06 15:52] LABS: C REACTIVE PROTEIN QUANTITATIV 0.95 MG/DL (<1.0)
[2024-10-06 15:59] LABS: PROCALCITONIN 0.08 ng/ml
[2024-10-06 16:04] LABS: ALBUMIN 3.2 G/DL (3.2-5.2); BILIRUBIN,DIRECT 0.1 MG/DL (<0.4); BILIRUBIN,TOTAL 0.4 MG/DL (0.3-1.2); TOTAL PROTEIN 6.8 G/DL (5.7-8.2)
[2024-10-06] MEDS: ACETAMINOPHEN *IV* 1,000 MG in IV 1 EA IV ONE (16:17)
[2024-10-06] MEDS: KETOROLAC 30 MG/ML 1ML VIAL IV ONE (16:19)
[2024-10-06] MEDS: CALCIUM GLUCONATE 1,000 MG in DEXTROSE 5% (D5W) MINI-BAG PLU 100 ML IV ONE (16:45)
[2024-10-06] MEDS: INSULIN LISPRO (NovoLOG) PER UNIT SC SCH (18:00)
[2024-10-06] MEDS: MULTIVITAMIN -ADULT INJECTION 10 ML, ZINC/COPPER/MANGANESE/SELENIUM 1 ML in AMINO AC/EL... IV SCH (18:13)
[2024-10-06] MEDS: FAT EMULSION IV 250 ML IV ONE (18:13)
[2024-10-06] MEDS: POTASSIUM CHLORIDE INJ 10 MEQ in NS 0.45% 1,000 ML IV SCH (20:22)
[2024-10-07] VITALS (29 sets, daily range): BP systolic 132–153; BP diastolic 73–90; TEMP 97.2–98.9; O2SAT 94–99
[2024-10-07 05:09] LABS: BASO % 0.3 % (0.0-1.0); EOS # 0.3 10^3/uL (0.0-0.5); EOS % 1.7 % (0.0-3.0); HEMATOCRIT 32.3 % (36.0-47.0); HEMOGLOBIN 10.6 g/dl (12.0-15.5); LYMPH # 2.6 10^3/uL (1.5-5.0); LYMPH % 17.8 % (24.0-44.0); MEAN CORPUSCULAR HGB CONC 32.8 g/dl (32.0-36.5); MEAN CORPUSCULAR VOLUME 79.2 fl (80.0-96.0); MONO # 1.1 10^3/uL (0.0-0.8); MONO % 7.7 % (2.0-8.0); NEUTROPHILS # 10.3 10^3/uL (1.5-8.5); NEUTROPHILS % 72.1 % (36.0-66.0); PLATELET COUNT, AUTOMATED 315 10^3/uL (150-450); RED BLOOD COUNT 4.08 10^6/uL (4.00-5.40); WHITE BLOOD COUNT 14.3 10^3/uL (4.0-10.0)
[2024-10-07 05:38] LABS: BLOOD UREA NITROGEN 5 MG/DL (9-23); CALCIUM LEVEL 8.1 MG/DL (8.5-10.1); CARBON DIOXIDE LEVEL 24 MMOL/L (20-31); CHLORIDE LEVEL 107 MMOL/L (98-107); CREATININE FOR GFR 0.71 MG/DL (0.55-1.30); GLOMERULAR FILTRATION RATE > 60.0 (>58); GLUCOSE, FASTING 152 MG/DL (60-100); POTASSIUM SERUM 3.3 MMOL/L (3.5-5.1); SODIUM LEVEL 142 MMOL/L (136-145)
[2024-10-07 06:48] LABS: MAGNESIUM LEVEL 1.7 MG/DL (1.8-2.4)
[2024-10-07] MEDS ORDERED: KCL 20MEQ IN 100ML SWI (KRUN) 20 MEQ in IV 1 EA IV ONE (07:00)
[2024-10-07] MEDS ORDERED: KCL 10MEQ/100ML SWI (KRUN) 10 MEQ in IV 1 EA IV SCH (07:45)
[2024-10-07] MEDS: CALCIUM GLUCONATE 1,000 MG in DEXTROSE 5% (D5W) MINI-BAG PLU 100 ML IV ONE (09:40)
[2024-10-07] MEDS: NITROGLYCERIN 2% OINT 1 GM *U/D* PKT TOP SCH (11:17)
[2024-10-07] MEDS: KCL 20MEQ IN 100ML SWI (KRUN) 20 MEQ in IV 1 EA IV ONE (12:02)
[2024-10-07] MEDS ORDERED: INSULIN LISPRO (NovoLOG) PER UNIT SC SCH (18:00)
[2024-10-07] MEDS: AMINO AC/ELECTROLYTE/DEX/CALC 2,000 ML IV SCH (18:15)
[2024-10-07] MEDS: FAT EMULSION IV 250 ML IV ONE (18:15)
[2024-10-07] MEDS: LORazepam 2 MG/ML 1ML VIAL IV SCH (20:37)
[2024-10-07 21:57] LABS: CALCIUM LEVEL 8.3 MG/DL (8.5-10.1); MAGNESIUM LEVEL 1.7 MG/DL (1.8-2.4); PHOSPHORUS LEVEL 2.9 MG/DL (2.5-4.9); POTASSIUM SERUM 3.7 MMOL/L (3.5-5.1)
[2024-10-08] VITALS (29 sets, daily range): BP systolic 132–164; BP diastolic 83–98; TEMP 97–98.3; O2SAT 92–100
[2024-10-08 05:22] LABS: BASO # 0.1 10^3/uL (0.0-0.2); BASO % 0.5 % (0.0-1.0); EOS # 0.7 10^3/uL (0.0-0.5); EOS % 5.4 % (0.0-3.0); HEMATOCRIT 34.3 % (36.0-47.0); LYMPH # 2.3 10^3/uL (1.5-5.0); LYMPH % 18.3 % (24.0-44.0); MEAN CORPUSCULAR HEMOGLOBIN 25.9 pg (27.0-33.0); MEAN CORPUSCULAR HGB CONC 32.1 g/dl (32.0-36.5); MEAN CORPUSCULAR VOLUME 80.9 fl (80.0-96.0); MONO # 0.8 10^3/uL (0.0-0.8); MONO % 5.9 % (2.0-8.0); NEUTROPHILS # 8.9 10^3/uL (1.5-8.5); NEUTROPHILS % 69.7 % (36.0-66.0); PLATELET COUNT, AUTOMATED 325 10^3/uL (150-450); RED BLOOD COUNT 4.24 10^6/uL (4.00-5.40); WHITE BLOOD COUNT 12.8 10^3/uL (4.0-10.0)
[2024-10-08 05:51] LABS: BLOOD UREA NITROGEN 6 MG/DL (9-23); CALCIUM LEVEL 8.2 MG/DL (8.5-10.1); CARBON DIOXIDE LEVEL 23 MMOL/L (20-31); CHLORIDE LEVEL 109 MMOL/L (98-107); CREATININE FOR GFR 0.67 MG/DL (0.55-1.30); GLOMERULAR FILTRATION RATE > 60.0 (>58); GLUCOSE, FASTING 153 MG/DL (60-100); POTASSIUM SERUM 3.9 MMOL/L (3.5-5.1); SODIUM LEVEL 143 MMOL/L (136-145)
[2024-10-08] MEDS ORDERED: flumazeniL 0.5MG/5ML VIAL IV PRN (10:55)
[2024-10-08 11:20] LABS: BASO # 0.1 10^3/uL (0.0-0.2); BASO % 0.4 % (0.0-1.0); EOS # 0.7 10^3/uL (0.0-0.5); EOS % 5.6 % (0.0-3.0); HEMATOCRIT 34.5 % (36.0-47.0); HEMOGLOBIN 10.9 g/dl (12.0-15.5); LYMPH # 2.9 10^3/uL (1.5-5.0); LYMPH % 25.3 % (24.0-44.0); MEAN CORPUSCULAR HEMOGLOBIN 25.4 pg (27.0-33.0); MEAN CORPUSCULAR HGB CONC 31.6 g/dl (32.0-36.5); MEAN CORPUSCULAR VOLUME 80.4 fl (80.0-96.0); MONO # 0.6 10^3/uL (0.0-0.8); MONO % 5.5 % (2.0-8.0); NEUTROPHILS # 7.3 10^3/uL (1.5-8.5); NEUTROPHILS % 62.9 % (36.0-66.0); PLATELET COUNT, AUTOMATED 338 10^3/uL (150-450); RED BLOOD COUNT 4.29 10^6/uL (4.00-5.40); WHITE BLOOD COUNT 11.6 10^3/uL (4.0-10.0)
[2024-10-08 11:28] LABS: BLOOD UREA NITROGEN 8 MG/DL (9-23); CALCIUM LEVEL 8.6 MG/DL (8.5-10.1); CARBON DIOXIDE LEVEL 24 MMOL/L (20-31); CHLORIDE LEVEL 109 MMOL/L (98-107); CREATININE FOR GFR 0.69 MG/DL (0.55-1.30); GLOMERULAR FILTRATION RATE > 60.0 (>58); GLUCOSE, FASTING 95 MG/DL (60-100); MAGNESIUM LEVEL 1.6 MG/DL (1.8-2.4); PHOSPHORUS LEVEL 3.8 MG/DL (2.5-4.9); POTASSIUM SERUM 4.2 MMOL/L (3.5-5.1); SODIUM LEVEL 142 MMOL/L (136-145)
[2024-10-08] MEDS: MULTIVITAMIN -ADULT INJECTION 10 ML, ZINC/COPPER/MANGANESE/SELENIUM 1 ML in AMINO AC/EL... IV SCH (18:33)
[2024-10-08] MEDS: FAT EMULSION IV 250 ML IV ONE (18:33)
[2024-10-08] MEDS: LORazepam 2 MG/ML 1ML VIAL IV SCH (20:22)
[2024-10-09] VITALS (29 sets, daily range): BP systolic 116–156; BP diastolic 70–96; TEMP 97–97.9; O2SAT 92–98
[2024-10-09 08:51] LABS: BASO # 0.1 10^3/uL (0.0-0.2); BASO % 0.6 % (0.0-1.0); EOS # 0.6 10^3/uL (0.0-0.5); EOS % 5.5 % (0.0-3.0); HEMATOCRIT 35.1 % (36.0-47.0); HEMOGLOBIN 11.2 g/dl (12.0-15.5); LYMPH # 2.7 10^3/uL (1.5-5.0); LYMPH % 23.1 % (24.0-44.0); MEAN CORPUSCULAR HEMOGLOBIN 25.5 pg (27.0-33.0); MEAN CORPUSCULAR HGB CONC 31.9 g/dl (32.0-36.5); MEAN CORPUSCULAR VOLUME 79.8 fl (80.0-96.0); MONO # 0.7 10^3/uL (0.0-0.8); MONO % 5.9 % (2.0-8.0); NEUTROPHILS # 7.6 10^3/uL (1.5-8.5); NEUTROPHILS % 64.6 % (36.0-66.0); PLATELET COUNT, AUTOMATED 339 10^3/uL (150-450); WHITE BLOOD COUNT 11.7 10^3/uL (4.0-10.0)
[2024-10-09 09:24] LABS: ALBUMIN 2.9 G/DL (3.2-5.2); BLOOD UREA NITROGEN 13 MG/DL (9-23); CALCIUM LEVEL 8.7 MG/DL (8.5-10.1); CARBON DIOXIDE LEVEL 25 MMOL/L (20-31); CHLORIDE LEVEL 108 MMOL/L (98-107); CREATININE FOR GFR 0.62 MG/DL (0.55-1.30); GLOMERULAR FILTRATION RATE > 60.0 (>58); GLUCOSE, FASTING 105 MG/DL (60-100); MAGNESIUM LEVEL 1.6 MG/DL (1.8-2.4); PHOSPHORUS LEVEL 3.6 MG/DL (2.5-4.9); POTASSIUM SERUM 4.1 MMOL/L (3.5-5.1); SODIUM LEVEL 143 MMOL/L (136-145)
[2024-10-09 15:02] LABS: ANA PATTERN Nuclear, Homogeneous (NEGATIVE); ANA SCREEN, IFA POSITIVE (NEGATIVE); ANA TITER 1:40 titer (<1:40)
[2024-10-09] MEDS ORDERED: INSULIN LISPRO (NovoLOG) PER UNIT SC SCH (18:00)
[2024-10-09] MEDS: AMINO AC/ELECTROLYTE/DEX/CALC 2,000 ML IV SCH (18:36)
[2024-10-09] MEDS: FAT EMULSION IV 250 ML IV ONE (18:36)
[2024-10-09] MEDS: [UNRECOGNIZED DRUG - REMARK] XX SCH (21:52)
[2024-10-10] VITALS (26 sets, daily range): BP systolic 126–178; BP diastolic 60–95; TEMP 97–98.1; O2SAT 92–98
[2024-10-10 03:19] LABS: TISSUE TRANSGLUTAMINASE IgA < 1.0 U/mL (<15.0); TISSUE TRANSGLUTAMINASE IgG < 1.0 U/mL (<15.0)
[2024-10-10] MEDS ORDERED: PILL CUTTER 1 EACH XX PRN (07:30)
[2024-10-10 08:01] LABS: BASO # 0.1 10^3/uL (0.0-0.2); BASO % 0.5 % (0.0-1.0); EOS # 0.5 10^3/uL (0.0-0.5); EOS % 4.4 % (0.0-3.0); HEMOGLOBIN 11.1 g/dl (12.0-15.5); LYMPH # 2.2 10^3/uL (1.5-5.0); LYMPH % 20.5 % (24.0-44.0); MEAN CORPUSCULAR HEMOGLOBIN 25.3 pg (27.0-33.0); MEAN CORPUSCULAR HGB CONC 31.7 g/dl (32.0-36.5); MEAN CORPUSCULAR VOLUME 79.9 fl (80.0-96.0); MONO # 0.6 10^3/uL (0.0-0.8); NEUTROPHILS # 7.3 10^3/uL (1.5-8.5); NEUTROPHILS % 68.2 % (36.0-66.0); PLATELET COUNT, AUTOMATED 366 10^3/uL (150-450); RED BLOOD COUNT 4.38 10^6/uL (4.00-5.40); WHITE BLOOD COUNT 10.7 10^3/uL (4.0-10.0)
[2024-10-10] MEDS: KETOROLAC 30 MG/ML 1ML VIAL IV ONE (08:26)
[2024-10-10 08:31] LABS: BLOOD UREA NITROGEN 19 MG/DL (9-23); CALCIUM LEVEL 8.6 MG/DL (8.5-10.1); CARBON DIOXIDE LEVEL 22 MMOL/L (20-31); CHLORIDE LEVEL 108 MMOL/L (98-107); CREATININE FOR GFR 0.63 MG/DL (0.55-1.30); GLOMERULAR FILTRATION RATE > 60.0 (>58); GLUCOSE, FASTING 83 MG/DL (60-100); MAGNESIUM LEVEL 1.7 MG/DL (1.8-2.4); PHOSPHORUS LEVEL 3.5 MG/DL (2.5-4.9); POTASSIUM SERUM 4.4 MMOL/L (3.5-5.1); SODIUM LEVEL 140 MMOL/L (136-145)
[2024-10-10] MEDS: MORPHINE 10 MG/ML 1ML VIAL IV ONE ×2 (10:02→18:03)
[2024-10-10] MEDS: LABETALOL 100MG TAB PO SCH (10:06)
[2024-10-10] MEDS: **hydrALAZINE** 10 MG TAB PO SCH (12:28)
[2024-10-10] MEDS: KETOROLAC 30 MG/ML 1ML VIAL IV SCH (16:29)
[2024-10-10] MEDS: FAT EMULSION IV 250 ML IV ONE (17:39)
[2024-10-10] MEDS: MULTIVITAMIN -ADULT INJECTION 10 ML, ZINC/COPPER/MANGANESE/SELENIUM 1 ML in AMINO AC/EL... IV SCH (17:39)
[2024-10-10] MEDS ORDERED: INSULIN LISPRO (NovoLOG) PER UNIT SC SCH (18:00)
[2024-10-10] MEDS ORDERED: SUMAtriptan SUCCINATE 50MG TABLET PO PRN (18:05)
[2024-10-10] MEDS ORDERED: LORazepam 2 MG/ML 1ML VIAL IM ONE (22:00)
[2024-10-10] MEDS ORDERED: SODIUM CHLORIDE 0.9% INJ 10 ML SYR IV PRN ×2 (23:15)
[2024-10-11] VITALS (7 sets, daily range): BP systolic 121–140; BP diastolic 84–90; TEMP 97.3–98.1; O2SAT 94–99
[2024-10-11] MEDS: LORazepam 2 MG/ML 1ML VIAL IV ONE (00:11)
[2024-10-11] MEDS: SODIUM CHLORIDE 0.9% INJ 10 ML SYR IV PRN (00:15)
[2024-10-11 06:08] LABS: BASO # 0.1 10^3/uL (0.0-0.2); BASO % 0.5 % (0.0-1.0); EOS # 0.4 10^3/uL (0.0-0.5); EOS % 3.9 % (0.0-3.0); HEMOGLOBIN 11.1 g/dl (12.0-15.5); LYMPH # 2.6 10^3/uL (1.5-5.0); LYMPH % 25.4 % (24.0-44.0); MEAN CORPUSCULAR HEMOGLOBIN 26.1 pg (27.0-33.0); MEAN CORPUSCULAR HGB CONC 31.7 g/dl (32.0-36.5); MEAN CORPUSCULAR VOLUME 82.4 fl (80.0-96.0); MONO # 0.6 10^3/uL (0.0-0.8); MONO % 5.6 % (2.0-8.0); NEUTROPHILS # 6.6 10^3/uL (1.5-8.5); NEUTROPHILS % 64.3 % (36.0-66.0); PLATELET COUNT, AUTOMATED 345 10^3/uL (150-450); RED BLOOD COUNT 4.25 10^6/uL (4.00-5.40); WHITE BLOOD COUNT 10.2 10^3/uL (4.0-10.0)
[2024-10-11] MEDS: SODIUM CHLORIDE 0.9% INJ 10 ML SYR IV SCH (06:34)
[2024-10-11 06:39] LABS: ALBUMIN 2.8 G/DL (3.2-5.2); BLOOD UREA NITROGEN 17 MG/DL (9-23); CALCIUM LEVEL 8.3 MG/DL (8.5-10.1); CARBON DIOXIDE LEVEL 22 MMOL/L (20-31); CHLORIDE LEVEL 111 MMOL/L (98-107); CREATININE FOR GFR 0.67 MG/DL (0.55-1.30); GLOMERULAR FILTRATION RATE > 60.0 (>58); GLUCOSE, FASTING 151 MG/DL (60-100); MAGNESIUM LEVEL 1.6 MG/DL (1.8-2.4); PHOSPHORUS LEVEL 3.5 MG/DL (2.5-4.9); POTASSIUM SERUM 4.4 MMOL/L (3.5-5.1); SODIUM LEVEL 142 MMOL/L (136-145)
[2024-10-11] MEDS: PERCOCET 5MG/325MG TAB PO PRN ×2 (09:37→16:50)
[2024-10-11] MEDS: PERCOCET 5MG/325MG TAB PO ONE (11:08)
[2024-10-11] MEDS: INSULIN LISPRO (NovoLOG) PER UNIT SC SCH (18:00)
[2024-10-11] MEDS: AMINO AC/ELECTROLYTE/DEX/CALC 2,000 ML IV SCH (18:19)
[2024-10-11] MEDS: FAT EMULSION IV 250 ML IV ONE (18:19)
[2024-10-11] MEDS: LORazepam 1 MG TAB PO SCH (22:36)
[2024-10-12] MEDS: RAMELTEON 8 MG TAB (ROZEREM) PO ONE (01:21)
[2024-10-12 04:24] LABS: BASO % 0.5 % (0.0-1.0); EOS # 0.4 10^3/uL (0.0-0.5); EOS % 4.8 % (0.0-3.0); HEMATOCRIT 31.7 % (36.0-47.0); LYMPH # 2.5 10^3/uL (1.5-5.0); LYMPH % 31.3 % (24.0-44.0); MEAN CORPUSCULAR HEMOGLOBIN 25.9 pg (27.0-33.0); MEAN CORPUSCULAR HGB CONC 31.5 g/dl (32.0-36.5); MEAN CORPUSCULAR VOLUME 82.1 fl (80.0-96.0); MONO # 0.6 10^3/uL (0.0-0.8); MONO % 7.9 % (2.0-8.0); NEUTROPHILS # 4.4 10^3/uL (1.5-8.5); NEUTROPHILS % 55.2 % (36.0-66.0); PLATELET COUNT, AUTOMATED 356 10^3/uL (150-450); RED BLOOD COUNT 3.86 10^6/uL (4.00-5.40)
[2024-10-12 04:30] VITALS: BP 136/74; TEMP 97.7; O2SAT 97
[2024-10-12 04:49] LABS: ALBUMIN 2.8 G/DL (3.2-5.2); ALKALINE PHOSPHATASE 54 U/L (35-104); ALT/SGPT 15 U/L (7.0-40); AST/SGOT 14 U/L (<34); BILIRUBIN,TOTAL < 0.2 MG/DL (0.3-1.2); BLOOD UREA NITROGEN 15 MG/DL (9-23); CALCIUM LEVEL 8.6 MG/DL (8.5-10.1); CARBON DIOXIDE LEVEL 24 MMOL/L (20-31); CHLORIDE LEVEL 110 MMOL/L (98-107); CREATININE FOR GFR 0.63 MG/DL (0.55-1.30); GLOMERULAR FILTRATION RATE > 60.0 (>58); GLUCOSE, FASTING 129 MG/DL (60-100); MAGNESIUM LEVEL 1.6 MG/DL (1.8-2.4); PHOSPHORUS LEVEL 3.1 MG/DL (2.5-4.9); POTASSIUM SERUM 4.5 MMOL/L (3.5-5.1); SODIUM LEVEL 141 MMOL/L (136-145); TOTAL PROTEIN 5.9 G/DL (5.7-8.2)
[2024-10-12 04:52] VITALS: O2SAT 97
[2024-10-12] MEDS: MAG SULF 1GM/100ML (MAG RUN) 1 GM in IV 1 EA IV SCH (06:46)
[2024-10-12 07:51] VITALS: BP 144/94; TEMP 97.9; O2SAT 95
[2024-10-12] MEDS ORDERED: LABE100T6 PO (08:44)
[2024-10-12] MEDS ORDERED: NITR2OI TOP (08:44)
[2024-10-12] MEDS ORDERED: HYDR-161 PO (08:44)
[2024-10-12] MEDS ORDERED: [UNRECOGNIZED DRUG - CODE] IV (08:44)
[2024-10-12] MEDS ORDERED: Ketorolac Tromethamine IV (08:44)
[2024-10-12] MEDS ORDERED: CLON0.3D8 TOP (08:44)
[2024-10-12] MEDS ORDERED: IMIT50TA PO (08:44)
[2024-10-12] MEDS ORDERED: TRAN1DIS4 TOP (08:44)
[2024-10-12] MEDS ORDERED: NALO0.4I3 IV (08:44)
[2024-10-12] MEDS ORDERED: ATIV1TAB7 PO (08:44)
[2024-10-12] MEDS ORDERED: ONDA4INJ4 IV (08:48)
[2024-10-12] MEDS ORDERED: PERCOCET PO (08:48)
[2024-10-12 09:01] VITALS: BP 139/106
[2024-10-12 12:00] VITALS: BP 130/90; TEMP 97.7; O2SAT 97
[2024-10-12] MEDS ORDERED: KETOROLAC 30 MG/ML 1ML VIAL IV ONE (12:10)
[2024-10-12] MEDS: LORazepam 2 MG/ML 1ML VIAL IV STA (12:17)
[2024-10-12] MEDS: ACETAMINOPHEN *IV* 1,000 MG in IV 1 EA IV ONE (12:20)
[2024-10-12] MEDS: HYDROmorphone HCL 2MG/ML 1ML VIAL IV ONE (13:15)
[2024-10-12] MEDS ORDERED: FAT EMULSION IV 250 ML IV ONE (18:00)
[2024-10-12] MEDS ORDERED: AMINO AC/ELECTROLYTE/DEX/CALC 2,000 ML IV SCH (18:00)
== END 2024-10-12 13:14 | disposition short-term general hospital (02) | DRG 389 ==
LOC: M ED 01:00 → M ED INP 05:56 → M PCU 15:55 → M MSPAV 10-10 22:29
PROVIDERS: ADMIT Family Medicine; ATTEND General Practice
PROC: 02HV33Z Insertion of Infusion Device into Superior Vena Cava, Percutaneous Approach (ICD-10-PCS; principal; 2024-10-06)
PROC: 3E0436Z Introduction of Nutritional Substance into Central Vein, Percutaneous Approach (ICD-10-PCS; 2024-10-06)
DX: K56.7 Ileus, unspecified (principal); K91.850 Pouchitis; A08.11 Acute gastroenteropathy due to Norwalk agent; R74.02 Elevation of levels of lactic acid dehydrogenase [LDH]; G40.909 Epilepsy, unspecified, not intractable, without status epilepticus; G43.909 Migraine, unspecified, not intractable, without status migrainosus; I10 Essential (primary) hypertension; K86.89 Other specified diseases of pancreas; F41.9 Anxiety disorder, unspecified; K21.9 Gastro-esophageal reflux disease without esophagitis; E11.9 Type 2 diabetes mellitus without complications; F32.A Depression, unspecified; F42.9 Obsessive-compulsive disorder, unspecified; E78.5 Hyperlipidemia, unspecified; I16.0 Hypertensive urgency; E83.42 Hypomagnesemia; G90.A Postural orthostatic tachycardia syndrome [POTS]; G47.00 Insomnia, unspecified; Z90.49 Acquired absence of other specified parts of digestive tract; Z79.899 Other long term (current) drug therapy; Z79.4 Long term (current) use of insulin; Z88.8 Allergy status to other drugs, medicaments and biological substances

== ENCOUNTER 2024-10-30 15:24 | Outpatient (CLI) | payer OTHER ==
[~2024-10-30] VITALS: Ht 162.6 cm; Wt 70.5 kg
[~2024-10-30 15:24] MED LIST changes: +ALBUTEROL SULFATE 2.5MG/0.5ML INH NEB SOLN INH PRN; +ATIV1TAB7 PO; +EPINEPHrine INJ 1 MG/ML 1ML AMP IM PRN; +FLUO5OI TOP; +HYDR-161 PO; +IMIT50TA PO; +Ketorolac Tromethamine IV; +LABE100T6 PO; +MIRT-10 PO; +NALO0.4I3 IV; +NITR2OI TOP; +ONDA4INJ4 IV; +PERCOCET PO; +PREN1CHW6 PO; +PROP10TA56 PO; +[UNRECOGNIZED DRUG - CODE] IV; +diphenhydrAMINE 50MG/ML VIAL IV PRN; +methylPREDNISolone 125MG 2ML VIAL IV PRN
[2024-10-30 15:36] VITALS: BP 90/53; O2SAT 97
[2024-10-30] MEDS: FERRIC CARBOXYMALTOSE 750 MG (VIAL MATE) IN 100ML NS IV ONE (15:39)
[2024-10-30 16:44] VITALS: BP 88/55; O2SAT 97
== END 2024-10-30 16:45 ==
LOC: M INFU 15:24
PROVIDERS: ATTEND Internal Medicine
DX: D50.9 Iron deficiency anemia, unspecified (principal); Z88.8 Allergy status to other drugs, medicaments and biological substances
CPT/HCPCS: 96365; J1439

== ENCOUNTER 2024-11-06 14:21 | Outpatient (CLI) | payer OTHER ==
[~2024-11-06] VITALS: Ht 162.6 cm; Wt 70.5 kg
[2024-11-06 14:30] VITALS: BP 140/82; O2SAT 100
[2024-11-06] MEDS: FERRIC CARBOXYMALTOSE 750 MG (VIAL MATE) IN 100ML NS IV ONE (14:37)
[2024-11-06 15:09] VITALS: BP 116/64; O2SAT 100
== END 2024-11-06 15:11 ==
LOC: M INFU 14:21
PROVIDERS: ATTEND Internal Medicine
DX: Z88.8 Allergy status to other drugs, medicaments and biological substances (principal)
CPT/HCPCS: 96365; J1439

== ENCOUNTER 2024-11-24 14:02 | Inpatient (IN) | payer OTHER ==
[~2024-11-24] VITALS: Ht 162.6 cm; Wt 74.5 kg
[~2024-11-24 14:02] MED LIST changes: -ALBUTEROL SULFATE 2.5MG/0.5ML INH NEB SOLN INH PRN; -EPINEPHrine INJ 1 MG/ML 1ML AMP IM PRN; -diphenhydrAMINE 50MG/ML VIAL IV PRN; -methylPREDNISolone 125MG 2ML VIAL IV PRN
[2024-11-24 15:04] LABS: BASO % 0.2 % (0.0-1.0); EOS # 0.6 10^3/uL (0.0-0.5); EOS % 3.6 % (0.0-3.0); HEMATOCRIT 50.3 % (36.0-47.0); HEMOGLOBIN 15.7 g/dl (12.0-15.5); LYMPH # 4.1 10^3/uL (1.5-5.0); LYMPH % 23.2 % (24.0-44.0); MEAN CORPUSCULAR HEMOGLOBIN 27.8 pg (27.0-33.0); MEAN CORPUSCULAR HGB CONC 31.2 g/dl (32.0-36.5); MONO # 1.2 10^3/uL (0.0-0.8); MONO % 6.7 % (2.0-8.0); NEUTROPHILS # 11.6 10^3/uL (1.5-8.5); NEUTROPHILS % 65.7 % (36.0-66.0); PLATELET COUNT, AUTOMATED 337 10^3/uL (150-450); RED BLOOD COUNT 5.65 10^6/uL (4.00-5.40); WHITE BLOOD COUNT 17.6 10^3/uL (4.0-10.0)
[2024-11-24 15:30] LABS: LIPASE 52 U/L (12-53)
[2024-11-24 15:42] LABS: ALBUMIN 4.2 G/DL (3.2-5.2); ALKALINE PHOSPHATASE 91 U/L (35-104); ALT/SGPT 38 U/L (7.0-40); AST/SGOT 15 U/L (<34); BILIRUBIN,DIRECT < 0.1 MG/DL (<0.4); BILIRUBIN,TOTAL 0.3 MG/DL (0.3-1.2); BLOOD UREA NITROGEN 35 MG/DL (9-23); CALCIUM LEVEL 9.9 MG/DL (8.5-10.1); CARBON DIOXIDE LEVEL 14 MMOL/L (20-31); CHLORIDE LEVEL 108 MMOL/L (98-107); CREATININE FOR GFR 4.22 MG/DL (0.55-1.30); GLOMERULAR FILTRATION RATE 12.9 (>58); GLUCOSE, FASTING 100 MG/DL (60-100); POTASSIUM SERUM 6.4 MMOL/L (3.5-5.1); SODIUM LEVEL 137 MMOL/L (136-145); TOTAL PROTEIN 8.3 G/DL (5.7-8.2)
[2024-11-24] MEDS: PATIROMER SORBITEX CALCIUM 8.4 GM POWDER PACKET (VELTASSA) PO ONE ×2 (18:35→22:25)
[2024-11-24] MEDS: CALCIUM GLUCONATE 1,000MG/10ML VIAL (100MG/ML) IV ONE (18:36)
[2024-11-24] MEDS: DEXTROSE 50% 50ML SYRINGE IV ONE (18:36)
[2024-11-24] MEDS: HumuLIN R (REGULAR) INSULIN (NovoLIN R) **100U/ML** PER UNIT IV ONE (18:36)
[2024-11-24] MEDS: NS (Normal Saline) 0.9% 1,000 ML IV ONE ×2 (18:37→23:27)
[2024-11-24 20:22] LABS: MAGNESIUM LEVEL 1.6 MG/DL (1.8-2.4); PHOSPHORUS LEVEL 3.5 MG/DL (2.5-4.9)
[2024-11-24 20:33] LABS: PROCALCITONIN 1.26 ng/ml
[2024-11-24] MEDS ORDERED: NS (Normal Saline) 0.9% 1,000 ML IV SCH (20:40)
[2024-11-24] MEDS ORDERED: PREG50CA3 PO (20:54)
[2024-11-24] MEDS ORDERED: PREG200C2 PO (20:54)
[2024-11-24] MEDS ORDERED: CLON0.3T PO (20:54)
[2024-11-24] MEDS ORDERED: CREO3600 PO ×2 (20:54)
[2024-11-24] MEDS ORDERED: FAMO1TAB11 PO (20:54)
[2024-11-24] MEDS ORDERED: EMGA120I INJ (20:54)
[2024-11-24] MEDS ORDERED: CVS1CAP2 PO (20:56)
[2024-11-24 20:57] LABS: CALCIUM LEVEL 10.5 MG/DL (8.5-10.1); CREATININE FOR GFR 4.43 MG/DL (0.55-1.30); GLOMERULAR FILTRATION RATE 12.2 (>58); POTASSIUM SERUM 5.7 MMOL/L (3.5-5.1)
[2024-11-24] MEDS ORDERED: HOME MED LIST COMPLETE! XX SCH (21:00)
[2024-11-24] MEDS ORDERED: MIRALAX *UNIT DOSE* 17GM PACKET PO PRN (21:05)
[2024-11-24] MEDS ORDERED: ONDANSETRON 4MG TAB PO PRN (21:10)
[2024-11-24] MEDS ORDERED: CREON-12 CAPSULE (PANCRELIPASE) PO PRN (21:15)
[2024-11-24 22:04] LABS: C REACTIVE PROTEIN QUANTITATIV 1.47 MG/DL (<1.0)
[2024-11-24] MEDS ORDERED: GLUCAGON INJ 1MG VIAL SC PRN (22:05)
[2024-11-24] MEDS ORDERED: GLUCOSE 4 GM CHEW PO PRN (22:05)
[2024-11-24] MEDS ORDERED: DEXTROSE 50% 50ML SYRINGE IV PRN (22:05)
[2024-11-24 22:12] LABS: KETONE, URINE AUTO RFX NEGATIVE (NEGATIVE); MUCUS, URINE RFX SMALL (NEGATIVE); RBC, URINE AUTO RFX 0 /HPF (0-3); SQUAM EPITHELIAL CELL UR AURFX 10 /HPF (0-6)
[2024-11-24 22:13] LABS: LEUKOCYTE ESTERASE UR AUTO RFX 2+ (NEGATIVE); NITRITE, URINE AUTO RFX POSITIVE (NEGATIVE); WBC, URINE AUTO RFX 90 /HPF (0-3)
[2024-11-24] MEDS: HEPARIN SOD (PORCINE) 5000UNITS/ML 1ML VIAL/SYRINGE SC SCH (22:26)
[2024-11-24] MEDS: BISACODYL 10MG SUPP PR ONE (22:26)
[2024-11-24] MEDS: SENNA 8.6 MG TAB (SENOKOT) PO SCH (22:27)
[2024-11-24] MEDS: ROSUVASTATIN 10 MG TAB (CRESTOR) PO SCH (22:27)
[2024-11-24] MEDS: MIRTAZAPINE 15 MG TAB PO SCH (22:27)
[2024-11-24] MEDS: PANTOPRAZOLE 40MG VIAL IV SCH (22:28)
[2024-11-24] MEDS: cloNIDine 0.2 MG TAB PO SCH (22:28)
[2024-11-24] MEDS: LORazepam 2 MG/ML 1ML VIAL IV STA (22:28)
[2024-11-24] MEDS: SODIUM BICARBONATE 150 MEQ in D5W 1,000 ML IV SCH (22:29)
[2024-11-24] MEDS: LevoFLOXacin IV 750 MG in IV 1 EA IV ONE (23:28)
[2024-11-25 07:58] LABS: BASO % 0.3 % (0.0-1.0); EOS # 0.7 10^3/uL (0.0-0.5); EOS % 7.5 % (0.0-3.0); HEMATOCRIT 41.5 % (36.0-47.0); LYMPH # 2.9 10^3/uL (1.5-5.0); LYMPH % 32.3 % (24.0-44.0); MEAN CORPUSCULAR HEMOGLOBIN 27.3 pg (27.0-33.0); MEAN CORPUSCULAR HGB CONC 31.8 g/dl (32.0-36.5); MEAN CORPUSCULAR VOLUME 85.9 fl (80.0-96.0); MONO # 0.7 10^3/uL (0.0-0.8); MONO % 7.7 % (2.0-8.0); NEUTROPHILS # 4.7 10^3/uL (1.5-8.5); NEUTROPHILS % 51.8 % (36.0-66.0); PLATELET COUNT, AUTOMATED 259 10^3/uL (150-450); RED BLOOD COUNT 4.83 10^6/uL (4.00-5.40); WHITE BLOOD COUNT 9.1 10^3/uL (4.0-10.0)
[2024-11-25 08:02] LABS: ALBUMIN 3.7 G/DL (3.2-5.2); BILIRUBIN,TOTAL 0.5 MG/DL (0.3-1.2); CALCIUM LEVEL 9.4 MG/DL (8.5-10.1); CREATININE FOR GFR 3.03 MG/DL (0.55-1.30); GLOMERULAR FILTRATION RATE 19.2 (>58); HEMOGLOBIN 13.2 g/dl (12.0-15.5); MAGNESIUM LEVEL 1.4 MG/DL (1.8-2.4); POTASSIUM SERUM 4.2 MMOL/L (3.5-5.1); TOTAL PROTEIN 6.8 G/DL (5.7-8.2)
[2024-11-25] MEDS: INSULIN LISPRO (NovoLOG) PER UNIT SC SCH ×2 (08:26→21:00)
[2024-11-25] MEDS: cefTRIAXone SOD 1 GM in DEXTROSE 5% (D5W) ADV/MINI-BAG 50 ML IV SCH (08:26)
[2024-11-25] MEDS: CREON-24 CAPSULE (PANCRELIPASE) PO SCH (08:26)
[2024-11-25] MEDS: PREGABALIN 100 MG CAP (LYRICA) PO SCH ×2 (08:27→21:46)
[2024-11-25] MEDS: cloNIDine 0.2 MG TAB PO SCH (08:28)
[2024-11-25] MEDS: SENOKOT S TAB PO SCH (09:00)
[2024-11-25] MEDS ORDERED: BRIVARACETAM 100 MG PO SCH (09:00)
[2024-11-25] MEDS: BRIVIACT 100 MG PO SCH (11:18)
[2024-11-25] MEDS: MAG SULF 1GM/100ML (MAG RUN) 1 GM in IV 1 EA IV SCH (11:46)
[2024-11-25] MEDS: BISACODYL 10MG SUPP PR ONE (13:00)
[2024-11-25 18:13] VITALS: BP 115/65; TEMP 97; O2SAT 100
[2024-11-25] MEDS: SODIUM BICARBONATE 150 MEQ in D5W 1,000 ML IV SCH (19:08)
[2024-11-25 20:35] VITALS: BP 122/62; TEMP 97.4; O2SAT 100
[2024-11-25] MEDS: ACETAMINOPHEN 325 MG TAB PO PRN (21:47)
[2024-11-25 23:18] VITALS: BP 142/85
[2024-11-26 04:13] VITALS: BP 101/57; TEMP 97; O2SAT 96
[2024-11-26 05:52] LABS: BASO % 0.4 % (0.0-1.0); EOS # 0.7 10^3/uL (0.0-0.5); EOS % 8.7 % (0.0-3.0); HEMATOCRIT 36.6 % (36.0-47.0); HEMOGLOBIN 11.8 g/dl (12.0-15.5); LYMPH # 2.6 10^3/uL (1.5-5.0); MEAN CORPUSCULAR HEMOGLOBIN 27.3 pg (27.0-33.0); MEAN CORPUSCULAR HGB CONC 32.2 g/dl (32.0-36.5); MEAN CORPUSCULAR VOLUME 84.5 fl (80.0-96.0); MONO # 0.5 10^3/uL (0.0-0.8); MONO % 6.2 % (2.0-8.0); NEUTROPHILS # 4.1 10^3/uL (1.5-8.5); NEUTROPHILS % 51.4 % (36.0-66.0); PLATELET COUNT, AUTOMATED 223 10^3/uL (150-450); RED BLOOD COUNT 4.33 10^6/uL (4.00-5.40); WHITE BLOOD COUNT 7.9 10^3/uL (4.0-10.0)
[2024-11-26 06:22] LABS: CALCIUM LEVEL 7.7 MG/DL (8.5-10.1); CREATININE FOR GFR 1.26 MG/DL (0.55-1.30); MAGNESIUM LEVEL 1.6 MG/DL (1.8-2.4); POTASSIUM SERUM 3.3 MMOL/L (3.5-5.1)
[2024-11-26] MEDS: MAGNESIUM OXIDE 400MG TAB (MAG-OX) PO ONE (06:55)
[2024-11-26] MEDS: POTASSIUM CHLORIDE 10MEQ SR TABLET PO ONE (06:56)
[2024-11-26 07:26] VITALS: BP 101/63; TEMP 97.1; O2SAT 98
[2024-11-26] MEDS: MAG SULF 1GM/100ML (MAG RUN) 1 GM in IV 1 EA IV SCH (09:32)
[2024-11-26] MEDS: MECLIZINE 25 MG TABLET PO SCH (11:51)
[2024-11-26] MEDS: FIORICET TAB PO ONE (11:51)
[2024-11-26 16:08] VITALS: BP 125/60; TEMP 97.6; O2SAT 95
[2024-11-26 19:37] VITALS: BP 143/78; TEMP 97.5; O2SAT 97
[2024-11-26] MEDS ORDERED: LevoFLOXacin IV 500 MG in IV 1 EA IV SCH (22:00)
[2024-11-26] MEDS: RAMELTEON 8 MG TAB (ROZEREM) PO ONE (22:31)
[2024-11-27 04:29] VITALS: BP 96/59; TEMP 96.9; O2SAT 97
[2024-11-27 05:23] LABS: BASO % 0.4 % (0.0-1.0); EOS # 0.9 10^3/uL (0.0-0.5); EOS % 9.1 % (0.0-3.0); HEMATOCRIT 40.1 % (36.0-47.0); HEMOGLOBIN 12.9 g/dl (12.0-15.5); LYMPH # 3.1 10^3/uL (1.5-5.0); MEAN CORPUSCULAR HEMOGLOBIN 27.8 pg (27.0-33.0); MEAN CORPUSCULAR HGB CONC 32.2 g/dl (32.0-36.5); MEAN CORPUSCULAR VOLUME 86.4 fl (80.0-96.0); MONO # 0.7 10^3/uL (0.0-0.8); MONO % 7.3 % (2.0-8.0); NEUTROPHILS # 4.7 10^3/uL (1.5-8.5); NEUTROPHILS % 49.9 % (36.0-66.0); PLATELET COUNT, AUTOMATED 254 10^3/uL (150-450); RED BLOOD COUNT 4.64 10^6/uL (4.00-5.40); WHITE BLOOD COUNT 9.4 10^3/uL (4.0-10.0)
[2024-11-27 05:51] LABS: CALCIUM LEVEL 8.5 MG/DL (8.5-10.1); CREATININE FOR GFR 0.84 MG/DL (0.55-1.30); GLOMERULAR FILTRATION RATE 89.5 (>58); MAGNESIUM LEVEL 1.6 MG/DL (1.8-2.4); POTASSIUM SERUM 4.3 MMOL/L (3.5-5.1)
[2024-11-27 07:48] VITALS: BP 115/62; TEMP 97; O2SAT 96
[2024-11-27] MEDS: MAG SULF 1GM/100ML (MAG RUN) 1 GM in IV 1 EA IV SCH (07:51)
[2024-11-27] MEDS: CEFDINIR 300 MG CAP (OMNICEF) PO SCH (09:18)
[2024-11-27 09:36] VITALS: BP 115/62
[2024-11-27] MEDS ORDERED: CEFD1CAP9 PO (10:19)
[2024-11-27] MEDS ORDERED: MECL-86 PO (10:19)
[2024-11-27] MEDS ORDERED: MAGN400T33 PO (10:19)
[2024-11-27] MEDS ORDERED: MIRA3350 PO (10:19)
== END 2024-11-27 12:34 | disposition home or self-care (01) | DRG 683 ==
LOC: M ED 14:02 → M ED INP 20:28 → M PCU 11-25 18:04
PROVIDERS: ADMIT Student in an Organized Health Care Education/Training Program; ATTEND Internal Medicine
DX: N17.9 Acute kidney failure, unspecified (principal); E87.20 Acidosis, unspecified; N39.0 Urinary tract infection, site not specified; G90.A Postural orthostatic tachycardia syndrome [POTS]; D50.9 Iron deficiency anemia, unspecified; E11.9 Type 2 diabetes mellitus without complications; I10 Essential (primary) hypertension; G43.909 Migraine, unspecified, not intractable, without status migrainosus; G47.00 Insomnia, unspecified; E78.5 Hyperlipidemia, unspecified; E87.5 Hyperkalemia; K52.9 Noninfective gastroenteritis and colitis, unspecified; K59.00 Constipation, unspecified; G40.909 Epilepsy, unspecified, not intractable, without status epilepticus; K86.89 Other specified diseases of pancreas; E86.0 Dehydration; B96.1 Klebsiella pneumoniae [K. pneumoniae] as the cause of diseases classified elsewhere; E83.42 Hypomagnesemia; F39 Unspecified mood [affective] disorder; K21.9 Gastro-esophageal reflux disease without esophagitis; Z79.4 Long term (current) use of insulin; Z88.8 Allergy status to other drugs, medicaments and biological substances; Z79.899 Other long term (current) drug therapy; Z90.49 Acquired absence of other specified parts of digestive tract

== ENCOUNTER 2025-02-24 15:06 | Inpatient (IN) | payer OTHER ==
[~2025-02-24] VITALS: Ht 162.6 cm; Wt 68.2 kg
[~2025-02-24 15:06] MED LIST changes: -AMBI12.52 PO; +AMIT10TA11 PO; -AMIT10TA7 PO; +CEFD1CAP9 PO; +CREO3600 PO; +CVS1CAP2 PO; +DEKA1CHW PO; -DRON10CA7 PO; +DRON10CA8 PO; -DRON2.5C11 PO; +DRON2.5C17 PO; -DRON5CAP13 PO; +DRON5CAP19 PO; +EMGA120I INJ; -FLOM0.4C39 PO; +GABA-1490 PO; +LEXA1TAB PO; +MAGN400T35 PO; +MECL-86 PO; +PREG200C2 PO; +PREG50CA3 PO; +TAMS-18 PO; +VITA100066 PO; +ZOLP10TA2 PO; +ZOLP12.561 PO; +[UNRECOGNIZED DRUG - CODE] TOP
[2025-02-24] MEDS: NS (Normal Saline) 0.9% 1,000 ML IV ONE (16:10)
[2025-02-24] MEDS: ONDANSETRON 4MG 2ML VIAL IV ONE (16:10)
[2025-02-24] MEDS: MORPHINE 4 MG/ML 1 ML VIAL IV PRN ×2 (16:10→20:45)
[2025-02-24 16:21] LABS: BASO # 0.0 10^3/uL (0.0-0.2); BASO % 0.5 % (0.0-1.0); EOS # 0.1 10^3/uL (0.0-0.5); EOS % 0.8 % (0.0-3.0); LYMPH # 2.8 10^3/uL (1.5-5.0); LYMPH % 39.0 % (24.0-44.0); MONO # 0.4 10^3/uL (0.0-0.8); MONO % 5.2 % (2.0-8.0); NEUTROPHILS # 4.0 10^3/uL (1.5-8.5); NEUTROPHILS % 54.4 % (36.0-66.0); PLATELET COUNT, AUTOMATED 311 10^3/uL (150-450)
[2025-02-24 16:42] LABS: ALT/SGPT 38.0 U/L (7.0-40); AST/SGOT 36.0 U/L (<34); CALCIUM LEVEL 9.8 MG/DL (8.5-10.1); CARBON DIOXIDE LEVEL 25.0 MMOL/L (20-31); CHLORIDE LEVEL 106.0 MMOL/L (98-107); CREATININE FOR GFR 0.94 MG/DL (0.55-1.30); GLOMERULAR FILTRATION RATE 77.7 (>58); MAGNESIUM LEVEL 1.2 MG/DL (1.8-2.4); POTASSIUM SERUM 4.5 MMOL/L (3.5-5.1); SODIUM LEVEL 143.0 MMOL/L (136-145)
[2025-02-24] MEDS: MAG SULF 1GM/100ML (MAG RUN) 1 GM in IV 1 EA IV ONE ×2 (17:11→18:00)
[2025-02-24] MEDS ORDERED: HOME MED LIST COMPLETE! XX SCH (19:20)
[2025-02-24] MEDS ORDERED: ACETAMINOPHEN 325 MG TAB PO PRN (22:25)
[2025-02-24] MEDS ORDERED: MAALOX 30 ML SUSP *UDC PO PRN (22:25)
[2025-02-24] MEDS ORDERED: MOM 30 ML SUSPENSION UDC PO PRN (22:25)
[2025-02-25] MEDS: MORPHINE 2 MG/ML 1 ML VIAL IV PRN (00:28)
[2025-02-25] MEDS: LR 1,000 ML IV SCH (00:28)
[2025-02-25] MEDS: ONDANSETRON 4MG 2ML VIAL IV PRN (00:33)
[2025-02-25] MEDS ORDERED: DEXTROSE 50% 50 ML SYRINGE IV PRN (02:30)
[2025-02-25] MEDS ORDERED: GLUCOSE 4 GM CHEW PO PRN (02:30)
[2025-02-25] MEDS ORDERED: GLUCAGON INJ 1 MG VIAL SC PRN (02:30)
[2025-02-25] MEDS: KETOROLAC 30 MG/ML 1 ML VIAL IV PRN (03:40)
[2025-02-25 06:56] VITALS: BP 192/78
[2025-02-25 06:58] LABS: PLATELET COUNT, AUTOMATED 303 10^3/uL (150-450)
[2025-02-25 07:13] LABS: ALT/SGPT 46 U/L (7.0-40); AST/SGOT 45 U/L (<34); CALCIUM LEVEL 9.4 MG/DL (8.5-10.1); CARBON DIOXIDE LEVEL 26 MMOL/L (20-31); CHLORIDE LEVEL 104 MMOL/L (98-107); CREATININE FOR GFR 0.83 MG/DL (0.55-1.30); GLOMERULAR FILTRATION RATE > 90.0 (>58); MAGNESIUM LEVEL 1.4 MG/DL (1.8-2.4); POTASSIUM SERUM 4.2 MMOL/L (3.5-5.1); SODIUM LEVEL 144 MMOL/L (136-145)
[2025-02-25] MEDS: INSULIN LISPRO (NovoLOG) PER UNIT SC SCH (07:30)
[2025-02-25] MEDS ORDERED: ENTER DRUG NAME HERE (PATIENT'S OWN MED) PO PRN (07:45)
[2025-02-25] MEDS: MAGNESIUM OXIDE 400 MG TAB PO SCH (08:26)
[2025-02-25] MEDS: DOCUSATE SODIUM 100 MG CAPSULE PO SCH (08:26)
[2025-02-25] MEDS: MAG SULF 1GM/100ML (MAG RUN) 1 GM in IV 1 EA IV SCH (08:27)
[2025-02-25] MEDS ORDERED: CREON-12 CAPSULE (PANCRELIPASE) PO PRN (08:30)
[2025-02-25] MEDS: HEPARIN SOD 5000 UNITS/ML 1 ML VIAL/SYRINGE SC SCH (08:35)
[2025-02-25] MEDS ORDERED: ENTER DRUG NAME HERE (PATIENT'S OWN MED) PO SCH (09:00)
[2025-02-25] MEDS: MORPHINE 2 MG/ML 1 ML VIAL IV ONE (09:09)
[2025-02-25] MEDS: CREON-24 CAPSULE (PANCRELIPASE) PO SCH (09:22)
[2025-02-25] MEDS ORDERED: CREON-24 CAPSULE (PANCRELIPASE) PO SCH (12:30)
[2025-02-25] MEDS ORDERED: OXYC-517 PO (15:28)
[2025-02-25 15:42] LABS: TRIGLYCERIDES LEVEL 92 MG/DL (<150)
[2025-02-25 16:02] VITALS: BP 156/96; TEMP 98.7; O2SAT 100
[2025-02-25] MEDS ORDERED: FAMOTIDINE 20 MG TAB PO SCH (21:00)
[2025-02-25] MEDS ORDERED: ESCITALOPRAM OXALATE 10 MG TABLET PO SCH (21:00)
[2025-02-25] MEDS ORDERED: VITAMIN D 1,000 INTERNATIONAL UNITS TABLET PO SCH (21:00)
[2025-02-25] MEDS ORDERED: ROSUVASTATIN 10 MG TAB PO SCH (21:00)
== END 2025-02-25 16:35 | disposition home or self-care (01) | DRG 440 ==
LOC: M ED 15:06 → M ED INP 15:07 → OBSVTOIN 02-25 13:26
PROVIDERS: ADMIT Student in an Organized Health Care Education/Training Program; ATTEND Student in an Organized Health Care Education/Training Program
DX: K85.90 Acute pancreatitis without necrosis or infection, unspecified (principal); G40.909 Epilepsy, unspecified, not intractable, without status epilepticus; G90.A Postural orthostatic tachycardia syndrome [POTS]; D50.9 Iron deficiency anemia, unspecified; I10 Essential (primary) hypertension; E78.5 Hyperlipidemia, unspecified; E11.9 Type 2 diabetes mellitus without complications; G43.909 Migraine, unspecified, not intractable, without status migrainosus; G47.00 Insomnia, unspecified; K86.89 Other specified diseases of pancreas; E83.42 Hypomagnesemia; F39 Unspecified mood [affective] disorder; K21.9 Gastro-esophageal reflux disease without esophagitis; Z90.49 Acquired absence of other specified parts of digestive tract; Z79.84 Long term (current) use of oral hypoglycemic drugs; Z79.899 Other long term (current) drug therapy; Z88.8 Allergy status to other drugs, medicaments and biological substances

== ENCOUNTER 2025-02-27 15:54 | Observation (INO) | payer OTHER ==
[~2025-02-27] VITALS: Ht 162.6 cm; Wt 67.7 kg
[~2025-02-27 15:54] MED LIST changes: +OXYC-517 PO
[2025-02-27] MEDS: ONDANSETRON 4MG 2ML VIAL IV ONE (18:02)
[2025-02-27] MEDS: PANTOPRAZOLE 40MG VIAL IV ONE (18:03)
[2025-02-27] MEDS: MORPHINE 4 MG/ML 1 ML VIAL IV PRN (18:03)
[2025-02-27] MEDS: NS (Normal Saline) 0.9% 1,000 ML IV SCH (18:05)
[2025-02-27 18:08] LABS: BASO # 0.0 10^3/uL (0.0-0.2); BASO % 0.2 % (0.0-1.0); EOS # 0.0 10^3/uL (0.0-0.5); EOS % 0.2 % (0.0-3.0); LYMPH # 1.3 10^3/uL (1.5-5.0); LYMPH % 10.4 % (24.0-44.0); MONO # 0.7 10^3/uL (0.0-0.8); MONO % 6.0 % (2.0-8.0); NEUTROPHILS # 10.2 10^3/uL (1.5-8.5); NEUTROPHILS % 83.0 % (36.0-66.0); PLATELET COUNT, AUTOMATED 287 10^3/uL (150-450)
[2025-02-27 18:20] LABS: INR 0.95
[2025-02-27 18:43] LABS: ALT/SGPT 37.0 U/L (7.0-40); AST/SGOT 39.0 U/L (<34); CALCIUM LEVEL 8.9 MG/DL (8.5-10.1); CARBON DIOXIDE LEVEL 22.0 MMOL/L (20-31); CHLORIDE LEVEL 103.0 MMOL/L (98-107); CREATININE FOR GFR 1.02 MG/DL (0.55-1.30); GLOMERULAR FILTRATION RATE 70.4 (>58); MAGNESIUM LEVEL 1.3 MG/DL (1.8-2.4); POTASSIUM SERUM 4.3 MMOL/L (3.5-5.1); SODIUM LEVEL 142.0 MMOL/L (136-145)
[2025-02-27 18:53] LABS: KETONE, URINE AUTO RFX 2+ mg/dL (NEGATIVE); LEUKOCYTE ESTERASE UR AUTO RFX NEGATIVE (NEGATIVE); NITRITE, URINE AUTO RFX NEGATIVE (NEGATIVE); RBC, URINE AUTO RFX 1 /HPF (0-3); SQUAM EPITHELIAL CELL UR AURFX 4 /HPF (0-6); WBC, URINE AUTO RFX 1 /HPF (0-3)
[2025-02-27] MEDS ORDERED: PANT20TA6 PO (19:42)
[2025-02-27] MEDS ORDERED: FLUO5OI TOP (19:42)
[2025-02-27] MEDS ORDERED: OXYC-517 PO (19:42)
[2025-02-27] MEDS ORDERED: HOME MED LIST COMPLETE! XX SCH (19:45)
[2025-02-27] MEDS ORDERED: HYDROmorphone 2 MG TAB PO PRN (19:55)
[2025-02-27] MEDS: PROMETHAZINE 25MG/ML 1ML VIAL IV PRN (20:33)
[2025-02-27] MEDS: D5W/LR 1,000 ML IV SCH (20:34)
[2025-02-27 22:35] VITALS: BP 188/108; TEMP 98.2; O2SAT 97
[2025-02-27 23:27] VITALS: BP 157/93
[2025-02-28] MEDS: FAMOTIDINE IV BAG 20 MG in IV 1 EA IV SCH (00:01)
[2025-02-28] MEDS: MORPHINE 2 MG/ML 1 ML VIAL IV PRN (00:03)
[2025-02-28 04:11] VITALS: BP 134/75; TEMP 97.6; O2SAT 97
[2025-02-28] MEDS ORDERED: GLUCOSE 4 GM CHEW PO PRN ×2 (05:25→07:05)
[2025-02-28] MEDS ORDERED: GLUCAGON INJ 1 MG VIAL SC PRN ×2 (05:25→07:05)
[2025-02-28] MEDS ORDERED: DEXTROSE 50% 50 ML SYRINGE IV PRN ×2 (05:25→07:05)
[2025-02-28 06:59] LABS: PLATELET COUNT, AUTOMATED 243 10^3/uL (150-450)
[2025-02-28 07:26] LABS: ALT/SGPT 31.0 U/L (7.0-40); AST/SGOT 31.0 U/L (<34); CALCIUM LEVEL 8.8 MG/DL (8.5-10.1); CARBON DIOXIDE LEVEL 27.0 MMOL/L (20-31); CHLORIDE LEVEL 105.0 MMOL/L (98-107); CREATININE FOR GFR 0.99 MG/DL (0.55-1.30); GLOMERULAR FILTRATION RATE 73.0 (>58); MAGNESIUM LEVEL 1.3 MG/DL (1.8-2.4); POTASSIUM SERUM 3.5 MMOL/L (3.5-5.1); SODIUM LEVEL 145.0 MMOL/L (136-145)
[2025-02-28] MEDS ORDERED: INSULIN LISPRO (NovoLOG) PER UNIT SC SCH (07:30)
[2025-02-28] MEDS: PANTOPRAZOLE 40MG VIAL IV SCH (08:24)
[2025-02-28] MEDS: MAG SULF 1GM/100ML (MAG RUN) 1 GM in IV 1 EA IV SCH ×2 (08:24→15:25)
[2025-02-28] MEDS: ENOXAPARIN 40 MG/0.4 ML SYRINGE (J1650 PER 10MG) SC SCH (08:25)
[2025-02-28] MEDS: MAGNESIUM OXIDE 400 MG TAB PO SCH (09:00)
[2025-02-28] MEDS ORDERED: RIVAROXABAN 10MG TAB PO SCH (09:00)
[2025-02-28] MEDS: MULTIVITAMINS/MINERALS THERAP 1 TAB PO SCH (09:00)
[2025-02-28] MEDS ORDERED: ENOXAPARIN 40 MG/0.4 ML SYRINGE (J1650 PER 10MG) SC SCH (09:00)
[2025-02-28] MEDS ORDERED: FLUOCINONIDE 0.05% OINT 15 GM TOP PRN (09:15)
[2025-02-28] MEDS ORDERED: ACETAMINOPHEN 325 MG TAB PO PRN (09:25)
[2025-02-28 12:36] VITALS: BP 126/66; TEMP 97.6; O2SAT 97
[2025-02-28] MEDS: CREON-24 CAPSULE (PANCRELIPASE) PO SCH (13:28)
[2025-02-28] MEDS: INSULIN LISPRO (NovoLOG) PER UNIT SC SCH (18:07)
[2025-02-28 20:00] VITALS: BP 133/86; TEMP 98.2; O2SAT 97
[2025-02-28] MEDS: ESCITALOPRAM OXALATE 10 MG TABLET PO SCH (20:57)
[2025-02-28] MEDS: VITAMIN D 1,000 INTERNATIONAL UNITS TABLET PO SCH (20:57)
[2025-02-28] MEDS: ROSUVASTATIN 10 MG TAB PO SCH (20:58)
[2025-03-01 04:00] VITALS: BP 104/59; TEMP 98; O2SAT 98
[2025-03-01 06:40] LABS: PLATELET COUNT, AUTOMATED 199 10^3/uL (150-450)
[2025-03-01 07:11] LABS: ALT/SGPT 34 U/L (7.0-40); AST/SGOT 29 U/L (<34); CALCIUM LEVEL 8.4 MG/DL (8.5-10.1); CARBON DIOXIDE LEVEL 27 MMOL/L (20-31); CHLORIDE LEVEL 106 MMOL/L (98-107); CREATININE FOR GFR 0.72 MG/DL (0.55-1.30); GLOMERULAR FILTRATION RATE > 90.0 (>58); MAGNESIUM LEVEL 1.7 MG/DL (1.8-2.4); POTASSIUM SERUM 4.1 MMOL/L (3.5-5.1); SODIUM LEVEL 143 MMOL/L (136-145)
[2025-03-01 08:30] VITALS: BP 140/78; TEMP 97.3; O2SAT 95
[2025-03-01] MEDS: MAGNESIUM OXIDE 400 MG TAB PO SCH (08:58)
[2025-03-01] MEDS: CREON-12 CAPSULE (PANCRELIPASE) PO PRN (08:58)
[2025-03-01 09:00] VITALS: BP 140/78
[2025-03-01] MEDS ORDERED: MAGN400T35 PO (09:36)
[2025-03-01] MEDS: MAG SULF 1GM/100ML (MAG RUN) 1 GM in IV 1 EA IV SCH (10:13)
== END 2025-03-01 12:43 | disposition home or self-care (01) ==
LOC: M ED 15:54 → M ED INP 15:55 → M MS4PR 23:00
PROVIDERS: ADMIT Student in an Organized Health Care Education/Training Program; ATTEND Student in an Organized Health Care Education/Training Program
DX: R10.9 Unspecified abdominal pain (principal); R11.2 Nausea with vomiting, unspecified; D72.829 Elevated white blood cell count, unspecified; E83.42 Hypomagnesemia; K85.90 Acute pancreatitis without necrosis or infection, unspecified; K86.1 Other chronic pancreatitis; Z87.19 Personal history of other diseases of the digestive system; K86.89 Other specified diseases of pancreas; I10 Essential (primary) hypertension; G90.A Postural orthostatic tachycardia syndrome [POTS]; E78.5 Hyperlipidemia, unspecified; E11.9 Type 2 diabetes mellitus without complications; D13.91 Familial adenomatous polyposis; Z90.49 Acquired absence of other specified parts of digestive tract; D50.9 Iron deficiency anemia, unspecified; G40.909 Epilepsy, unspecified, not intractable, without status epilepticus; F39 Unspecified mood [affective] disorder; G47.00 Insomnia, unspecified; K21.9 Gastro-esophageal reflux disease without esophagitis; R74.8 Abnormal levels of other serum enzymes; Z90.89 Acquired absence of other organs; Z98.891 History of uterine scar from previous surgery; Z83.79 Family history of other diseases of the digestive system; Z81.8 Family history of other mental and behavioral disorders; Z81.1 Family history of alcohol abuse and dependence; Z88.8 Allergy status to other drugs, medicaments and biological substances; Z79.899 Other long term (current) drug therapy; Z79.84 Long term (current) use of oral hypoglycemic drugs
CPT/HCPCS: 36415; 71045; 74176; 80048; 80053; 80076; 81001; 83690; 83735; 85025; 85027; 85610; 93041; 96361; 96365; 96366; 96368; 96372; 96375; 96376; 99285; J1308; J1650; J1815; J2405; J2470; J2550; J3475

== ENCOUNTER 2025-03-03 17:57 | Inpatient (IN) | payer OTHER ==
[~2025-03-03] VITALS: Ht 162.6 cm; Wt 70.5 kg
[~2025-03-03 17:57] MED LIST changes: +PANT20TA6 PO
[2025-03-03] MEDS ORDERED: HOME MED LIST COMPLETE! XX SCH (19:55)
[2025-03-03] MEDS: MORPHINE 4 MG/ML 1 ML VIAL IV PRN (20:06)
[2025-03-03] MEDS: NS (Normal Saline) 0.9% 1,000 ML IV ONE (20:06)
[2025-03-03] MEDS: ONDANSETRON 4MG 2ML VIAL IV ONE (20:06)
[2025-03-03 20:09] LABS: BASO # 0.0 10^3/uL (0.0-0.2); BASO % 0.3 % (0.0-1.0); EOS # 0.0 10^3/uL (0.0-0.5); EOS % 0.1 % (0.0-3.0); LYMPH # 1.7 10^3/uL (1.5-5.0); LYMPH % 14.1 % (24.0-44.0); MONO # 0.6 10^3/uL (0.0-0.8); MONO % 5.0 % (2.0-8.0); NEUTROPHILS # 9.5 10^3/uL (1.5-8.5); NEUTROPHILS % 80.1 % (36.0-66.0); PLATELET COUNT, AUTOMATED 229 10^3/uL (150-450)
[2025-03-03 20:19] LABS: ALT/SGPT 31.0 U/L (7.0-40); AST/SGOT 41.0 U/L (<34); CALCIUM LEVEL 10.0 MG/DL (8.5-10.1); CARBON DIOXIDE LEVEL 20.0 MMOL/L (20-31); CHLORIDE LEVEL 101.0 MMOL/L (98-107); CREATININE FOR GFR 1.02 MG/DL (0.55-1.30); GLOMERULAR FILTRATION RATE 70.4 (>58); POTASSIUM SERUM 4.7 MMOL/L (3.5-5.1); SODIUM LEVEL 143.0 MMOL/L (136-145)
[2025-03-03 20:28] LABS: KETONE, URINE AUTO RFX 2+ mg/dL (NEGATIVE); LEUKOCYTE ESTERASE UR AUTO RFX NEGATIVE (NEGATIVE); NITRITE, URINE AUTO RFX NEGATIVE (NEGATIVE); RBC, URINE AUTO RFX 0 /HPF (0-3); SQUAM EPITHELIAL CELL UR AURFX 3 /HPF (0-6); WBC, URINE AUTO RFX 0 /HPF (0-3)
[2025-03-03] MEDS: HYDROMORPHONE HCL 0.5 MG/0.5 ML SYRINGE IV PRN (20:38)
[2025-03-03 20:45] LABS: AMPHETAMINES LEVEL URINE NEGATIVE (NEGATIVE)
[2025-03-03 20:46] LABS: BARBITURATES URINE NEGATIVE (NEGATIVE); BENZODIAZEPINES URINE NEGATIVE (NEGATIVE); CANNABINOIDS URINE NEGATIVE (NEGATIVE); COCAINE METABOLITE URINE NEGATIVE (NEGATIVE); METHADONE URINE NEGATIVE (NEGATIVE); OPIATES URINE NEGATIVE (NEGATIVE); PHENCYCLIDINE URINE NEGATIVE (NEGATIVE)
[2025-03-03] MEDS ORDERED: ISOVUE-370 76% 100 ML VIAL As Ordered ONE (20:47)
[2025-03-03] MEDS: PROMETHAZINE 25MG/ML 1ML VIAL IV ONE (21:28)
[2025-03-03] MEDS: LIDOCAINE 2% 5 ML JELLY UROJET TOP ONE (22:53)
[2025-03-04] MEDS ORDERED: HYDROMORPHONE HCL 0.5 MG/0.5 ML SYRINGE IV PRN (00:40)
[2025-03-04] MEDS ORDERED: DEXTROSE 50% 50 ML SYRINGE IV PRN (00:40)
[2025-03-04] MEDS ORDERED: GLUCAGON INJ 1 MG VIAL SC PRN (00:40)
[2025-03-04] MEDS: INSULIN LISPRO (NovoLOG) PER UNIT SC SCH (01:40)
[2025-03-04] MEDS: FAMOTIDINE IV BAG 20 MG in IV 1 EA IV SCH (01:40)
[2025-03-04] MEDS: LR 1,000 ML IV SCH (01:41)
[2025-03-04] MEDS: ACETAMINOPHEN *IV* 1,000 MG in IV 1 EA IV SCH (01:41)
[2025-03-04] MEDS: levETIRAcetam INJection 1,500 MG in IV 1 EA IV SCH (01:47)
[2025-03-04] MEDS: MAG SULF 1GM/100ML (MAG RUN) 1 GM in IV 1 EA IV SCH (02:17)
[2025-03-04 02:25] LABS: MAGNESIUM LEVEL 1.5 MG/DL (1.8-2.4)
[2025-03-04] MEDS: hydrALAZINE 20 MG/ML 1 ML VIAL IV ONE (04:55)
[2025-03-04] MEDS: LABETALOL 100 MG/20 ML VIAL IV ONE (05:30)
[2025-03-04] MEDS: ONDANSETRON 4MG 2ML VIAL IV SCH (05:44)
[2025-03-04] MEDS: PANTOPRAZOLE 40MG VIAL IV SCH (05:44)
[2025-03-04] MEDS: HYDROMORPHONE HCL 0.5 MG/0.5 ML SYRINGE IV PRN ×2 (06:00→18:51)
[2025-03-04 07:23] LABS: PLATELET COUNT, AUTOMATED 278 10^3/uL (150-450)
[2025-03-04 07:35] LABS: INR 0.99
[2025-03-04] MEDS: BISACODYL ENEMA 10 MG/30 ML PR ONE (07:45)
[2025-03-04 08:00] LABS: ALT/SGPT 21.0 U/L (7.0-40); AST/SGOT 14.0 U/L (<34); CALCIUM LEVEL 8.6 MG/DL (8.5-10.1); CARBON DIOXIDE LEVEL 27.0 MMOL/L (20-31); CHLORIDE LEVEL 102.0 MMOL/L (98-107); CREATININE FOR GFR 0.85 MG/DL (0.55-1.30); GLOMERULAR FILTRATION RATE 87.7 (>58); POTASSIUM SERUM 3.6 MMOL/L (3.5-5.1); SODIUM LEVEL 143.0 MMOL/L (136-145)
[2025-03-04] MEDS ORDERED: PILL CUTTER 1 EACH XX ONE (08:51)
[2025-03-04] MEDS ORDERED: hydrALAZINE 20 MG/ML 1 ML VIAL IV SCH (11:00)
[2025-03-04] MEDS: cloNIDine HCL 0.3 MG/24 HR PATCH TOP SCH (11:58)
[2025-03-04 18:36] VITALS: BP 136/84; TEMP 98.4; O2SAT 99
[2025-03-04 20:30] VITALS: BP 150/102; TEMP 98.4; O2SAT 93
[2025-03-05] VITALS (7 sets, daily range): BP systolic 100–142; BP diastolic 55–98; TEMP 97.5–97.9; O2SAT 94–98
[2025-03-05 05:34] LABS: BASO # 0.0 10^3/uL (0.0-0.2); BASO % 0.4 % (0.0-1.0); EOS # 0.2 10^3/uL (0.0-0.5); EOS % 2.7 % (0.0-3.0); LYMPH # 3.2 10^3/uL (1.5-5.0); LYMPH % 38.5 % (24.0-44.0); MONO # 0.6 10^3/uL (0.0-0.8); MONO % 7.3 % (2.0-8.0); NEUTROPHILS # 4.3 10^3/uL (1.5-8.5); NEUTROPHILS % 51.0 % (36.0-66.0); PLATELET COUNT, AUTOMATED 237 10^3/uL (150-450)
[2025-03-05 06:03] LABS: ALT/SGPT 17 U/L (7.0-40); AST/SGOT 16 U/L (<34); CALCIUM LEVEL 8.4 MG/DL (8.5-10.1); CARBON DIOXIDE LEVEL 30 MMOL/L (20-31); CHLORIDE LEVEL 103 MMOL/L (98-107); CREATININE FOR GFR 0.83 MG/DL (0.55-1.30); GLOMERULAR FILTRATION RATE > 90.0 (>58); MAGNESIUM LEVEL 2.0 MG/DL (1.8-2.4); POTASSIUM SERUM 3.5 MMOL/L (3.5-5.1); SODIUM LEVEL 144 MMOL/L (136-145)
[2025-03-05] MEDS: HYDROMORPHONE HCL 0.5 MG/0.5 ML SYRINGE IV PRN ×2 (10:53→18:42)
[2025-03-05] MEDS ORDERED: HYDROMORPHONE HCL 0.5 MG/0.5 ML SYRINGE IV PRN (13:40)
[2025-03-05] MEDS: HYDROMORPHONE HCL 0.5 MG/0.5 ML SYRINGE IV ONE (14:43)
[2025-03-06 00:55] VITALS: BP 148/80; TEMP 97.7; O2SAT 95
[2025-03-06 06:04] LABS: BASO # 0.0 10^3/uL (0.0-0.2); BASO % 0.6 % (0.0-1.0); EOS # 0.2 10^3/uL (0.0-0.5); EOS % 3.4 % (0.0-3.0); LYMPH # 2.6 10^3/uL (1.5-5.0); LYMPH % 37.0 % (24.0-44.0); MONO # 0.5 10^3/uL (0.0-0.8); MONO % 7.4 % (2.0-8.0); NEUTROPHILS # 3.7 10^3/uL (1.5-8.5); NEUTROPHILS % 51.3 % (36.0-66.0); PLATELET COUNT, AUTOMATED 238 10^3/uL (150-450)
[2025-03-06 06:13] LABS: CALCIUM LEVEL 8.7 MG/DL (8.5-10.1); CARBON DIOXIDE LEVEL 28 MMOL/L (20-31); CHLORIDE LEVEL 102 MMOL/L (98-107); CREATININE FOR GFR 0.79 MG/DL (0.55-1.30); GLOMERULAR FILTRATION RATE > 90.0 (>58); POTASSIUM SERUM 3.6 MMOL/L (3.5-5.1); SODIUM LEVEL 142 MMOL/L (136-145)
[2025-03-06 08:00] VITALS: BP 123/83; TEMP 97.7; O2SAT 97
[2025-03-06 12:00] VITALS: TEMP 97.9; O2SAT 98
[2025-03-06 12:01] VITALS: BP 145/84
[2025-03-06] MEDS: DEXTROSE 50% 50 ML SYRINGE IV ONE (15:34)
[2025-03-06 20:20] VITALS: BP 186/94; TEMP 98.1; O2SAT 98
[2025-03-06 22:44] VITALS: BP 128/74
[2025-03-07] VITALS (7 sets, daily range): BP systolic 123–172; BP diastolic 6–106; TEMP 97.7–98.4; O2SAT 96–99
[2025-03-07 05:22] LABS: BASO # 0.0 10^3/uL (0.0-0.2); BASO % 0.2 % (0.0-1.0); EOS # 0.3 10^3/uL (0.0-0.5); EOS % 3.2 % (0.0-3.0); LYMPH # 2.2 10^3/uL (1.5-5.0); LYMPH % 25.0 % (24.0-44.0); MONO # 0.8 10^3/uL (0.0-0.8); MONO % 9.2 % (2.0-8.0); NEUTROPHILS # 5.5 10^3/uL (1.5-8.5); NEUTROPHILS % 62.2 % (36.0-66.0); PLATELET COUNT, AUTOMATED 236 10^3/uL (150-450)
[2025-03-07 05:42] LABS: CALCIUM LEVEL 8.4 MG/DL (8.5-10.1); CARBON DIOXIDE LEVEL 25 MMOL/L (20-31); CHLORIDE LEVEL 102 MMOL/L (98-107); CREATININE FOR GFR 0.70 MG/DL (0.55-1.30); GLOMERULAR FILTRATION RATE > 90.0 (>58); POTASSIUM SERUM 3.6 MMOL/L (3.5-5.1); SODIUM LEVEL 142 MMOL/L (136-145)
[2025-03-07 10:33] LABS: MAGNESIUM LEVEL 1.5 MG/DL (1.8-2.4); PHOSPHORUS LEVEL 2.8 MG/DL (2.5-4.9)
[2025-03-07] MEDS: MAG SULF 1GM/100ML (MAG RUN) 1 GM in IV 1 EA IV SCH (17:07)
[2025-03-07] MEDS: HYDROMORPHONE HCL 0.5 MG/0.5 ML SYRINGE IV ONE (17:07)
[2025-03-07] MEDS: D5W/0.9% SODIUM CHLORIDE 1,000 ML IV SCH (18:00)
[2025-03-07] MEDS ORDERED: NALOXONE INJ 0.4 MG/1 ML VIAL IV PRN (23:55)
[2025-03-08] MEDS: ACETAMINOPHEN *IV* 1,000 MG in IV 1 EA IV SCH (00:41)
[2025-03-08] MEDS: HYDROmorphone HCL 2 MG/ML 1 ML VIAL IV PRN (00:41)
[2025-03-08 03:53] VITALS: BP 116/79; TEMP 97.9; O2SAT 99
[2025-03-08 05:41] LABS: BASO # 0.0 10^3/uL (0.0-0.2); BASO % 0.3 % (0.0-1.0); EOS # 0.2 10^3/uL (0.0-0.5); EOS % 2.9 % (0.0-3.0); LYMPH # 2.3 10^3/uL (1.5-5.0); LYMPH % 31.1 % (24.0-44.0); MONO # 0.8 10^3/uL (0.0-0.8); MONO % 10.3 % (2.0-8.0); NEUTROPHILS # 4.0 10^3/uL (1.5-8.5); NEUTROPHILS % 55.1 % (36.0-66.0); PLATELET COUNT, AUTOMATED 249 10^3/uL (150-450)
[2025-03-08 06:07] LABS: CALCIUM LEVEL 8.3 MG/DL (8.5-10.1); CARBON DIOXIDE LEVEL 27 MMOL/L (20-31); CHLORIDE LEVEL 103 MMOL/L (98-107); CREATININE FOR GFR 0.65 MG/DL (0.55-1.30); GLOMERULAR FILTRATION RATE > 90.0 (>58); POTASSIUM SERUM 3.4 MMOL/L (3.5-5.1); SODIUM LEVEL 141 MMOL/L (136-145)
[2025-03-08 08:00] VITALS: BP 123/81; TEMP 97.7; O2SAT 98
[2025-03-08 08:17] LABS: MAGNESIUM LEVEL 1.9 MG/DL (1.8-2.4)
[2025-03-08] MEDS: KCL 40MEQ IN D5/NS 1000ML 1,000 ML IV SCH (10:55)
[2025-03-08 12:00] VITALS: BP 143/99; TEMP 97.7; O2SAT 97
[2025-03-08 16:00] VITALS: BP 152/103; TEMP 97.7; O2SAT 99
[2025-03-08] MEDS: AMINO AC/ELECTROLYTE/DEX/CALC 1,000 ML IV SCH (18:39)
[2025-03-08] MEDS: FAT EMULSION IV 250 ML IV ONE (18:41)
[2025-03-08 20:20] VITALS: BP 158/106; TEMP 97.3; O2SAT 99
[2025-03-08] MEDS: HYDROMORPHONE HCL 0.5 MG/0.5 ML SYRINGE IV PRN (20:23)
[2025-03-09 04:49] VITALS: BP 146/103; TEMP 97.3; O2SAT 99
[2025-03-09 05:50] LABS: BASO # 0.0 10^3/uL (0.0-0.2); BASO % 0.4 % (0.0-1.0); EOS # 0.3 10^3/uL (0.0-0.5); EOS % 3.7 % (0.0-3.0); LYMPH # 2.5 10^3/uL (1.5-5.0); LYMPH % 32.7 % (24.0-44.0); MONO # 0.7 10^3/uL (0.0-0.8); MONO % 8.8 % (2.0-8.0); NEUTROPHILS # 4.2 10^3/uL (1.5-8.5); NEUTROPHILS % 54.3 % (36.0-66.0); PLATELET COUNT, AUTOMATED 277 10^3/uL (150-450)
[2025-03-09 06:28] LABS: CALCIUM LEVEL 8.8 MG/DL (8.5-10.1); CARBON DIOXIDE LEVEL 25 MMOL/L (20-31); CHLORIDE LEVEL 104 MMOL/L (98-107); CREATININE FOR GFR 0.62 MG/DL (0.55-1.30); GLOMERULAR FILTRATION RATE > 90.0 (>58); POTASSIUM SERUM 3.7 MMOL/L (3.5-5.1); SODIUM LEVEL 143 MMOL/L (136-145)
[2025-03-09 08:00] VITALS: BP 151/97; TEMP 97.7; O2SAT 97
[2025-03-09 12:00] VITALS: BP 169/111; TEMP 97.5; O2SAT 97
[2025-03-09] MEDS: KETOROLAC 30 MG/ML 1 ML VIAL IM ONE (15:53)
[2025-03-09] MEDS ORDERED: KETOROLAC 60 MG/2 ML VIAL IM ONE (16:00)
[2025-03-09] MEDS ORDERED: SODIUM CHLORIDE 0.9% INJ 10 ML SYR IV PRN (17:20)
[2025-03-09 17:25] VITALS: BP 179/102; TEMP 97.7; O2SAT 100
[2025-03-09] MEDS: SODIUM CHLORIDE 0.9% INJ 10 ML SYR IV SCH (17:39)
[2025-03-09] MEDS ORDERED: FAT EMULSION IV 250 ML IV ONE (18:00)
[2025-03-09 20:10] VITALS: BP 162/92; TEMP 97.5; O2SAT 99
[2025-03-09] MEDS: FAT EMULSION IV 250 ML IV ONE (20:50)
[2025-03-09] MEDS: AMINO AC/ELECTROLYTE/DEX/CALC 1,000 ML IV SCH (20:51)
[2025-03-10 00:06] VITALS: BP 104/58; TEMP 97.5; O2SAT 96
[2025-03-10 04:50] VITALS: BP 137/88; TEMP 97.5; O2SAT 97
[2025-03-10 06:31] LABS: BASO # 0.0 10^3/uL (0.0-0.2); BASO % 0.4 % (0.0-1.0); EOS # 0.3 10^3/uL (0.0-0.5); EOS % 4.1 % (0.0-3.0); LYMPH # 2.3 10^3/uL (1.5-5.0); LYMPH % 28.8 % (24.0-44.0); MONO # 0.7 10^3/uL (0.0-0.8); MONO % 8.2 % (2.0-8.0); NEUTROPHILS # 4.7 10^3/uL (1.5-8.5); NEUTROPHILS % 58.3 % (36.0-66.0); PLATELET COUNT, AUTOMATED 289 10^3/uL (150-450)
[2025-03-10 07:02] LABS: CALCIUM LEVEL 8.8 MG/DL (8.5-10.1); CARBON DIOXIDE LEVEL 23 MMOL/L (20-31); CHLORIDE LEVEL 102 MMOL/L (98-107); CREATININE FOR GFR 0.62 MG/DL (0.55-1.30); GLOMERULAR FILTRATION RATE > 90.0 (>58); POTASSIUM SERUM 3.8 MMOL/L (3.5-5.1); SODIUM LEVEL 140 MMOL/L (136-145)
[2025-03-10 12:00] VITALS: BP 138/108; TEMP 97.9; O2SAT 91
[2025-03-10] MEDS ORDERED: INSULIN LISPRO (NovoLOG) PER UNIT SC SCH (18:00)
[2025-03-10] MEDS: FAT EMULSION IV 250 ML IV ONE (18:25)
[2025-03-10] MEDS: AMINO AC/ELECTROLYTE/DEX/CALC 1,000 ML IV SCH (18:25)
[2025-03-10 20:07] VITALS: BP 150/98; TEMP 97.3; O2SAT 99
[2025-03-11 04:09] VITALS: BP 114/78; TEMP 98.6; O2SAT 98
[2025-03-11 06:33] LABS: BASO # 0.0 10^3/uL (0.0-0.2); BASO % 0.4 % (0.0-1.0); EOS # 0.3 10^3/uL (0.0-0.5); EOS % 4.4 % (0.0-3.0); LYMPH # 1.8 10^3/uL (1.5-5.0); LYMPH % 25.2 % (24.0-44.0); MONO # 0.7 10^3/uL (0.0-0.8); MONO % 9.8 % (2.0-8.0); NEUTROPHILS # 4.3 10^3/uL (1.5-8.5); NEUTROPHILS % 59.9 % (36.0-66.0); PLATELET COUNT, AUTOMATED 301 10^3/uL (150-450)
[2025-03-11 07:05] LABS: CALCIUM LEVEL 8.7 MG/DL (8.5-10.1); CARBON DIOXIDE LEVEL 25 MMOL/L (20-31); CHLORIDE LEVEL 102 MMOL/L (98-107); CREATININE FOR GFR 0.59 MG/DL (0.55-1.30); GLOMERULAR FILTRATION RATE > 90.0 (>58); POTASSIUM SERUM 3.5 MMOL/L (3.5-5.1); SODIUM LEVEL 142 MMOL/L (136-145)
[2025-03-11] MEDS: GLUCOSE 4 GM CHEW PO PRN (09:04)
[2025-03-11 09:08] VITALS: BP 120/95
[2025-03-11 11:52] VITALS: BP 147/113; TEMP 97.5; O2SAT 98
[2025-03-11 13:13] VITALS: BP 122/98
[2025-03-11] MEDS: AMINO AC/ELECTROLYTE/DEX/CALC 2,000 ML IV ONE (15:25)
[2025-03-11] MEDS ORDERED: FAT EMULSION IV 250 ML IV ONE (16:00)
[2025-03-11] MEDS ORDERED: INSULIN LISPRO (NovoLOG) PER UNIT SC SCH (18:00)
== END 2025-03-11 15:29 | disposition short-term general hospital (02) | DRG 389 ==
LOC: M ED 17:57 → M ED INP 23:42 → M MSPAV 03-04 18:20
PROVIDERS: ADMIT Family Medicine; ATTEND Internal Medicine
PROC: 3E0536Z Introduction of Nutritional Substance into Peripheral Artery, Percutaneous Approach (ICD-10-PCS; principal; 2025-03-08)
DX: K56.51 Intestinal adhesions [bands], with partial obstruction (principal); K86.1 Other chronic pancreatitis; G40.909 Epilepsy, unspecified, not intractable, without status epilepticus; G90.A Postural orthostatic tachycardia syndrome [POTS]; D50.9 Iron deficiency anemia, unspecified; E83.42 Hypomagnesemia; I10 Essential (primary) hypertension; E78.5 Hyperlipidemia, unspecified; E11.9 Type 2 diabetes mellitus without complications; G43.909 Migraine, unspecified, not intractable, without status migrainosus; K86.89 Other specified diseases of pancreas; G47.00 Insomnia, unspecified; F39 Unspecified mood [affective] disorder; E55.9 Vitamin D deficiency, unspecified; K21.9 Gastro-esophageal reflux disease without esophagitis; Z79.84 Long term (current) use of oral hypoglycemic drugs; Z79.899 Other long term (current) drug therapy; Z88.8 Allergy status to other drugs, medicaments and biological substances; Z90.49 Acquired absence of other specified parts of digestive tract

== ENCOUNTER 2025-04-08 14:52 | Emergency (ER) | payer OTHER ==
[~2025-04-08] VITALS: Ht 162.6 cm; Wt 65.6 kg
[2025-04-08 16:09] LABS: VENOUS BASE EXCESS -4.7 (-2.0-2.0); VENOUS HCO3 23.7 MMOL/L (23.0-27.0); VENOUS O2 SATURATION 56.2 % (60.0-80.0); VENOUS PARTIAL PRESSURE CO2 56.7 mmHg (38.0-50.0); VENOUS PARTIAL PRESSURE O2 32.1 mmHg (30.0-50.0); VENOUS PH 7.239 UNITS (7.330-7.430); VENOUS STANDARD HCO3 19.6 MMOL/L; VENOUS TOTAL CO2 25.4 MMOL/L (24.0-28.0)
[2025-04-08 16:19] LABS: KETONE, URINE AUTO RFX NEGATIVE (NEGATIVE); LEUKOCYTE ESTERASE UR AUTO RFX NEGATIVE (NEGATIVE); NITRITE, URINE AUTO RFX NEGATIVE (NEGATIVE); RBC, URINE AUTO RFX 0 /HPF (0-3); SQUAM EPITHELIAL CELL UR AURFX 1 /HPF (0-6); WBC, URINE AUTO RFX 2 /HPF (0-3)
[2025-04-08 16:25] LABS: BASO # 0.1 10^3/uL (0.0-0.2); BASO % 1.0 % (0.0-1.0); EOS # 0.3 10^3/uL (0.0-0.5); EOS % 3.6 % (0.0-3.0); LYMPH # 2.8 10^3/uL (1.5-5.0); LYMPH % 35.1 % (24.0-44.0); MONO # 0.5 10^3/uL (0.0-0.8); MONO % 6.4 % (2.0-8.0); NEUTROPHILS # 4.2 10^3/uL (1.5-8.5); NEUTROPHILS % 53.3 % (36.0-66.0); PLATELET COUNT, AUTOMATED 506 10^3/uL (150-450)
[2025-04-08 17:00] VITALS: BP 94/57
[2025-04-08] MEDS ORDERED: MAGN1TAB26 PO (17:00)
[2025-04-08] MEDS ORDERED: LEXA1TAB2 PO (17:00)
[2025-04-08] MEDS ORDERED: HOME MED LIST COMPLETE! XX SCH (17:00)
[2025-04-08] MEDS ORDERED: BUSP15TA47 PO (17:00)
[2025-04-08 17:05] LABS: ESTIMATED AVERAGE GLUCOSE 140.0 MG/DL (60-110)
[2025-04-08 17:06] LABS: ACETONE/KETONE 0.16 MMOL/L (0.02-0.27)
[2025-04-08 17:09] LABS: ALT/SGPT 72 U/L (7.0-40); AST/SGOT 53 U/L (<34); CALCIUM LEVEL 10.1 MG/DL (8.5-10.1); CARBON DIOXIDE LEVEL 24 MMOL/L (20-31); CHLORIDE LEVEL 101 MMOL/L (98-107); CREATININE FOR GFR 0.84 MG/DL (0.55-1.30); GLOMERULAR FILTRATION RATE 88.9 (>58); POTASSIUM SERUM 5.5 MMOL/L (3.5-5.1); SODIUM LEVEL 137 MMOL/L (136-145)
[2025-04-08 17:11] LABS: OSMOLALITY SERUM 300 MOSM/KG (275-295)
[2025-04-08 17:43] LABS: ABG BASE EXCESS -5.4 (-2.0-2.0); ABG HCO3 18.1 MMOL/L (22.0-26.0); ABG O2 SATURATION 98.2 % (95.0-99.0); ABG PARTIAL PRESSURE CO2 29.8 mmHg (35.0-45.0); ABG PARTIAL PRESSURE O2 103.2 mmHg (75.0-100.0); ABG STANDARD HCO3 20.1 MMOL/L. (22.0-26.0); ABG TOTAL CO2 19.0 MMOL/L (22.0-29.0); ABG pH (ARTERIAL) 7.401 UNITS (7.350-7.450)
[2025-04-08 17:57] LABS: CPK CREATINE PHOSPHOKINASE 42 U/L (34-145)
[2025-04-08] MEDS: PATIROMER SORBITEX CALCIUM 8.4GM POWDER PACKET PO ONE (18:08)
[2025-04-08 18:22] VITALS: TEMP 97.3; O2SAT 98
== END 2025-04-08 18:27 | disposition home or self-care (01) ==
LOC: M ED 14:52
DX: E87.5 Hyperkalemia (principal); E11.9 Type 2 diabetes mellitus without complications; K21.9 Gastro-esophageal reflux disease without esophagitis; G90.A Postural orthostatic tachycardia syndrome [POTS]; Z88.8 Allergy status to other drugs, medicaments and biological substances; Z79.84 Long term (current) use of oral hypoglycemic drugs; Z79.899 Other long term (current) drug therapy; Z79.810 Long term (current) use of selective estrogen receptor modulators (SERMs)

== ENCOUNTER 2025-04-13 12:25 | Inpatient (IN) | payer OTHER ==
[~2025-04-13] VITALS: Ht 162.6 cm; Wt 67.5 kg
[~2025-04-13 12:25] MED LIST changes: +BUSP15TA47 PO; +LEXA1TAB2 PO; +MAGN1TAB26 PO
[2025-04-13 13:32] LABS: BASO # 0.1 10^3/uL (0.0-0.2); BASO % 0.8 % (0.0-1.0); EOS # 0.3 10^3/uL (0.0-0.5); EOS % 3.5 % (0.0-3.0); LYMPH # 2.9 10^3/uL (1.5-5.0); LYMPH % 32.3 % (24.0-44.0); MONO # 0.5 10^3/uL (0.0-0.8); MONO % 5.1 % (2.0-8.0); NEUTROPHILS # 5.2 10^3/uL (1.5-8.5); NEUTROPHILS % 57.9 % (36.0-66.0); PLATELET COUNT, AUTOMATED 476 10^3/uL (150-450)
[2025-04-13 13:46] LABS: INR 0.86
[2025-04-13 13:59] LABS: ALT/SGPT 45 U/L (7.0-40); AST/SGOT 33 U/L (<34); CALCIUM LEVEL 9.9 MG/DL (8.5-10.1); CARBON DIOXIDE LEVEL 30 MMOL/L (20-31); CHLORIDE LEVEL 100 MMOL/L (98-107); CREATININE FOR GFR 0.92 MG/DL (0.55-1.30); GLOMERULAR FILTRATION RATE 79.7 (>58); POTASSIUM SERUM 5.8 MMOL/L (3.5-5.1); SODIUM LEVEL 139 MMOL/L (136-145)
[2025-04-13] MEDS ORDERED: TRAZ-257 PO (14:11)
[2025-04-13] MEDS ORDERED: NOVOINJ3 SUBQ (14:11)
[2025-04-13] MEDS ORDERED: HOME MED LIST COMPLETE! XX SCH (14:15)
[2025-04-13] MEDS: NS (Normal Saline) 0.9% 1,000 ML IV ONE (14:40)
[2025-04-13] MEDS: PATIROMER SORBITEX CALCIUM 8.4GM POWDER PACKET PO ONE (16:22)
[2025-04-13 16:36] LABS: MAGNESIUM LEVEL 1.2 MG/DL (1.8-2.4)
[2025-04-13] MEDS ORDERED: DEXTROSE 50% 50 ML SYRINGE IV PRN (17:10)
[2025-04-13] MEDS ORDERED: GLUCAGON INJ 1 MG VIAL SC PRN (17:10)
[2025-04-13] MEDS ORDERED: GLUCOSE 4 GM CHEW PO PRN (17:10)
[2025-04-13] MEDS: INSULIN LISPRO (NovoLOG) PER UNIT SC SCH ×2 (17:30→21:00)
[2025-04-13] MEDS: MAG SULF 1GM/100ML (MAG RUN) 1 GM in IV 1 EA IV SCH (18:12)
[2025-04-13] MEDS: NS (Normal Saline) 0.9% 1,000 ML IV SCH (18:12)
[2025-04-13] MEDS ORDERED: CREON-12 CAPSULE (PANCRELIPASE) PO PRN (18:30)
[2025-04-13] MEDS ORDERED: METAMUCIL PACKET PO PRN (18:35)
[2025-04-13 19:17] LABS: CK-MB VALUE MASS < 1.0 NG/ML (<3.6)
[2025-04-13 19:18] LABS: CPK CREATINE PHOSPHOKINASE 37 U/L (34-145)
[2025-04-13 19:23] LABS: INR 0.88
[2025-04-13 19:43] LABS: CHOLESTEROL LEVEL 291 MG/DL (<200); CHOLESTEROL RISK RATIO 4.33 (<5); LDL CHOLESTEROL 166.3 MG/DL (<100); NON-HDL-C 223.9 MG/DL; TRIGLYCERIDES LEVEL 288 MG/DL (<150)
[2025-04-13 20:07] LABS: PTH INTACT 30.4 PG/ML (18.5-88.0)
[2025-04-13] MEDS: ONDANSETRON 4MG TAB PO SCH (20:07)
[2025-04-13 20:10] LABS: ESTIMATED AVERAGE GLUCOSE 137.0 MG/DL (60-110)
[2025-04-13 20:31] VITALS: BP 124/72; TEMP 97.3; O2SAT 99
[2025-04-13] MEDS: busPIRone 5 MG TAB PO SCH (20:46)
[2025-04-13] MEDS: ROSUVASTATIN 10 MG TAB PO SCH (20:46)
[2025-04-13] MEDS: PANTOPRAZOLE 20 MG TAB PO SCH (20:47)
[2025-04-13] MEDS: MAGNESIUM OXIDE 400 MG TAB PO SCH (20:47)
[2025-04-13] MEDS: ESCITALOPRAM OXALATE 10 MG TABLET PO SCH (20:47)
[2025-04-13] MEDS: ACETAMINOPHEN 325 MG TAB PO PRN (20:48)
[2025-04-13] MEDS ORDERED: ENTER DRUG NAME HERE (PATIENT'S OWN MED) PO SCH (21:00)
[2025-04-13] MEDS ORDERED: MAGNESIUM OXIDE 400 MG TAB PO SCH ×2 (21:00)
[2025-04-13 23:01] LABS: CALCIUM LEVEL 9.5 MG/DL (8.5-10.1); CARBON DIOXIDE LEVEL 28 MMOL/L (20-31); CHLORIDE LEVEL 104 MMOL/L (98-107); CREATININE FOR GFR 0.76 MG/DL (0.55-1.30); GLOMERULAR FILTRATION RATE > 90.0 (>58); MAGNESIUM LEVEL 1.9 MG/DL (1.8-2.4); POTASSIUM SERUM 5.4 MMOL/L (3.5-5.1); SODIUM LEVEL 140 MMOL/L (136-145)
[2025-04-14] MEDS: HumuLIN R (REGULAR) INSULIN (NovoLIN R) **100 U/ML** PER UNIT IV STA (00:01)
[2025-04-14] MEDS: FUROSEMIDE 40 MG/4 ML VIAL IV ONE (00:02)
[2025-04-14] MEDS: DEXTROSE 50% 50 ML SYRINGE IV STA (00:02)
[2025-04-14 00:30] VITALS: BP 117/68; TEMP 97.5; O2SAT 100
[2025-04-14 03:25] VITALS: BP 118/70; TEMP 97.3; O2SAT 99
[2025-04-14 06:34] LABS: PLATELET COUNT, AUTOMATED 413 10^3/uL (150-450)
[2025-04-14 06:57] LABS: CORTISOL AM 2.8 UG/DL (4.3-22.4)
[2025-04-14 06:59] LABS: ALT/SGPT 46 U/L (7.0-40); AST/SGOT 39 U/L (<34); CALCIUM LEVEL 9.5 MG/DL (8.5-10.1); CARBON DIOXIDE LEVEL 27 MMOL/L (20-31); CHLORIDE LEVEL 103 MMOL/L (98-107); CREATININE FOR GFR 0.79 MG/DL (0.55-1.30); GLOMERULAR FILTRATION RATE > 90.0 (>58); MAGNESIUM LEVEL 1.5 MG/DL (1.8-2.4); PHOSPHORUS LEVEL 4.2 MG/DL (2.5-4.9); POTASSIUM SERUM 5.4 MMOL/L (3.5-5.1); SODIUM LEVEL 140 MMOL/L (136-145)
[2025-04-14] MEDS: MAG SULF 1GM/100ML (MAG RUN) 1 GM in IV 1 EA IV SCH (08:25)
[2025-04-14] MEDS: ENOXAPARIN 40 MG/0.4 ML SYRINGE (J1650 PER 10MG) SC SCH (08:25)
[2025-04-14] MEDS: CREON-24 CAPSULE (PANCRELIPASE) PO SCH (08:46)
[2025-04-14] MEDS: METAMUCIL PACKET PO SCH (09:00)
[2025-04-14 12:00] VITALS: BP 97/62; TEMP 96.6; O2SAT 95
[2025-04-14] MEDS: PATIROMER SORBITEX CALCIUM 8.4GM POWDER PACKET PO SCH (12:07)
[2025-04-14 20:37] VITALS: BP 158/97; TEMP 97.5; O2SAT 98
[2025-04-14] MEDS: traZODone 100 MG TAB PO PRN (21:06)
[2025-04-15] MEDS: RAMELTEON 8 MG TAB PO PRN (02:04)
[2025-04-15 04:50] VITALS: BP 93/57; TEMP 97; O2SAT 97
[2025-04-15] MEDS: COSYNTROPIN 0.25 MG/ML 1ML VIAL IV ONE (08:02)
[2025-04-15 08:15] LABS: PLATELET COUNT, AUTOMATED 331 10^3/uL (150-450)
[2025-04-15 08:18] VITALS: BP 150/85
[2025-04-15 08:42] LABS: ALT/SGPT 37 U/L (7.0-40); AST/SGOT 32 U/L (<34); CALCIUM LEVEL 9.0 MG/DL (8.5-10.1); CARBON DIOXIDE LEVEL 24 MMOL/L (20-31); CHLORIDE LEVEL 107 MMOL/L (98-107); CREATININE FOR GFR 0.78 MG/DL (0.55-1.30); GLOMERULAR FILTRATION RATE > 90.0 (>58); POTASSIUM SERUM 4.8 MMOL/L (3.5-5.1); SODIUM LEVEL 141 MMOL/L (136-145)
[2025-04-15 09:59] LABS: MAGNESIUM LEVEL 1.6 MG/DL (1.8-2.4)
[2025-04-15] MEDS: MAG SULF 1GM/100ML (MAG RUN) 1 GM in IV 1 EA IV SCH (11:12)
== END 2025-04-15 13:42 | disposition home or self-care (01) | DRG 641 ==
LOC: M ED 12:25 → M ED INP 17:08 → M MSPAV 20:22
PROVIDERS: ADMIT Internal Medicine; ATTEND Internal Medicine
DX: E87.5 Hyperkalemia (principal); K86.1 Other chronic pancreatitis; G40.909 Epilepsy, unspecified, not intractable, without status epilepticus; G90.A Postural orthostatic tachycardia syndrome [POTS]; D50.9 Iron deficiency anemia, unspecified; E83.42 Hypomagnesemia; I10 Essential (primary) hypertension; E78.5 Hyperlipidemia, unspecified; E11.9 Type 2 diabetes mellitus without complications; G43.909 Migraine, unspecified, not intractable, without status migrainosus; F39 Unspecified mood [affective] disorder; K21.9 Gastro-esophageal reflux disease without esophagitis; G47.00 Insomnia, unspecified; Z93.2 Ileostomy status; Z79.4 Long term (current) use of insulin; Z79.84 Long term (current) use of oral hypoglycemic drugs; Z79.899 Other long term (current) drug therapy; Z88.8 Allergy status to other drugs, medicaments and biological substances; Z90.49 Acquired absence of other specified parts of digestive tract; R11.0 Nausea

== ENCOUNTER 2025-07-02 16:11 | Inpatient (IN) | payer OTHER ==
[~2025-07-02] VITALS: Ht 162.6 cm; Wt 74.3 kg
[~2025-07-02 16:11] MED LIST changes: +NOVOINJ3 SUBQ; +TRAZ-257 PO; +ZOLP10TA11 PO; -ZOLP10TA2 PO
[2025-07-02] MEDS: ONDANSETRON 4MG/2ML VIAL IV ONE (17:05)
[2025-07-02 17:18] LABS: VENOUS BASE EXCESS -6.7 (-2.0-2.0); VENOUS HCO3 21.7 MMOL/L (23.0-27.0); VENOUS O2 SATURATION 62.6 % (60.0-80.0); VENOUS PARTIAL PRESSURE CO2 53.8 mmHg (38.0-50.0); VENOUS PARTIAL PRESSURE O2 36.3 mmHg (30.0-50.0); VENOUS PH 7.223 UNITS (7.330-7.430); VENOUS STANDARD HCO3 18.2 MMOL/L; VENOUS TOTAL CO2 23.3 MMOL/L (24.0-28.0)
[2025-07-02 17:25] LABS: BASO # 0.1 10^3/uL (0.0-0.2); BASO % 0.5 % (0.0-1.0); EOS # 0.0 10^3/uL (0.0-0.5); EOS % 0.1 % (0.0-3.0); LYMPH # 3.5 10^3/uL (1.5-5.0); LYMPH % 19.2 % (24.0-44.0); MONO # 0.8 10^3/uL (0.0-0.8); MONO % 4.5 % (2.0-8.0); NEUTROPHILS # 13.8 10^3/uL (1.5-8.5); NEUTROPHILS % 75.0 % (36.0-66.0); PLATELET COUNT, AUTOMATED 451 10^3/uL (150-450)
[2025-07-02 17:50] LABS: ALT/SGPT 56 U/L (7.0-40); AST/SGOT 53 U/L (<34); CALCIUM LEVEL 10.0 MG/DL (8.5-10.1); CARBON DIOXIDE LEVEL 24 MMOL/L (20-31); CHLORIDE LEVEL 105 MMOL/L (98-107); CREATININE FOR GFR 0.85 MG/DL (0.55-1.30); GLOMERULAR FILTRATION RATE 87.7 (>58); MAGNESIUM LEVEL 1.6 MG/DL (1.8-2.4); POTASSIUM SERUM 4.6 MMOL/L (3.5-5.1); SODIUM LEVEL 143 MMOL/L (136-145)
[2025-07-02 18:41] LABS: KETONE, URINE AUTO RFX NEGATIVE (NEGATIVE); LEUKOCYTE ESTERASE UR AUTO RFX NEGATIVE (NEGATIVE); NITRITE, URINE AUTO RFX NEGATIVE (NEGATIVE); RBC, URINE AUTO RFX 0 /HPF (0-3); SQUAM EPITHELIAL CELL UR AURFX 1 /HPF (0-6); WBC, URINE AUTO RFX 1 /HPF (0-3)
[2025-07-02] MEDS ORDERED: ISOVUE-370 76% 100 ML VIAL As Ordered ONE (18:48)
[2025-07-02 18:50] LABS: ESTIMATED AVERAGE GLUCOSE 157.0 MG/DL (60-110)
[2025-07-02] MEDS: NS (Normal Saline) 0.9% 2,180 ML in IV 1 EA IV STA (18:52)
[2025-07-02] MEDS: MAG SULF 1GM/100ML (MAG RUN) 1 GM in IV 1 EA IV ONE (18:53)
[2025-07-02] MEDS: PIPERACILLIN/TAZOBACTAM SOD 4.5 GM in DEXTROSE 5% (D5W) ADV/MINI-BAG 50 ML IV ONE (18:53)
[2025-07-02 19:02] LABS: BARBITURATES URINE NEGATIVE (NEGATIVE); CANNABINOIDS URINE NEGATIVE (NEGATIVE); COCAINE METABOLITE URINE NEGATIVE (NEGATIVE); METHADONE URINE NEGATIVE (NEGATIVE); OPIATES URINE NEGATIVE (NEGATIVE); PHENCYCLIDINE URINE NEGATIVE (NEGATIVE)
[2025-07-02 19:03] LABS: BENZODIAZEPINES URINE NEGATIVE (NEGATIVE)
[2025-07-02 19:04] LABS: AMPHETAMINES LEVEL URINE POSITIVE (NEGATIVE)
[2025-07-02] MEDS: VANCOMYCIN HCL 1,000 MG, VIAL MATE ADAPTER 1 EACH in NS 250 ML IV ONE (20:07)
[2025-07-02] MEDS: MORPHINE 4 MG/ML 1 ML VIAL IV PRN (21:13)
[2025-07-02] MEDS ORDERED: MAGNESIUM PO (21:58)
[2025-07-02] MEDS ORDERED: PROTEIN PO (21:58)
[2025-07-02] MEDS ORDERED: PREG150C2 PO (22:08)
[2025-07-02] MEDS ORDERED: SUMA50TA2 PO (22:09)
[2025-07-02] MEDS ORDERED: HOME MED LIST COMPLETE! XX SCH (22:10)
[2025-07-02] MEDS ORDERED: GLUCAGON INJ 1 MG VIAL SC PRN (22:30)
[2025-07-02] MEDS ORDERED: ACETAMINOPHEN 325 MG TAB PO PRN (22:30)
[2025-07-02] MEDS ORDERED: DEXTROSE 50% 50 ML SYRINGE IV PRN (22:30)
[2025-07-02] MEDS ORDERED: GLUCOSE 4 GM CHEW PO PRN (22:30)
[2025-07-02] MEDS: HYDROmorphone HCL 2 MG/ML 1 ML VIAL IV PRN (22:47)
[2025-07-02] MEDS: NS (Normal Saline) 0.9% 1,000 ML IV SCH (22:47)
[2025-07-02] MEDS: ONDANSETRON 4MG/2ML VIAL IV PRN (22:51)
[2025-07-02] MEDS: METOPROLOL 5 MG/5 ML VIAL IV SCH (23:45)
[2025-07-03] VITALS (29 sets, daily range): BP systolic 89–190; BP diastolic 51–100; TEMP 97.3–99.4; O2SAT 87–100
[2025-07-03] MEDS: PIPERACILLIN/TAZOBACTAM SOD 3.375 GM in DEXTROSE 5% (D5W) ADV/MINI-BAG 50 ML IV SCH (00:15)
[2025-07-03] MEDS: METOPROLOL 5 MG/5 ML VIAL IV STA (01:54)
[2025-07-03] MEDS: diphenhydrAMINE 50 MG/ML VIAL IM PRN (03:05)
[2025-07-03 06:40] LABS: PLATELET COUNT, AUTOMATED 374 10^3/uL (150-450)
[2025-07-03 06:56] LABS: ALT/SGPT 64 U/L (7.0-40); AST/SGOT 81 U/L (<34); CALCIUM LEVEL 7.9 MG/DL (8.5-10.1); CARBON DIOXIDE LEVEL 22 MMOL/L (20-31); CHLORIDE LEVEL 108 MMOL/L (98-107); CREATININE FOR GFR 0.83 MG/DL (0.55-1.30); GLOMERULAR FILTRATION RATE > 90.0 (>58); MAGNESIUM LEVEL 1.6 MG/DL (1.8-2.4); POTASSIUM SERUM 4.6 MMOL/L (3.5-5.1); SODIUM LEVEL 140 MMOL/L (136-145)
[2025-07-03] MEDS: INSULIN LISPRO (NovoLOG) PER UNIT SC SCH (07:30)
[2025-07-03] MEDS: ENOXAPARIN 40 MG/0.4 ML SYRINGE (J1650 PER 10MG) SC SCH (08:45)
[2025-07-03] MEDS: PANTOPRAZOLE 40MG TAB PO SCH (08:47)
[2025-07-04] VITALS (29 sets, daily range): BP systolic 119–177; BP diastolic 61–99; TEMP 96.9–98.2; O2SAT 93–100
[2025-07-04] MEDS ORDERED: LANTINJ4 SC (07:31)
[2025-07-04] MEDS ORDERED: HUMA100I5 SC (07:31)
[2025-07-04 08:18] LABS: BASO # 0.1 10^3/uL (0.0-0.2); BASO % 0.6 % (0.0-1.0); EOS # 0.4 10^3/uL (0.0-0.5); EOS % 4.5 % (0.0-3.0); LYMPH # 2.1 10^3/uL (1.5-5.0); LYMPH % 25.9 % (24.0-44.0); MONO # 0.5 10^3/uL (0.0-0.8); MONO % 6.2 % (2.0-8.0); NEUTROPHILS # 5.1 10^3/uL (1.5-8.5); NEUTROPHILS % 62.3 % (36.0-66.0); PLATELET COUNT, AUTOMATED 274 10^3/uL (150-450)
[2025-07-04 08:50] LABS: ALT/SGPT 138.0 U/L (7.0-40); AST/SGOT 124.0 U/L (<34); CALCIUM LEVEL 8.1 MG/DL (8.5-10.1); CARBON DIOXIDE LEVEL 24 MMOL/L (20-31); CHLORIDE LEVEL 105 MMOL/L (98-107); CREATININE FOR GFR 0.74 MG/DL (0.55-1.30); GLOMERULAR FILTRATION RATE > 90.0 (>58); MAGNESIUM LEVEL 1.5 MG/DL (1.8-2.4); POTASSIUM SERUM 4.3 MMOL/L (3.5-5.1); SODIUM LEVEL 139 MMOL/L (136-145)
[2025-07-04 08:51] LABS: ALT/SGPT 137 U/L (7.0-40); AST/SGOT 123 U/L (<34); CALCIUM LEVEL 8.1 MG/DL (8.5-10.1); CARBON DIOXIDE LEVEL 23 MMOL/L (20-31); CHLORIDE LEVEL 107 MMOL/L (98-107); CREATININE FOR GFR 0.74 MG/DL (0.55-1.30); GLOMERULAR FILTRATION RATE > 90.0 (>58); POTASSIUM SERUM 4.3 MMOL/L (3.5-5.1); SODIUM LEVEL 140 MMOL/L (136-145)
[2025-07-04] MEDS: MAG SULF 1GM/100ML (MAG RUN) 1 GM in IV 1 EA IV ONE (09:45)
[2025-07-05] VITALS (10 sets, daily range): BP systolic 113–178; BP diastolic 60–101; TEMP 97.1–98.8; O2SAT 93–100
[2025-07-05 05:39] LABS: PLATELET COUNT, AUTOMATED 242 10^3/uL (150-450)
[2025-07-05] MEDS ORDERED: NALOXONE INJ 0.4 MG/1 ML VIAL IV PRN (08:45)
[2025-07-05] MEDS ORDERED: HYDROmorphone HCL 2 MG/ML 1 ML VIAL IV PRN (09:05)
[2025-07-05] MEDS: MAG SULF 1GM/100ML (MAG RUN) 1 GM in IV 1 EA IV SCH (09:53)
[2025-07-06] VITALS (7 sets, daily range): BP systolic 140–178; BP diastolic 86–98; TEMP 98.2–98.3; O2SAT 95–98
[2025-07-06] MEDS: CALCIUM GLUCONATE 1,000 MG in DEXTROSE 5% (D5W) MINI-BAG PLU 100 ML IV ONE (07:39)
[2025-07-06 07:44] LABS: BASO # 0.0 10^3/uL (0.0-0.2); BASO % 0.5 % (0.0-1.0); EOS # 0.4 10^3/uL (0.0-0.5); EOS % 4.2 % (0.0-3.0); LYMPH # 1.8 10^3/uL (1.5-5.0); LYMPH % 21.5 % (24.0-44.0); MONO # 0.4 10^3/uL (0.0-0.8); MONO % 5.1 % (2.0-8.0); NEUTROPHILS # 5.8 10^3/uL (1.5-8.5); NEUTROPHILS % 68.5 % (36.0-66.0); PLATELET COUNT, AUTOMATED 277 10^3/uL (150-450)
[2025-07-06 08:13] LABS: CALCIUM LEVEL 8.2 MG/DL (8.5-10.1); CARBON DIOXIDE LEVEL 24 MMOL/L (20-31); CHLORIDE LEVEL 107 MMOL/L (98-107); CREATININE FOR GFR 0.69 MG/DL (0.55-1.30); GLOMERULAR FILTRATION RATE > 90.0 (>58); MAGNESIUM LEVEL 1.5 MG/DL (1.8-2.4); POTASSIUM SERUM 3.9 MMOL/L (3.5-5.1); SODIUM LEVEL 140 MMOL/L (136-145)
[2025-07-06] MEDS: MAG SULF 1GM/100ML (MAG RUN) 1 GM in IV 1 EA IV SCH (09:04)
[2025-07-07 04:15] VITALS: BP 151/94; TEMP 97.6; O2SAT 95
[2025-07-07] MEDS: MAGNESIUM OXIDE 400 MG TAB PO SCH (08:33)
[2025-07-07 08:34] VITALS: BP 179/92
[2025-07-07] MEDS: MAG SULF 1GM/100ML (MAG RUN) 1 GM in IV 1 EA IV SCH (09:47)
[2025-07-07 12:00] VITALS: TEMP 97.7; O2SAT 100
[2025-07-07] MEDS ORDERED: LEVO75TAB PO (14:50)
== END 2025-07-07 16:11 | disposition home or self-care (01) | DRG 440 ==
LOC: M ED 16:11 → M ED INP 22:30 → M PCU 07-03 01:36 → M MS4PR 07-06 01:39 → M PM&R 07-06 16:09 → M MS4PR 07-06 16:17
PROVIDERS: ADMIT Internal Medicine; ATTEND Internal Medicine
DX: K85.90 Acute pancreatitis without necrosis or infection, unspecified (principal); G40.909 Epilepsy, unspecified, not intractable, without status epilepticus; K86.89 Other specified diseases of pancreas; G90.A Postural orthostatic tachycardia syndrome [POTS]; D50.9 Iron deficiency anemia, unspecified; I10 Essential (primary) hypertension; E78.5 Hyperlipidemia, unspecified; E11.9 Type 2 diabetes mellitus without complications; G43.909 Migraine, unspecified, not intractable, without status migrainosus; G47.00 Insomnia, unspecified; F39 Unspecified mood [affective] disorder; K21.9 Gastro-esophageal reflux disease without esophagitis; R74.01 Elevation of levels of liver transaminase levels; E83.51 Hypocalcemia; E83.42 Hypomagnesemia; Z90.49 Acquired absence of other specified parts of digestive tract; Z88.8 Allergy status to other drugs, medicaments and biological substances; Z93.2 Ileostomy status; Z79.899 Other long term (current) drug therapy; Z79.4 Long term (current) use of insulin